=== PATIENT | female | born 1945 | race Caucasian/White ===

== ENCOUNTER 2017-12-13 10:25 | Inpatient (IN) | payer OTHER ==
[2017-12-13 10:40] VITALS: BMI 19.8
[2017-12-13] MEDS ORDERED: morphine CARPU-JECT 4 MG/1 ML DISP.SYRIN IVPUSH ONE (11:30)
[2017-12-13] MEDS ORDERED: morphine SULFATE 4 MG/ML VIAL ONE (11:49)
[2017-12-13 12:16] LABS: BASO % 0.2 % (0-2.0); EOS % 0.3 % (0-4.5); HEMATOCRIT 39.8 % (32.4-45.2); HEMOGLOBIN 13.1 GM/dL (10.7-15.3); MCH 31.6 pg (25.7-33.7); MEAN CELL VOLUME 95.9 fl (80-96); MEAN PLT VOLUME 7.9 fl (7.5-11.1); MONO % 4.2 % (3.8-10.2); NEUT % 84.3 % (42.8-82.8); PLATELET COUNT 290 K/MM3 (134-434); RBC 4.15 M/mm3 (3.60-5.2); RDW 12.9 % (11.6-15.6); WHITE BLOOD COUNT 15.3 K/mm3 (4.0-10.0)
[2017-12-13 12:28] LABS: INR 0.93 (0.83-1.09); PROTHROMBIN TIME (PATIENT) 10.5 SEC (9.7-13.0)
[2017-12-13 12:38] LABS: ALBUMIN 3.9 g/dl (3.4-5.0); ANION GAP 9 MMOL/L (8-16); BILIRUBIN,TOTAL 0.4 mg/dL (0.2-1.0); BLOOD UREA NITROGEN 16 mg/dL (7-18); CALCIUM 9.6 mg/dL (8.5-10.1); CHLORIDE 109 mmol/L (98-107); CO2 24 mmol/L (21-32); CREATININE 0.6 mg/dL (0.55-1.02); GLUCOSE,RANDOM 114 mg/dL (74-106); POTASSIUM 4.1 mmol/L (3.5-5.1); SGOT/AST 13 U/L (15-37); SGPT/ALT 22 U/L (12-78); SODIUM 142 mmol/L (136-145); TOT PROT 7.3 g/dl (6.4-8.2)
[2017-12-13 12:39] LABS: ALK PHOS 78 U/L (45-117)
--- NOTE | 2017-12-13 13:09 | PDOC ---
History of Present Illness <Dennis Naik - Last Filed: 12/13/17 15:08> - History of Present Illness Initial Comments: Patient is a 72 year old female with PMHx of Multiple Sclerosis (dx 38 years ago ), who was BIBA and presents to the ED s/p mechanical fall. Patient states that she was in her bathroom and was fanning the smoke detector since it went off when she fell backwards. She denies, hitting her head, neck or loss of consciousness. She is now complaining of her chronic right sided leg spasms that are circumferential. Her health care proxy states that her right leg has always been shorter and turned outwards for a while now. She states that she was on short course steroids in the past for her MS but stopped taking them 3 years ago. Denies h/o orthopedic surgery. Normally ambulates with a cane. Allergies: denies Social Hx: Smokes ppd since age 15 Neurologist: Dr. Cohn. <Narda Douglass - Last Filed: 12/13/17 15:31> - General Chief Complaint: Injury Stated Complaint: FALL Time Seen by Provider: 12/13/17 11:13 Past History - Past Medical History CVA: No COPD: No Other medical history: ms - Surgical History Abdominal Surgery: Yes ( A CHILD) - Suicide/Smoking/Psychosocial Hx Smoking History: Current every day smoker Have you smoked in the past 12 months: Yes Number of Cigarettes Smoked Daily: 10 Information on smoking cessation initiated: No Hx Alcohol Use: No Drug/Substance Use Hx: No <Dennis Naik - Last Filed: 12/13/17 15:08> <Narda Douglass - Last Filed: 12/13/17 15:31> - Past Medical History Allergies/Adverse Reactions: Allergies Allergy/AdvReac Type Severity Reaction Status Date / Time No Known Allergies Allergy Verified 12/13/17 10:33 Home Medications: Ambulatory Orders NK [No Known Home Medication] 12/13/17 Review of Systems - Review of Systems Comments:: CONSTITUTIONAL: No fever, no chills, no fatigue EYES: No visual changes ENT: No ear pain, no sore throat CARDIOVASCULAR: No chest pain, no palpitations RESPIRATORY: No cough, no SOB GI: No abdominal pain, no nausea, no vomiting, no constipation, no diarrhea GENITOURINARY: No dysuria, no frequency, no hematuria MUSKULOSKELETAL: + right legs spasms. +right thigh pain. No back pain, no joint pain. SKIN: No rash NEURO: No headache <EvonneNarda - Last Filed: 12/13/17 15:31> *Physical Exam - Vital Signs Last Vital Signs Temp Pulse Resp BP Pulse Ox 97.7 F 96 H 18 131/58 96 12/13/17 10:33 12/13/17 10:33 12/13/17 10:33 12/13/17 10:33 12/13/17 10:33 <Dennis Naik - Last Filed: 12/13/17 15:08> - Vital Signs Last Vital Signs Temp Pulse Resp BP Pulse Ox 97.7 F 96 H 18 131/58 96 12/13/17 10:33 12/13/17 10:33 12/13/17 10:33 12/13/17 10:33 12/13/17 10:33 - Physical Exam Comments: CONSTITUTIONAL: Well-appearing; well-nourished; in no apparent distress HEAD: Normocephalic; atraumatic EYES: PERRL; EOM intact ENMT: External appears normal; normal oropharynx NECK: Supple; nontender; no cervical lymphadenopathy CARD: Normal S1, S2; no murmurs, rubs, or gallops RESP: Normal chest excursion with respiration; breath sounds clear and equal bilaterally; no wheezes, rhonchi, or rales ABD: Soft, non-distended; non-tender; no palpable organomegaly, no palpable hernias EXT: RLE shortened and externally rotated. Tenderness to proximal femur with pain on log rule of extremity. Normal ROM in all four extremities; non-tender to palpation; distal pulses intact SKIN: Warm, dry, no rash NEURO: No focal neurological deficiencies. <EvonneNarda - Last Filed: 12/13/17 15:31> Heart Score/ECG Review - ECG Intrepretation Comment:: EKG interpretation (done on 13-Dec-2017 10:45:40 am) Abnormal EKG Vent. rate 86 bpm Normal sinus rhythm Inferior & Anterior infarct <Narda Douglass - Last Filed: 12/13/17 15:31> ED Treatment Course - LABORATORY CBC & Chemistry Diagram: 12/13/17 12:07 12/13/17 12:07 - ADDITIONAL ORDERS Additional order review: Laboratory Results 12/13/17 12/13/17 12:07 12:07 PT with INR 10.50 INR 0.93 Sodium 142 Potassium 4.1 Chloride 109 H Carbon Dioxide 24 Anion Gap 9 BUN 16 Creatinine 0.6 Creat Clearance w eGFR > 60 Random Glucose 114 H Calcium 9.6 Total Bilirubin 0.4 AST 13 L ALT 22 Alkaline Phosphatase 78 Total Protein 7.3 Albumin 3.9 12/13/17 12:07 RBC 4.15 MCV 95.9 MCHC 33.0 RDW 12.9 MPV 7.9 Neutrophils % 84.3 H Lymphocytes % 11.0 Monocytes % 4.2 Eosinophils % 0.3 Basophils % 0.2 - RADIOLOGY Radiology Studies Ordered: Category Date Time Status LOWER EXTREMITY CT W/O CONTR [CT] Stat CT Scan 12/13/17 13:05 Ordered CHEST - PA [RAD] Stat Radiology 12/13/17 11:29 Completed HIP & PELVIS-RIGHT [RAD] Stat Radiology 12/13/17 11:29 Completed - Medications Given in the ED: ED Medications Discontinued Medications Generic Name Dose Route Start Last Admin Trade Name Freq PRN Reason Stop Dose Admin Morphine Sulfate 4 mg 12/13/17 11:30 12/13/17 12:28 Morphine Injection - IVPUSH 12/13/17 11:31 4 mg ONCE ONE Administration <Dennis Naik - Last Filed: 12/13/17 15:08> - LABORATORY CBC & Chemistry Diagram: 12/13/17 12:07 12/13/17 12:07 - ADDITIONAL ORDERS Additional order review: Laboratory Results 12/13/17 12/13/17 12:07 12:07 PT with INR 10.50 INR 0.93 Sodium 142 Potassium 4.1 Chloride 109 H Carbon Dioxide 24 Anion Gap 9 BUN 16 Creatinine 0.6 Creat Clearance w eGFR > 60 Random Glucose 114 H Calcium 9.6 Total Bilirubin 0.4 AST 13 L ALT 22 Alkaline Phosphatase 78 Total Protein 7.3 Albumin 3.9 12/13/17 12:07 RBC 4.15 MCV 95.9 MCHC 33.0 RDW 12.9 MPV 7.9 Neutrophils % 84.3 H Lymphocytes % 11.0 Monocytes % 4.2 Eosinophils % 0.3 Basophils % 0.2 - Medications Given in the ED: ED Medications Discontinued Medications Generic Name Dose Route Start Last Admin Trade Name Freq PRN Reason Stop Dose Admin Morphine Sulfate 4 mg 12/13/17 11:30 12/13/17 12:28 Morphine Injection - IVPUSH 12/13/17 11:31 4 mg ONCE ONE Administration - Additional Consults Time Called: 15:30 (Repaged Lent/Rene - Ortho) <Narda Douglass - Last Filed: 12/13/17 15:31> Medical Decision Making - Medical Decision Making 12/13/17 15:08 Patient is 72-year-old female with history of MS, on no MS related medication of presents with signs and symptoms of right hip fracture. X-ray reveals nondisplaced O fracture of the right femur which was confirmed by CT. We'll place Mitchell catheter. We will administer pain meds. We'll consult or throat. Will admit. <Dennis Naik - Last Filed: 12/13/17 15:08> *DC/Admit/Observation/Transfer - Discharge Dispostion Decision to Admit order: Yes - Attestations Physician Attestion: 12/13/17 15:08 The documentation was prepared by the scribe under my direct supervision. I have reviewed the documentation which correctly represents the findings, medical decision-making and critical action taken by me. <Dennis Naik - Last Filed: 12/13/17 15:08> - Attestations Scribe Attestion: 12/13/17 13:38 Documentation prepared by Narda Douglass, acting as hospital medical assistant for Dennis Naik MD. <Narda Douglass - Last Filed: 12/13/17 15:31> Diagnosis at time of Disposition: Hip fracture, right Qualifiers: Encounter type: initial encounter Fracture type: closed Qualified Code(s): S72.001A - Fracture of unspecified part of neck of right femur, initial encounter for closed fracture - Discharge Dispostion Condition at time of disposition: Fair
[2017-12-13 13:34] LABS: URINE APPEARANCE CLEAR; URINE BILIRUBIN NEGATIVE (<2.0 mg/dL); URINE COLOR YELLOW; URINE GLUCOSE (UA) NEGATIVE (NEGATIVE); URINE KETONE NEGATIVE (NEGATIVE); URINE LEUK ESTERASE NEGATIVE (NEGATIVE); URINE NITRITE POSITIVE (NEGATIVE); URINE PROTEIN NEGATIVE (NEGATIVE); URINE UROBILINOGEN NEGATIVE mg/dL (0.2-1.0)
[2017-12-13 13:40] LABS: URINE BACTERIA RARE /hpf (NONE SEEN); URINE MUCUS RARE
--- NOTE | 2017-12-13 13:48 | EKG ---
Test Reason : Blood Pressure : / mmHG Vent. Rate : 086 BPM Atrial Rate : 086 BPM P-R Int : 168 ms QRS Dur : 102 ms QT Int : 384 ms P-R-T Axes : 044 -42 064 degrees QTc Int : 459 ms NORMAL SINUS RHYTHM LEFT AXIS DEVIATION INFERIOR INFARCT , AGE UNDETERMINED ANTERIOR INFARCT (CITED ON OR BEFORE 19-JUN-1998) ABNORMAL ECG WHEN COMPARED WITH ECG OF 19-JUN-1998 13:37, INFERIOR INFARCT IS NOW PRESENT QUESTIONABLE CHANGE IN INITIAL FORCES OF ANTERIOR LEADS Confirmed by JC BAIG, OLEGARIO ([id number]) on 12/13/2017 1:48:30 PM Referred By: Confirmed By:OLEGARIO GREENE MD
[2017-12-13] MEDS ORDERED: morphine CARPU-JECT 2 MG/1 ML DISP.SYRIN IVPUSH ONE (15:05)
[2017-12-13] MEDS ORDERED: MORPHINE SULFATE 2 MG/ML VIAL ONE (15:36)
--- NOTE | 2017-12-13 16:16 | PN ---
Progress Note (short form) - Note Progress Note: Pt seen and examined in ER. She is a 72 year old female pt s/p fall today. Has MS, untreated for the past 3 years. Not on steroids currently, or blood thinners. Usually can ambulate with a cane. Right side is affected by MS, poorer balance and strength. C/o pain in the right hip, thigh, anterior groin. PE RLE at her NV baseline. Intact sensation throughout Can flex and extend toes, knee, foot, ankle No obvious deformity Xrays Show a nondisplaced femoral neck fracture with a vertical component. Ct Scan Shows the same, confirms a mildly impacted right femoral neck fracture, vertical component hard to visualize. Imp 72 yo F with MS s/p fall today with a nondisplaced, mildly impacted right femoral neck fracture. Rec Surgery tomorrow, likely cannulated screws. Medical clearance NPO sfter midnight tonight
--- NOTE | 2017-12-13 19:19 | HP ---
Admitting History and Physical - Primary Care Physician PCP: Donna Wood - Admission History of Present Illness: 72 year old female with PMHx of Multiple Sclerosis (dx 38 years ago), who was BIBA and presents to the ED s/p mechanical fall. Patient states that she was in her bathroom and was fanning the smoke detector since it went off when she fell backwards. She denies, hitting her head, neck or loss of consciousness. She is now complaining of her chronic right sided leg spasms that are circumferential. Her health care proxy states that her right leg has always been shorter and turned outwards for a while now. She states that she was on short course steroids in the past for her MS but stopped taking them 3 years ago. - Smoking History Smoking history: Current every day smoker Have you smoked in the past 12 months: Yes Aproximately how many cigarettes per day: 10 - Alcohol/Substance Use Hx Alcohol Use: No Home Medications - Allergies Allergies/Adverse Reactions: Allergies Allergy/AdvReac Type Severity Reaction Status Date / Time No Known Allergies Allergy Verified 12/13/17 10:33 - Home Medications Home Medications: Ambulatory Orders Enoxaparin [Lovenox -] 40 mg SQ DAILY disp.syrin 12/15/17 Physical Examination Vital Signs: Vital Signs Temperature 98.3 F 12/13/17 15:10 Pulse Rate 114 H 12/13/17 17:10 Respiratory Rate 18 12/13/17 17:10 Blood Pressure 106/62 12/13/17 17:10 O2 Sat by Pulse Oximetry (%) 96 12/13/17 17:10 Constitutional: Yes: No Distress HENT: Yes: Atraumatic Neck: Yes: Supple Cardiovascular: Yes: Regular Rate and Rhythm Respiratory: Yes: CTA Bilaterally Edema: Yes Edema: RLE: Trace Neurological: Yes: Alert, Oriented Labs: CBC, BMP 12/13/17 12:07 12/13/17 12:07 Problem List - Problems (1) Hip fracture, right Code(s): S72.001A - FRACTURE OF UNSP PART OF NECK OF RIGHT FEMUR, INIT Qualifiers: Encounter type: initial encounter Fracture type: closed Qualified Code(s) : S72.001A - Fracture of unspecified part of neck of right femur, initial encounter for closed fracture Assessment/Plan Laboratory Tests 12/13/17 12/13/17 12/13/17 12:07 12:07 12:07 WBC 15.3 H RBC 4.15 Hgb 13.1 Hct 39.8 MCV 95.9 MCH 31.6 MCHC 33.0 RDW 12.9 Plt Count 290 MPV 7.9 Absolute Neuts (auto) 12.9 H Neutrophils % 84.3 H Lymphocytes % 11.0 Monocytes % 4.2 Eosinophils % 0.3 Basophils % 0.2 Nucleated RBC % 0 PT with INR 10.50 INR 0.93 Sodium 142 Potassium 4.1 Chloride 109 H Carbon Dioxide 24 Anion Gap 9 BUN 16 Creatinine 0.6 Creat Clearance w eGFR > 60 Random Glucose 114 H Calcium 9.6 Total Bilirubin 0.4 AST 13 L ALT 22 Alkaline Phosphatase 78 Total Protein 7.3 Albumin 3.9 Urine Color Urine Appearance Urine pH Ur Specific [place] Urine Protein Urine Glucose (UA) Urine Ketones Urine Blood Urine Nitrite Urine Bilirubin Urine Urobilinogen Ur Leukocyte Esterase Urine WBC (Auto) Urine RBC (Auto) Urine Bacteria Urine Mucus Blood Type Antibody Screen 12/13/17 12/13/17 12:07 13:30 WBC RBC Hgb Hct MCV MCH MCHC RDW Plt Count MPV Absolute Neuts (auto) Neutrophils % Lymphocytes % Monocytes % Eosinophils % Basophils % Nucleated RBC % PT with INR INR Sodium Potassium Chloride Carbon Dioxide Anion Gap BUN Creatinine Creat Clearance w eGFR Random Glucose Calcium Total Bilirubin AST ALT Alkaline Phosphatase Total Protein Albumin Urine Color Yellow Urine Appearance Clear Urine pH 5.0 Ur Specific [place] 1.021 Urine Protein Negative Urine Glucose (UA) Negative Urine Ketones Negative Urine Blood 2+ H Urine Nitrite Positive Urine Bilirubin Negative Urine Urobilinogen Negative Ur Leukocyte Esterase Negative Urine WBC (Auto) 1 Urine RBC (Auto) <1 Urine Bacteria Rare Urine Mucus Rare Blood Type O POSITIVE Antibody Screen Negative Active Medications Generic Name Dose Route Start Last Admin Trade Name Freq PRN Reason Stop Dose Admin Pneumococcal 13-Valent Conj Vacc 0.5 ml 12/13/17 20:00 Prevnar 13 Syringe - IM 12/13/17 20:01 .ONCE ONE Active Medications Generic Name Dose Route Start Last Admin Trade Name Freq PRN Reason Stop Dose Admin Acetaminophen 650 mg 12/15/17 13:07 12/15/17 18:50 Tylenol - PO 650 mg Q6H PRN Administration FEVER Cyclobenzaprine HCl 10 mg 12/15/17 13:07 12/15/17 14:06 Flexeril - PO 10 mg TID PRN Administration MUSCLE SPASMS Enoxaparin Sodium 40 mg 12/16/17 10:00 Lovenox - SQ DAILY [facility] Cefazolin Sodium 1 gm/ 50 mls @ 100 mls/hr 12/15/17 19:00 12/15/17 18:49 Dextrose IVPB 12/16/17 03:29 Not Given Q8H DESIRE Sodium Chloride 1,000 mls @ 75 mls/hr 12/15/17 13:07 12/15/17 14:05 Normal Saline - IV 75 mls/hr ASDIR DESIRE Administration Morphine Sulfate 4 mg 12/15/17 13:07 12/15/17 17:24 Morphine Sulfate IVPUSH 4 mg Q4H PRN Administration PAIN LEVEL 7 - 10 Ondansetron HCl 4 mg 12/15/17 12:49 Zofran Injection IVPUSH Q6H PRN NAUSEA AND/OR VOMITING Oxycodone HCl 5 mg 12/15/17 12:49 Roxicodone - PO 12/16/17 12:48 Q4H PRN PAIN LEVEL 1-5 Oxycodone HCl 10 mg 12/15/17 13:07 Roxicodone - PO Q6H PRN PAIN LEVEL 4 - 6 Promethazine HCl 12.5 mg 12/15/17 12:49 Phenergan Injection - IVPUSH Q6H PRN NAUSEA-FOR RESCUE AFTER 15 MIN
[2017-12-13] MEDS: oxyCODONE HCL 5 MG TABLET PO PRN (19:26)
[2017-12-13] MEDS ORDERED: PNEUMOC 13-VAL CONJ-DIP CRM/PF 0.5 ML DISP.SYRIN IM ONE (20:00)
[2017-12-13] MEDS: HEPARIN NA (PORCINE) 5,000 UNITS/ML 1ML VIAL SQ SCH (21:54)
[2017-12-14] MEDS: oxyCODONE HCL 5 MG TABLET PO PRN ×4 (01:14→20:04)
[2017-12-14] MEDS ORDERED: CYCLOBENZAPRINE HCL 10 MG TABLET (FP) PO ONE (02:00)
[2017-12-14 07:05] LABS: BASO % 0.6 % (0-2.0); EOS % 0.4 % (0-4.5); HEMOGLOBIN 13.2 GM/dL (10.7-15.3); LYMPH % 11.8 % (8-40); MCH 32.1 pg (25.7-33.7); MCHC 33.8 g/dl (32.0-36.0); MEAN CELL VOLUME 95.2 fl (80-96); MONO % 6.7 % (3.8-10.2); NEUT % 80.5 % (42.8-82.8); PLATELET COUNT 272 K/MM3 (134-434); RDW 12.8 % (11.6-15.6); WHITE BLOOD COUNT 13.7 K/mm3 (4.0-10.0)
[2017-12-14 07:38] LABS: CHLORIDE 112 mmol/L (98-107); POTASSIUM 3.8 mmol/L (3.5-5.1); SODIUM 143 mmol/L (136-145)
[2017-12-14 07:44] LABS: ALBUMIN 3.6 g/dl (3.4-5.0); ALK PHOS 77 U/L (45-117); ANION GAP 9 MMOL/L (8-16); BILIRUBIN,TOTAL 0.7 mg/dL (0.2-1.0); BLOOD UREA NITROGEN 15 mg/dL (7-18); CALCIUM 9.6 mg/dL (8.5-10.1); CO2 22 mmol/L (21-32); CREATININE 0.7 mg/dL (0.55-1.02); GLUCOSE,RANDOM 130 mg/dL (74-106); SGOT/AST 15 U/L (15-37); SGPT/ALT 18 U/L (13-61)
--- NOTE | 2017-12-14 09:53 | PN ---
Progress Note (short form) - Note Progress Note: Ortho Pt seen and examined s/p right femoral neck fx Selected Entries 12/13/17 12/14/17 21:00 06:00 Temperature 98.8 F Pulse Rate 120 H Respiratory 18 Rate Blood Pressure 124/63 + ttp, decr rom, nvi a/p OR tomorrow if cleared surgical clearance NPO after midnight d/w Dr. López
[2017-12-14] MEDS: HEPARIN NA (PORCINE) 5,000 UNITS/ML 1ML VIAL SQ SCH ×2 (09:56→21:44)
[2017-12-14] MEDS ORDERED: MORPHINE SULFATE 2 MG/ML VIAL IVPUSH PRN (10:48)
[2017-12-14] MEDS: ACETAMINOPHEN 325 MG TABLET (FP) PO PRN ×2 (13:45→21:45)
--- NOTE | 2017-12-14 18:37 | CON.CARD ---
Consult Consult Specialty:: Cardiology Referred by:: Dr. Leonard Reason for Consultation:: Preop for hip surgery - History of Present Illness Chief Complaint: S/p fall with hip fracture. History of Present Illness: 72 year old woman with a PMHx of multiple sclerosis presented to ED 12/13/2017 after a mechanical fall without LOC. She was found to have right femoral neck fracture. Seen by ortho. Surgery, likely cannulated screws planned. She has baseline ECG abnormalities with left axis deviation and Q waves in inferior and anterior leads from ECG on 12/13/2017. But the patient has no history of CAD, [place] or CHF. She denies chest pain, SOB, palpitation, syncope, edema, orthopnea or PND. Her exercise tolerance is greater than 4 METs, walk uphill 2 blocks without exertional chest pain. 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) Musculoskeletal: Yes: Other (Right hip fx) - Alcohol/Substance Use Hx Alcohol Use: No - Smoking History Smoking history: Current every day smoker Have you smoked in the past 12 months: Yes Aproximately how many cigarettes per day: 10 Home Medications - Allergies Allergies/Adverse Reactions: Allergies Allergy/AdvReac Type Severity Reaction Status Date / Time No Known Allergies Allergy Verified 12/13/17 10:33 - Home Medications Home Medications: Ambulatory Orders NK [No Known Home Medication] 12/13/17 Review of Systems - Review of Systems Constitutional: reports: No Symptoms Eyes: reports: No Symptoms HENT: reports: No Symptoms Neck: reports: No Symptoms Cardiovascular: reports: No Symptoms Respiratory: reports: No Symptoms Gastrointestinal: reports: No Symptoms Genitourinary: reports: No Symptoms Breasts: reports: No Symptoms Reported Musculoskeletal: reports: Extremity Pain, Joint Pain, Other Integumentary: reports: No Symptoms Neurological: reports: Unsteady Gait, Weakness Endocrine: reports: No Symptoms Hematology/Lymphatic: reports: No Symptoms Psychiatric: reports: No Symptoms Vital Signs: Vital Signs Temperature 98.4 F 12/14/17 14:23 Pulse Rate 70 12/14/17 14:23 Respiratory Rate 20 12/14/17 08:00 Blood Pressure 121/70 12/14/17 14:32 O2 Sat by Pulse Oximetry (%) 96 12/14/17 08:00 General: Well developed. Well nourished. No acute distress. Head: Normocephalic. Atraumatic, Eyes: PERRLA, EOMI. Sclerae anicteric. Conjunctivae clear. Neck: Supple. No JVD. No bruits. Heart: Normal S1, S2: Regularly regular rhythm and rate. I-II/ NEHA at RUB without radiation. A2 is normal. No gallop or rub. Lungs: Symmetrical air entry. Clear to auscultation. No crackle. No wheezing or rhonchi. Abdomen: Soft. Bowel sound positive. Non tender. No masses. Extremities: No edema. No clubbing or cyanosis. PD 2+, equal bilaterally. Neuro: Intact, no focal findings. AAO X3. - Other Data Labs, Other Data: CBC, BMP 12/14/17 06:30 12/14/17 06:30 INR, PTT INR 0.93 (0.83-1.09) 12/13/17 12:07 Imaging - Results EKG: Image Reviewed (ECG 12/13/2017: Sinus rhythm, LAD, Q wave in inferior and anterior leads. Normal ST and T.) Assessment/Plan 72 year old woman with a PMHx of multiple sclerosis presented to ED 12/13/2017 after a mechanical fall without LOC. She was found to have right femoral neck fracture. Seen by ortho. Surgery, likely cannulated screws planned. Baseline ECG abnormalities with left axis deviation and Q waves in inferior and anterior leads from ECG on 12/13/2017. But the patient has no history of CAD, [place] or CHF. No symptoms of angina or CHF. Her exercise tolerance is greater than 4 METs. 1) Preoperative cardiac risk assessment: The patient has no history of CAD, [place] or CHF. No symptoms of angina or CHF. Her exercise tolerance is greater than 4 METs. No ECG evidence of ischemia. Therefore, she is at low risk of cardiac complication for the planned intermediate risk hip operation. There is no direct cardiac contraindication to the operation. She is medically optimized. No further cardiac test recommended before the operation. 2) Baseline ECG abnormalities, likely chronic. But no ischemic changes. Out-pt cardiac follow up. We will see the patient post op as needed. Please call us for reconsult as needed.
[2017-12-14] MEDS: CYCLOBENZAPRINE HCL 10 MG TABLET (FP) PO PRN ×2 (18:46→21:47)
--- NOTE | 2017-12-14 18:58 | PN ---
Progress Note, Physician - Current Medication List Current Medications: Active Medications Acetaminophen (Tylenol -) 650 mg PO Q6H PRN PRN Reason: FEVER Last Admin: 12/14/17 13:45 Dose: 650 mg Cyclobenzaprine HCl (Flexeril -) 10 mg PO TID PRN PRN Reason: MUSCLE SPASMS Last Admin: 12/14/17 18:46 Dose: 10 mg Heparin Sodium (Porcine) (Heparin -) 5,000 unit SQ BID DESIRE Last Admin: 12/14/17 09:56 Dose: 5,000 unit Morphine Sulfate (Morphine Sulfate) 4 mg IVPUSH Q4H PRN PRN Reason: PAIN LEVEL 7 - 10 Oxycodone HCl (Roxicodone -) 10 mg PO Q6H PRN PRN Reason: PAIN LEVEL 4 - 6 Last Admin: 12/14/17 13:44 Dose: 10 mg - Objective Vital Signs: Vital Signs Temperature 98.4 F 12/14/17 14:23 Pulse Rate 70 12/14/17 14:23 Respiratory Rate 20 12/14/17 08:00 Blood Pressure 121/70 12/14/17 14:32 O2 Sat by Pulse Oximetry (%) 96 12/14/17 08:00 Constitutional: Yes: No Distress HENT: Yes: Atraumatic Neck: Yes: Supple Cardiovascular: Yes: Regular Rate and Rhythm Respiratory: Yes: CTA Bilaterally Gastrointestinal: Yes: Normal Bowel Sounds Extremities: Yes: External Rotation Edema: RLE: 1+ Neurological: Yes: Alert, Oriented Labs: CBC, BMP 12/14/17 06:30 12/14/17 06:30 INR, PTT INR 0.93 (0.83-1.09) 12/13/17 12:07 Problem List - Problems (1) Hip fracture, right Assessment/Plan: for surgery tomorrow cleared by cardiology prn pain meds dvt ppx Code(s): S72.001A - FRACTURE OF UNSP PART OF NECK OF RIGHT FEMUR, INIT Qualifiers: Encounter type: initial encounter Fracture type: closed Qualified Code(s) : S72.001A - Fracture of unspecified part of neck of right femur, initial encounter for closed fracture
[2017-12-14] MEDS ORDERED: CEFTRIAXONE 1 GM in DEXTROSE 5%-WATER - 50 ML IVPB SCH (19:15)
[2017-12-14] MEDS ORDERED: cefTRIAXone SODIUM 1 GM VIAL ONE (19:52)
[2017-12-14] MEDS ORDERED: DEXTROSE 5%-WATER - 50 ML IVPB ONE (19:52)
[2017-12-14] MEDS: morphine SULFATE 4 MG/ML VIAL IVPUSH PRN (21:43)
[2017-12-15] MEDS ORDERED: SODIUM CHLORIDE 1,000 ML IV SCH (00:45)
[2017-12-15] MEDS: oxyCODONE HCL 5 MG TABLET PO PRN (04:33)
[2017-12-15 07:20] LABS: BASO % 0.8 % (0-2.0); EOS % 2.2 % (0-4.5); HEMOGLOBIN 12.2 GM/dL (10.7-15.3); LYMPH % 26.9 % (8-40); MCH 32.5 pg (25.7-33.7); MCHC 33.8 g/dl (32.0-36.0); MEAN CELL VOLUME 96.2 fl (80-96); MEAN PLT VOLUME 8.3 fl (7.5-11.1); MONO % 9.4 % (3.8-10.2); NEUT % 60.7 % (42.8-82.8); PLATELET COUNT 248 K/MM3 (134-434); RBC 3.74 M/mm3 (3.60-5.2); RDW 12.7 % (11.6-15.6); WHITE BLOOD COUNT 8.6 K/mm3 (4.0-10.0)
[2017-12-15 07:54] LABS: CHLORIDE 106 mmol/L (98-107); POTASSIUM 3.9 mmol/L (3.5-5.1); SODIUM 139 mmol/L (136-145)
[2017-12-15 08:01] LABS: ALK PHOS 68 U/L (45-117); ANION GAP 9 MMOL/L (8-16); BILIRUBIN,TOTAL 0.4 mg/dL (0.2-1.0); BLOOD UREA NITROGEN 21 mg/dL (7-18); CO2 24 mmol/L (21-32); GLUCOSE,RANDOM 108 mg/dL (74-106); SGOT/AST 21 U/L (15-37); SGPT/ALT 15 U/L (13-61); TOT PROT 6.3 g/dl (6.4-8.2)
[2017-12-15] MEDS: morphine SULFATE 4 MG/ML VIAL IVPUSH PRN ×3 (09:49→22:41)
[2017-12-15] MEDS: HEPARIN NA (PORCINE) 5,000 UNITS/ML 1ML VIAL SQ SCH (10:14)
[2017-12-15] MEDS ORDERED: PROPOFOL 20 ML ONE (11:54)
[2017-12-15] MEDS ORDERED: ceFAZolin SODIUM 1 GM VIAL ONE ×2 (11:54→17:18)
[2017-12-15] MEDS ORDERED: LIDOCAINE HCL/PF 2% SDV 5ML VIAL ONE (11:54)
--- NOTE | 2017-12-15 12:38 | OP ---
Operative Note - Note: Operative Date: 12/15/17 ([facility]) Pre-Operative Diagnosis: right femoral neck fx Operation: right hip cannulated screws Post-Operative Diagnosis: Same as Pre-op Surgeon: Martín Erazo Anesthesiologist/FIELD REP: Jaylan Viera Anesthesia: General Estimated Blood Loss (mls): 10 Operative Report Dictated: Yes
[2017-12-15] MEDS ORDERED: oxyCODONE HCL 5 MG TABLET PO PRN (12:49)
[2017-12-15] MEDS ORDERED: ONDANSETRON 4 MG/2 ML VIAL IVPUSH PRN (12:49)
[2017-12-15] MEDS ORDERED: PROMETHAZINE HCL 25 MG/1 ML VIAL IVPUSH PRN (12:49)
[2017-12-15] MEDS ORDERED: LACTATED RINGERS SOLUTION 1,000 ML IV SCH (13:00)
[2017-12-15] MEDS ORDERED: CYCLOBENZAPRINE HCL 10 MG TABLET (FP) PO PRN (13:07)
[2017-12-15] MEDS: SODIUM CHLORIDE 1,000 ML IV SCH (14:05)
[2017-12-15] MEDS ORDERED: DEXTROSE 5%-WATER - 50 ML IVPB ONE (17:19)
--- NOTE | 2017-12-15 17:44 | PN ---
Progress Note, Physician History of Present Illness: S/P SURGERY - Current Medication List Current Medications: Active Medications Acetaminophen (Tylenol -) 650 mg PO Q6H PRN PRN Reason: FEVER Cyclobenzaprine HCl (Flexeril -) 10 mg PO TID PRN PRN Reason: MUSCLE SPASMS Last Admin: 12/15/17 14:06 Dose: 10 mg Enoxaparin Sodium (Lovenox -) 40 mg SQ DAILY [facility]IRE Cefazolin Sodium 1 gm/ (Dextrose) 50 mls @ 100 mls/hr IVPB Q8H DESIRE Stop: 12/16/17 03:29 Sodium Chloride (Normal Saline -) 1,000 mls @ 75 mls/hr IV ASDIR DESIRE Last Admin: 12/15/17 14:05 Dose: 75 mls/hr Morphine Sulfate (Morphine Sulfate) 4 mg IVPUSH Q4H PRN PRN Reason: PAIN LEVEL 7 - 10 Last Admin: 12/15/17 17:24 Dose: 4 mg Ondansetron HCl (Zofran Injection) 4 mg IVPUSH Q6H PRN PRN Reason: NAUSEA AND/OR VOMITING Oxycodone HCl (Roxicodone -) 5 mg PO Q4H PRN PRN Reason: PAIN LEVEL 1-5 Stop: 12/16/17 12:48 Oxycodone HCl (Roxicodone -) 10 mg PO Q6H PRN PRN Reason: PAIN LEVEL 4 - 6 Promethazine HCl (Phenergan Injection -) 12.5 mg IVPUSH Q6H PRN PRN Reason: NAUSEA-FOR RESCUE AFTER 15 MIN - Objective Vital Signs: Vital Signs Temperature 98.2 F 12/15/17 15:30 Pulse Rate 83 12/15/17 15:30 Respiratory Rate 20 12/15/17 15:30 Blood Pressure 157/80 12/15/17 15:30 O2 Sat by Pulse Oximetry (%) 97 12/15/17 15:30 Constitutional: Yes: No Distress HENT: Yes: Atraumatic Neck: Yes: Supple Cardiovascular: Yes: Regular Rate and Rhythm Respiratory: Yes: CTA Bilaterally Gastrointestinal: Yes: Normal Bowel Sounds Extremities: Yes: WNL Wound/Incision: Yes: Clean/Dry Neurological: Yes: Alert, Oriented Labs: CBC, BMP 12/15/17 06:30 12/15/17 06:30 INR, PTT INR 0.93 (0.83-1.09) 12/13/17 12:07 Problem List - Problems (1) Hip fracture, right Assessment/Plan: s/p surgery prn pain meds dvt ppx Code(s): S72.001A - FRACTURE OF UNSP PART OF NECK OF RIGHT FEMUR, INIT Qualifiers: Encounter type: initial encounter Fracture type: closed Qualified Code(s) : S72.001A - Fracture of unspecified part of neck of right femur, initial encounter for closed fracture
[2017-12-15] MEDS: CEFAZOLIN 1 GM in DEXTROSE 5%-WATER - 50 ML IVPB SCH ×2 (17:58→18:49)
[2017-12-15] MEDS: ACETAMINOPHEN 325 MG TABLET (FP) PO PRN (18:50)
[2017-12-15] MEDS ORDERED: CEFAZOLIN 1 GM/D5W 50 ML IVPB SCH (19:00)
[2017-12-16] MEDS ORDERED: ceFAZolin SODIUM 1 GM VIAL ONE (01:50)
[2017-12-16] MEDS ORDERED: DEXTROSE 5%-WATER - 50 ML IVPB ONE (01:50)
[2017-12-16] MEDS: SODIUM CHLORIDE 1,000 ML IV SCH ×2 (02:04→16:02)
[2017-12-16] MEDS: oxyCODONE HCL 5 MG TABLET PO PRN ×2 (02:05→15:21)
[2017-12-16] MEDS: CEFAZOLIN 1 GM in DEXTROSE 5%-WATER - 50 ML IVPB SCH (02:05)
--- NOTE | 2017-12-16 07:30 | OP ---
DATE OF OPERATION: 12/15/2017 PREOPERATIVE DIAGNOSIS: Impacted right femoral neck fracture. POSTOPERATIVE DIAGNOSIS: Impacted right femoral neck fracture. PROCEDURE: Right hip cannulated screws. SURGICAL ATTENDING: Martín Erazo MD BREAD PAN GREASER: INDERJIT Johnston ANESTHESIA: LMA. CLOSURE: Three Thierry 6.5 cannulated screws, 2-0 Vicryl for fascia subcutaneous and Steri-Strips for skin. ESTIMATED BLOOD LOSS: Negligible. COMPLICATIONS: None. CONDITION: To recovery room in stable condition. DESCRIPTION OF PROCEDURE: Patient was taken to the operating room on December 15, 2017. General anesthesia with LMA was administered by the anesthesiologist. IV Kefzol was administered prophylactically prior to the case. Patient was fastened to the fracture table with all prominences well padded. Excellent position of the fracture was confirmed in the AP and lateral planes by using the image intensifier. The right hip area was prepped and draped in the usual sterile fashion. A 1-inch longitudinal incision over the lateral aspect of the thigh was incised and hemostasis was achieved with Bovie cautery. Sharp dissection was carried through the fascia. Periosteal elevator was used to clear the periosteum off the lateral aspect of the femur. Three guidewires from the 6.5 Thierry Cannulated Screw System were drilled in from the lateral aspect of the femur, through the femoral neck, into the femoral head in a triangular formation and parallel orientation, 2 were posterior, 1 was more anterior. Proper placement was confirmed in the AP and lateral planes. These wires were measured for length and screwed with the appropriate length 6.5 screws achieved excellent bite in the femoral head. The traction was reduced, and screws were tightened further to compress the fracture. Guidewires were removed. X-rays in the AP and lateral planes revealed excellent position of the screws with anatomic reduction of the fracture. The wound was irrigated. The fascia and subcutaneous were closed with 2-0 Vicryl, Steri-Strips were used for skin, and an Aquacel dressing was applied. Patient was awakened from anesthesia and transferred to the recovery room in stable condition. No complications. Estimated blood loss negligible. Eamon [id number]
--- NOTE | 2017-12-16 08:35 | PN ---
Progress Note (short form) - Note Progress Note: Anesthesia Post op Pt seen and examined S:Alert and awake comfortable O: Vital Signs Temperature 98.1 F 12/16/17 07:29 Pulse Rate 91 H 12/16/17 07:29 Respiratory Rate 19 12/15/17 21:00 Blood Pressure 120/63 12/16/17 07:29 O2 Sat by Pulse Oximetry (%) 96 12/15/17 21:00 A/P Current Active Problems Hip fracture, right (Acute) s/p canulated screws r hip Doing well post op Continue current care Jaylan Viera MD
[2017-12-16 08:38] LABS: HEMATOCRIT 34.1 % (32.4-45.2); HEMOGLOBIN 11.6 GM/dL (10.7-15.3); MCH 32.9 pg (25.7-33.7); MCHC 34.1 g/dl (32.0-36.0); MEAN CELL VOLUME 96.7 fl (80-96); MEAN PLT VOLUME 8.5 fl (7.5-11.1); PLATELET COUNT 252 K/MM3 (134-434); RBC 3.52 M/mm3 (3.60-5.2); RDW 12.7 % (11.6-15.6); WHITE BLOOD COUNT 9.8 K/mm3 (4.0-10.0)
[2017-12-16 08:57] LABS: ANION GAP 12 MMOL/L (8-16); BLOOD UREA NITROGEN 16 mg/dL (7-18); CALCIUM 8.7 mg/dL (8.5-10.1); CHLORIDE 113 mmol/L (98-107); CO2 21 mmol/L (21-32); CREATININE 0.8 mg/dL (0.55-1.3); GLUCOSE,RANDOM 91 mg/dL (74-106); SODIUM 146 mmol/L (136-145)
[2017-12-16] MEDS: ENOXAPARIN NA (PORCINE) 40 MG/0.4 ML DISP.SYRIN SQ SCH (09:15)
[2017-12-16] MEDS ORDERED: ENOXAPARIN NA (PORCINE) 40 MG/0.4 ML DISP.SYRIN SQ SCH (10:00)
[2017-12-16] MEDS: ACETAMINOPHEN 325 MG TABLET (FP) PO PRN (13:25)
--- NOTE | 2017-12-16 18:29 | PN ---
Progress Note, Physician - Current Medication List Current Medications: Active Medications Acetaminophen (Tylenol -) 650 mg PO Q6H PRN PRN Reason: FEVER Last Admin: 12/16/17 13:25 Dose: 650 mg Cyclobenzaprine HCl (Flexeril -) 10 mg PO TID PRN PRN Reason: MUSCLE SPASMS Last Admin: 12/15/17 14:06 Dose: 10 mg Enoxaparin Sodium (Lovenox -) 40 mg SQ DAILY [facility] Last Admin: 12/16/17 09:15 Dose: 40 mg Sodium Chloride (Normal Saline -) 1,000 mls @ 75 mls/hr IV ASDIR [facility] Last Admin: 12/16/17 16:02 Dose: 75 mls/hr Morphine Sulfate (Morphine Sulfate) 4 mg IVPUSH Q4H PRN PRN Reason: PAIN LEVEL 7 - 10 Last Admin: 12/15/17 22:41 Dose: 4 mg Ondansetron HCl (Zofran Injection) 4 mg IVPUSH Q6H PRN PRN Reason: NAUSEA AND/OR VOMITING Oxycodone HCl (Roxicodone -) 10 mg PO Q6H PRN PRN Reason: PAIN LEVEL 4 - 6 Last Admin: 12/16/17 15:21 Dose: 10 mg Promethazine HCl (Phenergan Injection -) 12.5 mg IVPUSH Q6H PRN PRN Reason: NAUSEA-FOR RESCUE AFTER 15 MIN - Objective Vital Signs: Vital Signs Temperature 97.9 F 12/16/17 09:00 Pulse Rate 99 H 12/16/17 09:00 Respiratory Rate 20 12/16/17 09:00 Blood Pressure 138/63 12/16/17 09:00 O2 Sat by Pulse Oximetry (%) 96 12/15/17 21:00 Constitutional: Yes: No Distress HENT: Yes: Atraumatic Neck: Yes: Supple Cardiovascular: Yes: Regular Rate and Rhythm Respiratory: Yes: CTA Bilaterally Gastrointestinal: Yes: Normal Bowel Sounds Extremities: Yes: WNL Edema: No Wound/Incision: Yes: Clean/Dry Neurological: Yes: Alert, Oriented Labs: CBC, BMP 12/16/17 07:59 12/16/17 07:59 INR, PTT INR 0.93 (0.83-1.09) 12/13/17 12:07 Problem List - Problems (1) Hip fracture, right Assessment/Plan: s/p surgery prn pain meds dvt ppx for snf Code(s): S72.001A - FRACTURE OF UNSP PART OF NECK OF RIGHT FEMUR, INIT Qualifiers: Encounter type: initial encounter Fracture type: closed Qualified Code(s) : S72.001A - Fracture of unspecified part of neck of right femur, initial encounter for closed fracture
[2017-12-16] MEDS: morphine SULFATE 4 MG/ML VIAL IVPUSH PRN (22:01)
[2017-12-17] MEDS: oxyCODONE HCL 5 MG TABLET PO PRN ×3 (00:15→11:56)
[2017-12-17] MEDS: morphine SULFATE 4 MG/ML VIAL IVPUSH PRN ×3 (03:33→20:08)
[2017-12-17] MEDS: SODIUM CHLORIDE 1,000 ML IV SCH (05:49)
[2017-12-17 07:44] LABS: HEMATOCRIT 31.8 % (32.4-45.2); HEMOGLOBIN 10.8 GM/dL (10.7-15.3); MCH 32.8 pg (25.7-33.7); MCHC 34.1 g/dl (32.0-36.0); MEAN CELL VOLUME 96.1 fl (80-96); MEAN PLT VOLUME 8.1 fl (7.5-11.1); PLATELET COUNT 220 K/MM3 (134-434); RBC 3.31 M/mm3 (3.60-5.2); RDW 12.8 % (11.6-15.6); WHITE BLOOD COUNT 8.5 K/mm3 (4.0-10.0)
--- NOTE | 2017-12-17 09:09 | PN ---
Progress Note (short form) - Note Progress Note: AVSS COMFORTABLE BANDAGES DRY AND INTACT CALF SOFT AND NT NVI IMP: DOING WELL PLANz: OOB, PT,DC PLANNING
[2017-12-17] MEDS: ENOXAPARIN NA (PORCINE) 40 MG/0.4 ML DISP.SYRIN SQ SCH (09:11)
--- NOTE | 2017-12-17 12:49 | PN ---
Progress Note, Physician History of Present Illness: doing well - Current Medication List Current Medications: Active Medications Acetaminophen (Tylenol -) 650 mg PO Q6H PRN PRN Reason: FEVER Last Admin: 12/16/17 13:25 Dose: 650 mg Cyclobenzaprine HCl (Flexeril -) 10 mg PO TID PRN PRN Reason: MUSCLE SPASMS Last Admin: 12/15/17 14:06 Dose: 10 mg Enoxaparin Sodium (Lovenox -) 40 mg SQ DAILY [facility] Last Admin: 12/17/17 09:11 Dose: 40 mg Morphine Sulfate (Morphine Sulfate) 4 mg IVPUSH Q4H PRN PRN Reason: PAIN LEVEL 7 - 10 Last Admin: 12/17/17 03:33 Dose: 4 mg Ondansetron HCl (Zofran Injection) 4 mg IVPUSH Q6H PRN PRN Reason: NAUSEA AND/OR VOMITING Oxycodone HCl (Roxicodone -) 10 mg PO Q6H PRN PRN Reason: PAIN LEVEL 4 - 6 Last Admin: 12/17/17 11:56 Dose: 10 mg Promethazine HCl (Phenergan Injection -) 12.5 mg IVPUSH Q6H PRN PRN Reason: NAUSEA-FOR RESCUE AFTER 15 MIN - Objective Vital Signs: Vital Signs Temperature 98.2 F 12/17/17 08:00 Pulse Rate 86 12/17/17 08:00 Respiratory Rate 16 12/17/17 08:00 Blood Pressure 113/53 12/17/17 08:00 O2 Sat by Pulse Oximetry (%) 95 12/17/17 09:00 Constitutional: Yes: No Distress HENT: Yes: Atraumatic Neck: Yes: Supple Cardiovascular: Yes: Regular Rate and Rhythm Respiratory: Yes: CTA Bilaterally Gastrointestinal: Yes: Normal Bowel Sounds Extremities: Yes: WNL Edema: No Peripheral Pulses WNL: Yes Wound/Incision: Yes: Clean/Dry Neurological: Yes: Alert, Oriented Labs: CBC, BMP 12/17/17 07:13 12/16/17 07:59 INR, PTT INR 0.93 (0.83-1.09) 12/13/17 12:07 Problem List - Problems (1) Hip fracture, right Assessment/Plan: s/p surgery prn pain meds dvt ppx for snf Code(s): S72.001A - FRACTURE OF UNSP PART OF NECK OF RIGHT FEMUR, INIT Qualifiers: Encounter type: initial encounter Fracture type: closed Qualified Code(s) : S72.001A - Fracture of unspecified part of neck of right femur, initial encounter for closed fracture
[2017-12-17] MEDS ORDERED: PNEUMOC 13-VAL CONJ-DIP CRM/PF 0.5 ML DISP.SYRIN IM ONE (19:30)
--- NOTE | 2017-12-17 20:09 | DS ---
Physical Examination Vital Signs: Vital Signs Temperature 98.7 F 12/17/17 13:37 Pulse Rate 90 12/17/17 13:37 Respiratory Rate 20 12/17/17 13:37 Blood Pressure 126/78 12/17/17 13:37 O2 Sat by Pulse Oximetry (%) 95 12/17/17 09:00 Labs: CBC, BMP 12/17/17 07:13 12/16/17 07:59 Discharge Summary Reason For Visit: FRACTURE OF RIGHT HIP Current Active Problems Hip fracture, right (Acute) Condition: Fair - Instructions - Home Medications Comprehensive Discharge Medication List: Ambulatory Orders Enoxaparin [Lovenox -] 40 mg SQ DAILY disp.syrin 12/15/17
[2017-12-18] MEDS: oxyCODONE HCL 5 MG TABLET PO PRN ×4 (01:20→22:02)
[2017-12-18] MEDS: morphine SULFATE 4 MG/ML VIAL IVPUSH PRN (05:41)
--- NOTE | 2017-12-18 08:49 | PN ---
Progress Note (short form) - Note Progress Note: Ortho Pt seen and examined s/p right hip cannulated screws pod #3 Selected Entries 12/18/17 08:41 Temperature 97.9 F Pulse Rate 92 H Respiratory 20 Rate Blood Pressure 152/72 Laboratory Tests 12/17/17 07:13 WBC 8.5 Hgb 10.8 Hct 31.8 L Plt Count 220 dressing c/d/i, calf soft, nt, nvi a/p PT PWB pain control dvt ppx d/c planning
[2017-12-18] MEDS: ENOXAPARIN NA (PORCINE) 40 MG/0.4 ML DISP.SYRIN SQ SCH (09:21)
--- NOTE | 2017-12-18 17:00 | PN ---
Progress Note, Physician - Current Medication List Current Medications: Active Medications Acetaminophen (Tylenol -) 650 mg PO Q6H PRN PRN Reason: FEVER Last Admin: 12/16/17 13:25 Dose: 650 mg Cyclobenzaprine HCl (Flexeril -) 10 mg PO TID PRN PRN Reason: MUSCLE SPASMS Last Admin: 12/15/17 14:06 Dose: 10 mg Enoxaparin Sodium (Lovenox -) 40 mg SQ DAILY [facility] Last Admin: 12/18/17 09:21 Dose: 40 mg Ondansetron HCl (Zofran Injection) 4 mg IVPUSH Q6H PRN PRN Reason: NAUSEA AND/OR VOMITING Oxycodone HCl (Roxicodone -) 10 mg PO Q4H PRN PRN Reason: PAIN LEVEL 7 - 10 Last Admin: 12/18/17 16:06 Dose: 10 mg Promethazine HCl (Phenergan Injection -) 12.5 mg IVPUSH Q6H PRN PRN Reason: NAUSEA-FOR RESCUE AFTER 15 MIN - Objective Vital Signs: Vital Signs Temperature 98.4 F 12/18/17 14:00 Pulse Rate 108 H 12/18/17 14:00 Respiratory Rate 20 12/18/17 14:00 Blood Pressure 125/77 12/18/17 14:00 O2 Sat by Pulse Oximetry (%) 97 12/18/17 09:00 Constitutional: Yes: No Distress HENT: Yes: Atraumatic Neck: Yes: Supple Cardiovascular: Yes: Regular Rate and Rhythm Respiratory: Yes: CTA Bilaterally Gastrointestinal: Yes: Normal Bowel Sounds Extremities: Yes: WNL Neurological: Yes: Alert, Oriented Labs: CBC, BMP 12/17/17 07:13 12/16/17 07:59 INR, PTT INR 0.93 (0.83-1.09) 12/13/17 12:07 Problem List - Problems (1) Hip fracture, right Assessment/Plan: s/p surgery prn pain meds dvt ppx for snf Code(s): S72.001A - FRACTURE OF UNSP PART OF NECK OF RIGHT FEMUR, INIT Qualifiers: Encounter type: initial encounter Fracture type: closed Qualified Code(s) : S72.001A - Fracture of unspecified part of neck of right femur, initial encounter for closed fracture
[2017-12-19] MEDS: oxyCODONE HCL 5 MG TABLET PO PRN ×5 (02:18→20:10)
[2017-12-19] MEDS: ENOXAPARIN NA (PORCINE) 40 MG/0.4 ML DISP.SYRIN SQ SCH (09:26)
[2017-12-19] MEDS ORDERED: BISACODYL 10 MG SUPP.RECT RC ONE (12:15)
[2017-12-19] MEDS: DOCUSATE SODIUM 100 MG CAPSULE (FP) PO SCH ×2 (12:30→21:10)
[2017-12-19] MEDS: POLYETHYLENE GLYCOL 3350 119 GM BTL PO SCH ×2 (12:31→21:10)
--- NOTE | 2017-12-19 17:56 | PN ---
Progress Note, Physician - Current Medication List Current Medications: Active Medications Acetaminophen (Tylenol -) 650 mg PO Q6H PRN PRN Reason: FEVER Last Admin: 12/16/17 13:25 Dose: 650 mg Cyclobenzaprine HCl (Flexeril -) 10 mg PO TID PRN PRN Reason: MUSCLE SPASMS Last Admin: 12/15/17 14:06 Dose: 10 mg Docusate Sodium (Colace -) 100 mg PO BID [facility] Last Admin: 12/19/17 12:30 Dose: 100 mg Enoxaparin Sodium (Lovenox -) 40 mg SQ DAILY [facility] Last Admin: 12/19/17 09:26 Dose: 40 mg Ondansetron HCl (Zofran Injection) 4 mg IVPUSH Q6H PRN PRN Reason: NAUSEA AND/OR VOMITING Oxycodone HCl (Roxicodone -) 10 mg PO Q4H PRN PRN Reason: PAIN LEVEL 7 - 10 Last Admin: 12/19/17 13:36 Dose: 10 mg Polyethylene Glycol (Miralax (For Daily Use) -) 17 gm PO BID [facility] Last Admin: 12/19/17 12:31 Dose: 17 gm Promethazine HCl (Phenergan Injection -) 12.5 mg IVPUSH Q6H PRN PRN Reason: NAUSEA-FOR RESCUE AFTER 15 MIN - Objective Vital Signs: Vital Signs Temperature 98.8 F 12/19/17 14:34 Pulse Rate 95 H 12/19/17 14:34 Respiratory Rate 20 12/19/17 14:34 Blood Pressure 127/72 12/19/17 14:34 O2 Sat by Pulse Oximetry (%) 98 12/18/17 21:00 Constitutional: Yes: No Distress HENT: Yes: Atraumatic Neck: Yes: Supple Cardiovascular: Yes: Regular Rate and Rhythm Respiratory: Yes: CTA Bilaterally Gastrointestinal: Yes: Normal Bowel Sounds Extremities: Yes: WNL Edema: No Peripheral Pulses WNL: Yes Neurological: Yes: Alert, Oriented Labs: CBC, BMP 12/17/17 07:13 12/16/17 07:59 INR, PTT INR 0.93 (0.83-1.09) 12/13/17 12:07 Problem List - Problems (1) Hip fracture, right Assessment/Plan: s/p surgery prn pain meds dvt ppx for snf Code(s): S72.001A - FRACTURE OF UNSP PART OF NECK OF RIGHT FEMUR, INIT Qualifiers: Encounter type: initial encounter Fracture type: closed Qualified Code(s) : S72.001A - Fracture of unspecified part of neck of right femur, initial encounter for closed fracture
[2017-12-20] MEDS: oxyCODONE HCL 5 MG TABLET PO PRN ×2 (00:41→06:42)
[2017-12-20] MEDS: ENOXAPARIN NA (PORCINE) 40 MG/0.4 ML DISP.SYRIN SQ SCH (10:20)
[2017-12-20] MEDS: DOCUSATE SODIUM 100 MG CAPSULE (FP) PO SCH (10:20)
[2017-12-20] MEDS: POLYETHYLENE GLYCOL 3350 119 GM BTL PO SCH (10:20)
[2017-12-20 10:43] VITALS: BP 143/68; PULSE 81; TEMP 99.1
--- NOTE | 2017-12-20 11:16 | PN ---
Progress Note (short form) - Note Progress Note: Ortho Pt seen and examined s/p right hip cannulated screws Selected Entries 12/20/17 09:00 Temperature 99.1 F Pulse Rate 81 Respiratory 20 Rate Blood Pressure 143/68 Laboratory Tests 12/17/17 07:13 WBC 8.5 Hgb 10.8 Hct 31.8 L Plt Count 220 dressing c/d/i, calf soft, nt, nvi a/p PT PWB pain control dvt ppx d/c planning
--- NOTE | 2017-12-20 15:39 | DS ---
Physical Examination Vital Signs: Vital Signs Temperature 99.1 F 12/20/17 09:00 Pulse Rate 81 12/20/17 09:00 Respiratory Rate 20 12/20/17 09:00 Blood Pressure 143/68 12/20/17 09:00 O2 Sat by Pulse Oximetry (%) 98 12/20/17 09:00 Constitutional: Yes: No Distress HENT: Yes: Atraumatic Neck: Yes: Supple Cardiovascular: Yes: Regular Rate and Rhythm Respiratory: Yes: CTA Bilaterally Gastrointestinal: Yes: Normal Bowel Sounds Extremities: Yes: WNL Neurological: Yes: Alert, Oriented Labs: CBC, BMP 12/17/17 07:13 12/16/17 07:59 Discharge Summary Reason For Visit: FRACTURE OF RIGHT HIP Condition: Fair - Instructions Referrals: Martín Erazo MD [Staff Physician] - [facility]position[facility] - Home Medications Comprehensive Discharge Medication List: Ambulatory Orders Enoxaparin [Lovenox -] 40 mg SQ DAILY disp.miguelin 12/15/17 de snf
== END 2017-12-20 15:13 | DRG 308 ==
LOC: JER 10:25 → JERBED 15:10 → J6S 17:00
PROVIDERS: ADMIT Internal Medicine; ATTEND Internal Medicine
PROC: 0QH606Z Insertion of Intramedullary Internal Fixation Device into Right Upper Femur, Open Approach (ICD-10-PCS; principal; 2017-12-15 12:00)
DX: S72.001A Fracture of unspecified part of neck of right femur, initial encounter for closed fracture (principal); G35 Multiple sclerosis; R94.31 Abnormal electrocardiogram [ECG] [EKG]; F17.210 Nicotine dependence, cigarettes, uncomplicated; W19.XXXA Unspecified fall, initial encounter; Y93.89 Activity, other specified; Y92.091 Bathroom in other non-institutional residence as the place of occurrence of the external cause; Y99.8 Other external cause status
CPT/HCPCS: 36415; 71045-TC-FY; 73523-TC-FY; 73700-TC-RT; 76000-TC-FY; 80048; 80053; 81003; 81015; 85025; 85027; 85610; 86850; 86900; 86901; 87086; 87186; 90670; 93005; 93010; 94010; 94760; 97116-GP; 97162-GP; 99283-25; J1644; J7030

== ENCOUNTER 2018-02-12 12:52 | Emergency (ER) | payer OTHER ==
[2018-02-12 13:04] VITALS: BMI 21.2
--- NOTE | 2018-02-12 13:22 | PDOC ---
History of Present Illness - General Chief Complaint: Injury Stated Complaint: FALL Time Seen by Provider: 02/12/18 13:09 - History of Present Illness Initial Comments: 02/12/18 13:49 The patient is a 72 year old female with a history of a right hip fracture s/p pinning who presents for evaluation following a fall. The patient notes that she was sleeping this morning when she accidentally rolled and fell out of bed. The patient notes that she had a recent right hip fracture 2 months ago and has not been ambulatory since then. She notes pain to her right lower extremity and reports sustaining laceration to her right eyebrow and forehead. She denies LOC and otherwise denies fevers, chills, SOB, chest pain, nausea, vomiting, abdominal pain, numbness, tingling, weakness, or changes with urination or bowel movements. Past History - Past Medical History Allergies/Adverse Reactions: Allergies Allergy/AdvReac Type Severity Reaction Status Date / Time strawberry Allergy Verified 02/12/18 13:03 Home Medications: Ambulatory Orders Oxycodone HCl 10 mg PO Q6H 02/12/18 CVA: No COPD: No - Surgical History Abdominal Surgery: Yes ( A CHILD) - Suicide/Smoking/Psychosocial Hx Smoking History: Current every day smoker Have you smoked in the past 12 months: Yes Number of Cigarettes Smoked Daily: 10 Information on smoking cessation initiated: No Hx Alcohol Use: No Drug/Substance Use Hx: No Substance Use Type: None Hx Substance Use Treatment: No Review of Systems - Review of Systems Comments:: 02/12/18 13:52 Constitutional: No fevers, chills, fatigue, malaise HEENT: Laceration to eyebrow and forehead. No Rhinorrhea, nasal congestion, visual changes Cardiovascular: No chest pain, syncope, palpitations, lightheadedness Respiratory: No Cough, SOB, Hemoptysis, Gastrointestinal: No Abdominal pain, Nausea, Vomiting, Constipation, Diarrhea, Melena Genitourinary: No Dysuria, Frequency, Urgency, Hesitancy, Hematuria, Flank pain Musculoskeletal: Right lower extremity pain. No Myalgia, arthralgia Skin: No rashes, itching, bruising, pallor Neurologic: No Headache, Dizziness, Numbness, Weakness, or Tingling Psychiatric: No Hallucinations. No SI or HI *Physical Exam - Vital Signs Last Vital Signs Temp Pulse Resp BP Pulse Ox 98.3 F 104 H 20 144/91 100 02/12/18 13:03 02/12/18 13:03 02/12/18 13:03 02/12/18 13:03 02/12/18 13:03 - Physical Exam Comments: 02/12/18 13:53 General Appearance: Nourished. No Apparent Distress HEENT: EOMI, FELICIA. No Pharyngeal Erythema, Tonsillar Exudate, Tonsillar Erythema Neck: No Cervical Lymphadenopathy Respiratory/Chest: Lungs Clear, Normal Breath Sounds. No Crackles, Rales, Rhonchi, Wheezing Cardiovascular: Regular Rhythm, Regular Rate. No Murmur, Gallops, Rubs Gastrointestinal/Abdominal: Normal Bowel Sounds, Soft. No Guarding, Rebound, Tenderness Musculoskeletal: No CVA Tenderness Extremity: 2+ pitting edema to the lower extremities bilaterally. Limited ROM of the right lower extremity. Leg is externally rotated. 2+ DP pulses bilaterally. Sensation to light touch and temperature intact bilaterally. Normal Capillary Refill Integumentary: Normal Color, Dry, Warm Neurologic: intermediate frame tender II-XII NML intact, Fully Oriented, Alert, Normal Mood/Affect, Normal Response, Motor Strength 5/5. Procedures - Laceration/Wound Repair Right Upper Face Wound Length: to 2.5 cm Wound Explored: clean, no foreign body present Wound's Depth, Shape: superficial, linear Irrigated w/ Saline: Yes Anesthesia: 1% Lidocaine Amount of Anesthetic (ccs): 2 Wound Repaired With: Sutures Suture Size/Type: 5:0, proline Number of Sutures: 2 Layer Closure: Yes Sterile Dressing Applied: Yes Upper Face Wound Length: to 2.5 cm Wound Explored: clean, no foreign body present Wound's Depth, Shape: superficial, linear Irrigated w/ Saline: Yes Anesthesia: 1% Lidocaine Amount of Anesthetic (ccs): 3 Wound Repaired With: Sutures Suture Size/Type: 5:0, proline Number of Sutures: 3 Layer Closure: Yes Sterile Dressing Applied: Yes ED Treatment Course - LABORATORY CBC & Chemistry Diagram: 02/12/18 13:55 02/12/18 13:55 Medical Decision Making - Medical Decision Making 02/12/18 14:08 The patient is a 72 year old female with a history of a right hip fracture s/p pinning who presents for evaluation following a fall. Differential includes but is not limited: Fracture, Dislocation, Contusion, Infectious, Metabolic Derangement. Given the patient's history and physical exam, we will obtain a cbc, cmp, coags, ua, chest plain film, hip plain film, head CT to evaluate further. We will treat with morphine and continue to monitor and reassess while here in the ED. 02/12/18 17:34 CBC, cmp, coags, Ua are unremarkable. Chest plain film and hip plain film are unremarkable as read by our radiologist. Head CT is unremarkable as read by our radiologist. The patient's two lacerations were repaired with 5-0 proline and will need to be removed in 7-10 days. We are comfortable discharging the patient home with primary care provider follow up. We discussed the results, plan, and return precautions with the patient who voiced understanding and is agreeable with the plan. *DC/Admit/Observation/Transfer Diagnosis at time of Disposition: Laceration Fall Qualifiers: Encounter type: initial encounter Qualified Code(s): W19.XXXA - Unspecified fall, initial encounter - Discharge Dispostion Disposition: HOME Condition at time of disposition: Stable Decision to Admit order: No - Referrals - Patient Instructions Printed Discharge Instructions: DI for Laceration Repair, How to Prevent Falls Additional Instructions: Please return to the ER if you experience concerning or worsening symptoms including worsening difficulty breathing, weakness, or chest pain. Your lab results were normal here in the ER. Your X-rays and CT scans were normal. You had your lacerations repaired with sutures and they will need to be removed in 7 days. Please keep the wounds dry for 24 hours after which you may cleanse it lightly with soap and water. Please call to schedule a follow up appointment with your primary care provider within 2-3 days to discuss your ER visit and further management of your symptoms. - Post Discharge Activity
[2018-02-12] MEDS ORDERED: morphine CARPU-JECT 4 MG/1 ML DISP.SYRIN IVPUSH ONE (13:31)
[2018-02-12] MEDS ORDERED: DIPHTH,PERTUSS(ACELL),TET 0.5 ML DISP.SYRIN IM ONE (13:35)
[2018-02-12] MEDS ORDERED: morphine SULFATE 4 MG/ML VIAL ONE (13:46)
--- NOTE | 2018-02-12 13:57 | PDOC ---
Attending Attestation - Resident Resident Name: Marcus Willett - ED Attending Attestation I have performed the following: I have examined & evaluated the patient, The case was reviewed & discussed with the resident, I agree w/resident's findings & plan, Exceptions are as noted <Josh Canela - Last Filed: 02/12/18 13:57> - HPI HPI: 02/12/18 14:00 The patient is a 72 year old female, with a significant past medical history of right hip Fx 2 months ago s/p pinning, who presents to the emergency department after reportedly rolling and falling out of bed this morning with complaint of pain to right lower extremity and a cut to her right eyebrow. She denies being ambulatory since her last fracture 2 months ago. She denies LOC today. The patient denies chest pain, shortness of breath, headache and dizziness. The patient denies fever, chills, nausea, vomit, diarrhea and constipation. The patient denies dysuria, frequency, urgency and hematuria. Allergies: NKDA - Physicial Exam PE: 02/12/18 14:00 Vitals: Triage vital signs reviewed General Appearance: No acute distress, well nourished, well developed Head: Atraumatic Eyes: Pupils equal reactive round, extraocular movement intact Neck: Supple; No nuchal rigidity Chest Wall: Nontender Cardiac: Regular rate and rhythm, no murmurs, no rubs, no gallops Lungs: Clear to auscultation bilateral, good air movement bilaterally Abdomen: Soft, nondistended, normal bowel sounds, nontender to palpation Extremities: Full range of motion to all extremities, no cyanosis, clubbing, or edema Skin: (+) 1cm horizontal, linear laceration just above the nose. Abrasion to right eyebrow, superficial abrasion to Left hip. Warm and dry, no rashes or lesions, no rash, no petechiae Neuro: AOX3; Cranial Nerves 2-12 grossly intact, Strength intact to all extremities, Sensation intact to all extremities, Psych: Normal mood, normal affect - Medical Decision Making 02/12/18 14:00 Documentation prepared by Lizbeth Ceron, acting as medical staff manager for Josh Canela MD <Lizbeth Ceron - Last Filed: 02/12/18 15:47>
[2018-02-12 14:18] LABS: HEMATOCRIT 34.8 % (32.4-45.2); MCH 32.7 pg (25.7-33.7); MCHC 34.4 g/dl (32.0-36.0); MEAN CELL VOLUME 95.2 fl (80-96); MEAN PLT VOLUME 8.2 fl (7.5-11.1); PLATELET COUNT 379 K/MM3 (134-434); RBC 3.66 M/mm3 (3.60-5.2); WHITE BLOOD COUNT 7.6 K/mm3 (4.0-10.0)
[2018-02-12 14:26] LABS: INR 0.98 (0.83-1.09); PROTHROMBIN TIME (PATIENT) 11.6 SEC (9.7-13.0)
[2018-02-12 14:29] LABS: ACTIVATED PTT 34.1 SECONDS (25.2-36.5)
[2018-02-12 14:35] LABS: ALBUMIN 3.5 g/dl (3.4-5.0); ALK PHOS 93 U/L (45-117); ANION GAP 6 MMOL/L (8-16); BILIRUBIN,TOTAL 0.3 mg/dL (0.2-1); BLOOD UREA NITROGEN 13 mg/dL (7-18); CALCIUM 9.5 mg/dL (8.5-10.1); CHLORIDE 107 mmol/L (98-107); CO2 27 mmol/L (21-32); CREATININE 0.7 mg/dL (0.55-1.3); GLUCOSE,RANDOM 120 mg/dL (74-106); POTASSIUM 4.1 mmol/L (3.5-5.1); SGOT/AST 25 U/L (15-37); SGPT/ALT 31 U/L (13-61); SODIUM 140 mmol/L (136-145)
[2018-02-12 15:39] LABS: URINE APPEARANCE CLEAR; URINE BILIRUBIN NEGATIVE (<2.0 mg/dL); URINE COLOR YELLOW; URINE GLUCOSE (UA) NEGATIVE (NEGATIVE); URINE KETONE NEGATIVE (NEGATIVE); URINE LEUK ESTERASE NEGATIVE (NEGATIVE); URINE NITRITE NEGATIVE (NEGATIVE); URINE PROTEIN NEGATIVE (NEGATIVE); URINE UROBILINOGEN NEGATIVE mg/dL (0.2-1.0)
[2018-02-12] MEDS ORDERED: morphine CARPU-JECT 2 MG/1 ML DISP.SYRIN IVPUSH ONE (16:23)
[2018-02-12] MEDS ORDERED: MORPHINE SULFATE 2 MG/ML VIAL ONE (16:25)
[2018-02-12 16:55] LABS: EPI CELLS RARE /HPF (FEW); URINE MUCUS RARE
[2018-02-12 18:00] LABS: PLATELET ESTIMATE ADEQUATE
[2018-02-12 19:43] VITALS: BP 108/73; PULSE 79; TEMP 98.3
== END 2018-02-12 19:30 | disposition home or self-care (01) ==
LOC: JER 12:52
PROC: 0HQ1XZZ Repair Face Skin, External Approach (ICD-10-PCS; principal; 2018-02-12)
PROC: 3E0234Z Introduction of Serum, Toxoid and Vaccine into Muscle, Percutaneous Approach (ICD-10-PCS; 2018-02-12)
DX: S01.81XA Laceration without foreign body of other part of head, initial encounter (principal); W06.XXXA Fall from bed, initial encounter; Y93.89 Activity, other specified; Y92.032 Bedroom in apartment as the place of occurrence of the external cause; Z87.81 Personal history of (healed) traumatic fracture; F17.210 Nicotine dependence, cigarettes, uncomplicated
CPT/HCPCS: 12011; 36415; 70450-TC; 71045-TC-FY; 73523-TC-FY; 80053; 81003; 81015; 85025; 85610; 85730; 87086; 90471; 90715; 96374; 96376; 99282-25

== ENCOUNTER 2018-07-30 14:47 | Inpatient (IN) | payer OTHER ==
[2018-07-30 15:27] VITALS: BMI 26.6
[2018-07-30] MEDS ORDERED: MORPHINE SULFATE 2 MG/ML VIAL IVPUSH ONE ×2 (15:35→15:59)
[2018-07-30] MEDS ORDERED: ONDANSETRON 4 MG/2 ML VIAL IVPUSH ONE (15:48)
--- NOTE | 2018-07-30 15:48 | PDOC ---
History of Present Illness - General Chief Complaint: Pain Stated Complaint: ABD PAIN Time Seen by Provider: 07/30/18 15:01 History Source: Patient Exam Limitations: No Limitations - History of Present Illness Initial Comments: 07/30/18 15:40 73 yo female pmh of MS (38 year hx, follwed by Dr. Moore, wheelchair bound) lap abdominal surgery at 5 years old (no other intra-abdominal surgeries) and a 30 pack year hx of smoking presents to the ED with abdominal pain. Pt states she was woken up out of sleep this am with severe, right and left upper quadrant abdominal pain described as sharp and intermittent without radiation to her back. Pt also admits to 2 episodes of NB/NB vomiting. Denies recent travel, new foods, sick contacts, new back pain, last BM yesterday was regular ( no blood or pain with defecation) changes in bowel or bladder habits. Past History - Past Medical History Allergies/Adverse Reactions: Allergies Allergy/AdvReac Type Severity Reaction Status Date / Time strawberry Allergy Verified 07/30/18 15:27 Home Medications: Ambulatory Orders Oxycodone HCl 10 mg PO Q6H 02/12/18 CVA: No COPD: No Other medical history: Multiple Sclerosis - Surgical History Abdominal Surgery: Yes ( A CHILD) - Suicide/Smoking/Psychosocial Hx Smoking History: Former smoker Have you smoked in the past 12 months: No Number of Cigarettes Smoked Daily: 10 Information on smoking cessation initiated: No Hx Alcohol Use: No Drug/Substance Use Hx: No Substance Use Type: None Hx Substance Use Treatment: No *Physical Exam - Vital Signs Last Vital Signs Temp Pulse Resp BP Pulse Ox 97.5 F L 121 H 19 121/76 96 07/30/18 14:55 07/30/18 14:55 07/30/18 14:55 07/30/18 14:55 07/30/18 14:55 ED Treatment Course - LABORATORY CBC & Chemistry Diagram: 07/30/18 16:01 07/30/18 16:01 Medical Decision Making - Medical Decision Making 07/30/18 16:13 Dr. Garcia present, performed Focused abdominal US Reports seeing normal GB (no wall thickening, dee cholycystic fluid, stones) No hydro bilaterally Positive increased small bowel width greater than 5 cm. Will send for Ab/Pel CT with IV and oral contrast for r/o small bowel obs Case discussed with Surgeon Dr. Cat who states pt will be prepped for surgery and likely will begin between 8 30-9pm Last meal was yesterday Pt aware of plan and agrees total of 12 mg morphine given, pain controlled, 3L NS given. Pt resting comfortably at this time, NAD 07/30/18 19:32 Case discussed with hospitalist, would like pt admitted to Surgical Service and will follow pt while in the hospital Pt is admitted *DC/Admit/Observation/Transfer Diagnosis at time of Disposition: Bowel perforation - Discharge Dispostion Condition at time of disposition: Stable Decision to Admit order: Yes - Referrals Referrals: Mak Hui MD [Primary Care Provider] - - Patient Instructions - Post Discharge Activity
[2018-07-30] MEDS ORDERED: SODIUM CHLORIDE 1,000 ML IV STA ×3 (15:57→18:42)
[2018-07-30] MEDS ORDERED: morphine SULFATE 4 MG/ML VIAL ONE ×3 (16:01→18:55)
[2018-07-30 16:22] LABS: BASO % 0.3 % (0-2.0); EOS % 0.1 % (0-4.5); HEMATOCRIT 35.9 % (32.4-45.2); HEMOGLOBIN 12.2 GM/dL (10.7-15.3); LYMPH % 5.2 % (8-40); MCH 33.6 pg (25.7-33.7); MCHC 33.8 g/dl (32.0-36.0); MEAN CELL VOLUME 99.4 fl (80-96); MEAN PLT VOLUME 8.5 fl (7.5-11.1); MONO % 3.1 % (3.8-10.2); NEUT % 91.3 % (42.8-82.8); PLATELET COUNT 356 K/MM3 (134-434); RBC 3.61 M/mm3 (3.60-5.2); RDW 12.3 % (11.6-15.6); WHITE BLOOD COUNT 20.7 K/mm3 (4.0-10.0)
[2018-07-30] MEDS ORDERED: morphine SULFATE 4 MG/ML VIAL IVPUSH ONE ×2 (16:43→18:54)
[2018-07-30 16:48] LABS: PLATELET ESTIMATE ADEQUATE
[2018-07-30] MEDS ORDERED: PIPERACILLIN/TAZOB 3.375 GM 3.375 GM in DEXTROSE 5%-WATER - 50 ML IVPB ONE (16:54)
[2018-07-30 17:10] LABS: ALK PHOS 102 U/L (45-117); ANION GAP 8 MMOL/L (8-16); BILIRUBIN,TOTAL 0.3 mg/dL (0.2-1); BLOOD UREA NITROGEN 24 mg/dL (7-18); CALCIUM 10.7 mg/dL (8.5-10.1); CHLORIDE 105 mmol/L (98-107); CO2 28 mmol/L (21-32); CREATININE 0.7 mg/dL (0.55-1.3); GLUCOSE,RANDOM 151 mg/dL (74-106); LIPASE 115 U/L (73-393); POTASSIUM 4.1 mmol/L (3.5-5.1); SGOT/AST 10 U/L (15-37); SGPT/ALT 20 U/L (13-61); SODIUM 141 mmol/L (136-145); TOT PROT 7.8 g/dl (6.4-8.2)
--- NOTE | 2018-07-30 17:17 | PDOC ---
Documentation entered by Jeannie Hurley SCRIBE, acting as scribe for Josh Canela MD. Josh Canela MD: This documentation has been prepared by the Xavi hernandez Nirvannie, SCRIBE, under my direction and personally reviewed by me in its entirety. I confirm that the documentation accurately reflects all work, treatment, procedures, and medical decision making performed by me. Attending Attestation - Resident Resident Name: SilvinanarendraNate - ED Attending Attestation I have performed the following: I have examined & evaluated the patient, The case was reviewed & discussed with the resident, I agree w/resident's findings & plan - HPI HPI: 07/30/18 16:03 CC: Abdominal pain. HPI: The patient is a 73 year old female, with a significant past medical history of MS, who presents to the emergency department with, 1 day of intermittent, diffuse, sharp. upper quadrant abdominal pain with an associated 2 episodes of NBNB emesis. Pts last BM was yesterday and described as normal. She denies recent fevers, chills, headache or dizziness. She denies recent diarrhea or constipation. She denies recent dysuria, frequency, urgency or hematuria. She denies recent chest pain or shortness of breath. Allergies: Central Primary Care Physician: Dr. Hui - Physicial Exam PE: 07/30/18 17:03 Vitals: Triage vital signs reviewed General Appearance: No acute distress, well nourished, well developed Head: Atraumatic Neck: Supple; No nuchal rigidity Chest Wall: Nontender Cardiac: Regular rate and rhythm, no murmurs, no rubs, no gallops Lungs: Clear to auscultation bilateral, good air movement bilaterally Abdomen: +Tenderness to the diffuse abdomen. Soft, nondistended, normal bowel sounds Genitourinary: Exam deferred. Rectal: Exam deferred Skin: Warm and dry, no rashes or lesions, no rash, no petechiae Neuro: AOX3 Psych: Normal mood, normal affect - Medical Decision Making 07/30/18 16:06 73 year old female, with a significant past medical history of MS, who presents to the emergency department with, 1 day of intermittent, diffuse, sharp. upper quadrant abdominal pain with an associated 2 episodes of NBNB emesis. Plan is to: EKG CT A&P Labs Fluids Pain medication UA/UC 07/30/18 19:12 One-day history of abdominal discomfort diffusely tender on examination history of previous abdominal surgeries CAT scan ordered with oral and IV contrast WBC noted to be 20. Zosyn ordered. CAT scan official read concerning for perforation Findings discussed with surgery Plan is OR tonight will discuss with primary care provider.
[2018-07-30] MEDS ORDERED: PIPERACILLIN/TAZOB 3.375 GM 3.375 GM/50 ML BAG IVPB ONE (18:23)
[2018-07-30] MEDS ORDERED: FLUCONAZOLE 200 MG/NS 100 ML IVPB ONE (18:58)
[2018-07-30 19:17] LABS: INR 0.97 (0.83-1.09); PROTHROMBIN TIME (PATIENT) 11.5 SEC (9.7-13.0)
[2018-07-30 19:20] LABS: ACTIVATED PTT 29.1 SECONDS (25.2-36.5)
[2018-07-30 19:30] LABS: URINE APPEARANCE CLEAR; URINE BILIRUBIN NEGATIVE (NEGATIVE); URINE COLOR YELLOW; URINE GLUCOSE (UA) NEGATIVE (NEGATIVE); URINE KETONE NEGATIVE (NEGATIVE)
[2018-07-30 19:31] LABS: URINE LEUK ESTERASE NEGATIVE (NEGATIVE); URINE NITRITE NEGATIVE (NEGATIVE); URINE PROTEIN NEGATIVE (NEGATIVE); URINE UROBILINOGEN 0.2 mg/dL (0.2-1.0)
[2018-07-30 19:32] LABS: EPI CELLS 1.1 /HPF (0-5/HPF); URINE BACTERIA 712 /hpf (NEGATIVE); URINE RBC 0.8 /hpf (0-4); URINE WBC 0.3 /hpf (0-5)
[2018-07-30] MEDS ORDERED: ACETAMINOPHEN 1000 MG/100 ML VIAL (NON FORMULARY) IVPB PRN ×2 (19:40→20:44)
--- NOTE | 2018-07-30 19:48 | HP ---
Admitting History and Physical - Primary Care Physician PCP: Mak Hui - Admission Chief Complaint: abdominal pain History of Present Illness: 73 year old F with h/o MS brought in by EMS after experiencing worsening acute onset abdominal pain. She endorses severe "heartburn" the week prior to ED visit , which necessitated an abundance of TUMS. At 4AM on the morning of 07/30, Ms. Shelton reports sharp lower abdominal pain which woke her up from sleep. After several minutes, her pain subsided and she was able to lay awake in bed. At this point she had no other symptoms. At 11A she had her morning coffee which resulted in nausea, vomiting and headache. From this point onward, her pain became constant and radiated to her upper abdomen, lower back and was associated with esophageal "burning". She denies CP/ SOB/fever/chills/diarrhea/constipation/dizziness. At 2pm, she alerted her daughter to her dismal state, who upon seeing her mother activated EMS. Patient was transported to [facility] for evaluation. IN ED: Vitals were: HR 104bpm, T 98.3, BP 144/91, RR 20, O2 sat 100% LABS: WBC 20.7, Coags WNL, Lactate 2.5, BUN/Cr 24/0.7, Calcium 10.7. Pain managed with dilaudid and morphine. Pt hydrated with IV NS CT abd/pelvis: pneumoperitoneum consistent with perforation. Hyperdense perihepatic free fluid which may be blood or extravasated contrast. Surgery consulted emergently. Pt was dosed Diflucan and Zosyn and consented for open laparotomy. 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: Yes: Multiple Sclerosis Reproductive: Yes: Postmenopausal (menopause age 47) ...: 3 ...Para: 3 Musculoskeletal: Yes: Other (chronic neuropathic pain) - Past Surgical History Additional Past Surgical History: age 5: ex-lap 2/2 swallowing a pin Right hip ORIF 12/2017 - Smoking History Smoking history: Current every day smoker Have you smoked in the past 12 months: Yes Aproximately how many cigarettes per day: 10 (1/2PPD x 57yrs) - Alcohol/Substance Use Hx Alcohol Use: No History of Substance Use: reports: None - Social History Usual Living Arrangement: Yes: Alone (Senior housing) ADL: Family Assistance Occupation: , now History of Recent Travel: No Home Medications - Allergies Allergies/Adverse Reactions: Allergies Allergy/AdvReac Type Severity Reaction Status Date / Time strawberry Allergy Verified 07/30/18 15:27 - Home Medications Home Medications: Ambulatory Orders Cholecalciferol (Vitamin D3) [Vitamin D3] 1 cap PO WEEKLY 07/30/18 Cyclobenzaprine HCl [Flexeril 10 mg] 10 mg PO TID PRN 07/30/18 Furosemide [Lasix] 20 mg PO DAILY PRN 07/30/18 Gabapentin 100 mg PO TID PRN 07/30/18 Zolpidem Tartrate [Ambien] 10 mg PO HS 07/30/18 Family Disease History - Family Disease History Family Disease History: Other: Father ( (74) Lung cancer), Mother ( (82) DMII, ETOH dependence), Brother ( (61) Lung cancer), Sister ( (68) pancretic and liver disease) Review of Systems - Review of Systems Constitutional: reports: Malaise, Weakness Eyes: reports: No Symptoms HENT: reports: No Symptoms Neck: reports: No Symptoms Cardiovascular: reports: No Symptoms Respiratory: reports: No Symptoms Gastrointestinal: reports: Abdominal Pain, Indigestion, Nausea, Vomiting Genitourinary: reports: No Symptoms Breasts: reports: No Symptoms Reported Musculoskeletal: reports: Joint Pain, Muscle Cramps, Muscle Weakness Integumentary: reports: No Symptoms Neurological: reports: Unsteady Gait (2/2 right hip fracture) Endocrine: reports: No Symptoms Hematology/Lymphatic: reports: No Symptoms Psychiatric: reports: Altered Sleep Pattern Physical Examination Vital Signs: Vital Signs Temperature 98.5 F 07/30/18 19:09 Pulse Rate 88 07/30/18 19:09 Respiratory Rate 24 H 07/30/18 19:09 Blood Pressure 145/67 07/30/18 19:09 O2 Sat by Pulse Oximetry (%) 100 07/30/18 19:09 Constitutional: Yes: Anxious, Ashen Eyes: Yes: Conjunctiva Clear, PERRL HENT: Yes: Atraumatic, Normocephalic, Other (upper dentures, dry oral mucosa) Neck: Yes: Supple, Trachea Midline Cardiovascular: Yes: Tachycardia Respiratory: Yes: Regular, CTA Bilaterally Gastrointestinal: Yes: Soft, Hypoactive Bowel Sounds, Tenderness, Tenderness, Rebound (lower quadrants) ...Rectal Exam: Yes: Deferred Renal/: Yes: Mitchell Present (clear yellow urine) Musculoskeletal: Yes: Back Pain, Muscle Weakness (b/l LEs) Edema: No Peripheral Pulses WNL: Yes Peripheral Pulses: Left Radial: 2+, Right Radial: 2+, Left Doralis Pedis: 2+, Right Dorsalis Pedis: 2+ Integumentary: Yes: WNL Neurological: Yes: Alert, Oriented ...Motor Strength: WNL Psychiatric: Yes: Alert, Oriented Labs: CBC, BMP 07/30/18 16:01 07/30/18 16:01 Imaging - Results Cat Scan: Report Reviewed (CT abd and pelvis 07/30/2018 Impression: A pneumoperitoneum is identified consistent with evidence of perforation. A definite source of this finding is uncertain on the basis of this exam. Hyperdense perihepatic free fluid is noted which may be on the basis of blood and/or extravasated oral contrast. There is equivocal mild nonspecific soft tissue stranding interposed between the upper third of the ascending colon and the abdominal wall. The colon itself demonstrates no gross acute CT abnormality. The spleen is small in size which may be on the basis of atrophy versus hypoplasia. Small bilateral adrenal nodules are seen very likely representing adenomas on a statistical basis. Biochemical evaluation is suggested as well as 3 month follow-up noncontrast CT or MRI to document stability. Reported By: Praneeth Guo MD 07/30/18 3002) Problem List - Problems (1) Multiple sclerosis Assessment/Plan: currently stable Hold neurontin and flexeril in light of NPO status Code(s): G35 - MULTIPLE SCLEROSIS (2) Prophylactic measure Assessment/Plan: SCDs NPO for at least 5 days PPI daily Code(s): Z29.9 - ENCOUNTER FOR PROPHYLACTIC MEASURES, UNSPECIFIED (3) Bowel perforation Assessment/Plan: Patient taken to OR tonight Pain control with PRN IV dilaudid Pt being followed by Surgery: Dr. Cat Code(s): K63.1 - PERFORATION OF INTESTINE (NONTRAUMATIC) Assessment/Plan Code Status: Full Visit type - Emergency Visit Emergency Visit: Yes ED Registration Date: 07/30/18 Care time: The patient presented to the Emergency Department on the above date and was hospitalized for further evaluation of their emergent condition. - New Patient This patient is new to me today: Yes Date on this admission: 07/30/18 - Critical Care Critical Care patient: No
[2018-07-30] MEDS ORDERED: METOCLOPRAMIDE HCL INJECTION 10 MG/2 ML VIAL IVPUSH PRN (20:00)
[2018-07-30] MEDS ORDERED: PROPOFOL 20 ML ONE (20:36)
[2018-07-30] MEDS ORDERED: fentaNYL CITRATE 250 MCG/5 ML VIAL ONE (20:37)
[2018-07-30] MEDS ORDERED: MIDAZOLAM HCL 2 MG/2 ML SINGLE DOSE VIAL ONE (20:38)
--- NOTE | 2018-07-30 20:57 | CONSULT ---
Consult Consult Specialty:: General Surgery Referred by:: Erlinda Barahona Reason for Consultation:: perforated viscus - History of Present Illness Chief Complaint: abdominal pain, n/v History of Present Illness: 73yo F with MS, s/p laparotomy for swallowed neena pin when she was a toddler, s /p R hip screw for fracture 12/19, who has been mostly w/c bound since the fracture and rehab, but does walk some without assistive device when she needs to, presented to ER with lower abdominal pain that woke her from sleep around 4am. This was asssociated with a couple episodes of n/v, nbnb, no f/c, + back pain, some headache, and her last normal formed BM was yesterday. Had ziti and vegetables for dinner last night. Had a recent cough, but no cold, no f/c. She has intermittent heartburn for which she takes Tums, which was "terrible" this whole week. She does not take H2B or PPI for this, but they were planning to get some for her this week. In the ER, she has a wbc 20, is afebrile, has continued to have a lot of abdominal pain (indicates across the middle), and CT with IV/PO contrast showed foci of free air around the edge of the stomach, anterior to aorta, and some free fluid, hyperdense, at the left edge of liver - difficult to tell if oral contrast or blood. There was also possible mild soft tissue thickening between right colon and anterior abdominal wall, but no obstruction or appendicitis. She has had IVF and pain medication, as well as one dose Zosyn. Mitchell was placed with ~100-150ml yellow urine in bag. Surgery was asked to assess. She is seen and examined in ER holding, with daughter and sister present. She is in a lot of pain. She has not had food since last night, tried a few sips of coffee early this morning, but threw it back up. Gives the above history. 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: Yes: Multiple Sclerosis Gastrointestinal: Yes: GERD Reproductive: Yes: Postmenopausal Musculoskeletal: Yes: Osteoarthritis (s/p R hip fracture 12/19), Other (chronic neuropathic pain) - Past Surgical History Additional Surgical History: right hip ORIF/screw 12/19; laparotomy as toddler for swallowed FB - Alcohol/Substance Use Hx Alcohol Use: No History of Substance Use: reports: None - Smoking History Smoking history: Current every day smoker (about half pack/day or less for >50 yrs) Have you smoked in the past 12 months: Yes Aproximately how many cigarettes per day: 10 - Social History Usual Living Arrangement: With Child ADL: Family Assistance History of Recent Travel: No Home Medications - Allergies Allergies/Adverse Reactions: Allergies Allergy/AdvReac Type Severity Reaction Status Date / Time strawberry Allergy Verified 07/30/18 15:27 - Home Medications Home Medications: Ambulatory Orders Cholecalciferol (Vitamin D3) [Vitamin D3] 1 cap PO WEEKLY 07/30/18 Cyclobenzaprine HCl [Flexeril 10 mg] 10 mg PO TID PRN 07/30/18 Furosemide [Lasix] 20 mg PO DAILY PRN 07/30/18 Gabapentin 100 mg PO TID PRN 07/30/18 Zolpidem Tartrate [Ambien] 10 mg PO HS 07/30/18 Home Medications (free text): lots of Tums this last week. also lasix with K+ prn when ankles are swollen Family Disease History - Family Disease History Family History: Unremarkable (noncontributory) Review of Systems - Review of Systems Constitutional: denies: Chills, Fever Eyes: reports: Other (reading glasses, has cataracts). denies: Recent Change in Vision HENT: denies: Difficult Swallowing, Throat Pain Neck: denies: Swollen Glands, Tenderness Cardiovascular: denies: Chest Pain, Palpitations Respiratory: reports: Cough. denies: SOB Gastrointestinal: reports: Abdominal Pain, Nausea, Vomiting. denies: Constipation, Diarrhea Genitourinary: denies: Burning, Dysuria Musculoskeletal: reports: Back Pain. denies: Joint Pain, Muscle Pain Integumentary: denies: Change in Color, Rash Neurological: reports: Headache. denies: Dizziness Psychiatric: reports: Anxiety, Depression Physical Exam Vital Signs: Vital Signs Temperature 98.5 F 07/30/18 19:09 Pulse Rate 88 07/30/18 19:09 Respiratory Rate 24 H 07/30/18 19:09 Blood Pressure 145/67 07/30/18 19:09 O2 Sat by Pulse Oximetry (%) 100 07/30/18 19:09 Constitutional: Yes: Well Nourished, Calm, Moderate Distress (from pain) Eyes: Yes: Conjunctiva Clear, EOM Intact, Cataracts HENT: Yes: Atraumatic, Normocephalic Neck: Yes: Supple, Trachea Midline Cardiovascular: Yes: Tachycardia. No: Pulse Irregular Respiratory: Yes: Regular, CTA Bilaterally Gastrointestinal: Yes: Soft, Distention (mild), Hypoactive Bowel Sounds, Tenderness (diffuse, more on left than right), Tenderness, Rebound (firm/rigid abdomen, guarding diffusely) ...Rectal Exam: Yes: Deferred Renal/: Yes: Mitchell Present. No: Hematuria Musculoskeletal: No: Joint Stiffness, Joint Swelling Extremities: No: Cool, Cyanosis Edema: Yes Edema: LLE: Trace, RLE: Trace Peripheral Pulses WNL: Yes Integumentary: No: Jaundice, Rash Neurological: Yes: Alert, Oriented Psychiatric: Yes: Alert, Oriented Labs: CBC, BMP 07/30/18 16:01 07/30/18 16:01 CMP Sodium 141 mmol/L (136-145) 07/30/18 16:01 Potassium 4.1 mmol/L (3.5-5.1) 07/30/18 16:01 Chloride 105 mmol/L (98-107) 07/30/18 16:01 Carbon Dioxide 28 mmol/L (21-32) 07/30/18 16:01 Anion Gap 8 MMOL/L (8-16) 07/30/18 16:01 BUN 24 mg/dL (7-18) H 07/30/18 16:01 Creatinine 0.7 mg/dL (0.55-1.3) 07/30/18 16:01 Creat Clearance w eGFR 82.49 (>60) 07/30/18 16:01 Random Glucose 151 mg/dL (74-106) H 07/30/18 16:01 Lactic Acid 2.5 mmol/L (0.4-2.0) H* 07/30/18 17:03 Calcium 10.7 mg/dL (8.5-10.1) H 07/30/18 16:01 Total Bilirubin 0.3 mg/dL (0.2-1) 07/30/18 16:01 AST 10 U/L (15-37) L 07/30/18 16:01 ALT 20 U/L (13-61) 07/30/18 16:01 Alkaline Phosphatase 102 U/L (45-117) 07/30/18 16:01 Creatine Kinase 46 U/L (26-192) 07/30/18 16:01 Troponin I < 0.02 ng/ml (0.00-0.05) 07/30/18 16:01 Total Protein 7.8 g/dl (6.4-8.2) 07/30/18 16:01 Albumin 4.0 g/dl (3.4-5.0) 07/30/18 16:01 Lipase 115 U/L (73-393) 07/30/18 16:01 INR, PTT INR 0.97 (0.83-1.09) 07/30/18 18:22 Urine Test Results Urine Color Yellow 07/30/18 18:22 Urine Appearance Clear 07/30/18 18:22 Urine pH 5.0 (5.0-8.0) 07/30/18 18:22 Ur Specific [place] 1.055 (1.010-1.035) H 07/30/18 18:22 Urine Protein Negative (NEGATIVE) 07/30/18 18:22 Urine Glucose (UA) Negative (NEGATIVE) 07/30/18 18:22 Urine Ketones Negative (NEGATIVE) 07/30/18 18:22 Urine Blood Moderate (NEGATIVE) 07/30/18 18:22 Urine Nitrite Negative (NEGATIVE) 07/30/18 18:22 Urine Bilirubin Negative (NEGATIVE) 07/30/18 18:22 Ur Leukocyte Esterase Negative (NEGATIVE) 07/30/18 18:22 Imaging - Results Cat Scan: Report Reviewed, Image Reviewed (images reviewed - foci of free air around stomach and anterior to aorta; small free fluid, hyperdense around left edge of liver; difficult to tell source of perforation but might be perforated ulcer) Problem List - Problems (1) Acute peptic ulcer with perforation but without obstruction Assessment/Plan: admitted to medicine NPO/IVF suspect perforated peptic ulcer, or other perforated viscus start abx and antifungal GI/DVT prophylaxis - may need protonix drip postop if confirmed pain meds prn Discussed with patient risks, benefits and alternatives of exploratory laparotomy, possible bowel resection, possible ostomy, possible omental patch repair of perforated ulcer, including but not limited to bleeding, infection, injury to adjacent structures, intestinal or gastric leak or injury, intraabdominal abscess, incisional hernia, need for further procedures, ; alternatives include antibiotics with delayed or no surgery - risks of this include progression of peritonitis, sepsis, . Patient desires to proceed with operation - will take to OR emergently for above. Informed consent signed for same. further recommendations pending operative findings may need GI consult in am and ID to continue antibiotics anticipate likely NGT for 5 days postop with strict NPO status presuming perforated ulcer Code(s): K27.1 - ACUTE PEPTIC ULCER, SITE UNSPECIFIED, WITH PERFORATION (2) Generalized abdominal pain Code(s): R10.84 - GENERALIZED ABDOMINAL PAIN (3) Nausea and vomiting Code(s): R11.2 - NAUSEA WITH VOMITING, UNSPECIFIED Qualifiers: Vomiting type: unspecified Vomiting Intractability: non-intractable Qualified Code(s): R11.2 - Nausea with vomiting, unspecified (4) Multiple sclerosis Code(s): G35 - MULTIPLE SCLEROSIS
[2018-07-30] MEDS ORDERED: ROCURONIUM BROMIDE 50 MG/5 ML VIAL ONE (21:19)
[2018-07-30] MEDS ORDERED: CEFOXITIN SODIUM 1 GM IVPB ONE (21:21)
[2018-07-30] MEDS ORDERED: cefOXitin SODIUM 1 GM VIAL (RESTRICTED TO ID) IVPB ONE (21:25)
[2018-07-30] MEDS ORDERED: PHENYLEPHRINE HCL 10 MG/1 ML SINGLE DOSE VIAL ONE (21:28)
[2018-07-30] MEDS ORDERED: SENNOSIDES 8.8 MG/5 ML BULK BOTTLE PO SCH (22:00)
[2018-07-30] MEDS ORDERED: MUPIROCIN 2% TOPICAL OINTMENT FOR DECOLONIZATION NS SCH (22:00)
[2018-07-30] MEDS ORDERED: DOCUSATE NA 100 MG/10 ML UNIT-DOSE CUPS PO SCH (22:00)
[2018-07-30] MEDS ORDERED: CHLORHEXIDINE GLUCONATE 4% CLEANSER FOR DECOLONIZATION TP SCH (22:00)
[2018-07-30] MEDS ORDERED: NEOSTIGMINE METHYLSULFATE 0.5 MG/ML - 10 ML MDV ONE (22:23)
[2018-07-30] MEDS ORDERED: GLYCOPYRROLATE 0.2 MG/1 ML VIAL ONE (22:25)
[2018-07-30] MEDS ORDERED: ACETAMINOPHEN 1000 MG/100 ML VIAL (NON FORMULARY) IVPB ONE (23:10)
[2018-07-30] MEDS ORDERED: ACETAMINOPHEN INJECTION 100 ML IVPB ONE (23:13)
--- NOTE | 2018-07-30 23:13 | OP ---
Operative Note - Note: Operative Date: 07/30/18 Pre-Operative Diagnosis: perforated viscus Operation: omental (Mitchel) patch repair of perforated pyloric ulcer Findings: hole in distal stomach at/over pyloric area; succus and ascites in abdominal cavity, cultured and suctioned; omental tongue patch used to seal hole Post-Operative Diagnosis: Other (perforated pyloric ulcer) Surgeon: Peyman Cat Validation Software Facilitator: Rush Levine Anesthesiologist/SENIOR SYSTEMS SOFTWARE ENGINEER: Tres Gutierrez Anesthesia: General Specimens Removed: peritoneal fluid culture to micro Estimated Blood Loss (mls): 20 Drains & Tubes with Location: existing Mitchell left, single-lumen 16Fr NGT placed and left Drains, Volume Out (mls): 100 (UOP) Fluid Volume Replaced (mls): 2,300 (crystalloid) Operative Report Dictated: Yes
[2018-07-30] MEDS ORDERED: PANTOPRAZOLE SODIUM 80 MG in SODIUM CHLORIDE 100 ML IVPB SCH (23:15)
[2018-07-30] MEDS ORDERED: HYDROmorphone *PCA* 10MG/50ML DISP.SYRIN PCA ONE ×2 (23:30→23:48)
[2018-07-30] MEDS ORDERED: PANTOPRAZOLE SODIUM 40 MG/100 ML PRE-DOCKED IVPB ONE ×2 (23:30)
[2018-07-30] MEDS ORDERED: LACTATED RINGERS SOLUTION 1,000 ML/1,000 ML INFUS.BAG IV SCH (23:30)
[2018-07-30] MEDS ORDERED: ONDANSETRON 4 MG/2 ML VIAL IVPUSH PRN (23:31)
[2018-07-30] MEDS ORDERED: HYDROmorphone *PCA* 10MG/50ML DISP.SYRIN PCA SCH (23:45)
[2018-07-31] MEDS ORDERED: ACETAMINOPHEN 1000 MG/100 ML VIAL (NON FORMULARY) IVPB SCH
[2018-07-31] MEDS ORDERED: PIPERACILLIN/TAZOB 3.375 GM 3.375 GM in DEXTROSE 5%-WATER - 50 ML IVPB SCH ×3 (03:00)
[2018-07-31] MEDS ORDERED: PIPERACILLIN/TAZOBACTAM 3.375 GM VIAL IVPB ONE ×3 (03:20→21:18)
[2018-07-31] MEDS ORDERED: DEXTROSE 5%-WATER - 50 ML IVPB ONE ×3 (03:21→21:18)
[2018-07-31] MEDS: PIPERACILLIN/TAZOB 3.375 GM 3.375 GM in DEXTROSE 5%-WATER - 50 ML IVPB SCH ×4 (03:33→21:07)
[2018-07-31] MEDS: PANTOPRAZOLE SODIUM 80 MG in SODIUM CHLORIDE 100 ML IVPB SCH ×4 (03:50→21:06)
[2018-07-31] MEDS: ACETAMINOPHEN 1000 MG/100 ML VIAL (NON FORMULARY) IVPB SCH ×2 (06:04→12:32)
--- NOTE | 2018-07-31 08:03 | PN ---
Progress Note (short form) - Note Progress Note: POD1 s/p exlap repair of perforated gastric ulcer, on ARCHITECTURAL ENGINEER. Pain is well controlled on ARCHITECTURAL ENGINEER - will continue for now. No anesthetic issues/complications.
[2018-07-31 08:12] LABS: BASO % 0.2 % (0-2.0); HEMATOCRIT 28.8 % (32.4-45.2); HEMOGLOBIN 9.6 GM/dL (10.7-15.3); LYMPH % 8.4 % (8-40); MCHC 33.4 g/dl (32.0-36.0); MEAN CELL VOLUME 98.7 fl (80-96); MEAN PLT VOLUME 8.9 fl (7.5-11.1); MONO % 3.4 % (3.8-10.2); PLATELET COUNT 302 K/MM3 (134-434); RBC 2.91 M/mm3 (3.60-5.2); RDW 12.2 % (11.6-15.6); WHITE BLOOD COUNT 20.7 K/mm3 (4.0-10.0)
[2018-07-31 08:34] LABS: ALBUMIN 2.3 g/dl (3.4-5.0); ALK PHOS 61 U/L (45-117); ANION GAP 5 MMOL/L (8-16); BILIRUBIN,TOTAL 0.7 mg/dL (0.2-1); BLOOD UREA NITROGEN 23 mg/dL (7-18); CALCIUM 8.2 mg/dL (8.5-10.1); CHLORIDE 109 mmol/L (98-107); CO2 25 mmol/L (21-32); CREATININE 0.7 mg/dL (0.55-1.3); GLUCOSE,RANDOM 120 mg/dL (74-106); MAGNESIUM 1.9 mg/dL (1.8-2.4); PHOSPHOROUS 3.1 mg/dL (2.5-4.9); POTASSIUM 4.7 mmol/L (3.5-5.1); SGOT/AST 43 U/L (15-37); SGPT/ALT 44 U/L (13-61); SODIUM 140 mmol/L (136-145); TOT PROT 4.7 g/dl (6.4-8.2)
[2018-07-31] MEDS ORDERED: NICOTINE 7 MG/24 HOURS TOPICAL PATCH TD SCH (10:00)
[2018-07-31] MEDS ORDERED: PANTOPRAZOLE SODIUM 40 MG VIAL IVPB SCH (10:00)
[2018-07-31] MEDS ORDERED: FLUCONAZOLE 200 MG/D5W 100 ML IVPB SCH (10:00)
[2018-07-31 10:19] LABS: ANISOCYTOSIS 0; MACROCYTOSIS 0; PLATELET ESTIMATE NORMAL
[2018-07-31] MEDS: LACTATED RINGERS SOLUTION 1,000 ML/1,000 ML INFUS.BAG IV SCH (10:38)
--- NOTE | 2018-07-31 10:38 | PN ---
Progress Note, Physician - Current Medication List Current Medications: Active Medications Acetaminophen (Ofirmev Injection -) 1,000 mg IVPB Q6H DESIRE Last Admin: 07/31/18 06:04 Dose: 1,000 mg Hydromorphone HCl (Dilaudid Customer Solutions Representative -) 10 mg ROOFING SUPERINTENDENT ROOFING SUPERINTENDENT DESIRE; Protocol Stop: 08/06/18 23:32 Fluconazole (Diflucan 200 Mg/D5w Premixed Ivpb -) 100 mls @ 100 mls/hr IVPB DAILY DESIRE Lactated Ringer's (Lactated Ringers Solution) 1,000 ml in 1,000 mls @ 100 mls/ hr IV ASDIR DESIRE Pantoprazole Sodium 80 mg/ (Sodium Chloride) 100 mls @ 10 mls/hr IVPB Q10H DESIRE Last Admin: 07/31/18 03:50 Dose: 10 mls/hr Piperacillin Sod/Tazobactam (Sod 3.375 gm/ Dextrose) 50 mls @ 100 mls/hr IVPB Q8H-IV DESIRE; Protocol Nicotine (Nicoderm Patch -) 7 mg TD DAILY DESIRE - Objective Vital Signs: Vital Signs Temperature 98.1 F 07/31/18 06:32 Pulse Rate 119 H 07/31/18 06:32 Respiratory Rate 20 07/31/18 06:32 Blood Pressure 108/62 07/31/18 06:32 O2 Sat by Pulse Oximetry (%) 96 07/31/18 01:15 Labs: CBC, BMP 07/31/18 06:30 07/31/18 06:30 INR, PTT INR 0.97 (0.83-1.09) 07/30/18 18:22 Assessment/Plan Assisted Dr. Cat last night in the operative procedure, described by Dr. Cat. diagnosis: Perforated duodenal ulcer with peritonitis.
[2018-07-31] MEDS ORDERED: PT OWN MED DRAWER 7, Y5N ONE (10:47)
[2018-07-31] MEDS: NICOTINE 7 MG/24 HOURS TOPICAL PATCH TD SCH (10:50)
[2018-07-31] MEDS: FLUCONAZOLE 200 MG/D5W 100 ML IVPB SCH (10:51)
[2018-07-31] MEDS: HYDROmorphone *PCA* 10MG/50ML DISP.SYRIN PCA SCH (12:08)
--- NOTE | 2018-07-31 12:31 | PN ---
Progress Note (short form) - Note Progress Note: Events noted Pt admitted for perforated duodenal ulcer POD #1 omental (Mitchel) patch repair of perforated pyloric ulcer drowsy no pain NPO Vital Signs - 24 hr 07/30/18 07/30/18 07/30/18 14:55 19:09 23:02 Temperature 97.5 F L 98.5 F 98.0 F Pulse Rate 121 H 108 H Pulse Rate [ 88 Right] Respiratory 19 24 H 16 Rate Blood Pressure 121/76 126/62 Blood Pressure 145/67 [Right Arm] O2 Sat by Pulse 96 100 96 Oximetry (%) 07/30/18 07/30/18 07/30/18 23:15 23:30 23:45 Temperature Pulse Rate 106 H 106 H 110 H Pulse Rate [ Right] Respiratory 16 16 16 Rate Blood Pressure 137/67 140/62 133/66 Blood Pressure [Right Arm] O2 Sat by Pulse 100 98 98 Oximetry (%) 07/31/18 07/31/18 07/31/18 00:00 00:15 00:30 Temperature 98 F Pulse Rate 104 H 108 H 106 H Pulse Rate [ Right] Respiratory 16 16 16 Rate Blood Pressure 136/62 127/64 130/60 Blood Pressure [Right Arm] O2 Sat by Pulse 98 98 Oximetry (%) 07/31/18 07/31/18 07/31/18 01:15 06:32 07:30 Temperature 98.4 F 98.1 F Pulse Rate 100 H 119 H 122 H Pulse Rate [ Right] Respiratory 20 20 18 Rate Blood Pressure 115/56 L 108/62 116/62 Blood Pressure [Right Arm] O2 Sat by Pulse 96 Oximetry (%) 07/31/18 07/31/18 07/31/18 08:00 08:30 09:00 Temperature Pulse Rate 115 H 115 H 112 H Pulse Rate [ Right] Respiratory 18 18 18 Rate Blood Pressure 117/56 L 117/56 L 115/58 L Blood Pressure [Right Arm] O2 Sat by Pulse 95 Oximetry (%) 07/31/18 07/31/18 09:30 10:00 Temperature 98.4 F Pulse Rate 112 H 115 H Pulse Rate [ Right] Respiratory 18 18 Rate Blood Pressure 115/58 L 117/56 L Blood Pressure [Right Arm] O2 Sat by Pulse Oximetry (%) Current Medications Generic Name Dose Route Start Last Admin Trade Name Freq PRN Reason Stop Dose Admin Acetaminophen 1,000 mg 07/31/18 06:00 07/31/18 06:04 Ofirmev Injection - IVPB 1,000 mg Q6H DESIRE Administration Hydromorphone HCl 10 mg 07/31/18 01:00 07/31/18 12:08 Dilaudid Broiler Chef Or Cook - TAX SERVICES INTERN 08/06/18 23:32 Not Given TAX SERVICES INTERN DESIRE Protocol Fluconazole 100 mls @ 100 mls/hr 07/31/18 10:00 07/31/18 10:51 Diflucan 200 Mg/D5w Premixed Ivpb - IVPB 100 mls/hr DAILY DESIRE Administration Lactated Ringer's 1,000 ml in 1,000 mls @ 100 mls/hr 07/31/18 01:00 07/31/18 10:38 Lactated Ringers Solution IV 100 mls/hr ASDIR DESIRE Administration Pantoprazole Sodium 80 mg/ 100 mls @ 10 mls/hr 07/31/18 09:15 07/31/18 10:39 Sodium Chloride IVPB 10 mls/hr Q10H DESIRE Administration 8 MG/HR Piperacillin Sod/Tazobactam 50 mls @ 100 mls/hr 07/31/18 10:00 07/31/18 10:50 Sod 3.375 gm/ Dextrose IVPB 100 mls/hr Q8H-IV DESIRE Administration Protocol Nicotine 7 mg 07/31/18 10:00 07/31/18 10:50 Nicoderm Patch - TD 7 mg DAILY DESIRE Administration Laboratory Results - last 24 hr 07/30/18 07/30/18 07/30/18 16:01 16:01 17:03 WBC 20.7 H RBC 3.61 Hgb 12.2 Hct 35.9 MCV 99.4 H MCH 33.6 MCHC 33.8 RDW 12.3 Plt Count 356 MPV 8.5 Absolute Neuts (auto) 18.9 H Total Counted 100 Neutrophils % 91.3 H D Neutrophils % (Manual) 90.0 H Band Neutrophils % 1.0 Lymphocytes % 5.2 L D Lymphocytes % (Manual) 6.0 L D Monocytes % 3.1 L Monocytes % (Manual) 3 L Eosinophils % 0.1 D Eosinophils % (Manual) Basophils % 0.3 Basophils % (Manual) Myelocytes % (Man) Promyelocytes % (Man) Blast Cells % (Manual) Nucleated RBC % 0 Metamyelocytes Hypochromia Platelet Estimate Adequate Platelet Comment No clumping noted Polychromasia Poikilocytosis Anisocytosis Microcytosis Macrocytosis PT with INR INR PTT (Actin FS) Sodium 141 Potassium 4.1 Chloride 105 Carbon Dioxide 28 Anion Gap 8 BUN 24 H Creatinine 0.7 Creat Clearance w eGFR 82.49 Random Glucose 151 H Lactic Acid 2.5 H* Calcium 10.7 H Phosphorus Magnesium Total Bilirubin 0.3 AST 10 L ALT 20 Alkaline Phosphatase 102 Creatine Kinase 46 Troponin I < 0.02 Total Protein 7.8 Albumin 4.0 Lipase 115 Urine Color Urine Appearance Urine pH Ur Specific Cameron Urine Protein Urine Glucose (UA) Urine Ketones Urine Blood Urine Nitrite Urine Bilirubin Urine Urobilinogen Ur Leukocyte Esterase Urine WBC (Auto) Urine RBC (Auto) U Epithel Cells (Auto) Urine Bacteria (Auto) Blood Type Antibody Screen 07/30/18 07/30/18 07/30/18 18:22 18:22 18:22 WBC RBC Hgb Hct MCV MCH MCHC RDW Plt Count MPV Absolute Neuts (auto) Total Counted Neutrophils % Neutrophils % (Manual) Band Neutrophils % Lymphocytes % Lymphocytes % (Manual) Monocytes % Monocytes % (Manual) Eosinophils % Eosinophils % (Manual) Basophils % Basophils % (Manual) Myelocytes % (Man) Promyelocytes % (Man) Blast Cells % (Manual) Nucleated RBC % Metamyelocytes Hypochromia Platelet Estimate Platelet Comment Polychromasia Poikilocytosis Anisocytosis Microcytosis Macrocytosis PT with INR 11.50 INR 0.97 PTT (Actin FS) 29.1 Sodium Potassium Chloride Carbon Dioxide Anion Gap BUN Creatinine Creat Clearance w eGFR Random Glucose Lactic Acid Calcium Phosphorus Magnesium Total Bilirubin AST ALT Alkaline Phosphatase Creatine Kinase Troponin I Total Protein Albumin Lipase Urine Color Yellow Urine Appearance Clear Urine pH 5.0 Ur Specific Cameron 1.055 H Urine Protein Negative Urine Glucose (UA) Negative Urine Ketones Negative Urine Blood Moderate Urine Nitrite Negative Urine Bilirubin Negative Urine Urobilinogen 0.2 Ur Leukocyte Esterase Negative Urine WBC (Auto) 0.3 Urine RBC (Auto) 0.8 U Epithel Cells (Auto) 1.1 Urine Bacteria (Auto) 712 Blood Type O POSITIVE Antibody Screen Negative 07/31/18 07/31/18 07/31/18 06:30 06:30 06:30 WBC 20.7 H RBC 2.91 L Hgb 9.6 L Hct 28.8 L D MCV 98.7 H MCH 33.0 MCHC 33.4 RDW 12.2 Plt Count 302 MPV 8.9 Absolute Neuts (auto) 18.2 H Total Counted Neutrophils % 88.0 H Neutrophils % (Manual) 76.0 Band Neutrophils % 12.0 Lymphocytes % 8.4 D Lymphocytes % (Manual) 8.0 D Monocytes % 3.4 L Monocytes % (Manual) 4 Eosinophils % 0.0 D Eosinophils % (Manual) 0.0 Basophils % 0.2 Basophils % (Manual) 0.0 Myelocytes % (Man) 0 Promyelocytes % (Man) 0 Blast Cells % (Manual) 0 Nucleated RBC % 0 Metamyelocytes 0 Hypochromia 0 Platelet Estimate Normal Platelet Comment Polychromasia 0 Poikilocytosis 0 Anisocytosis 0 Microcytosis 0 Macrocytosis 0 PT with INR INR PTT (Actin FS) Sodium 140 Potassium 4.7 Chloride 109 H Carbon Dioxide 25 Anion Gap 5 L BUN 23 H Creatinine 0.7 Creat Clearance w eGFR 82.49 Random Glucose 120 H Lactic Acid 1.8 Calcium 8.2 L Phosphorus 3.1 Magnesium 1.9 Total Bilirubin 0.7 AST 43 H ALT 44 Alkaline Phosphatase 61 Creatine Kinase Troponin I Total Protein 4.7 L Albumin 2.3 L Lipase Urine Color Urine Appearance Urine pH Ur Specific Cameron Urine Protein Urine Glucose (UA) Urine Ketones Urine Blood Urine Nitrite Urine Bilirubin Urine Urobilinogen Ur Leukocyte Esterase Urine WBC (Auto) Urine RBC (Auto) U Epithel Cells (Auto) Urine Bacteria (Auto) Blood Type Antibody Screen NG+- no suction s1 s2 RRR Lungs clear Abd- soft, dressing in place, BS not heard not distended no edema PLAN NPO IV fluids IV antibiotics per ID cultures pending pain control-- TAX SERVICES INTERN pump check xray abd for placement of NG Problem List - Problems (1) HTN (hypertension) Code(s): I10 - ESSENTIAL (PRIMARY) HYPERTENSION (2) Acute peptic ulcer with perforation but without obstruction Code(s): K27.1 - ACUTE PEPTIC ULCER, SITE UNSPECIFIED, WITH PERFORATION (3) Multiple sclerosis Code(s): G35 - MULTIPLE SCLEROSIS
--- NOTE | 2018-07-31 13:21 | CON.ID ---
Consult Consult Specialty:: infectious diseases Referred by:: Reason for Consultation:: perforation of deuodenum - History of Present Illness Chief Complaint: abd pain History of Present Illness: 73yo F with MS, s/p laparotomy for swallowed neena pin when she was a toddler, s /p R hip screw for fracture 12/19, who has been mostly w/c bound since the fracture admitted with lower abdominal pain that woke her from sleep around 4am. This was asssociated with a couple episodes of n/v, nbnb, no f/c, + back pain, . In the ER, she has a wbc 20, is afebrile, has continued to have a lot of abdominal pain and CT with IV/PO contrast showed foci of free air around the edge of the stomach, anterior to aorta, and some free fluid, hyperdense, at the left edge of liver - . There was also possible mild soft tissue thickening between right colon and anterior abdominal wall, but no obstruction or appendicitis. 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 Gastrointestinal: Yes: GERD ...: No Musculoskeletal: Yes: Osteoarthritis (s/p R hip fracture 12/19), Other (chronic neuropathic pain) - Past Surgical History Additional Surgical History: right hip ORIF/screw 12/19; laparotomy as toddler for swallowed FB - Alcohol/Substance Use Hx Alcohol Use: No History of Substance Use: reports: None - Smoking History Smoking history: Current every day smoker Have you smoked in the past 12 months: Yes Aproximately how many cigarettes per day: 10 - Social History Usual Living Arrangement: With Child ADL: Family Assistance Occupation: , now History of Recent Travel: No Home Medications - Allergies Allergies/Adverse Reactions: Allergies Allergy/AdvReac Type Severity Reaction Status Date / Time strawberry Allergy Verified 07/30/18 15:27 - Home Medications Home Medications: Ambulatory Orders Cholecalciferol (Vitamin D3) [Vitamin D3] 1 cap PO WEEKLY 07/30/18 Cyclobenzaprine HCl [Flexeril 10 mg] 10 mg PO TID PRN 07/30/18 Furosemide [Lasix] 20 mg PO DAILY PRN 07/30/18 RX: Gabapentin 100 mg PO TID PRN 07/30/18 Zolpidem Tartrate [Ambien] 10 mg PO HS 07/30/18 Family Disease History - Family Disease History Family Disease History: Other: Father ( (74) Lung cancer), Mother ( (82) DMII, ETOH dependence), Brother ( (61) Lung cancer), Sister ( (68) pancretic and liver disease) Review of Systems - Review of Systems Constitutional: reports: No Symptoms Eyes: reports: No Symptoms HENT: reports: No Symptoms Neck: reports: No Symptoms Cardiovascular: reports: No Symptoms Respiratory: reports: No Symptoms Gastrointestinal: reports: Abdominal Pain Musculoskeletal: reports: No Symptoms Integumentary: reports: No Symptoms Neurological: reports: No Symptoms Endocrine: reports: No Symptoms Hematology/Lymphatic: reports: No Symptoms Psychiatric: reports: No Symptoms Physical Exam Vital Signs: Vital Signs Temperature 98.4 F 07/31/18 10:00 Pulse Rate 115 H 07/31/18 10:00 Respiratory Rate 18 07/31/18 10:00 Blood Pressure 117/56 L 07/31/18 10:00 O2 Sat by Pulse Oximetry (%) 95 07/31/18 09:00 Constitutional: Yes: Well Nourished, Calm, Mild Distress Cardiovascular: Yes: Regular Rate and Rhythm Respiratory: Yes: Regular, CTA Bilaterally Gastrointestinal: Yes: Soft, Other (absent bowel sounds,ng tube in place) Musculoskeletal: Yes: WNL Extremities: Yes: WNL Wound/Incision: Yes: Dressing Dry and Intact Neurological: Yes: Alert, Oriented Psychiatric: Yes: Alert, Oriented Labs: CBC, BMP 07/31/18 06:30 07/31/18 06:30 Imaging - Results Chest X-ray: Report Reviewed, Image Reviewed Cat Scan: Report Reviewed, Image Reviewed Assessment/Plan Problem List - Problems (1) Gastric ulcer, acute with perforation Code(s): K25.1 - ACUTE GASTRIC ULCER WITH PERFORATION (2) Generalized abdominal pain Code(s): R10.84 - GENERALIZED ABDOMINAL PAIN (3) Nausea and vomiting Code(s): R11.2 - NAUSEA WITH VOMITING, UNSPECIFIED Qualifiers: Vomiting type: unspecified Vomiting Intractability: non-intractable Qualified Code(s): R11.2 - Nausea with vomiting, unspecified (4) Multiple sclerosis Code(s): G35 - MULTIPLE SCLEROSIS plan continue abx await for gi function to return hydration rest as per surgery
--- NOTE | 2018-07-31 14:29 | EKG ---
Test Reason : Blood Pressure : / mmHG Vent. Rate : 122 BPM Atrial Rate : 122 BPM P-R Int : 152 ms QRS Dur : 102 ms QT Int : 300 ms P-R-T Axes : 054 -68 084 degrees QTc Int : 427 ms SINUS TACHYCARDIA LEFT AXIS DEVIATION SEPTAL INFARCT (CITED ON OR BEFORE 19-JUN-1998) POSSIBLE LATERAL INFARCT (CITED ON OR BEFORE 19-JUN-1998) ABNORMAL ECG Confirmed by MD SONIDO, FÉLIX ([id number]) on 07/31/2018 2:29:33 PM Referred By: Confirmed By:FÉLIX HEAD MD
--- NOTE | 2018-07-31 16:02 | PN ---
Progress Note, Physician History of Present Illness: Pt with perforated pyloric ulcer, s/p emergent omental patch repair last night. She is NPO with NGT, scant output as yet, and IV fluids. Lactate normalized this morning. Mitchell with yellow urine in it. 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 She is seen and examined in bed, sitting at first, then lying down, with daughter and sister present. She states she feels better than yesterday, not nearly as much pain in her belly. - Current Medication List Current Medications: Active Medications Acetaminophen (Ofirmev Injection -) 1,000 mg IVPB Q6H DESIRE Last Admin: 07/31/18 12:32 Dose: 1,000 mg Hydromorphone HCl (Dilaudid Planned Giving Officer -) 10 mg ELECTRIC BRAIN WAVE EQUIPMENT MECHANIC ELECTRIC BRAIN WAVE EQUIPMENT MECHANIC DESIRE; Protocol Stop: 08/06/18 23:32 Last Admin: 07/31/18 12:08 Dose: Not Given Fluconazole (Diflucan 200 Mg/D5w Premixed Ivpb -) 100 mls @ 100 mls/hr IVPB DAILY DESIRE Last Admin: 07/31/18 10:51 Dose: 100 mls/hr Lactated Ringer's (Lactated Ringers Solution) 1,000 ml in 1,000 mls @ 100 mls/ hr IV ASDIR DESIRE Last Admin: 07/31/18 10:38 Dose: 100 mls/hr Pantoprazole Sodium 80 mg/ (Sodium Chloride) 100 mls @ 10 mls/hr IVPB Q10H DESIRE Last Admin: 07/31/18 15:05 Dose: 10 mls/hr Piperacillin Sod/Tazobactam (Sod 3.375 gm/ Dextrose) 50 mls @ 100 mls/hr IVPB Q8H-IV DESIRE; Protocol Last Admin: 07/31/18 10:50 Dose: 100 mls/hr Nicotine (Nicoderm Patch -) 7 mg TD DAILY DESIRE Last Admin: 07/31/18 10:50 Dose: 7 mg - Objective Vital Signs: Vital Signs Temperature 98.0 F 07/31/18 14:48 Pulse Rate 105 H 07/31/18 14:48 Respiratory Rate 16 07/31/18 14:48 Blood Pressure 122/64 07/31/18 14:48 O2 Sat by Pulse Oximetry (%) 95 07/31/18 09:00 Constitutional: Yes: Well Nourished, No Distress, Calm Eyes: Yes: Conjunctiva Clear, EOM Intact HENT: Yes: Atraumatic, Normocephalic, Other (NGT in place, out a little from OR placement, but in stomach by AXR, on LIWS) Gastrointestinal: Yes: Soft, Tenderness (mild RLQ, minimal elsewhere including incisional, no R/G). No: Distention Genitourinary: Yes: Mitchell Present (with yellow urine). No: Hematuria Extremities: No: Cool, Cyanosis Integumentary: Yes: Incision (midline dressed). No: Jaundice, Rash Wound/Incision: Yes: Dressing Dry and Intact (midline). No: Dressing Removed Neurological: Yes: Alert, Oriented Labs: CBC, BMP 07/31/18 06:30 07/31/18 06:30 CMP Sodium 140 mmol/L (136-145) 07/31/18 06:30 Potassium 4.7 mmol/L (3.5-5.1) 07/31/18 06:30 Chloride 109 mmol/L (98-107) H 07/31/18 06:30 Carbon Dioxide 25 mmol/L (21-32) 07/31/18 06:30 Anion Gap 5 MMOL/L (8-16) L 07/31/18 06:30 BUN 23 mg/dL (7-18) H 07/31/18 06:30 Creatinine 0.7 mg/dL (0.55-1.3) 07/31/18 06:30 Creat Clearance w eGFR 82.49 (>60) 07/31/18 06:30 Random Glucose 120 mg/dL (74-106) H 07/31/18 06:30 Lactic Acid 1.8 mmol/L (0.4-2.0) 07/31/18 06:30 Calcium 8.2 mg/dL (8.5-10.1) L 07/31/18 06:30 Phosphorus 3.1 mg/dL (2.5-4.9) 07/31/18 06:30 Magnesium 1.9 mg/dL (1.8-2.4) 07/31/18 06:30 Total Bilirubin 0.7 mg/dL (0.2-1) 07/31/18 06:30 AST 43 U/L (15-37) H 07/31/18 06:30 ALT 44 U/L (13-61) 07/31/18 06:30 Alkaline Phosphatase 61 U/L (45-117) 07/31/18 06:30 Creatine Kinase 46 U/L (26-192) 07/30/18 16:01 Troponin I < 0.02 ng/ml (0.00-0.05) 07/30/18 16:01 Total Protein 4.7 g/dl (6.4-8.2) L 07/31/18 06:30 Albumin 2.3 g/dl (3.4-5.0) L 07/31/18 06:30 Lipase 115 U/L (73-393) 07/30/18 16:01 lactate normalized - ....Imaging X-ray: Report Reviewed, Image Reviewed (AXR with NG coiled with some excess in stomach) Problem List - Problems (1) Gastric ulcer, acute with perforation Assessment/Plan: POD1 s/p omental (Mitchel) patch repair of perforated pyloric (prepyloric?) ulcer NPO with NGT/IVF for 5 days continue zosyn and diflucan for peritonitis f/u peritoneal culture ID consulted GI/DVT prophylaxis, on protonix drip GI consulted pain meds include IV tylenol standing and ELECTRIC BRAIN WAVE EQUIPMENT MECHANIC continue Mitchell today - may need more IV fluids OOB to chair as able, IS may benefit from PT discussed with Dr. Colbert and Dr. Magaña Code(s): K25.1 - ACUTE GASTRIC ULCER WITH PERFORATION (2) Generalized abdominal pain Assessment/Plan: much improved Code(s): R10.84 - GENERALIZED ABDOMINAL PAIN (3) Nausea and vomiting Assessment/Plan: resolved Code(s): R11.2 - NAUSEA WITH VOMITING, UNSPECIFIED Qualifiers: Vomiting type: unspecified Vomiting Intractability: non-intractable Qualified Code(s): R11.2 - Nausea with vomiting, unspecified (4) Multiple sclerosis Assessment/Plan: not on meds at home with h/o R hip fx and ORIF last December benefit from PT Code(s): G35 - MULTIPLE SCLEROSIS
--- NOTE | 2018-07-31 17:12 | CON.GI ---
Consult Consult Specialty:: GI Referred by:: Dr. Shonna Kent Reason for Consultation:: Perforated gastric ulcer - History of Present Illness Chief Complaint: Abdominal pain History of Present Illness: 73F s/p Mitchel patch repair of perforatd ? pyloric / duodenal bulb ulcer 07/30. No prior history of PUD. No frequent NSAID use. + smoker. Had colonoscopy [address] Boucher. Her daughter states Dr. Boucher described the colon as very tortuous. Has never had EGD. No family history of colorectal cancer or other GI malignancy. 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 Gastrointestinal: Yes: GERD ...: No Musculoskeletal: Yes: Osteoarthritis (s/p R hip fracture 12/19), Other (chronic neuropathic pain) - Past Surgical History Additional Surgical History: right hip ORIF/screw 12/19; laparotomy as toddler for swallowed FB - Alcohol/Substance Use Hx Alcohol Use: No History of Substance Use: reports: None - Smoking History Smoking history: Current every day smoker Have you smoked in the past 12 months: Yes Aproximately how many cigarettes per day: 10 - Social History Usual Living Arrangement: Assisted Living ADL: Family Assistance Occupation: , now Place of : [facility] History of Recent Travel: No Home Medications - Allergies Allergies/Adverse Reactions: Allergies Allergy/AdvReac Type Severity Reaction Status Date / Time strawberry Allergy Verified 07/30/18 15:27 - Home Medications Home Medications: Ambulatory Orders Cholecalciferol (Vitamin D3) [Vitamin D3] 1 cap PO WEEKLY 07/30/18 Cyclobenzaprine HCl [Flexeril 10 mg] 10 mg PO TID PRN 07/30/18 Furosemide [Lasix] 20 mg PO DAILY PRN 07/30/18 Gabapentin 100 mg PO TID PRN 07/30/18 Zolpidem Tartrate [Ambien] 10 mg PO HS 07/30/18 Family Disease History - Family Disease History Family Disease History: Other: Father ( (74) Lung cancer), Mother ( (82) DMII, ETOH dependence), Brother ( (61) Lung cancer), Sister ( (68) pancretic and liver disease), Son (1, healthy), Daughter ( 2, healthy) Other Family History: No family history of colorectal cancer or other GI malignancy Review of Systems - Review of Systems Constitutional: denies: Chills Cardiovascular: denies: Chest Pain Respiratory: denies: SOB Gastrointestinal: reports: Abdominal Pain. denies: Melena, Rectal Bleeding Physical Exam-GI Vital Signs: Vital Signs Temperature 98.0 F 07/31/18 14:48 Pulse Rate 105 H 07/31/18 14:48 Respiratory Rate 16 07/31/18 14:48 Blood Pressure 122/64 07/31/18 14:48 O2 Sat by Pulse Oximetry (%) 95 07/31/18 09:00 Constitutional: Yes: Calm Eyes: No: Sclera Icterus Cardiovascular: Yes: Tachycardia Respiratory: Yes: CTA Bilaterally Gastrointestinal Inspection: Yes: Other (vertical surgical dressing in place in the mide abdomen) ...Auscultate: Yes: Normoactive Bowel Sounds ...Palpate: Yes: Tenderness (at the surgical dressing site) ...Percussion: No: Tympanitic Edema: No (No LE edema) Neurological: Yes: Alert Labs: CBC, BMP 07/31/18 06:30 07/31/18 06:30 INR, PTT INR 0.97 (0.83-1.09) 07/30/18 18:22 Hepatic Panel Total Bilirubin 0.7 mg/dL (0.2-1) 07/31/18 06:30 AST 43 U/L (15-37) H 07/31/18 06:30 ALT 44 U/L (13-61) 07/31/18 06:30 Alkaline Phosphatase 61 U/L (45-117) 07/31/18 06:30 Albumin 2.3 g/dl (3.4-5.0) L 07/31/18 06:30 Problem List - Problems (1) Gastric ulcer, acute with perforation Assessment/Plan: Post Op day 1 Care per surgery Ordered Stool h. pylori antigen. If H. Pylori + would initiate treatment No data on PPI drip and treatment of perforated ulcer Can change to 40mg IVPB BID tomorrow. Monitor magnesium levels whil on PPI Advised outpatient follow-up to discuss EGD Code(s): K25.1 - ACUTE GASTRIC ULCER WITH PERFORATION
[2018-07-31] MEDS ORDERED: HEPARIN NA (PORCINE) 5,000 UNITS/ML 1ML VIAL SQ SCH (22:00)
[2018-07-31] MEDS ORDERED: PANTOPRAZOLE SODIUM 40 MG VIAL IVPB ONE ×2 (23:14)
[2018-08-01] MEDS: ACETAMINOPHEN 1000 MG/100 ML VIAL (NON FORMULARY) IVPB SCH ×5 (01:08→18:12)
[2018-08-01] MEDS: LACTATED RINGERS SOLUTION 1,000 ML/1,000 ML INFUS.BAG IV SCH ×2 (01:38→10:04)
[2018-08-01] MEDS: HYDROmorphone *PCA* 10MG/50ML DISP.SYRIN PCA SCH (02:38)
[2018-08-01] MEDS ORDERED: PIPERACILLIN/TAZOBACTAM 3.375 GM VIAL IVPB ONE ×4 (03:12→20:49)
[2018-08-01] MEDS ORDERED: DEXTROSE 5%-WATER - 50 ML IVPB ONE ×4 (03:12→20:50)
[2018-08-01] MEDS: PIPERACILLIN/TAZOB 3.375 GM 3.375 GM in DEXTROSE 5%-WATER - 50 ML IVPB SCH ×3 (03:55→17:34)
[2018-08-01] MEDS: PANTOPRAZOLE SODIUM 80 MG in SODIUM CHLORIDE 100 ML IVPB SCH (05:41)
[2018-08-01 08:11] LABS: BASO % 0.1 % (0-2.0); EOS % 0.1 % (0-4.5); HEMATOCRIT 23.9 % (32.4-45.2); LYMPH % 8.4 % (8-40); MCHC 33.5 g/dl (32.0-36.0); MEAN CELL VOLUME 98.6 fl (80-96); MEAN PLT VOLUME 8.8 fl (7.5-11.1); MONO % 6.3 % (3.8-10.2); NEUT % 85.1 % (42.8-82.8); PLATELET COUNT 271 K/MM3 (134-434); RBC 2.42 M/mm3 (3.60-5.2); RDW 12.2 % (11.6-15.6)
[2018-08-01 08:16] LABS: ALK PHOS 73 U/L (45-117); ANION GAP 6 MMOL/L (8-16); BILIRUBIN,TOTAL 0.4 mg/dL (0.2-1); BLOOD UREA NITROGEN 19 mg/dL (7-18); CALCIUM 8.2 mg/dL (8.5-10.1); CHLORIDE 108 mmol/L (98-107); CO2 25 mmol/L (21-32); CREATININE 0.7 mg/dL (0.55-1.3); GLUCOSE,RANDOM 80 mg/dL (74-106); POTASSIUM 4.2 mmol/L (3.5-5.1); SGOT/AST 43 U/L (15-37); SGPT/ALT 28 U/L (13-61); SODIUM 140 mmol/L (136-145); TOT PROT 4.6 g/dl (6.4-8.2)
[2018-08-01 10:00] LABS: ANISOCYTOSIS 0; MACROCYTOSIS 0; PLATELET ESTIMATE NORMAL
[2018-08-01] MEDS ORDERED: PT OWN MED DRAWER 7, Y5N ONE (10:02)
[2018-08-01] MEDS: NICOTINE 7 MG/24 HOURS TOPICAL PATCH TD SCH (10:04)
--- NOTE | 2018-08-01 10:53 | PN ---
Progress Note (short form) - Note Progress Note: Events noted Pt admitted for perforated duodenal ulcer POD #2 omental (Mitchel) patch repair of perforated pyloric ulcer awake no pain NPO Vital Signs - 24 hr 07/31/18 07/31/18 07/31/18 11:30 14:48 18:00 Temperature 98.0 F 98.6 F Pulse Rate 122 H 105 H 106 H Respiratory 18 16 18 Rate Blood Pressure 117/64 122/64 118/62 O2 Sat by Pulse Oximetry (%) 07/31/18 07/31/18 07/31/18 19:59 21:00 23:00 Temperature 98.4 F 98.6 F Pulse Rate 100 H 107 H Respiratory 20 20 20 Rate Blood Pressure 120/68 116/64 O2 Sat by Pulse 98 Oximetry (%) 08/01/18 08/01/18 08/01/18 03:08 03:38 04:08 Temperature Pulse Rate 105 H 116 H 108 H Respiratory 20 20 18 Rate Blood Pressure 120/62 114/64 110/60 O2 Sat by Pulse Oximetry (%) 08/01/18 08/01/18 08/01/18 04:38 05:08 06:15 Temperature 98 F Pulse Rate 112 H 115 H 110 H Respiratory 20 20 20 Rate Blood Pressure 120/62 124/64 120/76 O2 Sat by Pulse Oximetry (%) Current Medications Generic Name Dose Route Start Last Admin Trade Name Freq PRN Reason Stop Dose Admin Acetaminophen 1,000 mg 07/31/18 06:00 08/01/18 07:29 Ofirmev Injection - IVPB Not Given Q6H DESIRE Hydromorphone HCl 10 mg 07/31/18 01:00 08/01/18 02:38 Dilaudid Data Center Project Manager - DINING ROOM ATTENDANT CAFETERIA 08/06/18 23:32 10 mg DINING ROOM ATTENDANT CAFETERIA DESIRE Administration Protocol Fluconazole 100 mls @ 100 mls/hr 07/31/18 10:00 07/31/18 10:51 Diflucan 200 Mg/D5w Premixed Ivpb - IVPB 100 mls/hr DAILY DESIRE Administration Lactated Ringer's 1,000 ml in 1,000 mls @ 100 mls/hr 07/31/18 01:00 08/01/18 10:04 Lactated Ringers Solution IV 100 mls/hr ASDIR DESIRE Administration Pantoprazole Sodium 80 mg/ 100 mls @ 10 mls/hr 07/31/18 09:15 08/01/18 05:41 Sodium Chloride IVPB 10 mls/hr Q10H DESIRE Administration 8 MG/HR Piperacillin Sod/Tazobactam 50 mls @ 100 mls/hr 07/31/18 10:00 08/01/18 10:04 Sod 3.375 gm/ Dextrose IVPB 100 mls/hr Q8H-IV DESIRE Administration Protocol Nicotine 7 mg 07/31/18 10:00 08/01/18 10:04 Nicoderm Patch - TD 7 mg DAILY DESIRE Administration Laboratory Results - last 24 hr 08/01/18 08/01/18 06:30 06:30 WBC 20.0 H RBC 2.42 L Hgb 8.0 L Hct 23.9 L D MCV 98.6 H MCH 33.0 MCHC 33.5 RDW 12.2 Plt Count 271 MPV 8.8 Absolute Neuts (auto) 17.1 H Neutrophils % 85.1 H Neutrophils % (Manual) 90.9 H Band Neutrophils % 0.0 Lymphocytes % 8.4 Lymphocytes % (Manual) 5.1 L D Monocytes % 6.3 D Monocytes % (Manual) 4 Eosinophils % 0.1 D Eosinophils % (Manual) 0.0 Basophils % 0.1 Basophils % (Manual) 0.0 Myelocytes % (Man) 0 Promyelocytes % (Man) 0 Blast Cells % (Manual) 0 Nucleated RBC % 0 Metamyelocytes 0 Hypochromia 0 Platelet Estimate Normal Polychromasia 0 Poikilocytosis 0 Anisocytosis 0 Microcytosis 0 Macrocytosis 0 Sodium 140 Potassium 4.2 Chloride 108 H Carbon Dioxide 25 Anion Gap 6 L BUN 19 H Creatinine 0.7 Creat Clearance w eGFR 82.49 Random Glucose 80 Calcium 8.2 L Total Bilirubin 0.4 AST 43 H ALT 28 Alkaline Phosphatase 73 Total Protein 4.6 L Albumin 2.0 L NG+- no suction s1 s2 RRR Lungs clear Abd- soft, dressing in place, BS not heard not distended no edema PLAN NPO IV fluids WBC elevated IV antibiotics per ID cultures pending pain control-- DINING ROOM ATTENDANT CAFETERIA pump Problem List - Problems (1) HTN (hypertension) Code(s): I10 - ESSENTIAL (PRIMARY) HYPERTENSION (2) Acute peptic ulcer with perforation but without obstruction Code(s): K27.1 - ACUTE PEPTIC ULCER, SITE UNSPECIFIED, WITH PERFORATION (3) Multiple sclerosis Code(s): G35 - MULTIPLE SCLEROSIS
[2018-08-01] MEDS: FLUCONAZOLE 200 MG/D5W 100 ML IVPB SCH (10:55)
--- NOTE | 2018-08-01 12:57 | PN ---
Progress Note, Physician History of Present Illness: patient stable feels much better no complaints - Current Medication List Current Medications: Active Medications Acetaminophen (Ofirmev Injection -) 1,000 mg IVPB Q6H DESIRE Last Admin: 08/01/18 12:05 Dose: 1,000 mg Hydromorphone HCl (Dilaudid Flexographic Press Plate Setter -) 10 mg BENCH BORING MACHINE OPERATOR BENCH BORING MACHINE OPERATOR DESIRE; Protocol Stop: 08/06/18 23:32 Last Admin: 08/01/18 02:38 Dose: 10 mg Fluconazole (Diflucan 200 Mg/D5w Premixed Ivpb -) 100 mls @ 100 mls/hr IVPB DAILY DESIRE Last Admin: 08/01/18 10:55 Dose: 100 mls/hr Lactated Ringer's (Lactated Ringers Solution) 1,000 ml in 1,000 mls @ 100 mls/ hr IV ASDIR DESIRE Last Admin: 08/01/18 10:04 Dose: 100 mls/hr Piperacillin Sod/Tazobactam (Sod 3.375 gm/ Dextrose) 50 mls @ 100 mls/hr IVPB Q8H-IV DESIRE; Protocol Last Admin: 08/01/18 10:04 Dose: 100 mls/hr Nicotine (Nicoderm Patch -) 7 mg TD DAILY DESIRE Last Admin: 08/01/18 10:04 Dose: 7 mg Pantoprazole Sodium (Protonix Iv) 40 mg IVPUSH BID DESIRE - Objective Vital Signs: Vital Signs Temperature 98.2 F 08/01/18 10:00 Pulse Rate 95 H 08/01/18 10:00 Respiratory Rate 18 08/01/18 10:00 Blood Pressure 118/57 L 08/01/18 10:00 O2 Sat by Pulse Oximetry (%) 98 07/31/18 21:00 Constitutional: Yes: No Distress, Calm Cardiovascular: Yes: Regular Rate and Rhythm Respiratory: Yes: Regular, CTA Bilaterally Gastrointestinal: Yes: Other (absent bowel sounds,ng in place) Musculoskeletal: Yes: WNL Extremities: Yes: WNL Neurological: Yes: Alert, Oriented Psychiatric: Yes: Alert, Oriented Labs: CBC, BMP 08/01/18 06:30 08/01/18 06:30 INR, PTT INR 0.97 (0.83-1.09) 07/30/18 18:22 Assessment/Plan Problem List - Problems (1) Gastric ulcer, acute with perforation Code(s): K25.1 - ACUTE GASTRIC ULCER WITH PERFORATION (2) Generalized abdominal pain Code(s): R10.84 - GENERALIZED ABDOMINAL PAIN (3) Nausea and vomiting Code(s): R11.2 - NAUSEA WITH VOMITING, UNSPECIFIED Qualifiers: Vomiting type: unspecified Vomiting Intractability: non-intractable Qualified Code(s): R11.2 - Nausea with vomiting, unspecified (4) Multiple sclerosis Code(s): G35 - MULTIPLE SCLEROSIS plan stable improving continue current mgmt rest as per the team
--- NOTE | 2018-08-01 17:03 | PN.GI ---
GI Progress Note Subjective: Pt seen/examined at bedside, POD #2 emergent omental patch repair, feels better , slight discomfort at surgical sites, NG in place with minimal output. Passed small amount of flatus, no bms yet. Remains on PPI drip. - Objective Vital Signs: Vital Signs Temperature 97.3 F L 08/01/18 16:50 Pulse Rate 92 H 08/01/18 16:50 Respiratory Rate 20 08/01/18 16:50 Blood Pressure 114/54 L 08/01/18 16:50 O2 Sat by Pulse Oximetry (%) 98 08/01/18 09:00 Constitutional: Well Nourished, No Distress, Calm Cardiovascular: Yes: WNL, Regular Rate and Rhythm Respiratory: Yes: WNL, Regular, CTA Bilaterally ...Palpate: Yes: Other (Abd soft, midline incision with dressing, mildly tender on palpation, non distended, no rebound, guarding or rigidity) Labs: CBC, BMP 08/01/18 06:30 08/01/18 06:30 INR, PTT INR 0.97 (0.83-1.09) 07/30/18 18:22 Problem List - Problems (1) Gastric ulcer, acute with perforation Assessment/Plan: 73yo female with perforated pyloric ulcer s/p emergent alexander patch repair, POD #2. Feels better, NG in place with minimal output. No bms yet. No overt bleeding. -Change to IV PPI bid -Follow up stool HP antigen when able to obtain sample -Pt will require outpt GI follow up pending dispo -Further management per surgery Code(s): K25.1 - ACUTE GASTRIC ULCER WITH PERFORATION
--- NOTE | 2018-08-01 20:02 | PN ---
Progress Note, Physician History of Present Illness: Pt with perforated pyloric ulcer, s/p emergent omental patch repair. She is NPO with NGT, little green/bilious output, and IV fluids. Mitchell with very light/ clear yellow urine, 1350ml out (24hrs till 6am today). Pain controlled with standing IV tylenol and TWISTING FRAME FIXER. She is seen and examined in bed. She is feeling well, using IS with fair effort, only <=500ml most times. Not really OOB yet, though she would like to do so. On abx/antifungal. Protonix switched to bid today from drip. Seen by GI and ID. - Current Medication List Current Medications: Active Medications Acetaminophen (Ofirmev Injection -) 1,000 mg IVPB Q6H [facility] Last Admin: 08/01/18 18:12 Dose: 1,000 mg Hydromorphone HCl (Dilaudid Business Development Executive -) 10 mg TWISTING FRAME FIXER TWISTING FRAME FIXER DESIRE; Protocol Stop: 08/06/18 23:32 Last Admin: 08/01/18 02:38 Dose: 10 mg Fluconazole (Diflucan 200 Mg/D5w Premixed Ivpb -) 100 mls @ 100 mls/hr IVPB DAILY DESIRE Last Admin: 08/01/18 10:55 Dose: 100 mls/hr Lactated Ringer's (Lactated Ringers Solution) 1,000 ml in 1,000 mls @ 100 mls/ hr IV ASDIR DESIRE Last Admin: 08/01/18 10:04 Dose: 100 mls/hr Piperacillin Sod/Tazobactam (Sod 3.375 gm/ Dextrose) 50 mls @ 100 mls/hr IVPB Q8H-IV DESIRE; Protocol Last Admin: 08/01/18 17:34 Dose: 100 mls/hr Nicotine (Nicoderm Patch -) 7 mg TD DAILY DESIRE Last Admin: 08/01/18 10:04 Dose: 7 mg Pantoprazole Sodium (Protonix Iv) 40 mg IVPUSH BID [facility] - Objective Vital Signs: Vital Signs Temperature 97.3 F L 08/01/18 16:50 Pulse Rate 92 H 08/01/18 16:50 Respiratory Rate 20 08/01/18 16:50 Blood Pressure 114/54 L 08/01/18 16:50 O2 Sat by Pulse Oximetry (%) 98 08/01/18 09:00 Constitutional: Yes: Well Nourished, No Distress, Calm Eyes: Yes: Conjunctiva Clear, EOM Intact HENT: Yes: Atraumatic, Normocephalic, Other (NG in place with green fluid in tubing, on intermittent suction, functioning) Respiratory: Yes: On Nasal O2 (nurse to check without). No: SOB Gastrointestinal: Yes: Soft. No: Distention, Tenderness Genitourinary: Yes: Mitchell Present. No: Hematuria Extremities: No: Cool, Cyanosis Integumentary: Yes: Incision (midline dressed). No: Jaundice, Rash Wound/Incision: Yes: Clean/Dry, Well Approximated, [place] Intact, Open to air ( left BENCH MOLDER), Dressing Dry and Intact (midline), Dressing Removed. No: Reddened Neurological: Yes: Alert, Oriented Labs: CBC, BMP 08/01/18 06:30 08/01/18 06:30 wbc sideways BUN still decreasing Problem List - Problems (1) Gastric ulcer, acute with perforation Assessment/Plan: POD2 s/p omental (Mitchel) patch repair of perforated pyloric (prepyloric?) ulcer NPO with NGT/IVF for 5 days continue zosyn and diflucan for peritonitis, ID following f/u peritoneal culture dressing removed - incision c/d/i with audra GI/DVT prophylaxis, on protonix bid GI following pain meds include IV tylenol standing and TWISTING FRAME FIXER may be able to change to IV prn pain meds from TWISTING FRAME FIXER tomorrow? will d/c Mitchell in am - pt needs bedside commode continue monitoring I/O's OOB to chair as able, IS nurse to check without O2 - should not need regularly will order PT to see tomorrow, at least to help with mobilization Code(s): K25.1 - ACUTE GASTRIC ULCER WITH PERFORATION (2) Generalized abdominal pain Assessment/Plan: resolved, postop appropriate Code(s): R10.84 - GENERALIZED ABDOMINAL PAIN (3) Multiple sclerosis Assessment/Plan: not on meds at home with h/o R hip fx and ORIF last December PT to see pt uses W/C at home - would like to be able to use one here or have family bring hers Code(s): G35 - MULTIPLE SCLEROSIS
[2018-08-01] MEDS: PANTOPRAZOLE SODIUM 40 MG VIAL IVPUSH SCH (21:20)
[2018-08-01] MEDS: D5-1/2NS+20 MEQ KCL - 20 MEQ/1,000 ML INFUS.BAG IV SCH (21:24)
[2018-08-02] MEDS: PIPERACILLIN/TAZOB 3.375 GM 3.375 GM in DEXTROSE 5%-WATER - 50 ML IVPB SCH ×3 (01:53→17:19)
[2018-08-02] MEDS: ACETAMINOPHEN 1000 MG/100 ML VIAL (NON FORMULARY) IVPB SCH ×4 (06:40→17:19)
[2018-08-02 06:41] LABS: BASO % 0.1 % (0-2.0); EOS % 0.6 % (0-4.5); HEMATOCRIT 24.5 % (32.4-45.2); HEMOGLOBIN 8.2 GM/dL (10.7-15.3); LYMPH % 8.5 % (8-40); MCH 32.7 pg (25.7-33.7); MCHC 33.6 g/dl (32.0-36.0); MEAN CELL VOLUME 97.2 fl (80-96); MEAN PLT VOLUME 8.3 fl (7.5-11.1); MONO % 4.5 % (3.8-10.2); NEUT % 86.3 % (42.8-82.8); PLATELET COUNT 275 K/MM3 (134-434); RBC 2.52 M/mm3 (3.60-5.2); RDW 12.2 % (11.6-15.6); WHITE BLOOD COUNT 16.3 K/mm3 (4.0-10.0)
[2018-08-02 07:05] LABS: ALBUMIN 1.9 g/dl (3.4-5.0); ALK PHOS 82 U/L (45-117); ANION GAP 5 MMOL/L (8-16); BILIRUBIN,TOTAL 0.3 mg/dL (0.2-1); BLOOD UREA NITROGEN 11 mg/dL (7-18); CALCIUM 8.2 mg/dL (8.5-10.1); CHLORIDE 107 mmol/L (98-107); CO2 25 mmol/L (21-32); CREATININE 0.5 mg/dL (0.55-1.3); GLUCOSE,RANDOM 93 mg/dL (74-106); MAGNESIUM 2.1 mg/dL (1.8-2.4); POTASSIUM 3.8 mmol/L (3.5-5.1); SGOT/AST 32 U/L (15-37); SGPT/ALT 26 U/L (13-61); SODIUM 137 mmol/L (136-145); TOT PROT 4.9 g/dl (6.4-8.2)
[2018-08-02] MEDS: HYDROmorphone *PCA* 10MG/50ML DISP.SYRIN PCA SCH (07:46)
[2018-08-02] MEDS ORDERED: PIPERACILLIN/TAZOBACTAM 3.375 GM VIAL IVPB ONE ×3 (09:45→20:58)
[2018-08-02] MEDS ORDERED: DEXTROSE 5%-WATER - 50 ML IVPB ONE ×3 (09:45→20:58)
[2018-08-02] MEDS ORDERED: PT OWN MED DRAWER 7, Y5N ONE (09:45)
[2018-08-02] MEDS: D5-1/2NS+20 MEQ KCL - 20 MEQ/1,000 ML INFUS.BAG IV SCH (09:49)
[2018-08-02] MEDS: PANTOPRAZOLE SODIUM 40 MG VIAL IVPUSH SCH ×2 (09:49→22:00)
[2018-08-02] MEDS: NICOTINE 7 MG/24 HOURS TOPICAL PATCH TD SCH (09:49)
--- NOTE | 2018-08-02 10:49 | PN ---
Progress Note (short form) - Note Progress Note: Events noted Pt admitted for perforated duodenal ulcer POD #3 omental (Mitchel) patch repair of perforated pyloric ulcer awake no pain NPO Vital Signs - 24 hr 08/01/18 08/01/18 08/01/18 15:15 16:50 20:00 Temperature 98.0 F 97.3 F L 97.9 F Pulse Rate 86 92 H 88 Respiratory 18 20 20 Rate Blood Pressure 116/55 L 114/54 L 130/69 O2 Sat by Pulse Oximetry (%) 08/01/18 08/02/18 08/02/18 21:00 02:34 07:01 Temperature 98.2 F 98.1 F Pulse Rate 101 H 96 H Respiratory 20 20 20 Rate Blood Pressure 147/68 137/62 O2 Sat by Pulse 98 Oximetry (%) 08/02/18 08/02/18 08:16 10:31 Temperature 97.9 F Pulse Rate 100 H 100 H Respiratory 16 18 Rate Blood Pressure 120/64 114/69 O2 Sat by Pulse Oximetry (%) Current Medications Generic Name Dose Route Start Last Admin Trade Name Freq PRN Reason Stop Dose Admin Acetaminophen 1,000 mg 07/31/18 06:00 08/02/18 06:40 Ofirmev Injection - IVPB 1,000 mg Q6H DESIRE Administration Hydromorphone HCl 10 mg 07/31/18 01:00 08/02/18 07:46 Dilaudid Kraft Mill Operator - LEADERSHIP PROGRAM ASSOCIATE 08/06/18 23:32 10 mg LEADERSHIP PROGRAM ASSOCIATE DESIRE Administration Protocol Fluconazole 100 mls @ 100 mls/hr 07/31/18 10:00 08/01/18 10:55 Diflucan 200 Mg/D5w Premixed Ivpb - IVPB 100 mls/hr DAILY DESIRE Administration Piperacillin Sod/Tazobactam 50 mls @ 100 mls/hr 07/31/18 10:00 08/02/18 09:49 Sod 3.375 gm/ Dextrose IVPB 100 mls/hr Q8H-IV DESIRE Administration Protocol Potassium Chloride/Dextrose/Sod Cl 20 meq in 1,000 mls @ 83 mls/hr 08/01/18 20 :15 08/02/18 09:49 D5-1/2ns+20 Meq Kcl - IV 83 mls/hr ASDIR DESIRE Administration Nicotine 7 mg 07/31/18 10:00 08/02/18 09:49 Nicoderm Patch - TD 7 mg DAILY DESIRE Administration Pantoprazole Sodium 40 mg 08/01/18 22:00 08/02/18 09:49 Protonix Iv IVPUSH 40 mg BID DESIRE Administration Laboratory Results - last 24 hr 08/01/18 08/02/18 08/02/18 06:30 06:00 06:00 WBC 16.3 H RBC 2.52 L Hgb 8.2 L Hct 24.5 L MCV 97.2 H MCH 32.7 MCHC 33.6 RDW 12.2 Plt Count 275 MPV 8.3 Absolute Neuts (auto) 14.0 H Neutrophils % 86.3 H Lymphocytes % 8.5 Monocytes % 4.5 Eosinophils % 0.6 D Basophils % 0.1 Nucleated RBC % 0 Sodium 140 137 Potassium 4.2 3.8 Chloride 108 H 107 Carbon Dioxide 25 25 Anion Gap 6 L 5 L BUN 19 H 11 Creatinine 0.7 0.5 L Creat Clearance w eGFR 82.49 121.63 Random Glucose 80 93 Calcium 8.2 L 8.2 L Magnesium 2.0 2.1 Total Bilirubin 0.4 0.3 AST 43 H 32 ALT 28 26 Alkaline Phosphatase 73 82 Total Protein 4.6 L 4.9 L Albumin 2.0 L 1.9 L NG+- no suction s1 s2 RRR Lungs clear Abd- soft, dressing in place, BS not heard not distended no edema PLAN thompson removed this AM -- not voided yet NPO-- strict IV fluids WBC decreasing IV antibiotics per ID cultures urine- klebsiella pain control-- LEADERSHIP PROGRAM ASSOCIATE pump GI eval noted On IV Protonix BID Neurology eval -- for MS- pt is wheelchair bound Problem List - Problems (1) HTN (hypertension) Code(s): I10 - ESSENTIAL (PRIMARY) HYPERTENSION (2) Acute peptic ulcer with perforation but without obstruction Code(s): K27.1 - ACUTE PEPTIC ULCER, SITE UNSPECIFIED, WITH PERFORATION (3) Multiple sclerosis Code(s): G35 - MULTIPLE SCLEROSIS
--- NOTE | 2018-08-02 11:06 | PN ---
Progress Note (short form) - Note Progress Note: 08/01/18 Anesthesia postop note Patient still npo with ngt, will continue corn chip maker.
[2018-08-02] MEDS: FLUCONAZOLE 200 MG/D5W 100 ML IVPB SCH (11:21)
--- NOTE | 2018-08-02 12:11 | PN ---
Progress Note, Physician History of Present Illness: pain present still wiht medical collections representative ng tube in place feeling better - Current Medication List Current Medications: Active Medications Acetaminophen (Ofirmev Injection -) 1,000 mg IVPB Q6H [facility] Last Admin: 08/02/18 06:40 Dose: 1,000 mg Hydromorphone HCl (Dilaudid Consultant Technology -) 10 mg SUPPLEMENTAL NURSE SUPPLEMENTAL NURSE DESIRE; Protocol Stop: 08/06/18 23:32 Last Admin: 08/02/18 07:46 Dose: 10 mg Fluconazole (Diflucan 200 Mg/D5w Premixed Ivpb -) 100 mls @ 100 mls/hr IVPB DAILY DESIRE Last Admin: 08/02/18 11:21 Dose: 100 mls/hr Piperacillin Sod/Tazobactam (Sod 3.375 gm/ Dextrose) 50 mls @ 100 mls/hr IVPB Q8H-IV DESIRE; Protocol Last Admin: 08/02/18 09:49 Dose: 100 mls/hr Potassium Chloride/Dextrose/Sod Cl (D5-1/2ns+20 Meq Kcl -) 20 meq in 1,000 mls @ 83 mls/hr IV ASDIR [facility] Last Admin: 08/02/18 09:49 Dose: 83 mls/hr Nicotine (Nicoderm Patch -) 7 mg TD DAILY [facility] Last Admin: 08/02/18 09:49 Dose: 7 mg Pantoprazole Sodium (Protonix Iv) 40 mg IVPUSH BID [facility] Last Admin: 08/02/18 09:49 Dose: 40 mg - Objective Vital Signs: Vital Signs Temperature 97.9 F 08/02/18 10:31 Pulse Rate 100 H 08/02/18 10:31 Respiratory Rate 18 08/02/18 10:31 Blood Pressure 114/69 08/02/18 10:31 O2 Sat by Pulse Oximetry (%) 98 08/01/18 21:00 Constitutional: Yes: No Distress, Calm Cardiovascular: Yes: Regular Rate and Rhythm Respiratory: Yes: Regular, CTA Bilaterally Gastrointestinal: Yes: Soft, Other (absent bowel sounds,ng tube in place) Musculoskeletal: Yes: WNL Extremities: Yes: WNL Neurological: Yes: Alert, Oriented Psychiatric: Yes: Alert, Oriented Labs: CBC, BMP 08/02/18 06:00 08/02/18 06:00 INR, PTT INR 0.97 (0.83-1.09) 07/30/18 18:22 Assessment/Plan Problem List - Problems (1) Gastric ulcer, acute with perforation Code(s): K25.1 - ACUTE GASTRIC ULCER WITH PERFORATION (2) Generalized abdominal pain Code(s): R10.84 - GENERALIZED ABDOMINAL PAIN (3) Nausea and vomiting Code(s): R11.2 - NAUSEA WITH VOMITING, UNSPECIFIED Qualifiers: Vomiting type: unspecified Vomiting Intractability: non-intractable Qualified Code(s): R11.2 - Nausea with vomiting, unspecified (4) Multiple sclerosis Code(s): G35 - MULTIPLE SCLEROSIS plan continue abx await for gi function to return hydration rest as per surgery
--- NOTE | 2018-08-02 16:51 | PN ---
Progress Note (short form) - Note Progress Note: Anesthesia WATCH ASSEMBLY INSTRUCTOR note POD#3, S/P omentum patch for perforated ulcer. Pat seen and examined. VSS. Reports pain 6-10/10. NPO. Will continue WATCH ASSEMBLY INSTRUCTOR due to NPO status.
--- NOTE | 2018-08-02 17:26 | CON.NEURO ---
Consult Consult Specialty:: Jordy Referred by:: PCP - History of Present Illness History of Present Illness: 73-year-old right-handed female patient with history of multiple sclerosis my patient from the office currently on no immunomodulating treatment. Patient presented to the hospital with acute abdominal pain with perforated duodenal ulcer - Past Medical History OFFICE INSPECTOR: Yes: Multiple Sclerosis Gastrointestinal: Yes: GERD ...: No Musculoskeletal: Yes: Osteoarthritis (s/p R hip fracture 12/19), Other (chronic neuropathic pain) - Past Surgical History Additional Surgical History: right hip ORIF/screw 12/19; laparotomy as toddler for swallowed FB - Alcohol/Substance Use Hx Alcohol Use: No History of Substance Use: reports: None - Smoking History Smoking history: Current every day smoker Have you smoked in the past 12 months: Yes Aproximately how many cigarettes per day: 10 - Social History Usual Living Arrangement: With Child ADL: Family Assistance Occupation: , now History of Recent Travel: No Home Medications - Allergies Allergies/Adverse Reactions: Allergies Allergy/AdvReac Type Severity Reaction Status Date / Time strawberry Allergy Verified 07/30/18 15:27 - Home Medications Home Medications: Ambulatory Orders Cholecalciferol (Vitamin D3) [Vitamin D3] 1 cap PO WEEKLY 07/30/18 Cyclobenzaprine HCl [Flexeril 10 mg] 10 mg PO TID PRN 07/30/18 Furosemide [Lasix] 20 mg PO DAILY PRN 07/30/18 Gabapentin 100 mg PO TID PRN 07/30/18 Zolpidem Tartrate [Ambien] 10 mg PO HS 07/30/18 Family Disease History - Family Disease History Family Disease History: Other: Father ( (74) Lung cancer), Mother ( (82) DMII, ETOH dependence), Brother ( (61) Lung cancer), Sister ( (68) pancretic and liver disease), Son (1, healthy), Daughter ( 2, healthy) Other Family History: No family history of colorectal cancer or other GI malignancy Review of Systems - Review of Systems Constitutional: reports: No Symptoms Eyes: reports: No Symptoms Neurological: reports: Headache, Incoordination, Numbness, Parasthesia, Unsteady Gait Physical Exam-Neuro Vital Signs: Vital Signs Temperature 97.9 F 08/02/18 16:58 Pulse Rate 92 H 08/02/18 16:58 Respiratory Rate 20 08/02/18 16:58 Blood Pressure 133/67 08/02/18 16:58 O2 Sat by Pulse Oximetry (%) 98 08/02/18 09:00 Constitutional: Yes: Well Nourished Neck: Yes: WNL Labs: CBC, BMP 08/02/18 06:00 08/02/18 06:00 INR, PTT INR 0.97 (0.83-1.09) 07/30/18 18:22 - Neuro Exam Level Of Consciousness: Yes: Oriented to Person, Oriented to Place, Oriented to Time Eyes: Yes: PERRLA Speech: WNL Dominant Hand: Right Cranial Nerves II-XII Intact: Yes Gag: Present DTR's: 1+ Left Bicep, 1+ Right Bicep, 1+ Left Brachioradialis, 1+ Right Brachioradialis Response to light touch: Normal Response to pain prick: Normal Response to temperature: Normal Motor Strength: 3/5: Left Arm, Right Arm, Left Leg, Right Leg Gait: Deferred Problem List - Problems (1) Multiple sclerosis Assessment/Plan: MRI brain with and without Under sedation fall precautions DVT prophylaxis Code(s): G35 - MULTIPLE SCLEROSIS
--- NOTE | 2018-08-02 18:14 | PN ---
Progress Note, Physician History of Present Illness: Pt with perforated pyloric ulcer, s/p emergent omental patch repair. She is NPO with NGT, green/bilious output, and IV fluids. Mitchell out this morning, pt has voided since but could not stand up/get out of bed with PT, so is in diaper. Pain controlled with standing IV tylenol and low FURNITURE MOVER use. She is seen and examined in bed. She is feeling well, using IS. On abx/antifungal. - Current Medication List Current Medications: Active Medications Acetaminophen (Ofirmev Injection -) 1,000 mg IVPB Q6H [facility] Last Admin: 08/02/18 17:19 Dose: 1,000 mg Hydromorphone HCl (Dilaudid Annealer Helper -) 10 mg FURNITURE MOVER FURNITURE MOVER DESIRE; Protocol Stop: 08/06/18 23:32 Last Admin: 08/02/18 07:46 Dose: 10 mg Fluconazole (Diflucan 200 Mg/D5w Premixed Ivpb -) 100 mls @ 100 mls/hr IVPB DAILY [facility] Last Admin: 08/02/18 11:21 Dose: 100 mls/hr Piperacillin Sod/Tazobactam (Sod 3.375 gm/ Dextrose) 50 mls @ 100 mls/hr IVPB Q8H-IV [facility]IRE; Protocol Last Admin: 08/02/18 17:19 Dose: 100 mls/hr Potassium Chloride/Dextrose/Sod Cl (D5-1/2ns+20 Meq Kcl -) 20 meq in 1,000 mls @ 83 mls/hr IV ASDIR [facility] Last Admin: 08/02/18 09:49 Dose: 83 mls/hr Nicotine (Nicoderm Patch -) 7 mg TD DAILY [facility] Last Admin: 08/02/18 09:49 Dose: 7 mg Pantoprazole Sodium (Protonix Iv) 40 mg IVPUSH BID [facility] Last Admin: 08/02/18 09:49 Dose: 40 mg - Objective Vital Signs: Vital Signs Temperature 97.9 F 08/02/18 16:58 Pulse Rate 92 H 08/02/18 16:58 Respiratory Rate 20 08/02/18 16:58 Blood Pressure 133/67 08/02/18 16:58 O2 Sat by Pulse Oximetry (%) 98 08/02/18 09:00 Constitutional: Yes: Well Nourished, No Distress, Calm Eyes: Yes: Conjunctiva Clear, EOM Intact HENT: Yes: Atraumatic, Normocephalic, Other (NG in place, few hundred ml of green drainage in canister) Respiratory: Yes: On Nasal O2. No: SOB Gastrointestinal: Yes: Soft. No: Distention, Tenderness Genitourinary: No: Mitchell Present Extremities: No: Cool, Cyanosis Integumentary: Yes: Incision (midline w/audra). No: Jaundice, Rash Wound/Incision: Yes: Clean/Dry, Well Approximated, Audra Intact, Open to air Neurological: Yes: Alert, Oriented Labs: CBC, BMP 08/02/18 06:00 08/02/18 06:00 wbc coming down Problem List - Problems (1) Gastric ulcer, acute with perforation Assessment/Plan: POD3 s/p omental (Mitchel) patch repair of perforated pyloric (prepyloric?) ulcer NPO with NGT/IVF for 5 days - may try to get leak study with radiology tomorrow vs waiting till Monday continue zosyn and diflucan for peritonitis, ID following wbc coming down f/u peritoneal culture urine culture grew Klebsiella from admission GI/DVT prophylaxis, on protonix bid GI following pain meds include IV tylenol standing and FURNITURE MOVER may be able to change to IV prn pain meds from FURNITURE MOVER tomorrow? continue monitoring I/O's as able nurse to check without O2 - should not need regularly PT saw pt, unable to get OOB fully - continue Code(s): K25.1 - ACUTE GASTRIC ULCER WITH PERFORATION (2) Generalized abdominal pain Assessment/Plan: resolved, postop appropriate Code(s): R10.84 - GENERALIZED ABDOMINAL PAIN (3) Multiple sclerosis Assessment/Plan: not on meds at home with h/o R hip fx and ORIF last December PT to see pt uses W/C at home - would like to be able to use one here or have family bring hers neurology saw today Code(s): G35 - MULTIPLE SCLEROSIS
[2018-08-03] MEDS: D5-1/2NS+20 MEQ KCL - 20 MEQ/1,000 ML INFUS.BAG IV SCH ×2 (01:00→14:36)
[2018-08-03] MEDS: PIPERACILLIN/TAZOB 3.375 GM 3.375 GM in DEXTROSE 5%-WATER - 50 ML IVPB SCH ×3 (02:00→17:49)
[2018-08-03] MEDS: ACETAMINOPHEN 1000 MG/100 ML VIAL (NON FORMULARY) IVPB SCH ×4 (05:44→17:35)
[2018-08-03 07:46] LABS: BASO % 0.5 % (0-2.0); EOS % 1.6 % (0-4.5); HEMATOCRIT 25.2 % (32.4-45.2); HEMOGLOBIN 8.6 GM/dL (10.7-15.3); MCH 33.2 pg (25.7-33.7); MCHC 34.2 g/dl (32.0-36.0); MEAN CELL VOLUME 97.1 fl (80-96); MEAN PLT VOLUME 8.2 fl (7.5-11.1); MONO % 5.8 % (3.8-10.2); NEUT % 80.1 % (42.8-82.8); PLATELET COUNT 326 K/MM3 (134-434); RBC 2.59 M/mm3 (3.60-5.2); RDW 12.1 % (11.6-15.6); WHITE BLOOD COUNT 11.8 K/mm3 (4.0-10.0)
[2018-08-03 08:20] LABS: ALK PHOS 178 U/L (45-117); ANION GAP 7 MMOL/L (8-16); BILIRUBIN,TOTAL 0.6 mg/dL (0.2-1); BLOOD UREA NITROGEN 8 mg/dL (7-18); CALCIUM 8.3 mg/dL (8.5-10.1); CHLORIDE 108 mmol/L (98-107); CO2 25 mmol/L (21-32); CREATININE 0.6 mg/dL (0.55-1.3); GLUCOSE,RANDOM 109 mg/dL (74-106); POTASSIUM 3.7 mmol/L (3.5-5.1); SGOT/AST 29 U/L (15-37); SGPT/ALT 26 U/L (13-61); SODIUM 140 mmol/L (136-145); TOT PROT 5.1 g/dl (6.4-8.2)
[2018-08-03] MEDS ORDERED: PIPERACILLIN/TAZOBACTAM 3.375 GM VIAL IVPB ONE ×2 (09:36→17:21)
[2018-08-03] MEDS ORDERED: DEXTROSE 5%-WATER - 50 ML IVPB ONE ×2 (09:36→17:22)
--- NOTE | 2018-08-03 09:36 | PN ---
Progress Note, Physician History of Present Illness: patient stable no new issues gi function still not present - Current Medication List Current Medications: Active Medications Acetaminophen (Ofirmev Injection -) 1,000 mg IVPB Q6H [facility] Last Admin: 08/03/18 05:44 Dose: 1,000 mg Fluconazole (Diflucan 200 Mg/D5w Premixed Ivpb -) 100 mls @ 100 mls/hr IVPB DAILY [facility] Last Admin: 08/02/18 11:21 Dose: 100 mls/hr Piperacillin Sod/Tazobactam (Sod 3.375 gm/ Dextrose) 50 mls @ 100 mls/hr IVPB Q8H-[facility]; Protocol Last Admin: 08/03/18 02:00 Dose: 100 mls/hr Potassium Chloride/Dextrose/Sod Cl (D5-1/2ns+20 Meq Kcl -) 20 meq in 1,000 mls @ 83 mls/hr IV ASDIR [facility] Last Admin: 08/03/18 01:00 Dose: 83 mls/hr Lorazepam (Ativan Injection -) 2 mg IVPUSH ONCE ONE Stop: 08/02/18 19:29 Nicotine (Nicoderm Patch -) 7 mg TD DAILY [facility] Last Admin: 08/02/18 09:49 Dose: 7 mg Pantoprazole Sodium (Protonix Iv) 40 mg IVPUSH BID [facility] Last Admin: 08/02/18 22:00 Dose: 40 mg - Objective Vital Signs: Vital Signs Temperature 98.1 F 08/03/18 05:00 Pulse Rate 96 H 08/03/18 05:00 Respiratory Rate 20 08/03/18 05:00 Blood Pressure 145/79 08/03/18 05:00 O2 Sat by Pulse Oximetry (%) 98 08/02/18 21:00 Constitutional: Yes: No Distress, Calm Cardiovascular: Yes: Regular Rate and Rhythm Respiratory: Yes: Regular, CTA Bilaterally Gastrointestinal: Yes: Soft, Other (absent bowel sounds,ng in place) Musculoskeletal: Yes: WNL Extremities: Yes: WNL Neurological: Yes: Alert, Oriented Psychiatric: Yes: Alert, Oriented Labs: CBC, BMP 08/03/18 06:25 08/03/18 06:25 INR, PTT INR 0.97 (0.83-1.09) 07/30/18 18:22 Assessment/Plan Problem List - Problems (1) Gastric ulcer, acute with perforation Code(s): K25.1 - ACUTE GASTRIC ULCER WITH PERFORATION (2) Generalized abdominal pain Code(s): R10.84 - GENERALIZED ABDOMINAL PAIN (3) Nausea and vomiting Code(s): R11.2 - NAUSEA WITH VOMITING, UNSPECIFIED Qualifiers: Vomiting type: unspecified Vomiting Intractability: non-intractable Qualified Code(s): R11.2 - Nausea with vomiting, unspecified (4) Multiple sclerosis Code(s): G35 - MULTIPLE SCLEROSIS plan continue abx await for gi function to return hydration rest as per surgery will deescalate antifungal by tomorrow
[2018-08-03] MEDS: NICOTINE 7 MG/24 HOURS TOPICAL PATCH TD SCH (09:42)
[2018-08-03] MEDS: PANTOPRAZOLE SODIUM 40 MG VIAL IVPUSH SCH ×2 (09:42→22:02)
--- NOTE | 2018-08-03 10:01 | PN ---
Progress Note (short form) - Note Progress Note: pt seen/ examined chart reviewed comfortable pod #4 Vital Signs Temp 98.1 F 08/03/18 05:00 Pulse 96 H 08/03/18 05:00 Resp 20 08/03/18 05:00 BP 145/79 08/03/18 05:00 Pulse Ox 98 08/02/18 21:00 Intake & Output 08/02/18 08/02/18 08/03/18 11:59 23:59 11:59 Intake Total 1130 Output Total 700 100 Balance 430 -100 Intake: IV 830 D5-1/2NS+20 MEQ KCL - 20 830 meq In 1,000 ml @ 83 mls/ hr IV ASDIR [facility] Rx#: [id number] IVPB 300 Output: Gastric Drainage 100 100 Urine 600 Mitchell 600 Other: Voiding Method Diaper Incontinent # Unmeasured Voids Mitchell 1 3 Void 3 Bowel Movement No Active Medications Acetaminophen (Ofirmev Injection -) 1,000 mg IVPB Q6H [facility] Last Admin: 08/03/18 05:44 Dose: 1,000 mg Fluconazole (Diflucan 200 Mg/D5w Premixed Ivpb -) 100 mls @ 100 mls/hr IVPB DAILY [facility] Last Admin: 08/02/18 11:21 Dose: 100 mls/hr Piperacillin Sod/Tazobactam (Sod 3.375 gm/ Dextrose) 50 mls @ 100 mls/hr IVPB Q8H-[facility]; Protocol Last Admin: 08/03/18 09:42 Dose: 100 mls/hr Potassium Chloride/Dextrose/Sod Cl (D5-1/2ns+20 Meq Kcl -) 20 meq in 1,000 mls @ 83 mls/hr IV ASDIR [facility] Last Admin: 08/03/18 01:00 Dose: 83 mls/hr Lorazepam (Ativan Injection -) 2 mg IVPUSH ONCE ONE Stop: 08/02/18 19:29 Nicotine (Nicoderm Patch -) 7 mg TD DAILY [facility] Last Admin: 08/03/18 09:42 Dose: 7 mg Pantoprazole Sodium (Protonix Iv) 40 mg IVPUSH BID [facility] Last Admin: 08/03/18 09:42 Dose: 40 mg CBC, BMP 08/03/18 06:25 08/03/18 06:25 Microbiology 07/30/18 17:03 Blood Culture - Preliminary Blood - Peripheral Venous NO GROWTH OBTAINED AFTER 72 HOURS, INCUBATION TO CONTINUE FOR 2 DAYS. 07/30/18 17:03 Blood Culture - Preliminary Blood - Peripheral Venous NO GROWTH OBTAINED AFTER 72 HOURS, INCUBATION TO CONTINUE FOR 2 DAYS. 07/30/18 21:40 Gram Stain - Final Peritoneal Cavity Swab Wound Culture - Final NO AEROBIC OR ANAEROBIC GROWTH OBTAINED. 07/30/18 18:22 Urine Culture - Final Urine - Urine Clean Catch Klebsiella Pneumoniae Physical Exam NG+- s1 s2 RRR Lungs clear Abd- soft, dressing in place, quiet not distended no edema PLAN NPO-- IV fluids WBC decreasing IV antibiotics per ID cultures urine- klebsiella pain control-- On IV Protonix BID Neurology eval noted discussed with I/D will follow monitor labs Discussed with nursing staff also Problem List - Problems (1) HTN (hypertension) Code(s): I10 - ESSENTIAL (PRIMARY) HYPERTENSION (2) Acute peptic ulcer with perforation but without obstruction Code(s): K27.1 - ACUTE PEPTIC ULCER, SITE UNSPECIFIED, WITH PERFORATION (3) Multiple sclerosis Code(s): G35 - MULTIPLE SCLEROSIS
--- NOTE | 2018-08-03 10:34 | PN ---
Progress Note (short form) - Note Progress Note: Anesthesiology Pain Service POD#3 s/p emergent ex-lap with Gram patch repair of perforated ulcer, post-op CHOIR DIRECTOR. Pt is awake and alert in NAD. Still NPO, NGT draining bilious contents. Not currently using CHOIR DIRECTOR and states that she hasn't needed it too much; pain is at a reasonable level. VSS. No complaints. 73 y.o. woman with stable post-op course and minimal narcotic requirements. Will not renew CHOIR DIRECTOR but rather order IV PRN narcotics until diet is able to be advanced. D/W RN and pt.
[2018-08-03] MEDS: FLUCONAZOLE 200 MG/D5W 100 ML IVPB SCH (11:02)
[2018-08-03] MEDS: morphine SULFATE 4 MG/ML VIAL IVPUSH PRN ×3 (12:03→22:33)
--- NOTE | 2018-08-03 19:17 | PN ---
Progress Note, Physician History of Present Illness: Pt with perforated pyloric ulcer, s/p emergent omental patch repair. She is NPO with NGT, little green/bilious output, and IV fluids. Pain controlled with standing IV tylenol, CONTAINER FILLER stopped this morning and changed to prn morphine. She is seen and examined in bed. On abx/antifungal. She was uncomfortable this morning, mostly in her back, but was able to go down for UGI/leak test via NGT. This was done with gastrograffin and shows no leak or gastric outlet obstruction. She currently notes a little abdominal pain, mostly incisional, but is otherwise ok. - Current Medication List Current Medications: Active Medications Acetaminophen (Ofirmev Injection -) 1,000 mg IVPB Q6H [facility] Last Admin: 08/03/18 17:35 Dose: 1,000 mg Fluconazole (Diflucan 200 Mg/D5w Premixed Ivpb -) 100 mls @ 100 mls/hr IVPB DAILY [facility] Last Admin: 08/03/18 11:02 Dose: 100 mls/hr Piperacillin Sod/Tazobactam (Sod 3.375 gm/ Dextrose) 50 mls @ 100 mls/hr IVPB Q8H-[facility]; Protocol Last Admin: 08/03/18 17:49 Dose: 100 mls/hr Potassium Chloride/Dextrose/Sod Cl (D5-1/2ns+20 Meq Kcl -) 20 meq in 1,000 mls @ 83 mls/hr IV ASDIR [facility] Last Admin: 08/03/18 14:36 Dose: 83 mls/hr Lorazepam (Ativan Injection -) 2 mg IVPUSH ONCE ONE Stop: 08/02/18 19:29 Morphine Sulfate (Morphine Sulfate) 2 mg IVPUSH Q4H PRN PRN Reason: PAIN LEVEL 4 - 6 Last Admin: 08/03/18 16:12 Dose: 2 mg Nicotine (Nicoderm Patch -) 7 mg TD DAILY [facility] Last Admin: 08/03/18 09:42 Dose: 7 mg Pantoprazole Sodium (Protonix Iv) 40 mg IVPUSH BID [facility] Last Admin: 08/03/18 09:42 Dose: 40 mg - Objective Vital Signs: Vital Signs Temperature 98.3 F 08/03/18 16:55 Pulse Rate 101 H 08/03/18 16:55 Respiratory Rate 20 08/03/18 16:55 Blood Pressure 138/77 08/03/18 16:55 O2 Sat by Pulse Oximetry (%) 98 08/03/18 09:00 Constitutional: Yes: Well Nourished, No Distress, Calm Eyes: Yes: Conjunctiva Clear, EOM Intact HENT: Yes: Atraumatic, Normocephalic, Other (NG in place - removed at bedside without difficulty) Respiratory: Yes: On Nasal O2 (removed for nurse to check sats without). No: SOB Gastrointestinal: Yes: Soft, Tenderness (incisional/midline, mild). No: Distention, Tenderness, Rebound Musculoskeletal: Yes: Back Pain (subjective). No: Joint Swelling Extremities: No: Cool, Cyanosis Integumentary: Yes: Incision (upper midline w/[place]). No: Jaundice, Rash Wound/Incision: Yes: Clean/Dry, Well Approximated, [place] Intact, Open to air. No: Reddened Neurological: Yes: Alert, Oriented Labs: CBC, BMP 08/03/18 06:25 08/03/18 06:25 wbc coming down - ....Imaging Other: Image Reviewed (images noted and discussed with Dr. Gilliam - contrast in stomach and duodenum, no evidence of extravasation, no delay in passage) Problem List - Problems (1) Gastric ulcer, acute with perforation Assessment/Plan: POD4 s/p omental (Mitchel) patch repair of perforated pyloric (prepyloric?) ulcer contrast study via NGT negative for leak NGT removed at bedside will start clears in am zosyn and diflucan, ID following - duration per them, may be able to d/c when wbc normalizes and pt tolerating po wbc coming down peritoneal culture with no initial growth at 48 hrs, broth subcultured urine culture grew Klebsiella from admission GI/DVT prophylaxis, on protonix bid GI following pain meds include IV tylenol standing and prn morphine will change to po tomorrow continue monitoring I/O's as able nurse to check without O2 - should not need regularly OOB to chair/PT for ambulation Code(s): K25.1 - ACUTE GASTRIC ULCER WITH PERFORATION (2) Generalized abdominal pain Assessment/Plan: resolved, postop appropriate Code(s): R10.84 - GENERALIZED ABDOMINAL PAIN (3) Multiple sclerosis Assessment/Plan: not on meds at home with h/o R hip fx and ORIF last December physical therapy pt uses [facility] at home - would like to be able to use one here or have family bring hers neurology following pt refused brain MRI today Code(s): G35 - MULTIPLE SCLEROSIS
[2018-08-04] MEDS: ACETAMINOPHEN 1000 MG/100 ML VIAL (NON FORMULARY) IVPB SCH ×5 (00:03→17:00)
[2018-08-04] MEDS ORDERED: DEXTROSE 5%-WATER - 50 ML IVPB ONE ×4 (02:16→23:23)
[2018-08-04] MEDS ORDERED: PIPERACILLIN/TAZOBACTAM 3.375 GM VIAL IVPB ONE ×4 (02:16→23:23)
[2018-08-04] MEDS: PIPERACILLIN/TAZOB 3.375 GM 3.375 GM in DEXTROSE 5%-WATER - 50 ML IVPB SCH ×3 (02:43→17:17)
[2018-08-04] MEDS: D5-1/2NS+20 MEQ KCL - 20 MEQ/1,000 ML INFUS.BAG IV SCH ×3 (02:46→23:28)
[2018-08-04] MEDS: morphine SULFATE 4 MG/ML VIAL IVPUSH PRN ×5 (05:00→23:30)
--- NOTE | 2018-08-04 08:30 | PN ---
Progress Note (short form) - Note Progress Note: pt seen/ examined feels better afebrile no distress pain under control Vital Signs Temp 98.7 F 08/04/18 04:00 Pulse 101 H 08/04/18 04:00 Resp 20 08/04/18 04:00 BP 147/71 08/04/18 04:00 Pulse Ox 96 08/03/18 21:00 Intake & Output 08/03/18 08/03/18 08/04/18 11:59 23:59 11:59 Intake Total 1312 Output Total 200 Balance 1112 Intake: IV 1162 D5-1/2NS+20 MEQ KCL - 20 1162 meq In 1,000 ml @ 83 mls/ hr IV ASDIR [facility] Rx#: [id number] IVPB 150 Output: Gastric Drainage 200 Other: Voiding Method Incontinent Incontinent # Unmeasured Voids Mitchell 3 1 4 Bowel Movement No No Active Medications Acetaminophen (Ofirmev Injection -) 1,000 mg IVPB Q6H [facility] Last Admin: 08/04/18 05:42 Dose: 1,000 mg Fluconazole (Diflucan 200 Mg/D5w Premixed Ivpb -) 100 mls @ 100 mls/hr IVPB DAILY [facility] Last Admin: 08/03/18 11:02 Dose: 100 mls/hr Piperacillin Sod/Tazobactam (Sod 3.375 gm/ Dextrose) 50 mls @ 100 mls/hr IVPB Q8H-[facility]; Protocol Last Admin: 08/04/18 02:43 Dose: 100 mls/hr Potassium Chloride/Dextrose/Sod Cl (D5-1/2ns+20 Meq Kcl -) 20 meq in 1,000 mls @ 83 mls/hr IV ASDIR [facility] Last Admin: 08/04/18 02:46 Dose: 83 mls/hr Lorazepam (Ativan Injection -) 2 mg IVPUSH ONCE ONE Stop: 08/02/18 19:29 Morphine Sulfate (Morphine Sulfate) 2 mg IVPUSH Q4H PRN PRN Reason: PAIN LEVEL 4 - 6 Last Admin: 08/04/18 05:00 Dose: 2 mg Nicotine (Nicoderm Patch -) 7 mg TD DAILY [facility] Last Admin: 08/03/18 09:42 Dose: 7 mg Pantoprazole Sodium (Protonix Iv) 40 mg IVPUSH BID [facility] Last Admin: 08/03/18 22:02 Dose: 40 mg CBC, BMP 08/03/18 06:25 08/03/18 06:25 Microbiology 07/30/18 17:03 Blood Culture - Preliminary Blood - Peripheral Venous NO GROWTH OBTAINED AFTER 96 HOURS, INCUBATION TO CONTINUE FOR 1 DAYS. 07/30/18 17:03 Blood Culture - Preliminary Blood - Peripheral Venous NO GROWTH OBTAINED AFTER 96 HOURS, INCUBATION TO CONTINUE FOR 1 DAYS. 07/30/18 21:40 Gram Stain - Final Peritoneal Cavity Swab Wound Culture - Preliminary Physical Exam s1 s2 RRR Lungs clear Abd- soft, dressing in place, quiet. not distended no edema PLAN NPO-- clear liquids today IV fluids WBC decreasing IV antibiotics per ID cultures urine- klebsiella pain control-- On IV Protonix BID-- change to po when tolerating diet Pt refuses mri brain will follow monitor labs Discussed with nursing staff also Problem List - Problems (1) HTN (hypertension) Code(s): I10 - ESSENTIAL (PRIMARY) HYPERTENSION (2) Acute peptic ulcer with perforation but without obstruction Code(s): K27.1 - ACUTE PEPTIC ULCER, SITE UNSPECIFIED, WITH PERFORATION (3) Multiple sclerosis Code(s): G35 - MULTIPLE SCLEROSIS
[2018-08-04] MEDS: FLUCONAZOLE 200 MG/D5W 100 ML IVPB SCH (09:10)
[2018-08-04] MEDS: NICOTINE 7 MG/24 HOURS TOPICAL PATCH TD SCH (09:12)
[2018-08-04] MEDS: PANTOPRAZOLE SODIUM 40 MG VIAL IVPUSH SCH ×2 (09:13→21:19)
--- NOTE | 2018-08-04 10:52 | PN ---
Progress Note, Physician History of Present Illness: patient stable no new issues - Current Medication List Current Medications: Active Medications Acetaminophen (Ofirmev Injection -) 1,000 mg IVPB Q6H [facility] Last Admin: 08/04/18 05:42 Dose: 1,000 mg Fluconazole (Diflucan 200 Mg/D5w Premixed Ivpb -) 100 mls @ 100 mls/hr IVPB DAILY [facility] Last Admin: 08/04/18 09:10 Dose: 100 mls/hr Piperacillin Sod/Tazobactam (Sod 3.375 gm/ Dextrose) 50 mls @ 100 mls/hr IVPB Q8H-[facility]; Protocol Last Admin: 08/04/18 09:14 Dose: 100 mls/hr Potassium Chloride/Dextrose/Sod Cl (D5-1/2ns+20 Meq Kcl -) 20 meq in 1,000 mls @ 83 mls/hr IV ASDIR [facility] Last Admin: 08/04/18 02:46 Dose: 83 mls/hr Lorazepam (Ativan Injection -) 2 mg IVPUSH ONCE ONE Stop: 08/02/18 19:29 Morphine Sulfate (Morphine Sulfate) 2 mg IVPUSH Q4H PRN PRN Reason: PAIN LEVEL 4 - 6 Last Admin: 08/04/18 09:06 Dose: 2 mg Nicotine (Nicoderm Patch -) 7 mg TD DAILY [facility] Last Admin: 08/04/18 09:12 Dose: 7 mg Pantoprazole Sodium (Protonix Iv) 40 mg IVPUSH BID [facility] Last Admin: 08/04/18 09:13 Dose: 40 mg - Objective Vital Signs: Vital Signs Temperature 98.7 F 08/04/18 04:00 Pulse Rate 101 H 08/04/18 04:00 Respiratory Rate 20 08/04/18 04:00 Blood Pressure 147/71 08/04/18 04:00 O2 Sat by Pulse Oximetry (%) 96 08/03/18 21:00 Constitutional: Yes: No Distress, Calm Cardiovascular: Yes: Regular Rate and Rhythm Respiratory: Yes: Regular, CTA Bilaterally Gastrointestinal: Yes: Soft, Other (absent bowel sounds) Musculoskeletal: Yes: WNL Extremities: Yes: WNL Neurological: Yes: Alert, Oriented Psychiatric: Yes: Alert, Oriented Labs: CBC, BMP 08/03/18 06:25 08/03/18 06:25 INR, PTT INR 0.97 (0.83-1.09) 07/30/18 18:22 Assessment/Plan Problem List - Problems (1) Gastric ulcer, acute with perforation Code(s): K25.1 - ACUTE GASTRIC ULCER WITH PERFORATION (2) Generalized abdominal pain Code(s): R10.84 - GENERALIZED ABDOMINAL PAIN (3) Nausea and vomiting Code(s): R11.2 - NAUSEA WITH VOMITING, UNSPECIFIED Qualifiers: Vomiting type: unspecified Vomiting Intractability: non-intractable Qualified Code(s): R11.2 - Nausea with vomiting, unspecified (4) Multiple sclerosis Code(s): G35 - MULTIPLE SCLEROSIS plan will stop antifungal continue abx for now rest as per the team stable
--- NOTE | 2018-08-04 11:09 | PN ---
Progress Note, Physician History of Present Illness: Pt with perforated pyloric ulcer, s/p emergent omental patch repair. Pain controlled with standing IV tylenol and prn morphine. She is seen and examined in bed. On abx/antifungal. Peritoneal subculture of broth showing yeast-like organism. UGI/leak test via NGT yesterday showed no leak or gastric outlet obstruction, and NGT was removed last night. She currently notes a little abdominal pain, mostly incisional, but is otherwise ok. No nausea, tolerated clears for breakfast this morning. - Current Medication List Current Medications: Active Medications Acetaminophen (Ofirmev Injection -) 1,000 mg IVPB Q6H [facility] Last Admin: 08/04/18 05:42 Dose: 1,000 mg Piperacillin Sod/Tazobactam (Sod 3.375 gm/ Dextrose) 50 mls @ 100 mls/hr IVPB Q8H-[facility]; Protocol Last Admin: 08/04/18 09:14 Dose: 100 mls/hr Fluconazole (Diflucan 200 Mg/D5w Premixed Ivpb -) 100 mls @ 100 mls/hr IVPB DAILY [facility] Potassium Chloride/Dextrose/Sod Cl (D5-1/2ns+20 Meq Kcl -) 20 meq in 1,000 mls @ 42 mls/hr IV ASDIR [facility] Lorazepam (Ativan Injection -) 2 mg IVPUSH ONCE ONE Stop: 08/02/18 19:29 Morphine Sulfate (Morphine Sulfate) 2 mg IVPUSH Q4H PRN PRN Reason: PAIN LEVEL 4 - 6 Last Admin: 08/04/18 09:06 Dose: 2 mg Nicotine (Nicoderm Patch -) 7 mg TD DAILY [facility] Last Admin: 08/04/18 09:12 Dose: 7 mg Pantoprazole Sodium (Protonix Iv) 40 mg IVPUSH BID [facility] Last Admin: 08/04/18 09:13 Dose: 40 mg - Objective Vital Signs: Vital Signs Temperature 98.7 F 08/04/18 04:00 Pulse Rate 101 H 08/04/18 04:00 Respiratory Rate 20 08/04/18 04:00 Blood Pressure 147/71 08/04/18 04:00 O2 Sat by Pulse Oximetry (%) 96 08/03/18 21:00 Constitutional: Yes: Well Nourished, No Distress, Calm Eyes: Yes: Conjunctiva Clear, EOM Intact HENT: Yes: Atraumatic, Normocephalic Gastrointestinal: Yes: Soft, Tenderness (mild upper both sides and incisional). No: Distention, Tenderness, Rebound Extremities: No: Cool, Cyanosis Integumentary: Yes: Incision (midline w/audra). No: Jaundice, Rash Wound/Incision: Yes: Clean/Dry, Well Approximated, [place] Intact, Open to air. No: Reddened Neurological: Yes: Alert, Oriented Labs: CBC pending - ....Imaging Other: Report Reviewed, Image Reviewed (UGI/leak test noted as in hpi, images reviewed) Problem List - Problems (1) Gastric ulcer, acute with perforation Assessment/Plan: POD5 s/p omental (Mitchel) patch repair of perforated pyloric (prepyloric?) ulcer contrast study via NGT negative for leak NGT out, tolerating clears will advance slowly zosyn and diflucan, ID following - duration per them, may be able to d/c when wbc normalizes and pt tolerating po - discussed with Dr. Frances cbc pending peritoneal culture with no initial growth at 48 hrs, broth subcultured and growing yeast-like organism GI/DVT prophylaxis, on protonix bid GI following pain meds include IV tylenol standing and prn morphine will change to po once tolerating at least full liquids OOB to chair/PT for ambulation discussed with Dr. Olea Code(s): K25.1 - ACUTE GASTRIC ULCER WITH PERFORATION (2) Generalized abdominal pain Assessment/Plan: resolved, postop appropriate Code(s): R10.84 - GENERALIZED ABDOMINAL PAIN (3) Multiple sclerosis Assessment/Plan: not on meds at home with h/o R hip fx and ORIF last December physical therapy pt uses W/C at home - would like to be able to use one here or have family bring hers neurology following pt refused brain MRI today Code(s): G35 - MULTIPLE SCLEROSIS
[2018-08-04 11:26] LABS: BASO % 0.4 % (0-2.0); EOS % 2.8 % (0-4.5); HEMATOCRIT 25.1 % (32.4-45.2); HEMOGLOBIN 8.4 GM/dL (10.7-15.3); LYMPH % 19.6 % (8-40); MCH 32.9 pg (25.7-33.7); MCHC 33.6 g/dl (32.0-36.0); MEAN CELL VOLUME 97.7 fl (80-96); MEAN PLT VOLUME 7.7 fl (7.5-11.1); MONO % 11.3 % (3.8-10.2); NEUT % 65.9 % (42.8-82.8); PLATELET COUNT 377 K/MM3 (134-434); RBC 2.57 M/mm3 (3.60-5.2); RDW 12.5 % (11.6-15.6); WHITE BLOOD COUNT 7.7 K/mm3 (4.0-10.0)
[2018-08-05] MEDS: PIPERACILLIN/TAZOB 3.375 GM 3.375 GM in DEXTROSE 5%-WATER - 50 ML IVPB SCH ×3 (01:29→17:55)
[2018-08-05] MEDS: morphine SULFATE 4 MG/ML VIAL IVPUSH PRN ×2 (04:08→10:18)
[2018-08-05] MEDS: ACETAMINOPHEN 1000 MG/100 ML VIAL (NON FORMULARY) IVPB SCH (06:10)
[2018-08-05 08:17] LABS: BASO % 0.5 % (0-2.0); EOS % 3.3 % (0-4.5); HEMATOCRIT 27.3 % (32.4-45.2); HEMOGLOBIN 9.2 GM/dL (10.7-15.3); LYMPH % 25.4 % (8-40); MCH 33.4 pg (25.7-33.7); MCHC 33.7 g/dl (32.0-36.0); MEAN CELL VOLUME 98.9 fl (80-96); MONO % 11.8 % (3.8-10.2); PLATELET COUNT 420 K/MM3 (134-434); RBC 2.76 M/mm3 (3.60-5.2); RDW 12.8 % (11.6-15.6); WHITE BLOOD COUNT 8.3 K/mm3 (4.0-10.0)
[2018-08-05 08:52] LABS: ALBUMIN 2.2 g/dl (3.4-5.0); ALK PHOS 545 U/L (45-117); ANION GAP 11 MMOL/L (8-16); BILIRUBIN,TOTAL 0.4 mg/dL (0.2-1); BLOOD UREA NITROGEN 6 mg/dL (7-18); CALCIUM 8.4 mg/dL (8.5-10.1); CHLORIDE 110 mmol/L (98-107); CO2 22 mmol/L (21-32); CREATININE 0.6 mg/dL (0.55-1.3); GLUCOSE,RANDOM 101 mg/dL (74-106); POTASSIUM 3.7 mmol/L (3.5-5.1); SGOT/AST 17 U/L (15-37); SGPT/ALT 37 U/L (13-61); SODIUM 142 mmol/L (136-145); TOT PROT 5.5 g/dl (6.4-8.2)
[2018-08-05] MEDS ORDERED: FLUCONAZOLE 200 MG/D5W 100 ML IVPB SCH (10:00)
[2018-08-05] MEDS ORDERED: DEXTROSE 5%-WATER - 50 ML IVPB ONE ×2 (10:13→17:51)
[2018-08-05] MEDS ORDERED: PIPERACILLIN/TAZOBACTAM 3.375 GM VIAL IVPB ONE ×2 (10:13→17:51)
[2018-08-05] MEDS: NICOTINE 7 MG/24 HOURS TOPICAL PATCH TD SCH (10:19)
[2018-08-05] MEDS: PANTOPRAZOLE SODIUM 40 MG VIAL IVPUSH SCH ×2 (10:19→21:30)
--- NOTE | 2018-08-05 10:32 | PN ---
Progress Note, Physician History of Present Illness: c/o of abd pain today patient does not feel too well still no gi function - Current Medication List Current Medications: Active Medications Acetaminophen (Ofirmev Injection -) 1,000 mg IVPB Q6H [facility] Last Admin: 08/05/18 06:10 Dose: 1,000 mg Piperacillin Sod/Tazobactam (Sod 3.375 gm/ Dextrose) 50 mls @ 100 mls/hr IVPB Q8H-[facility]; Protocol Last Admin: 08/05/18 10:19 Dose: 100 mls/hr Fluconazole (Diflucan 200 Mg/D5w Premixed Ivpb -) 100 mls @ 100 mls/hr IVPB DAILY [facility] Last Admin: 08/05/18 10:22 Dose: 100 mls/hr Potassium Chloride/Dextrose/Sod Cl (D5-1/2ns+20 Meq Kcl -) 20 meq in 1,000 mls @ 42 mls/hr IV ASDIR [facility] Last Admin: 08/04/18 23:28 Dose: 42 mls/hr Lorazepam (Ativan Injection -) 2 mg IVPUSH ONCE ONE Stop: 08/02/18 19:29 Morphine Sulfate (Morphine Sulfate) 2 mg IVPUSH Q4H PRN PRN Reason: PAIN LEVEL 4 - 6 Last Admin: 08/05/18 10:18 Dose: 2 mg Nicotine (Nicoderm Patch -) 7 mg TD DAILY [facility] Last Admin: 08/05/18 10:19 Dose: 7 mg Pantoprazole Sodium (Protonix Iv) 40 mg IVPUSH BID [facility] Last Admin: 08/05/18 10:19 Dose: 40 mg - Objective Vital Signs: Vital Signs Temperature 99.2 F 08/05/18 05:42 Pulse Rate 100 H 08/05/18 05:42 Respiratory Rate 20 08/05/18 05:42 Blood Pressure 154/61 08/05/18 05:42 O2 Sat by Pulse Oximetry (%) 96 08/04/18 21:00 Constitutional: Yes: Calm, Mild Distress HENT: Yes: Atraumatic, Normocephalic Cardiovascular: Yes: Regular Rate and Rhythm Respiratory: Yes: Regular, CTA Bilaterally Gastrointestinal: Yes: Soft, Tenderness, Other (absent gi function) Musculoskeletal: Yes: WNL Extremities: Yes: WNL Neurological: Yes: Alert, Oriented Psychiatric: Yes: Alert, Oriented Labs: CBC, BMP 08/05/18 07:20 08/05/18 07:20 INR, PTT INR 0.97 (0.83-1.09) 07/30/18 18:22 Assessment/Plan Problem List - Problems (1) Gastric ulcer, acute with perforation Code(s): K25.1 - ACUTE GASTRIC ULCER WITH PERFORATION (2) Generalized abdominal pain Code(s): R10.84 - GENERALIZED ABDOMINAL PAIN (3) Nausea and vomiting Code(s): R11.2 - NAUSEA WITH VOMITING, UNSPECIFIED Qualifiers: Vomiting type: unspecified Vomiting Intractability: non-intractable Qualified Code(s): R11.2 - Nausea with vomiting, unspecified (4) Multiple sclerosis Code(s): G35 - MULTIPLE SCLEROSIS plan continue current mgmt monitor pain await for gi function close watch rest as per the team
[2018-08-05] MEDS ORDERED: BISACODYL 10 MG SUPP.RECT RC ONE (11:35)
[2018-08-05] MEDS ORDERED: morphine SULFATE 4 MG/ML VIAL IVPUSH PRN (11:36)
--- NOTE | 2018-08-05 11:39 | PN ---
Progress Note, Physician History of Present Illness: Pt with perforated pyloric ulcer, s/p emergent omental patch repair. Pain control with standing IV tylenol and prn morphine - she has more abdominal soreness today, took morphine about half hour ago. She is seen and examined in bed. On abx/antifungal. Peritoneal subculture of broth grew yeast-like organism. WBC normal as of yesterday. UGI/leak test showed no leak or gastric outlet obstruction, and NGT was removed. No nausea, tolerating full liquids, requests no orange juice/high acid foods. Doesn't think she is passing gas, feels like she could have a BM but has not wanted to push. - Current Medication List Current Medications: Active Medications Acetaminophen (Ofirmev Injection -) 1,000 mg IVPB Q6H [facility] Last Admin: 08/05/18 06:10 Dose: 1,000 mg Piperacillin Sod/Tazobactam (Sod 3.375 gm/ Dextrose) 50 mls @ 100 mls/hr IVPB Q8H-[facility]; Protocol Last Admin: 08/05/18 10:19 Dose: 100 mls/hr Fluconazole (Diflucan 200 Mg/D5w Premixed Ivpb -) 100 mls @ 100 mls/hr IVPB DAILY [facility] Last Admin: 08/05/18 10:22 Dose: 100 mls/hr Potassium Chloride/Dextrose/Sod Cl (D5-1/2ns+20 Meq Kcl -) 20 meq in 1,000 mls @ 42 mls/hr IV ASDIR [facility] Last Admin: 08/04/18 23:28 Dose: 42 mls/hr Lorazepam (Ativan Injection -) 2 mg IVPUSH ONCE ONE Stop: 08/02/18 19:29 Morphine Sulfate (Morphine Sulfate) 2 mg IVPUSH Q4H PRN PRN Reason: PAIN LEVEL 4 - 6 Last Admin: 08/05/18 10:18 Dose: 2 mg Nicotine (Nicoderm Patch -) 7 mg TD DAILY [facility] Last Admin: 08/05/18 10:19 Dose: 7 mg Pantoprazole Sodium (Protonix Iv) 40 mg IVPUSH BID [facility] Last Admin: 08/05/18 10:19 Dose: 40 mg - Objective Vital Signs: Vital Signs Temperature 99.2 F 08/05/18 05:42 Pulse Rate 100 H 08/05/18 05:42 Respiratory Rate 20 08/05/18 05:42 Blood Pressure 154/61 08/05/18 05:42 O2 Sat by Pulse Oximetry (%) 96 08/04/18 21:00 Constitutional: Yes: Well Nourished, No Distress, Calm Eyes: Yes: Conjunctiva Clear, EOM Intact HENT: Yes: Atraumatic, Normocephalic Respiratory: No: On Nasal O2, SOB Gastrointestinal: Yes: Normal Bowel Sounds (low to normal), Soft, Tenderness ( incisional and mild RUQ, LLQ). No: Distention, Tenderness, Rebound Extremities: No: Cool, Cyanosis Integumentary: Yes: Incision (upper midline w/audra). No: Jaundice, Rash Wound/Incision: Yes: Clean/Dry, Well Approximated, Audra Intact, Open to air Neurological: Yes: Alert, Oriented Labs: CBC, BMP 08/05/18 07:20 08/05/18 07:20 wbc normal (was 7.7 yest) Problem List - Problems (1) Gastric ulcer, acute with perforation Assessment/Plan: POD6 s/p omental (Mitchel) patch repair of perforated pyloric (prepyloric?) ulcer contrast study via NGT negative for leak NGT out, tolerating full liquids change meds to po, stop IVF abx per ID - will stop diflucan first GI/DVT prophylaxis, on protonix bid GI following will give suppository to stimulate bowel function oral contrast should facilitate emptying once BMs start PT to see again - retry getting OOB to chair/commode discussed with Dr. Olea Code(s): K25.1 - ACUTE GASTRIC ULCER WITH PERFORATION (2) Generalized abdominal pain Assessment/Plan: resolved, postop appropriate Code(s): R10.84 - GENERALIZED ABDOMINAL PAIN (3) Multiple sclerosis Assessment/Plan: not on meds at home neurology following pt refused brain MRI with h/o R hip fx and ORIF last December physical therapy pt uses [facility] at home - would like to be able to use one here or have family bring hers will likely need to go to rehab on discharge Code(s): G35 - MULTIPLE SCLEROSIS
--- NOTE | 2018-08-05 12:16 | PN ---
Progress Note (short form) - Note Progress Note: pt seen/ examined comfrtable all f/u noted afebrile Vital Signs Temp 99.2 F 08/05/18 05:42 Pulse 100 H 08/05/18 05:42 Resp 20 08/05/18 05:42 BP 154/61 08/05/18 05:42 Pulse Ox 96 08/04/18 21:00 Intake & Output 08/04/18 08/05/18 08/05/18 23:59 11:59 23:59 Intake Total 1500 700 Balance 1500 700 Intake: IV 200 450 D5-1/2NS+20 MEQ KCL - 20 200 450 meq In 1,000 ml @ 42 mls/ hr IV ASDIR [facility] Rx#: [id number] IVPB 400 250 Oral 900 Other: Voiding Method Incontinent # Unmeasured Voids Mitchell 2 Void 1 1 Active Medications Acetaminophen (Ofirmev Injection -) 1,000 mg IVPB Q6H [facility] Last Admin: 08/04/18 05:42 Dose: 1,000 mg Fluconazole (Diflucan 200 Mg/D5w Premixed Ivpb -) 100 mls @ 100 mls/hr IVPB DAILY [facility] Last Admin: 08/03/18 11:02 Dose: 100 mls/hr Piperacillin Sod/Tazobactam (Sod 3.375 gm/ Dextrose) 50 mls @ 100 mls/hr IVPB Q8H-[facility]; Protocol Last Admin: 08/04/18 02:43 Dose: 100 mls/hr Potassium Chloride/Dextrose/Sod Cl (D5-1/2ns+20 Meq Kcl -) 20 meq in 1,000 mls @ 83 mls/hr IV [facility] Last Admin: 08/04/18 02:46 Dose: 83 mls/hr Lorazepam (Ativan Injection -) 2 mg IVPUSH ONCE ONE Stop: 08/02/18 19:29 Morphine Sulfate (Morphine Sulfate) 2 mg IVPUSH Q4H PRN PRN Reason: PAIN LEVEL 4 - 6 Last Admin: 08/04/18 05:00 Dose: 2 mg Nicotine (Nicoderm Patch -) 7 mg TD DAILY [facility] Last Admin: 08/03/18 09:42 Dose: 7 mg Pantoprazole Sodium (Protonix Iv) 40 mg IVPUSH BID [facility] Last Admin: 08/03/18 22:02 Dose: 40 mg CBC, BMP 08/05/18 07:20 08/05/18 07:20 Microbiology 07/30/18 17:03 Blood Culture - Final Blood - Peripheral Venous NO GROWTH AFTER 5 DAYS INCUBATION 07/30/18 17:03 Blood Culture - Final Blood - Peripheral Venous NO GROWTH AFTER 5 DAYS INCUBATION 07/30/18 21:40 Gram Stain - Final Peritoneal Cavity Swab Wound Culture - Final Yeast Like Organism Physical Exam s1 s2 RRR Lungs clear Abd- soft, dressing in place, quiet. not distended no edema PLAN pod # 5 - clear liquids IV fluids WBC normalized IV antibiotics per ID pain control-- will follow monitoring labs-- Discussed with Dr. Steward Yesterday and today also Problem List - Problems (1) HTN (hypertension) Code(s): I10 - ESSENTIAL (PRIMARY) HYPERTENSION (2) Acute peptic ulcer with perforation but without obstruction Code(s): K27.1 - ACUTE PEPTIC ULCER, SITE UNSPECIFIED, WITH PERFORATION (3) Multiple sclerosis Code(s): G35 - MULTIPLE SCLEROSIS
[2018-08-05] MEDS: ACETAMINOPHEN 325 MG TABLET (FP) PO SCH ×3 (12:26→23:48)
[2018-08-05 12:35] LABS: ANISOCYTOSIS 0; MACROCYTOSIS 1+; PLATELET ESTIMATE NORMAL
[2018-08-05] MEDS: oxyCODONE HCL 5 MG TABLET PO PRN (15:11)
[2018-08-05] MEDS ORDERED: ZOLPIDEM TARTRATE 5 MG TABLET PO ONE (17:22)
[2018-08-06] MEDS ORDERED: PIPERACILLIN/TAZOBACTAM 3.375 GM VIAL IVPB ONE ×3 (01:28→17:15)
[2018-08-06] MEDS ORDERED: DEXTROSE 5%-WATER - 50 ML IVPB ONE ×3 (01:28→17:15)
[2018-08-06] MEDS: PIPERACILLIN/TAZOB 3.375 GM 3.375 GM in DEXTROSE 5%-WATER - 50 ML IVPB SCH ×3 (01:33→17:30)
[2018-08-06] MEDS: ACETAMINOPHEN 325 MG TABLET (FP) PO SCH ×4 (05:52→18:44)
[2018-08-06] MEDS: oxyCODONE HCL 5 MG TABLET PO PRN ×2 (06:55→18:44)
[2018-08-06 07:54] LABS: BASO % 0.7 % (0-2.0); EOS % 1.4 % (0-4.5); HEMATOCRIT 28.2 % (32.4-45.2); HEMOGLOBIN 9.4 GM/dL (10.7-15.3); LYMPH % 20.1 % (8-40); MCH 32.6 pg (25.7-33.7); MCHC 33.5 g/dl (32.0-36.0); MEAN CELL VOLUME 97.1 fl (80-96); NEUT % 69.8 % (42.8-82.8); PLATELET COUNT 500 K/MM3 (134-434); RDW 13.2 % (11.6-15.6); WHITE BLOOD COUNT 11.3 K/mm3 (4.0-10.0)
[2018-08-06 08:34] LABS: ALBUMIN 2.4 g/dl (3.4-5.0); ALK PHOS 1108 U/L (45-117); ANION GAP 12 MMOL/L (8-16); BILIRUBIN,TOTAL 0.5 mg/dL (0.2-1); BLOOD UREA NITROGEN 8 mg/dL (7-18); CALCIUM 8.8 mg/dL (8.5-10.1); CHLORIDE 107 mmol/L (98-107); CO2 23 mmol/L (21-32); CREATININE 0.6 mg/dL (0.55-1.3); GLUCOSE,RANDOM 87 mg/dL (74-106); POTASSIUM 4.3 mmol/L (3.5-5.1); SGOT/AST 31 U/L (15-37); SGPT/ALT 49 U/L (13-61); SODIUM 142 mmol/L (136-145); TOT PROT 6.1 g/dl (6.4-8.2)
[2018-08-06] MEDS: PANTOPRAZOLE SODIUM 40 MG VIAL IVPUSH SCH ×2 (09:30→22:00)
[2018-08-06] MEDS: NICOTINE 7 MG/24 HOURS TOPICAL PATCH TD SCH (09:31)
--- NOTE | 2018-08-06 09:31 | PN ---
Progress Note (short form) - Note Progress Note: pt seen/ examined feels better slept better denies pain no bm but passing gas afebrile Vital Signs Temp 98.4 F 08/06/18 06:00 Pulse 94 H 08/06/18 06:00 Resp 18 08/06/18 06:00 BP 145/71 08/06/18 06:00 Pulse Ox 97 08/05/18 21:00 Intake & Output 08/05/18 08/05/18 08/06/18 11:59 23:59 11:59 Intake Total 700 450 170 Balance 700 450 170 Intake: IV 450 210 D5-1/2NS+20 MEQ KCL - 20 450 210 meq In 1,000 ml @ 42 mls/ hr IV [facility] Rx#: [id number] IVPB 250 50 Oral 240 120 Other: Voiding Method Diaper Diaper # Unmeasured Voids Void 1 Bowel Movement No No Active Medications Acetaminophen (Tylenol -) 650 mg PO Q6H [facility] Last Admin: 08/06/18 05:52 Dose: 650 mg Piperacillin Sod/Tazobactam (Sod 3.375 gm/ Dextrose) 50 mls @ 100 mls/hr IVPB Q8H-[facility]; Protocol Last Admin: 08/06/18 01:33 Dose: 100 mls/hr Lorazepam (Ativan Injection -) 2 mg IVPUSH ONCE ONE Stop: 08/02/18 19:29 Morphine Sulfate (Morphine Sulfate) 2 mg IVPUSH Q4H PRN PRN Reason: Pain Level 7 - 10 BREAKTHROUGH Nicotine (Nicoderm Patch -) 7 mg TD DAILY [facility] Last Admin: 08/05/18 10:19 Dose: 7 mg Oxycodone HCl (Roxicodone -) 5 mg PO Q4H PRN PRN Reason: PAIN LEVEL 6-10 Last Admin: 08/06/18 06:55 Dose: 5 mg Pantoprazole Sodium (Protonix Iv) 40 mg IVPUSH BID [facility] Last Admin: 08/05/18 21:30 Dose: 40 mg Abnormal Lab Results 08/06/18 08/06/18 06:30 06:30 WBC 11.3 H RBC 2.90 L Hgb 9.4 L Hct 28.2 L MCV 97.1 H Plt Count 500 H Alkaline Phosphatase 1108 H Total Protein 6.1 L Albumin 2.4 L Microbiology 07/30/18 17:03 Blood Culture - Final Blood - Peripheral Venous NO GROWTH AFTER 5 DAYS INCUBATION 07/30/18 17:03 Blood Culture - Final Blood - Peripheral Venous NO GROWTH AFTER 5 DAYS INCUBATION 07/30/18 21:40 Gram Stain - Final Peritoneal Cavity Swab Wound Culture - Final Yeast Like Organism CBC, BMP 08/06/18 06:30 08/06/18 06:30 Physical Exam s1 s2 RRR Lungs clear Abd- soft, dressing in place, quiet. . surgical site clean not distended. no edema PLAN pod # 6 - clear liquids IV fluids IV antibiotics per ID Alk Po4 -- Keep rising . Monitor pain control-- will follow overall looks better
[2018-08-06] MEDS ORDERED: oxyCODONE HCL 5 MG TABLET PO ONE (10:15)
--- NOTE | 2018-08-06 10:15 | PN ---
Progress Note, Physician History of Present Illness: Pt with perforated pyloric ulcer, s/p emergent omental patch repair. UGI/leak test showed no leak or gastric outlet obstruction, and NGT was removed. No nausea, tolerating full liquids. Pain control with standing tylenol and prn oxycodone. She is seen and examined in bed. Got sleep last night with Ambien, feeling better this am. Sore, but no sig pain, managed well with po meds. Passing gas, but no BM yet. Has not been able to try getting up out of bed onto commode to try. About to go for brain MRI - anxious but willing to try with ativan. - Current Medication List Current Medications: Active Medications Acetaminophen (Tylenol -) 650 mg PO Q6H [facility] Last Admin: 08/06/18 05:52 Dose: 650 mg Piperacillin Sod/Tazobactam (Sod 3.375 gm/ Dextrose) 50 mls @ 100 mls/hr IVPB Q8H-[facility]; Protocol Last Admin: 08/06/18 09:30 Dose: 100 mls/hr Lorazepam (Ativan Injection -) 2 mg IVPUSH ONCE ONE Stop: 08/02/18 19:29 Morphine Sulfate (Morphine Sulfate) 2 mg IVPUSH Q4H PRN PRN Reason: Pain Level 7 - 10 BREAKTHROUGH Nicotine (Nicoderm Patch -) 7 mg TD DAILY [facility] Last Admin: 08/06/18 09:31 Dose: 7 mg Oxycodone HCl (Roxicodone -) 5 mg PO Q4H PRN PRN Reason: PAIN LEVEL 6-10 Last Admin: 08/06/18 06:55 Dose: 5 mg Pantoprazole Sodium (Protonix Iv) 40 mg IVPUSH BID [facility] Last Admin: 08/06/18 09:30 Dose: 40 mg - Objective Vital Signs: Vital Signs Temperature 98.4 F 08/06/18 06:00 Pulse Rate 94 H 08/06/18 06:00 Respiratory Rate 18 08/06/18 06:00 Blood Pressure 145/71 08/06/18 06:00 O2 Sat by Pulse Oximetry (%) 97 08/05/18 21:00 Constitutional: Yes: Well Nourished, No Distress, Calm Eyes: Yes: Conjunctiva Clear, EOM Intact HENT: Yes: Atraumatic, Normocephalic Gastrointestinal: Yes: Soft, Tenderness (mild incisional and LLQ). No: Distention Extremities: No: Cool, Cyanosis Integumentary: Yes: Incision (upper midline w/audra). No: Jaundice, Rash Wound/Incision: Yes: Clean/Dry, Well Approximated, [place] Intact, Open to air. No: Reddened Neurological: Yes: Alert, Oriented Labs: CBC, BMP 08/06/18 06:30 08/06/18 06:30 CMP Sodium 142 mmol/L (136-145) 08/06/18 06:30 Potassium 4.3 mmol/L (3.5-5.1) 08/06/18 06:30 Chloride 107 mmol/L (98-107) 08/06/18 06:30 Carbon Dioxide 23 mmol/L (21-32) 08/06/18 06:30 Anion Gap 12 MMOL/L (8-16) 08/06/18 06:30 BUN 8 mg/dL (7-18) 08/06/18 06:30 Creatinine 0.6 mg/dL (0.55-1.3) 08/06/18 06:30 Creat Clearance w eGFR 98.55 (>60) 08/06/18 06:30 Random Glucose 87 mg/dL (74-106) 08/06/18 06:30 Lactic Acid 1.8 mmol/L (0.4-2.0) 07/31/18 06:30 Calcium 8.8 mg/dL (8.5-10.1) 08/06/18 06:30 Phosphorus 3.1 mg/dL (2.5-4.9) 07/31/18 06:30 Magnesium 2.1 mg/dL (1.8-2.4) 08/02/18 06:00 Total Bilirubin 0.5 mg/dL (0.2-1) 08/06/18 06:30 AST 31 U/L (15-37) 08/06/18 06:30 ALT 49 U/L (13-61) 08/06/18 06:30 Alkaline Phosphatase 1108 U/L (45-117) H 08/06/18 06:30 Creatine Kinase 46 U/L (26-192) 07/30/18 16:01 Troponin I < 0.02 ng/ml (0.00-0.05) 07/30/18 16:01 Total Protein 6.1 g/dl (6.4-8.2) L 08/06/18 06:30 Albumin 2.4 g/dl (3.4-5.0) L 08/06/18 06:30 Lipase 115 U/L (73-393) 07/30/18 16:01 wbc up a bit alk phos elevated Problem List - Problems (1) Gastric ulcer, acute with perforation Assessment/Plan: POD7 s/p omental (Mitchel) patch repair of perforated pyloric (prepyloric?) ulcer contrast study via NGT negative for leak tolerating full liquids pain control with po meds wbc up a little - continue zosyn, had last dose of diflucan yesterday no bowel function yet, just flatus will try dulcolax GI/DVT prophylaxis, on protonix bid PT to see again - retry getting OOB to chair/commode Code(s): K25.1 - ACUTE GASTRIC ULCER WITH PERFORATION (2) Multiple sclerosis Assessment/Plan: neurology following pt going for brain MRI now with h/o R hip fx and ORIF last December physical therapy pt uses [facility] at home - would like to be able to use one here or have family bring hers will likely need to go to rehab on discharge Code(s): G35 - MULTIPLE SCLEROSIS
--- NOTE | 2018-08-06 11:15 | PN ---
Progress Note, Physician History of Present Illness: patient shaun says she feels better today for imaging studies still gi function awaited says had some flatus today - Current Medication List Current Medications: Active Medications Acetaminophen (Tylenol -) 650 mg PO Q6H [facility] Last Admin: 08/06/18 05:52 Dose: 650 mg Piperacillin Sod/Tazobactam (Sod 3.375 gm/ Dextrose) 50 mls @ 100 mls/hr IVPB Q8H[facility]; Protocol Last Admin: 08/06/18 09:30 Dose: 100 mls/hr Lorazepam (Ativan Injection -) 2 mg IVPUSH ONCE ONE Stop: 08/06/18 11:21 Morphine Sulfate (Morphine Sulfate) 2 mg IVPUSH Q4H PRN PRN Reason: Pain Level 7 - 10 BREAKTHROUGH Nicotine (Nicoderm Patch -) 7 mg TD DAILY [facility] Last Admin: 08/06/18 09:31 Dose: 7 mg Oxycodone HCl (Roxicodone -) 5 mg PO Q4H PRN PRN Reason: PAIN LEVEL 6-10 Last Admin: 08/06/18 06:55 Dose: 5 mg Pantoprazole Sodium (Protonix Iv) 40 mg IVPUSH BID [facility] Last Admin: 08/06/18 09:30 Dose: 40 mg - Objective Vital Signs: Vital Signs Temperature 98.4 F 08/06/18 06:00 Pulse Rate 94 H 08/06/18 06:00 Respiratory Rate 18 08/06/18 06:00 Blood Pressure 145/71 08/06/18 06:00 O2 Sat by Pulse Oximetry (%) 97 08/05/18 21:00 Constitutional: Yes: Calm, Mild Distress Cardiovascular: Yes: Regular Rate and Rhythm Respiratory: Yes: Regular, CTA Bilaterally Gastrointestinal: Yes: Soft, Tenderness, Other (absent bowel sounds) Musculoskeletal: Yes: WNL Extremities: Yes: WNL Neurological: Yes: Alert, Oriented Psychiatric: Yes: Alert, Oriented Labs: CBC, BMP 08/06/18 06:30 08/06/18 06:30 INR, PTT INR 0.97 (0.83-1.09) 07/30/18 18:22 Assessment/Plan Problem List - Problems (1) Gastric ulcer, acute with perforation Code(s): K25.1 - ACUTE GASTRIC ULCER WITH PERFORATION (2) Generalized abdominal pain Code(s): R10.84 - GENERALIZED ABDOMINAL PAIN (3) Nausea and vomiting Code(s): R11.2 - NAUSEA WITH VOMITING, UNSPECIFIED Qualifiers: Vomiting type: unspecified Vomiting Intractability: non-intractable Qualified Code(s): R11.2 - Nausea with vomiting, unspecified (4) Multiple sclerosis Code(s): G35 - MULTIPLE SCLEROSIS plan continue current mgmt monitor pain await for gi function close watch rest as per the team await for imaging studies
[2018-08-06] MEDS ORDERED: LORazepam 2 MG/ML SDV VIAL IVPUSH ONE ×2 (11:20→15:00)
[2018-08-06] MEDS ORDERED: LORazepam 2 MG/ML SDV VIAL IVPUSH SCH (13:30)
[2018-08-07] MEDS: ACETAMINOPHEN 325 MG TABLET (FP) PO SCH ×4 (00:20→18:24)
[2018-08-07] MEDS ORDERED: DEXTROSE 5%-WATER - 50 ML IVPB ONE ×3 (01:12→18:21)
[2018-08-07] MEDS ORDERED: PIPERACILLIN/TAZOBACTAM 3.375 GM VIAL IVPB ONE ×3 (01:12→18:21)
[2018-08-07] MEDS: PIPERACILLIN/TAZOB 3.375 GM 3.375 GM in DEXTROSE 5%-WATER - 50 ML IVPB SCH ×3 (01:18→18:25)
[2018-08-07] MEDS: oxyCODONE HCL 5 MG TABLET PO PRN ×3 (01:18→16:39)
[2018-08-07 07:52] LABS: BASO % 0.7 % (0-2.0); EOS % 1.5 % (0-4.5); HEMATOCRIT 27.7 % (32.4-45.2); HEMOGLOBIN 9.5 GM/dL (10.7-15.3); LYMPH % 22.1 % (8-40); MCH 33.1 pg (25.7-33.7); MCHC 34.4 g/dl (32.0-36.0); MEAN CELL VOLUME 96.3 fl (80-96); MEAN PLT VOLUME 7.6 fl (7.5-11.1); MONO % 7.6 % (3.8-10.2); NEUT % 68.1 % (42.8-82.8); PLATELET COUNT 582 K/MM3 (134-434); RBC 2.88 M/mm3 (3.60-5.2); RDW 12.9 % (11.6-15.6); WHITE BLOOD COUNT 10.5 K/mm3 (4.0-10.0)
[2018-08-07 09:03] LABS: ALBUMIN 2.4 g/dl (3.4-5.0); ALK PHOS 894 U/L (45-117); ANION GAP 11 MMOL/L (8-16); BILIRUBIN,TOTAL 0.5 mg/dL (0.2-1); BLOOD UREA NITROGEN 10 mg/dL (7-18); CALCIUM 8.6 mg/dL (8.5-10.1); CHLORIDE 107 mmol/L (98-107); CO2 22 mmol/L (21-32); CREATININE 0.6 mg/dL (0.55-1.3); GLUCOSE,RANDOM 88 mg/dL (74-106); POTASSIUM 3.9 mmol/L (3.5-5.1); SGOT/AST 13 U/L (15-37); SGPT/ALT 32 U/L (13-61); SODIUM 140 mmol/L (136-145)
[2018-08-07] MEDS: NICOTINE 7 MG/24 HOURS TOPICAL PATCH TD SCH (09:07)
[2018-08-07] MEDS: PANTOPRAZOLE SODIUM 40 MG VIAL IVPUSH SCH (10:49)
--- NOTE | 2018-08-07 11:15 | PN ---
Progress Note, Physician History of Present Illness: patient stable says feels better today wbc trending down still awaiting gi function properly - Current Medication List Current Medications: Active Medications Acetaminophen (Tylenol -) 650 mg PO Q6H [facility] Last Admin: 08/07/18 05:25 Dose: 650 mg Piperacillin Sod/Tazobactam (Sod 3.375 gm/ Dextrose) 50 mls @ 100 mls/hr IVPB Q8H-[facility]; Protocol Last Admin: 08/07/18 09:07 Dose: 100 mls/hr Morphine Sulfate (Morphine Sulfate) 2 mg IVPUSH Q4H PRN PRN Reason: Pain Level 7 - 10 BREAKTHROUGH Nicotine (Nicoderm Patch -) 7 mg TD DAILY [facility] Last Admin: 08/07/18 09:07 Dose: 7 mg Oxycodone HCl (Roxicodone -) 5 mg PO Q4H PRN PRN Reason: PAIN LEVEL 6-10 Last Admin: 08/07/18 09:07 Dose: 5 mg Pantoprazole Sodium (Protonix Iv) 40 mg IVPUSH BID [facility] Last Admin: 08/07/18 10:49 Dose: 40 mg - Objective Vital Signs: Vital Signs Temperature 98.4 F 08/07/18 06:24 Pulse Rate 99 H 08/07/18 06:24 Respiratory Rate 20 08/07/18 06:24 Blood Pressure 113/58 L 08/07/18 06:24 O2 Sat by Pulse Oximetry (%) 98 08/06/18 21:00 Constitutional: Yes: No Distress, Calm Cardiovascular: Yes: Regular Rate and Rhythm Respiratory: Yes: Regular, CTA Bilaterally Gastrointestinal: Yes: Soft Musculoskeletal: Yes: WNL Extremities: Yes: WNL Neurological: Yes: Alert, Oriented Psychiatric: Yes: Alert, Oriented Labs: CBC, BMP 08/07/18 06:00 08/07/18 06:30 INR, PTT INR 0.97 (0.83-1.09) 07/30/18 18:22 Assessment/Plan Problem List - Problems (1) Gastric ulcer, acute with perforation Code(s): K25.1 - ACUTE GASTRIC ULCER WITH PERFORATION (2) Generalized abdominal pain Code(s): R10.84 - GENERALIZED ABDOMINAL PAIN (3) Nausea and vomiting Code(s): R11.2 - NAUSEA WITH VOMITING, UNSPECIFIED Qualifiers: Vomiting type: unspecified Vomiting Intractability: non-intractable Qualified Code(s): R11.2 - Nausea with vomiting, unspecified (4) Multiple sclerosis Code(s): G35 - MULTIPLE SCLEROSIS plan continue current mgmt monitor pain await for gi function close watch rest as per the team
[2018-08-07 11:21] LABS: ANISOCYTOSIS 1+; MACROCYTOSIS 1+; PLATELET ESTIMATE INCREASED
--- NOTE | 2018-08-07 13:05 | PN ---
Progress Note (short form) - Note Progress Note: Events noted Pt admitted for perforated duodenal ulcer POD #7 omental (Mitchel) patch repair of perforated pyloric ulcer awake NG off on liquid diet has occasional abd spasms no BM yet passing flatus Vital Signs - 24 hr 08/06/18 08/06/18 08/06/18 16:20 20:41 21:00 Temperature 97.8 F 98.1 F Pulse Rate 93 H 94 H Respiratory 18 20 Rate Blood Pressure 125/59 L 120/51 L O2 Sat by Pulse 98 Oximetry (%) 08/07/18 06:24 Temperature 98.4 F Pulse Rate 99 H Respiratory 20 Rate Blood Pressure 113/58 L O2 Sat by Pulse Oximetry (%) Current Medications Generic Name Dose Route Start Last Admin Trade Name Freq PRN Reason Stop Dose Admin Acetaminophen 650 mg 08/05/18 12:00 08/07/18 12:39 Tylenol - PO 650 mg Q6H [facility] Administration Piperacillin Sod/Tazobactam 50 mls @ 100 mls/hr 07/31/18 10:00 08/07/18 09:07 Sod 3.375 gm/ Dextrose IVPB 100 mls/hr Q8H-IV [facility] Administration Protocol Morphine Sulfate 2 mg 08/05/18 11:36 Morphine Sulfate IVPUSH Q4H PRN Pain Level 7 - 10 BREAKTHROUGH Nicotine 7 mg 07/31/18 10:00 08/07/18 09:07 Nicoderm Patch - TD 7 mg DAILY [facility] Administration Oxycodone HCl 5 mg 08/05/18 11:34 08/07/18 09:07 Roxicodone - PO 5 mg Q4H PRN Administration PAIN LEVEL 6-10 Pantoprazole Sodium 40 mg 08/01/18 22:00 08/07/18 10:49 Protonix Iv IVPUSH 40 mg BID [facility] Administration Laboratory Results - last 24 hr 08/07/18 08/07/18 06:00 06:30 WBC 10.5 H RBC 2.88 L Hgb 9.5 L Hct 27.7 L MCV 96.3 H MCH 33.1 MCHC 34.4 RDW 12.9 Plt Count 582 H MPV 7.6 Absolute Neuts (auto) 7.2 Neutrophils % 68.1 Neutrophils % (Manual) 77.2 Band Neutrophils % 0.0 Lymphocytes % 22.1 Lymphocytes % (Manual) 14.8 D Monocytes % 7.6 Monocytes % (Manual) 3 L Eosinophils % 1.5 Eosinophils % (Manual) 2.0 D Basophils % 0.7 Basophils % (Manual) 0.0 Myelocytes % (Man) 2 D Promyelocytes % (Man) 0 Blast Cells % (Manual) 0 Nucleated RBC % 0 Metamyelocytes 1 D Hypochromia 0 Platelet Estimate Increased Polychromasia 1+ Poikilocytosis 0 Anisocytosis 1+ Microcytosis 0 Macrocytosis 1+ Sodium 140 Potassium 3.9 Chloride 107 Carbon Dioxide 22 Anion Gap 11 BUN 10 Creatinine 0.6 Creat Clearance w eGFR 98.55 Random Glucose 88 Calcium 8.6 Total Bilirubin 0.5 AST 13 L ALT 32 Alkaline Phosphatase 894 H Total Protein 6.0 L Albumin 2.4 L s1 s2 RRR Lungs clear Abd- soft, NT, BS heard not distended no edema PLAN on liquid diet change oxycodone to Q6H IV antibiotics per ID cultures urine- klebsiella DVT prophylaxis-- start Lovenox sc GI eval follow up for elevated alk phos On IV Protonix BID Neurology eval noted for MS Problem List - Problems (1) HTN (hypertension) Code(s): I10 - ESSENTIAL (PRIMARY) HYPERTENSION (2) Acute peptic ulcer with perforation but without obstruction Code(s): K27.1 - ACUTE PEPTIC ULCER, SITE UNSPECIFIED, WITH PERFORATION (3) Multiple sclerosis Code(s): G35 - MULTIPLE SCLEROSIS
--- NOTE | 2018-08-07 13:46 | PN ---
Progress Note, Physician History of Present Illness: Pt with perforated pyloric ulcer, s/p emergent omental patch repair. UGI/leak test showed no leak or gastric outlet obstruction, and NGT was removed. No nausea, tolerating full liquids. Pain control with standing tylenol and prn oxycodone. She is seen and examined in bed. Sore, but no sig pain, managed well with po meds. Passing gas, but no BM yet. She states the commode was too low for her to sit on, and she cannot make the walk to the bathroom, even with PT. - Current Medication List Current Medications: Active Medications Acetaminophen (Tylenol -) 650 mg PO Q6H [facility] Last Admin: 08/07/18 12:39 Dose: 650 mg Enoxaparin Sodium (Lovenox -) 40 mg SQ DAILY [facility] Piperacillin Sod/Tazobactam (Sod 3.375 gm/ Dextrose) 50 mls @ 100 mls/hr IVPB Q8H-IV [facility]; Protocol Last Admin: 08/07/18 09:07 Dose: 100 mls/hr Morphine Sulfate (Morphine Sulfate) 2 mg IVPUSH Q4H PRN PRN Reason: Pain Level 7 - 10 BREAKTHROUGH Nicotine (Nicoderm Patch -) 7 mg TD DAILY [facility] Last Admin: 08/07/18 09:07 Dose: 7 mg Oxycodone HCl (Roxicodone -) 5 mg PO Q6H PRN PRN Reason: PAIN LEVEL 6-10 Pantoprazole Sodium (Protonix Iv) 40 mg IVPUSH BID [facility] Last Admin: 08/07/18 10:49 Dose: 40 mg - Objective Vital Signs: Vital Signs Temperature 98.4 F 08/07/18 06:24 Pulse Rate 99 H 08/07/18 06:24 Respiratory Rate 20 08/07/18 06:24 Blood Pressure 113/58 L 08/07/18 06:24 O2 Sat by Pulse Oximetry (%) 98 08/06/18 21:00 Constitutional: Yes: Well Nourished, No Distress, Calm Eyes: Yes: Conjunctiva Clear, EOM Intact HENT: Yes: Atraumatic, Normocephalic Gastrointestinal: Yes: Soft, Tenderness (minimal incisional). No: Distention ...Rectal Exam: Yes: Sphincter Tone Normal, Other (vault empty, small smear of brown stool on glove tip). No: Hemorrhoids/External Extremities: No: Cool, Cyanosis Integumentary: Yes: Incision (upper midline w/audra). No: Jaundice, Rash Wound/Incision: Yes: Clean/Dry, Well Approximated, [place] Intact, Open to air Neurological: Yes: Alert, Oriented Labs: CBC, BMP 08/07/18 06:00 08/07/18 06:30 CMP Sodium 140 mmol/L (136-145) 08/07/18 06:30 Potassium 3.9 mmol/L (3.5-5.1) 08/07/18 06:30 Chloride 107 mmol/L (98-107) 08/07/18 06:30 Carbon Dioxide 22 mmol/L (21-32) 08/07/18 06:30 Anion Gap 11 MMOL/L (8-16) 08/07/18 06:30 BUN 10 mg/dL (7-18) 08/07/18 06:30 Creatinine 0.6 mg/dL (0.55-1.3) 08/07/18 06:30 Creat Clearance w eGFR 98.55 (>60) 08/07/18 06:30 Random Glucose 88 mg/dL (74-106) 08/07/18 06:30 Lactic Acid 1.8 mmol/L (0.4-2.0) 07/31/18 06:30 Calcium 8.6 mg/dL (8.5-10.1) 08/07/18 06:30 Phosphorus 3.1 mg/dL (2.5-4.9) 07/31/18 06:30 Magnesium 2.1 mg/dL (1.8-2.4) 08/02/18 06:00 Total Bilirubin 0.5 mg/dL (0.2-1) 08/07/18 06:30 AST 13 U/L (15-37) L 08/07/18 06:30 ALT 32 U/L (13-61) 08/07/18 06:30 Alkaline Phosphatase 894 U/L (45-117) H 08/07/18 06:30 Creatine Kinase 46 U/L (26-192) 07/30/18 16:01 Troponin I < 0.02 ng/ml (0.00-0.05) 07/30/18 16:01 Total Protein 6.0 g/dl (6.4-8.2) L 08/07/18 06:30 Albumin 2.4 g/dl (3.4-5.0) L 08/07/18 06:30 Lipase 115 U/L (73-393) 07/30/18 16:01 wbc down alk phos coming down Problem List - Problems (1) Gastric ulcer, acute with perforation Assessment/Plan: POD8 s/p omental (Mitchel) patch repair of perforated pyloric (prepyloric?) ulcer contrast study via NGT negative for leak tolerating full liquids advance to regular diet pain control with po meds wbc coming down - continue zosyn per ID no bowel function yet, just flatus FELIPE with empty vault consider AXR if no BM tomorrow after starting food will add colace as she is using oxycodone prn GI/DVT prophylaxis, on protonix bid - change to po PT following discussed with Dr. Magaña Code(s): K25.1 - ACUTE GASTRIC ULCER WITH PERFORATION (2) Multiple sclerosis Assessment/Plan: neurology following had brain MRI with h/o R hip fx and ORIF last December physical therapy plan currently for Adira on discharge Code(s): G35 - MULTIPLE SCLEROSIS
[2018-08-07] MEDS: ENOXAPARIN NA (PORCINE) 40 MG/0.4 ML DISP.SYRIN SQ SCH (15:15)
--- NOTE | 2018-08-07 17:16 | PN.GI ---
GI Progress Note Subjective: Recalled to evaluate elevated ALP. Isolated ALP elevation has occurred during hospitalization. No RUQ pain. + pain at incision site. No h. pylori stool antigen collected as of yet. No BM as of yet. No bowel regimen aside from colace. - Objective Vital Signs: Vital Signs Temperature 98 F 08/07/18 16:20 Pulse Rate 104 H 08/07/18 16:20 Respiratory Rate 18 08/07/18 16:20 Blood Pressure 129/70 08/07/18 16:20 O2 Sat by Pulse Oximetry (%) 98 08/06/18 21:00 Constitutional: Calm Eyes: No: Sclera Icterus Cardiovascular: Yes: Regular Rate and Rhythm. No: Murmur Respiratory: Yes: CTA Bilaterally Gastrointestinal Inspection: Yes: Scars (+ midline surgical scar with audra in placed) ...Palpate: Yes: Soft, Tenderness (upon palpation of surgical scar) ...Percussion: No: Tympanitic Edema: No (No LE edema) Neurological: Yes: Alert Labs: CBC, BMP 08/07/18 06:00 08/07/18 06:30 INR, PTT INR 0.97 (0.83-1.09) 07/30/18 18:22 Problem List - Problems (1) Gastric ulcer, acute with perforation Assessment/Plan: Await stool h. pylor antigen Code(s): K25.1 - ACUTE GASTRIC ULCER WITH PERFORATION (2) Elevated alkaline phosphatase level Assessment/Plan: Isolated with normal transaminases and bilirubin. ? medication effect (started on diflucan during admission) Ordered GGT Ordered Hepatobiliary US. Code(s): R74.8 - ABNORMAL LEVELS OF OTHER SERUM ENZYMES (3) Constipation Assessment/Plan: Rectal exam performed by Dr. Cat. No fecal impaction described. Possible FUA for tomorrow escalate laxative therapy following FUA Code(s): K59.00 - CONSTIPATION, UNSPECIFIED
[2018-08-07] MEDS: DOCUSATE SODIUM 100 MG CAPSULE (FP) PO SCH (21:16)
[2018-08-07] MEDS: PANTOPRAZOLE 40 MG TABLET (FP) PO SCH (21:16)
[2018-08-08] MEDS: ACETAMINOPHEN 325 MG TABLET (FP) PO SCH ×4 (00:13→17:00)
[2018-08-08] MEDS ORDERED: PIPERACILLIN/TAZOBACTAM 3.375 GM VIAL IVPB ONE ×4 (01:02→21:19)
[2018-08-08] MEDS: PIPERACILLIN/TAZOB 3.375 GM 3.375 GM in DEXTROSE 5%-WATER - 50 ML IVPB SCH ×3 (01:41→16:58)
[2018-08-08] MEDS: oxyCODONE HCL 5 MG TABLET PO PRN ×3 (01:47→16:44)
[2018-08-08 08:29] LABS: BASO % 0.7 % (0-2.0); EOS % 1.9 % (0-4.5); HEMATOCRIT 24.9 % (32.4-45.2); HEMOGLOBIN 8.5 GM/dL (10.7-15.3); LYMPH % 29.1 % (8-40); MCH 32.8 pg (25.7-33.7); MCHC 34.1 g/dl (32.0-36.0); MEAN CELL VOLUME 96.2 fl (80-96); MEAN PLT VOLUME 7.8 fl (7.5-11.1); MONO % 8.6 % (3.8-10.2); NEUT % 59.7 % (42.8-82.8); PLATELET COUNT 603 K/MM3 (134-434); RBC 2.59 M/mm3 (3.60-5.2); RDW 12.8 % (11.6-15.6); WHITE BLOOD COUNT 8.2 K/mm3 (4.0-10.0)
[2018-08-08 09:21] LABS: ALBUMIN 2.2 g/dl (3.4-5.0); ALK PHOS 1603 U/L (45-117); ANION GAP 9 MMOL/L (8-16); BILIRUBIN,TOTAL 0.4 mg/dL (0.2-1); BLOOD UREA NITROGEN 11 mg/dL (7-18); CALCIUM 8.5 mg/dL (8.5-10.1); CHLORIDE 107 mmol/L (98-107); CO2 23 mmol/L (21-32); CREATININE 0.6 mg/dL (0.55-1.3); GLUCOSE,RANDOM 90 mg/dL (74-106); POTASSIUM 3.9 mmol/L (3.5-5.1); SGOT/AST 59 U/L (15-37); SGPT/ALT 59 U/L (13-61); SODIUM 139 mmol/L (136-145); TOT PROT 5.8 g/dl (6.4-8.2)
--- NOTE | 2018-08-08 09:46 | PN ---
Progress Note, Physician History of Present Illness: Pt with perforated pyloric ulcer, s/p emergent omental patch repair. UGI/leak test showed no leak or gastric outlet obstruction, and NGT was removed. No nausea, tolerated reg diet last night. Pain control with standing tylenol and prn oxycodone. She is seen and examined in bed. Abdomen/incision sore, but no sig pain, managed well with po meds. Passing gas, but no BM yet. She states the commode was too low for her to sit on, and she cannot make the walk to the bathroom, even with PT. GI followup noted, pending US this am. Alk phos and GGT both elevated. WBC normal today. - Current Medication List Current Medications: Active Medications Acetaminophen (Tylenol -) 650 mg PO Q6H [facility] Last Admin: 08/08/18 05:42 Dose: 650 mg Docusate Sodium (Colace -) 100 mg PO BID [facility] Last Admin: 08/07/18 21:16 Dose: 100 mg Enoxaparin Sodium (Lovenox -) 40 mg SQ DAILY [facility] Last Admin: 08/07/18 15:15 Dose: 40 mg Piperacillin Sod/Tazobactam (Sod 3.375 gm/ Dextrose) 50 mls @ 100 mls/hr IVPB Q8H-IV [facility]; Protocol Last Admin: 08/08/18 01:41 Dose: 100 mls/hr Nicotine (Nicoderm Patch -) 7 mg TD DAILY [facility] Last Admin: 08/07/18 09:07 Dose: 7 mg Oxycodone HCl (Roxicodone -) 5 mg PO Q6H PRN PRN Reason: PAIN LEVEL 6-10 Last Admin: 08/08/18 01:47 Dose: 5 mg Pantoprazole Sodium (Protonix -) 40 mg PO BID [facility] Last Admin: 08/07/18 21:16 Dose: 40 mg - Objective Vital Signs: Vital Signs Temperature 98.5 F 08/08/18 06:00 Pulse Rate 94 H 08/08/18 06:00 Respiratory Rate 20 08/08/18 06:00 Blood Pressure 132/67 08/08/18 06:00 O2 Sat by Pulse Oximetry (%) 97 08/07/18 21:00 Constitutional: Yes: Well Nourished, No Distress, Calm Eyes: Yes: Conjunctiva Clear, EOM Intact. No: Sclera Icterus HENT: Yes: Atraumatic, Normocephalic Gastrointestinal: Yes: Soft, Tenderness (minimal incisional, no RUQ tend). No: Distention Extremities: No: Cool, Cyanosis Integumentary: Yes: Incision (upper midline w/audra). No: Jaundice, Rash Wound/Incision: Yes: Clean/Dry, Well Approximated, [place] Intact, Open to air. No: Reddened Neurological: Yes: Alert, Oriented Labs: CBC, BMP 08/08/18 06:00 08/08/18 06:00 CMP Sodium 139 mmol/L (136-145) 08/08/18 06:00 Potassium 3.9 mmol/L (3.5-5.1) 08/08/18 06:00 Chloride 107 mmol/L (98-107) 08/08/18 06:00 Carbon Dioxide 23 mmol/L (21-32) 08/08/18 06:00 Anion Gap 9 MMOL/L (8-16) 08/08/18 06:00 BUN 11 mg/dL (7-18) 08/08/18 06:00 Creatinine 0.6 mg/dL (0.55-1.3) 08/08/18 06:00 Creat Clearance w eGFR 98.55 (>60) 08/08/18 06:00 Random Glucose 90 mg/dL (74-106) 08/08/18 06:00 Calcium 8.5 mg/dL (8.5-10.1) 08/08/18 06:00 Total Bilirubin 0.4 mg/dL (0.2-1) 08/08/18 06:00 GGT 2108 U/L (5-85) H 08/08/18 06:00 AST 59 U/L (15-37) H 08/08/18 06:00 ALT 59 U/L (13-61) 08/08/18 06:00 Alkaline Phosphatase 1603 U/L (45-117) H 08/08/18 06:00 Total Protein 5.8 g/dl (6.4-8.2) L 08/08/18 06:00 Albumin 2.2 g/dl (3.4-5.0) L 08/08/18 06:00 - ....Imaging X-ray: Pending Ultrasound: Pending Problem List - Problems (1) Gastric ulcer, acute with perforation Assessment/Plan: POD9 s/p omental (Mitchel) patch repair of perforated pyloric (prepyloric?) ulcer contrast study via NGT negative for leak tolerating reg diet pain control with po meds wbc normal - ID may d/c abx no bowel function yet, just flatus FELIPE with empty vault yesterday will get AXR today HPB US pending per GI add laxative after studies, possible enema constipation may be related to opioid use - might consider relistor if no effect from these GI/DVT prophylaxis, on protonix bid PT following will discuss with Dr. Olea Code(s): K25.1 - ACUTE GASTRIC ULCER WITH PERFORATION (2) Multiple sclerosis Assessment/Plan: neurology following had brain MRI with h/o R hip fx and ORIF last December physical therapy plan currently for Akshat Vallecillo on discharge Code(s): G35 - MULTIPLE SCLEROSIS
[2018-08-08] MEDS ORDERED: DEXTROSE 5%-WATER - 50 ML IVPB ONE ×3 (09:53→21:19)
[2018-08-08] MEDS: ENOXAPARIN NA (PORCINE) 40 MG/0.4 ML DISP.SYRIN SQ SCH (09:58)
[2018-08-08] MEDS: DOCUSATE SODIUM 100 MG CAPSULE (FP) PO SCH ×2 (09:58→22:23)
[2018-08-08] MEDS: PANTOPRAZOLE 40 MG TABLET (FP) PO SCH ×2 (09:59→22:25)
[2018-08-08] MEDS: NICOTINE 7 MG/24 HOURS TOPICAL PATCH TD SCH (09:59)
[2018-08-08 10:17] LABS: ANISOCYTOSIS 1+; MACROCYTOSIS 1+; PLATELET ESTIMATE INCREASED
--- NOTE | 2018-08-08 11:05 | PN ---
Progress Note, Physician History of Present Illness: clinically stable still no gi function - Current Medication List Current Medications: Active Medications Acetaminophen (Tylenol -) 650 mg PO Q6H [facility] Last Admin: 08/08/18 05:42 Dose: 650 mg Docusate Sodium (Colace -) 100 mg PO BID [facility] Last Admin: 08/08/18 09:58 Dose: 100 mg Enoxaparin Sodium (Lovenox -) 40 mg SQ DAILY [facility] Last Admin: 08/08/18 09:58 Dose: 40 mg Piperacillin Sod/Tazobactam (Sod 3.375 gm/ Dextrose) 50 mls @ 100 mls/hr IVPB Q8H-IV [facility]; Protocol Last Admin: 08/08/18 10:00 Dose: 100 mls/hr Nicotine (Nicoderm Patch -) 7 mg TD DAILY [facility] Last Admin: 08/08/18 09:59 Dose: 7 mg Oxycodone HCl (Roxicodone -) 5 mg PO Q6H PRN PRN Reason: PAIN LEVEL 6-10 Last Admin: 08/08/18 09:59 Dose: 5 mg Pantoprazole Sodium (Protonix -) 40 mg PO BID [facility] Last Admin: 08/08/18 09:59 Dose: 40 mg - Objective Vital Signs: Vital Signs Temperature 98.5 F 08/08/18 06:00 Pulse Rate 94 H 08/08/18 06:00 Respiratory Rate 20 08/08/18 06:00 Blood Pressure 132/67 08/08/18 06:00 O2 Sat by Pulse Oximetry (%) 97 08/07/18 21:00 Constitutional: Yes: No Distress, Calm Cardiovascular: Yes: Regular Rate and Rhythm Respiratory: Yes: Regular, CTA Bilaterally Gastrointestinal: Yes: Soft, Other Musculoskeletal: Yes: WNL Extremities: Yes: WNL Wound/Incision: Yes: Clean/Dry Neurological: Yes: Alert, Oriented Psychiatric: Yes: Alert, Oriented Labs: CBC, BMP 08/08/18 06:00 08/08/18 06:00 INR, PTT INR 0.97 (0.83-1.09) 07/30/18 18:22 Assessment/Plan Problem List - Problems (1) Gastric ulcer, acute with perforation Code(s): K25.1 - ACUTE GASTRIC ULCER WITH PERFORATION (2) Generalized abdominal pain Code(s): R10.84 - GENERALIZED ABDOMINAL PAIN (3) Nausea and vomiting Code(s): R11.2 - NAUSEA WITH VOMITING, UNSPECIFIED Qualifiers: Vomiting type: unspecified Vomiting Intractability: non-intractable Qualified Code(s): R11.2 - Nausea with vomiting, unspecified (4) Multiple sclerosis Code(s): G35 - MULTIPLE SCLEROSIS plan continue current mgmt monitor pain await for gi function close watch rest as per the team await for repeat imaging studies once we have the studies then will deescalte abx
--- NOTE | 2018-08-08 11:53 | PN.GI ---
GI Progress Note Subjective: Pt seen/examined at bedside, feeling better, reports mild tenderness at incision sites, denies n/v. Passing flatus, no bm yet. Pending US. - Objective Vital Signs: Vital Signs Temperature 98.5 F 08/08/18 06:00 Pulse Rate 94 H 08/08/18 06:00 Respiratory Rate 20 08/08/18 06:00 Blood Pressure 132/67 08/08/18 06:00 O2 Sat by Pulse Oximetry (%) 97 08/07/18 21:00 Constitutional: Well Nourished, Calm Cardiovascular: Yes: WNL, Regular Rate and Rhythm Respiratory: Yes: WNL, Regular, CTA Bilaterally ...Palpate: Yes: Other (Abd soft, mildly tender at incision/staple line, non distended, no rebound, guarding or rigidity) Labs: CBC, BMP 08/08/18 06:00 08/08/18 06:00 INR, PTT INR 0.97 (0.83-1.09) 07/30/18 18:22 Problem List - Problems (1) Gastric ulcer, acute with perforation Assessment/Plan: s/p emergent alexander patch repair for perforated pyloric ulcer. Clinically improving. Passing flatus, no bm yet. -Follow up H pylori stool Ag when able to obtain stool sample -Continue PPI bid -Check Abd xray -Further recommendations per surgery Code(s): K25.1 - ACUTE GASTRIC ULCER WITH PERFORATION (2) Elevated alkaline phosphatase level Assessment/Plan: Alk phos and GGT elevated, unclear exact etiology, was normal on admission ? medication induced (?zosyn). T bili normal. -Continue to closely monitor LFT trend -Await Abd US r/o biliary obstructive process -Avoid non-essential hepatotoxic medications Code(s): R74.8 - ABNORMAL LEVELS OF OTHER SERUM ENZYMES
--- NOTE | 2018-08-08 12:02 | PN ---
Progress Note, Physician History of Present Illness: maddy noted Chart review the Alert awake oriented MRI of the brain with no significant change - Current Medication List Current Medications: Active Medications Acetaminophen (Tylenol -) 650 mg PO Q6H [facility] Last Admin: 08/08/18 05:42 Dose: 650 mg Docusate Sodium (Colace -) 100 mg PO BID [facility] Last Admin: 08/08/18 09:58 Dose: 100 mg Enoxaparin Sodium (Lovenox -) 40 mg SQ DAILY [facility] Last Admin: 08/08/18 09:58 Dose: 40 mg Piperacillin Sod/Tazobactam (Sod 3.375 gm/ Dextrose) 50 mls @ 100 mls/hr IVPB Q8H-IV [facility]; Protocol Last Admin: 08/08/18 10:00 Dose: 100 mls/hr Nicotine (Nicoderm Patch -) 7 mg TD DAILY [facility] Last Admin: 08/08/18 09:59 Dose: 7 mg Oxycodone HCl (Roxicodone -) 5 mg PO Q6H PRN PRN Reason: PAIN LEVEL 6-10 Last Admin: 08/08/18 09:59 Dose: 5 mg Pantoprazole Sodium (Protonix -) 40 mg PO BID [facility] Last Admin: 08/08/18 09:59 Dose: 40 mg - Objective Vital Signs: Vital Signs Temperature 98.5 F 08/08/18 06:00 Pulse Rate 94 H 08/08/18 06:00 Respiratory Rate 20 08/08/18 06:00 Blood Pressure 132/67 08/08/18 06:00 O2 Sat by Pulse Oximetry (%) 97 08/07/18 21:00 Constitutional: Yes: Well Nourished Eyes: Yes: WNL Neurological: Yes: Alert, Babinski positive ...Motor Strength: WNL Labs: CBC, BMP 08/08/18 06:00 08/08/18 06:00 INR, PTT INR 0.97 (0.83-1.09) 07/30/18 18:22 Problem List - Problems (1) Multiple sclerosis Assessment/Plan: upon discharge we will start the patient on immune modulation I will start the patient on Rebif Fall precautions Physical therapy Code(s): G35 - MULTIPLE SCLEROSIS
--- NOTE | 2018-08-08 14:41 | PN ---
Progress Note (short form) - Note Progress Note: Events noted Pt admitted for perforated duodenal ulcer POD #8 omental (Mitchel) patch repair of perforated pyloric ulcer awake NG off regular diet-- tolerating diet has occasional abd spasms no BM yet Vital Signs - 24 hr 08/07/18 08/07/18 08/07/18 14:58 16:20 21:00 Temperature 98.6 F 98 F Pulse Rate 95 H 104 H Respiratory 18 18 Rate Blood Pressure 100/49 L 129/70 O2 Sat by Pulse 97 Oximetry (%) 08/07/18 08/08/18 22:00 06:00 Temperature 98.6 F 98.5 F Pulse Rate 97 H 94 H Respiratory 18 20 Rate Blood Pressure 124/60 132/67 O2 Sat by Pulse Oximetry (%) Current Medications Generic Name Dose Route Start Last Admin Trade Name Freq PRN Reason Stop Dose Admin Acetaminophen 650 mg 08/05/18 12:00 08/08/18 12:23 Tylenol - PO 650 mg Q6H [facility] Administration Docusate Sodium 100 mg 08/07/18 22:00 08/08/18 09:58 Colace - PO 100 mg BID [facility] Administration Enoxaparin Sodium 40 mg 08/07/18 13:15 08/08/18 09:58 Lovenox - SQ 40 mg DAILY [facility] Administration Piperacillin Sod/Tazobactam 50 mls @ 100 mls/hr 07/31/18 10:00 08/08/18 10:00 Sod 3.375 gm/ Dextrose IVPB 100 mls/hr Q8H-IV [facility] Administration Protocol Nicotine 7 mg 07/31/18 10:00 08/08/18 09:59 Nicoderm Patch - TD 7 mg DAILY [facility] Administration Oxycodone HCl 5 mg 08/07/18 13:29 08/08/18 09:59 Roxicodone - PO 5 mg Q6H PRN Administration PAIN LEVEL 6-10 Pantoprazole Sodium 40 mg 08/07/18 22:00 08/08/18 09:59 Protonix - PO 40 mg BID [facility] Administration Laboratory Results - last 24 hr 08/08/18 08/08/18 08/08/18 06:00 06:00 06:00 WBC 8.2 RBC 2.59 L Hgb 8.5 L Hct 24.9 L MCV 96.2 H MCH 32.8 MCHC 34.1 RDW 12.8 Plt Count 603 H MPV 7.8 Absolute Neuts (auto) 4.9 Neutrophils % 59.7 Neutrophils % (Manual) 62.0 Band Neutrophils % 0.0 Lymphocytes % 29.1 D Lymphocytes % (Manual) 22.0 D Monocytes % 8.6 Monocytes % (Manual) 10 D Eosinophils % 1.9 Eosinophils % (Manual) 2.0 Basophils % 0.7 Basophils % (Manual) 1.0 D Myelocytes % (Man) 3 H D Promyelocytes % (Man) 0 Blast Cells % (Manual) 0 Nucleated RBC % 0 Metamyelocytes 0 D Hypochromia 0 Platelet Estimate Increased Polychromasia 1+ Poikilocytosis 0 Anisocytosis 1+ Microcytosis 0 Macrocytosis 1+ Schistocytes 0 Sodium 139 Potassium 3.9 Chloride 107 Carbon Dioxide 23 Anion Gap 9 BUN 11 Creatinine 0.6 Creat Clearance w eGFR 98.55 Random Glucose 90 Calcium 8.5 Total Bilirubin 0.4 GGT 2108 H AST 59 H ALT 59 Alkaline Phosphatase 1603 H Total Protein 5.8 L Albumin 2.2 L s1 s2 RRR Lungs clear Abd- soft, NT, BS heard not distended no edema PLAN regular diet change oxycodone to Q6H sono abd -- dilated CBD-- GI follow up-- elevated ALk PO4 and GGT IV antibiotics per ID cultures urine- klebsiella DVT prophylaxis-- started Lovenox sc On po Protonix BID Neurology eval noted for MS Problem List - Problems (1) HTN (hypertension) Code(s): I10 - ESSENTIAL (PRIMARY) HYPERTENSION (2) Acute peptic ulcer with perforation but without obstruction Code(s): K27.1 - ACUTE PEPTIC ULCER, SITE UNSPECIFIED, WITH PERFORATION (3) Multiple sclerosis Code(s): G35 - MULTIPLE SCLEROSIS
[2018-08-08] MEDS ORDERED: SENNOSIDES 8.6MG TABLET (FP) PO ONE (22:00)
[2018-08-09] MEDS: ACETAMINOPHEN 325 MG TABLET (FP) PO SCH ×4 (00:04→17:51)
[2018-08-09] MEDS: PIPERACILLIN/TAZOB 3.375 GM 3.375 GM in DEXTROSE 5%-WATER - 50 ML IVPB SCH ×3 (02:04→17:50)
[2018-08-09 07:40] LABS: BASO % 0.6 % (0-2.0); EOS % 1.4 % (0-4.5); HEMATOCRIT 26.3 % (32.4-45.2); LYMPH % 26.9 % (8-40); MCHC 34.1 g/dl (32.0-36.0); MEAN CELL VOLUME 96.8 fl (80-96); MEAN PLT VOLUME 7.8 fl (7.5-11.1); MONO % 8.4 % (3.8-10.2); NEUT % 62.7 % (42.8-82.8); PLATELET COUNT 667 K/MM3 (134-434); RBC 2.71 M/mm3 (3.60-5.2); RDW 13.1 % (11.6-15.6); WHITE BLOOD COUNT 9.6 K/mm3 (4.0-10.0)
[2018-08-09 08:19] LABS: ALBUMIN 2.4 g/dl (3.4-5.0); BILIRUBIN,TOTAL 0.5 mg/dL (0.2-1); CALCIUM 8.7 mg/dL (8.5-10.1); CREATININE 0.6 mg/dL (0.55-1.3); POTASSIUM 4.2 mmol/L (3.5-5.1); TOT PROT 6.3 g/dl (6.4-8.2)
--- NOTE | 2018-08-09 08:47 | PN ---
Progress Note, Physician History of Present Illness: patients imaging studies showing dilated cbd plan for mrcp patient tolerating diet tolerating diet - Current Medication List Current Medications: Active Medications Acetaminophen (Tylenol -) 650 mg PO Q6H [facility] Last Admin: 08/09/18 06:03 Dose: 650 mg Docusate Sodium (Colace -) 100 mg PO BID [facility] Last Admin: 08/08/18 22:23 Dose: 100 mg Enoxaparin Sodium (Lovenox -) 40 mg SQ DAILY [facility] Last Admin: 08/08/18 09:58 Dose: 40 mg Piperacillin Sod/Tazobactam (Sod 3.375 gm/ Dextrose) 50 mls @ 100 mls/hr IVPB Q8H-IV [facility]; Protocol Last Admin: 08/09/18 02:04 Dose: 100 mls/hr Nicotine (Nicoderm Patch -) 7 mg TD DAILY [facility] Last Admin: 08/08/18 09:59 Dose: 7 mg Oxycodone HCl (Roxicodone -) 5 mg PO Q6H PRN PRN Reason: PAIN LEVEL 6-10 Last Admin: 08/08/18 16:44 Dose: 5 mg Pantoprazole Sodium (Protonix -) 40 mg PO BID [facility] Last Admin: 08/08/18 22:25 Dose: 40 mg - Objective Vital Signs: Vital Signs Temperature 98.2 F 08/09/18 06:00 Pulse Rate 105 H 08/09/18 06:00 Respiratory Rate 18 08/09/18 06:00 Blood Pressure 134/65 08/09/18 06:00 O2 Sat by Pulse Oximetry (%) 97 08/08/18 18:41 Constitutional: Yes: No Distress, Calm Cardiovascular: Yes: Regular Rate and Rhythm Respiratory: Yes: Regular, CTA Bilaterally Gastrointestinal: Yes: Soft, Hypoactive Bowel Sounds Musculoskeletal: Yes: WNL Extremities: Yes: WNL Neurological: Yes: Alert, Oriented Psychiatric: Yes: Alert, Oriented Labs: CBC, BMP 08/09/18 06:40 08/09/18 06:40 INR, PTT INR 0.97 (0.83-1.09) 07/30/18 18:22 Assessment/Plan Problem List - Problems (1) Gastric ulcer, acute with perforation Code(s): K25.1 - ACUTE GASTRIC ULCER WITH PERFORATION (2) Generalized abdominal pain Code(s): R10.84 - GENERALIZED ABDOMINAL PAIN (3) Nausea and vomiting Code(s): R11.2 - NAUSEA WITH VOMITING, UNSPECIFIED Qualifiers: Vomiting type: unspecified Vomiting Intractability: non-intractable Qualified Code(s): R11.2 - Nausea with vomiting, unspecified (4) Multiple sclerosis Code(s): G35 - MULTIPLE SCLEROSIS 5 dilated cbd plan will consider stopping the abx will d/w the team imaging study will see what is the cbd pathology
[2018-08-09] MEDS ORDERED: PIPERACILLIN/TAZOBACTAM 3.375 GM VIAL IVPB ONE ×3 (08:56→20:19)
[2018-08-09] MEDS ORDERED: DEXTROSE 5%-WATER - 50 ML IVPB ONE ×3 (08:56→20:19)
[2018-08-09] MEDS: PANTOPRAZOLE 40 MG TABLET (FP) PO SCH ×2 (09:26→22:00)
[2018-08-09] MEDS: ENOXAPARIN NA (PORCINE) 40 MG/0.4 ML DISP.SYRIN SQ SCH (09:26)
[2018-08-09] MEDS: DOCUSATE SODIUM 100 MG CAPSULE (FP) PO SCH ×2 (09:26→22:05)
[2018-08-09] MEDS: NICOTINE 7 MG/24 HOURS TOPICAL PATCH TD SCH (09:26)
[2018-08-09] MEDS: oxyCODONE HCL 5 MG TABLET PO PRN ×2 (11:42→23:21)
[2018-08-09] MEDS ORDERED: PT OWN MED DRAWER 7, Y5N ONE (11:53)
--- NOTE | 2018-08-09 12:38 | PN.GI ---
GI Progress Note Subjective: Patient unable to cooperate for MRI despite anxiolytic CT scan with contrast ordered however patient given breakfast and lunch today Small BM reported by nurse. H. pylori stool antigen not collected as of yet - Objective Vital Signs: Vital Signs Temperature 98.2 F 08/09/18 09:00 Pulse Rate 105 H 08/09/18 09:00 Respiratory Rate 18 08/09/18 09:00 Blood Pressure 143/94 08/09/18 09:00 O2 Sat by Pulse Oximetry (%) 97 08/08/18 18:41 Constitutional: Calm Eyes: No: Sclera Icterus Cardiovascular: Yes: Regular Rate and Rhythm Respiratory: Yes: CTA Bilaterally Gastrointestinal Inspection: Yes: Scars (Midline abdominal scar with audra). No: Distention ...Auscultate: Yes: Normoactive Bowel Sounds ...Palpate: Yes: Tenderness (Mild TTP cephalad border of surgical scar) ...Percussion: No: Tympanitic Edema: No (No LE edema) Neurological: Yes: Alert Labs: CBC, BMP 08/09/18 06:40 08/09/18 06:40 INR, PTT INR 0.97 (0.83-1.09) 07/30/18 18:22 Hepatic Panel Total Bilirubin 0.5 mg/dL (0.2-1) 08/09/18 06:40 AST 31 U/L (15-37) 08/09/18 06:40 ALT 43 U/L (13-61) 08/09/18 06:40 Alkaline Phosphatase 1518 U/L (45-117) H 08/09/18 06:40 Albumin 2.4 g/dl (3.4-5.0) L 08/09/18 06:40 Problem List - Problems (1) Gastric ulcer, acute with perforation Assessment/Plan: S/P Mitchel patch repair Awaiting stool h. pylori Ag. Discussed with nurse Code(s): K25.1 - ACUTE GASTRIC ULCER WITH PERFORATION (2) Elevated alkaline phosphatase level Assessment/Plan: Minimal if any RUQ TTP. No leukocytosis that would be suggestive of complication of upper GI perforation such as hepatic abscess. US did not reveal intrahepatic fluid collections. CBD noted to be mildly dilated. Tolerating PO. Unable to have MRCP performed. Awaiting CT scan of abdomen with contrast however patient given breakfast and lunch. Discussed with nurse. Hopefully CT scan this evening. Code(s): R74.8 - ABNORMAL LEVELS OF OTHER SERUM ENZYMES (3) Constipation Assessment/Plan: added MiraLAX 17g PO BID Code(s): K59.00 - CONSTIPATION, UNSPECIFIED
--- NOTE | 2018-08-09 16:54 | PN ---
Progress Note (short form) - Note Progress Note: Events noted Pt admitted for perforated duodenal ulcer POD #8 omental (Mitchel) patch repair of perforated pyloric ulcer awake NG off regular diet-- tolerating diet has occasional abd spasms small BM Vital Signs - 24 hr 08/08/18 08/08/18 08/09/18 18:41 22:00 06:00 Temperature 98.3 F 98.2 F Pulse Rate 108 H 105 H Respiratory 20 18 Rate Blood Pressure 144/56 L 134/65 O2 Sat by Pulse 97 Oximetry (%) 08/09/18 08/09/18 09:00 14:43 Temperature 98.2 F 98.2 F Pulse Rate 105 H 99 H Respiratory 18 18 Rate Blood Pressure 143/94 133/68 O2 Sat by Pulse Oximetry (%) Current Medications Generic Name Dose Route Start Last Admin Trade Name Freq PRN Reason Stop Dose Admin Acetaminophen 650 mg 08/05/18 12:00 08/09/18 11:43 Tylenol - PO 650 mg Q6H [facility] Administration Docusate Sodium 100 mg 08/07/18 22:00 08/09/18 09:26 Colace - PO 100 mg BID [facility] Administration Enoxaparin Sodium 40 mg 08/07/18 13:15 08/09/18 09:26 Lovenox - SQ 40 mg DAILY [facility] Administration Piperacillin Sod/Tazobactam 50 mls @ 100 mls/hr 07/31/18 10:00 08/09/18 09:26 Sod 3.375 gm/ Dextrose IVPB 100 mls/hr Q8H-IV [facility] Administration Protocol Nicotine 7 mg 07/31/18 10:00 08/09/18 09:26 Nicoderm Patch - TD 7 mg DAILY [facility] Administration Oxycodone HCl 5 mg 08/07/18 13:29 08/09/18 11:42 Roxicodone - PO 5 mg Q6H PRN Administration PAIN LEVEL 6-10 Pantoprazole Sodium 40 mg 08/07/18 22:00 08/09/18 09:26 Protonix - PO 40 mg BID [facility] Administration Polyethylene Glycol 17 gm 08/09/18 22:00 Miralax (For Daily Use) - PO BID [facility] Laboratory Results - last 24 hr 08/09/18 08/09/18 06:40 06:40 WBC 9.6 RBC 2.71 L Hgb 9.0 L Hct 26.3 L MCV 96.8 H MCH 33.0 MCHC 34.1 RDW 13.1 Plt Count 667 H MPV 7.8 Absolute Neuts (auto) 6.0 Neutrophils % 62.7 Lymphocytes % 26.9 Monocytes % 8.4 Eosinophils % 1.4 Basophils % 0.6 Nucleated RBC % 0 Sodium 141 Potassium 4.2 Chloride 110 H Carbon Dioxide 24 Anion Gap 8 BUN 15 Creatinine 0.6 Est GFR (CKD-EPI)AfAm 106.28 Est GFR (CKD-EPI)NonAf 91.70 Random Glucose 98 Calcium 8.7 Total Bilirubin 0.5 AST 31 ALT 43 Alkaline Phosphatase 1518 H Total Protein 6.3 L Albumin 2.4 L s1 s2 RRR Lungs clear Abd- soft, NT, BS heard not distended no edema PLAN regular diet--tolerating change oxycodone to Q6H sono abd -- dilated CBD-- GI follow up-- elevated ALk PO4 and GGT --> unable to get MRCP as the patient is extremely claustrophobic, she had difficulty even getting MRI brain, CT abdomen with IV contrast ordered and is pending IV antibiotics per ID cultures urine- klebsiella DVT prophylaxis-- started Lovenox sc On po Protonix BID Problem List - Problems (1) HTN (hypertension) Code(s): I10 - ESSENTIAL (PRIMARY) HYPERTENSION (2) Acute peptic ulcer with perforation but without obstruction Code(s): K27.1 - ACUTE PEPTIC ULCER, SITE UNSPECIFIED, WITH PERFORATION (3) Multiple sclerosis Code(s): G35 - MULTIPLE SCLEROSIS
--- NOTE | 2018-08-09 18:53 | PN ---
Progress Note, Physician History of Present Illness: Pt with perforated pyloric ulcer, s/p emergent omental patch repair. UGI/leak test showed no leak or gastric outlet obstruction, and NGT was removed. No nausea, tolerating reg diet. Pain control with standing tylenol and prn oxycodone. She is seen and examined in bed. Abdomen/incision sore, but no sig pain, managed well with po meds. Passing gas, finally had 2 small BMs earlier this morning. GI followup noted, was getting abd CT earlier today when I first stopped by. - Current Medication List Current Medications: Active Medications Acetaminophen (Tylenol -) 650 mg PO Q6H [facility] Last Admin: 08/09/18 17:51 Dose: Not Given Docusate Sodium (Colace -) 100 mg PO BID [facility] Last Admin: 08/09/18 09:26 Dose: 100 mg Enoxaparin Sodium (Lovenox -) 40 mg SQ DAILY [facility] Last Admin: 08/09/18 09:26 Dose: 40 mg Piperacillin Sod/Tazobactam (Sod 3.375 gm/ Dextrose) 50 mls @ 100 mls/hr IVPB Q8H-IV [facility]; Protocol Last Admin: 08/09/18 17:50 Dose: 100 mls/hr Nicotine (Nicoderm Patch -) 7 mg TD DAILY [facility] Last Admin: 08/09/18 09:26 Dose: 7 mg Oxycodone HCl (Roxicodone -) 5 mg PO Q6H PRN PRN Reason: PAIN LEVEL 6-10 Last Admin: 08/09/18 11:42 Dose: 5 mg Pantoprazole Sodium (Protonix -) 40 mg PO BID [facility] Last Admin: 08/09/18 09:26 Dose: 40 mg Polyethylene Glycol (Miralax (For Daily Use) -) 17 gm PO BID [facility] - Objective Vital Signs: Vital Signs Temperature 98 F 08/09/18 18:29 Pulse Rate 94 H 08/09/18 18:29 Respiratory Rate 20 08/09/18 18:29 Blood Pressure 134/72 08/09/18 18:29 O2 Sat by Pulse Oximetry (%) 97 08/08/18 18:41 Constitutional: Yes: Well Nourished, No Distress, Calm Eyes: Yes: Conjunctiva Clear, EOM Intact HENT: Yes: Atraumatic, Normocephalic Gastrointestinal: Yes: Soft, Tenderness (minimal incisional). No: Distention Extremities: No: Cool, Cyanosis Integumentary: Yes: Incision (upper midline w/audra). No: Jaundice, Rash Wound/Incision: Yes: Clean/Dry, Well Approximated, [place] Intact, Open to air Neurological: Yes: Alert, Oriented Labs: CBC, BMP 08/09/18 06:40 08/09/18 06:40 CMP Sodium 141 mmol/L (136-145) 08/09/18 06:40 Potassium 4.2 mmol/L (3.5-5.1) 08/09/18 06:40 Chloride 110 mmol/L (98-107) H 08/09/18 06:40 Carbon Dioxide 24 mmol/L (21-32) 08/09/18 06:40 Anion Gap 8 MMOL/L (8-16) 08/09/18 06:40 BUN 15 mg/dL (7-18) 08/09/18 06:40 Creatinine 0.6 mg/dL (0.55-1.3) 08/09/18 06:40 Creat Clearance w eGFR 98.55 (>60) 08/08/18 06:00 Est GFR (CKD-EPI)AfAm 106.28 08/09/18 06:40 Est GFR (CKD-EPI)NonAf 91.70 08/09/18 06:40 Random Glucose 98 mg/dL (74-106) 08/09/18 06:40 Lactic Acid 1.8 mmol/L (0.4-2.0) 07/31/18 06:30 Calcium 8.7 mg/dL (8.5-10.1) 08/09/18 06:40 Phosphorus 3.1 mg/dL (2.5-4.9) 07/31/18 06:30 Magnesium 2.1 mg/dL (1.8-2.4) 08/02/18 06:00 Total Bilirubin 0.5 mg/dL (0.2-1) 08/09/18 06:40 GGT 2108 U/L (5-85) H 08/08/18 06:00 AST 31 U/L (15-37) 08/09/18 06:40 ALT 43 U/L (13-61) 08/09/18 06:40 Alkaline Phosphatase 1518 U/L (45-117) H 08/09/18 06:40 Creatine Kinase 46 U/L (26-192) 07/30/18 16:01 Troponin I < 0.02 ng/ml (0.00-0.05) 07/30/18 16:01 Total Protein 6.3 g/dl (6.4-8.2) L 08/09/18 06:40 Albumin 2.4 g/dl (3.4-5.0) L 08/09/18 06:40 Lipase 115 U/L (73-393) 07/30/18 16:01 Problem List - Problems (1) Gastric ulcer, acute with perforation Assessment/Plan: POD10 s/p omental (Mitchel) patch repair of perforated pyloric (prepyloric?) ulcer contrast study via NGT negative for leak tolerating reg diet pain control with po meds wbc normal, off abx AXR yesterday with contrast and stool throughout colon had + BMs today, small had liver US w/mildly dilated bile duct had abd CT today, report pending no RUQ symptoms GI/DVT prophylaxis, on protonix bid PT following will need to return to my clinic for staple removal next Monday from facility from surgical standpoint, ok for d/c to rehab instructions in d/c plan Code(s): K25.1 - ACUTE GASTRIC ULCER WITH PERFORATION (2) Multiple sclerosis Assessment/Plan: neurology following had brain MRI with h/o R hip fx and ORIF last December physical therapy plan currently for Akshat Vallecillo on discharge Code(s): G35 - MULTIPLE SCLEROSIS
[2018-08-09] MEDS: POLYETHYLENE GLYCOL 3350 119 GM BTL PO SCH (23:21)
[2018-08-10] MEDS: PIPERACILLIN/TAZOB 3.375 GM 3.375 GM in DEXTROSE 5%-WATER - 50 ML IVPB SCH ×2 (01:17→09:31)
[2018-08-10] MEDS: oxyCODONE HCL 5 MG TABLET PO PRN ×2 (06:12→14:29)
[2018-08-10] MEDS: ACETAMINOPHEN 325 MG TABLET (FP) PO SCH ×3 (06:12→11:49)
[2018-08-10 07:40] LABS: ALBUMIN 2.4 g/dl (3.4-5.0); BILIRUBIN,TOTAL 0.2 mg/dL (0.2-1); CALCIUM 8.5 mg/dL (8.5-10.1); CREATININE 0.6 mg/dL (0.55-1.3); POTASSIUM 4.2 mmol/L (3.5-5.1)
[2018-08-10] MEDS ORDERED: DEXTROSE 5%-WATER - 50 ML IVPB ONE (09:26)
[2018-08-10] MEDS ORDERED: PIPERACILLIN/TAZOBACTAM 3.375 GM VIAL IVPB ONE (09:26)
[2018-08-10] MEDS: ENOXAPARIN NA (PORCINE) 40 MG/0.4 ML DISP.SYRIN SQ SCH (09:29)
[2018-08-10] MEDS: POLYETHYLENE GLYCOL 3350 119 GM BTL PO SCH (09:29)
[2018-08-10] MEDS: DOCUSATE SODIUM 100 MG CAPSULE (FP) PO SCH (09:29)
[2018-08-10] MEDS: PANTOPRAZOLE 40 MG TABLET (FP) PO SCH (09:30)
[2018-08-10] MEDS: NICOTINE 7 MG/24 HOURS TOPICAL PATCH TD SCH (09:30)
--- NOTE | 2018-08-10 10:40 | PN ---
Progress Note (short form) - Note Progress Note: Vital Signs Temp 98.3 F 08/10/18 06:00 Pulse 95 H 08/10/18 06:00 Resp 20 08/10/18 06:00 BP 129/68 08/10/18 06:00 Pulse Ox 97 08/09/18 20:25 Intake & Output 08/09/18 08/09/18 08/10/18 11:59 23:59 11:59 Intake Total 810 Output Total 200 Balance 610 Intake: IVPB 50 Oral 760 Output: Gastric Drainage 200 Other: Voiding Method Diaper # Unmeasured Voids Void 1 Bowel Movement Yes Yes # Bowel Movements 2 1 Active Medications Acetaminophen (Tylenol -) 650 mg PO Q6H [facility] Last Admin: 08/10/18 06:12 Dose: 650 mg Docusate Sodium (Colace -) 100 mg PO BID [facility] Last Admin: 08/10/18 09:29 Dose: Not Given Enoxaparin Sodium (Lovenox -) 40 mg SQ DAILY [facility] Last Admin: 08/10/18 09:29 Dose: 40 mg Piperacillin Sod/Tazobactam (Sod 3.375 gm/ Dextrose) 50 mls @ 100 mls/hr IVPB Q8H-[facility]; Protocol Last Admin: 08/10/18 09:31 Dose: 100 mls/hr Nicotine (Nicoderm Patch -) 7 mg TD DAILY [facility] Last Admin: 08/10/18 09:30 Dose: 7 mg Oxycodone HCl (Roxicodone -) 5 mg PO Q6H PRN PRN Reason: PAIN LEVEL 6-10 Last Admin: 08/10/18 06:12 Dose: 5 mg Pantoprazole Sodium (Protonix -) 40 mg PO BID [facility] Last Admin: 08/10/18 09:30 Dose: 40 mg Polyethylene Glycol (Miralax (For Daily Use) -) 17 gm PO BID [facility] Last Admin: 08/10/18 09:29 Dose: Not Given CBC, BMP 08/09/18 06:40 08/10/18 05:30
--- NOTE | 2018-08-10 10:50 | DS ---
Physical Examination Vital Signs: Vital Signs Temperature 98.3 F 08/10/18 06:00 Pulse Rate 95 H 08/10/18 06:00 Respiratory Rate 20 08/10/18 06:00 Blood Pressure 129/68 08/10/18 06:00 O2 Sat by Pulse Oximetry (%) 97 08/09/18 20:25 Findings/Remarks: pt seen/ examined feels well all f/u noted having bm denies pain-- under control afebrile Constitutional: Yes: No Distress, Calm Eyes: Yes: Conjunctiva Clear Neck: Yes: Supple Cardiovascular: Yes: Regular Rate and Rhythm Respiratory: Yes: CTA Bilaterally Gastrointestinal: Yes: Soft Edema: No Wound/Incision: Yes: Clean/Dry Neurological: Yes: Alert Psychiatric: Yes: Alert Labs: CBC, BMP 08/09/18 06:40 08/10/18 05:30 Discharge Summary Reason For Visit: PERFORATION OF INTESTINE Current Active Problems Acute peptic ulcer with perforation but without obstruction (Acute) Bowel perforation (Acute) Constipation (Acute) Elevated alkaline phosphatase level (Acute) Gastric ulcer, acute with perforation (Acute) Generalized abdominal pain (Acute) HTN (hypertension) (Acute) Multiple sclerosis (Acute) Nausea and vomiting (Acute) Prophylactic measure (Acute) Hospital Course: Pt with perforated pyloric ulcer, s/p emergent omental patch repair. UGI/leak test showed no leak or gastric outlet obstruction doing well stable for d/c to longterm f/u with surgery / gi as advised unable to do mrcp overall stable meds reconciled discussed with nursing staff also Condition: Stable - Instructions Diet, Activity, Other Instructions: Postoperative instructions: You had an omental (Mitchel) patch repair of a perforated peptic (pyloric) ulcer on 07/30/[address] Peyman Cat of [facility]. Activity: Resume your usual activities gradually, but no heavy exertion or lifting more than 10-15 pounds for 4-6 weeks. You may shower, just pat the incision areas dry. No bath or swimming until skin incisions have healed. Serafin were removed; sticky tapes will fall off on their own. Eat lightly at first, but advance to your usual diet as tolerated. Pain: For pain, you may use Tylenol (acetaminophen) 1-2 pills every 4-6 hours as needed. If you are prescribed a Tylenol/narcotic combination for severe pain , use it instead of plain Tylenol as needed and switch back when your pain starts decreasing. Do not take more than 4000 mg of acetaminophen in a day. Take medications as prescribed or indicated on the labeling. Follow-up: Call Dr. Cat's office at [phone] to make your postop appointment (Monday in about 3 weeks). Clinic is held in the [facility] on the first floor of [facility]. Your rehab facility should make your followup appointment for you and bring you to see Dr. Cat if you are still at [facility]. Call the office if you have: * increasing pain not responsive to pain medication * fever of 101F or higher * vomiting * unusual or increasing bleeding or drainage from wounds * increasing redness or swelling at wound site Also, see your primary medical doctor within 1-2 weeks. You will also need to follow up with GI in about a month to schedule followup endoscopy. Referrals: Peyman Cat MD [Staff Physician] - 08/29/18 (clinic is held in [facility], [facility], [facility]; MUST CALL for APPT in about 3 weeks) Disposition: [facility] - Home Medications Comprehensive Discharge Medication List: Ambulatory Orders Cholecalciferol (Vitamin D3) [Vitamin D3] 1 cap PO WEEKLY 07/30/18 Cyclobenzaprine HCl [Flexeril 10 mg] 10 mg PO TID PRN 07/30/18 Furosemide [Lasix] 20 mg PO DAILY PRN 07/30/18 Gabapentin 100 mg PO TID PRN 07/30/18 Zolpidem Tartrate [Ambien] 10 mg PO HS 07/30/18 Acetaminophen [Tylenol .Regular Strength -] 650 mg PO Q6H tablet 08/10/18 Docusate Sodium [Colace -] 100 mg PO BID capsule 08/10/18 Enoxaparin [Lovenox -] 40 mg SQ DAILY disp.syrin 08/10/18 Nicotine Patch [Nicoderm Patch -] 7 mg TD DAILY patch 08/10/18 Pantoprazole Sodium [Protonix -] 40 mg PO BID tablet.ec 08/10/18 Polyethylene Glycol 3350 [Miralax 119 gm Btl -] 17 gm PO BID bottle 08/10/18 oxyCODONE HCL [Roxicodone -] 5 mg PO Q6H PRN #30 tablet MDD 4 08/10/18
--- NOTE | 2018-08-10 12:00 | PN.GI ---
GI Progress Note Subjective: No acute events Patient states feeling well, tolerating PO ALP improved somewhat Mildly dilated central bile ducts and 9mm CBD noted on CT scan. No obvious filling defect appreciated - Objective Vital Signs: Vital Signs Temperature 98.3 F 08/10/18 06:00 Pulse Rate 95 H 08/10/18 06:00 Respiratory Rate 20 08/10/18 06:00 Blood Pressure 129/68 08/10/18 06:00 O2 Sat by Pulse Oximetry (%) 97 08/10/18 09:00 Constitutional: Calm Eyes: No: Sclera Icterus Cardiovascular: Yes: Regular Rate and Rhythm Respiratory: Yes: CTA Bilaterally ...Auscultate: Yes: Normoactive Bowel Sounds ...Palpate: Yes: Tenderness (At cephalad border of surgical scar) ...Percussion: No: Tympanitic Edema: No (No LE edema) Neurological: Yes: Alert Labs: CBC, BMP 08/09/18 06:40 08/10/18 05:30 INR, PTT INR 0.97 (0.83-1.09) 07/30/18 18:22 Problem List - Problems (1) Gastric ulcer, acute with perforation Assessment/Plan: Post op care per surgery Code(s): K25.1 - ACUTE GASTRIC ULCER WITH PERFORATION (2) Elevated alkaline phosphatase level Assessment/Plan: Transaminases and bilirubin remain stable. ? if elevated ALP medication induced or with mild biliary tract dilatation reflective of post operative edema within the area of the perforated ulcer repair. No sign of biliary tract obstruction at this time and would avoid invasive procedures at this time such as ERCP given potential risk of perforation involved in the setting of recent ulcer surgery Advise: Continued monitoring of Liver chhemistries. If obstruction pattern develops, signs concerning for biliary infection, IR evaluation for PTC should be considered for temporizing drainage of the biliary tract. If as outpatient LFTs remain elevated, EGD/EUS for both follow up of gastric ulcer and further evaluation of biliary tract could be considered as Mr. Shelton was not able to have MRCP performed. Code(s): R74.8 - ABNORMAL LEVELS OF OTHER SERUM ENZYMES
--- NOTE | 2018-08-10 12:03 | PN ---
Progress Note, Physician History of Present Illness: stable had a bm dilated cbd noted - Current Medication List Current Medications: Active Medications Acetaminophen (Tylenol -) 650 mg PO Q6H [facility] Last Admin: 08/10/18 11:49 Dose: 650 mg Docusate Sodium (Colace -) 100 mg PO BID [facility] Last Admin: 08/10/18 09:29 Dose: Not Given Enoxaparin Sodium (Lovenox -) 40 mg SQ DAILY [facility] Last Admin: 08/10/18 09:29 Dose: 40 mg Nicotine (Nicoderm Patch -) 7 mg TD DAILY [facility] Last Admin: 08/10/18 09:30 Dose: 7 mg Oxycodone HCl (Roxicodone -) 5 mg PO Q6H PRN PRN Reason: PAIN LEVEL 6-10 Last Admin: 08/10/18 06:12 Dose: 5 mg Pantoprazole Sodium (Protonix -) 40 mg PO BID [facility] Last Admin: 08/10/18 09:30 Dose: 40 mg Polyethylene Glycol (Miralax (For Daily Use) -) 17 gm PO BID [facility] Last Admin: 08/10/18 09:29 Dose: Not Given - Objective Vital Signs: Vital Signs Temperature 98.3 F 08/10/18 06:00 Pulse Rate 95 H 08/10/18 06:00 Respiratory Rate 20 08/10/18 06:00 Blood Pressure 129/68 08/10/18 06:00 O2 Sat by Pulse Oximetry (%) 97 08/10/18 09:00 Constitutional: Yes: No Distress, Calm Cardiovascular: Yes: Regular Rate and Rhythm Respiratory: Yes: Regular, CTA Bilaterally Gastrointestinal: Yes: Normal Bowel Sounds, Soft Musculoskeletal: Yes: WNL Extremities: Yes: WNL Neurological: Yes: Alert, Oriented Labs: CBC, BMP 08/09/18 06:40 08/10/18 05:30 INR, PTT INR 0.97 (0.83-1.09) 07/30/18 18:22 Assessment/Plan Problem List - Problems (1) Gastric ulcer, acute with perforation Code(s): K25.1 - ACUTE GASTRIC ULCER WITH PERFORATION (2) Generalized abdominal pain Code(s): R10.84 - GENERALIZED ABDOMINAL PAIN (3) Nausea and vomiting Code(s): R11.2 - NAUSEA WITH VOMITING, UNSPECIFIED Qualifiers: Vomiting type: unspecified Vomiting Intractability: non-intractable Qualified Code(s): R11.2 - Nausea with vomiting, unspecified (4) Multiple sclerosis Code(s): G35 - MULTIPLE SCLEROSIS 5 dilated cbd plan will stop abx no filling defect noted in cbd monitor off of abx rest as per the team
--- NOTE | 2018-08-10 13:00 | PN ---
Progress Note, Physician History of Present Illness: Pt with perforated pyloric ulcer, s/p emergent omental patch repair. UGI/leak test showed no leak or gastric outlet obstruction, and NGT was removed. No nausea, tolerating reg diet. Pain control with standing tylenol and prn oxycodone. She is seen and examined in bed. Abdomen/incision sore, but no sig pain, managed well with po meds. Had multiple BMs yesterday. Plan is for transfer to rehab today. - Current Medication List Current Medications: Active Medications Acetaminophen (Tylenol -) 650 mg PO Q6H [facility] Last Admin: 08/10/18 11:49 Dose: 650 mg Docusate Sodium (Colace -) 100 mg PO BID [facility] Last Admin: 08/10/18 09:29 Dose: Not Given Enoxaparin Sodium (Lovenox -) 40 mg SQ DAILY [facility] Last Admin: 08/10/18 09:29 Dose: 40 mg Nicotine (Nicoderm Patch -) 7 mg TD DAILY [facility] Last Admin: 08/10/18 09:30 Dose: 7 mg Oxycodone HCl (Roxicodone -) 5 mg PO Q6H PRN PRN Reason: PAIN LEVEL 6-10 Last Admin: 08/10/18 06:12 Dose: 5 mg Pantoprazole Sodium (Protonix -) 40 mg PO BID [facility] Last Admin: 08/10/18 09:30 Dose: 40 mg Polyethylene Glycol (Miralax (For Daily Use) -) 17 gm PO BID [facility] Last Admin: 08/10/18 09:29 Dose: Not Given - Objective Vital Signs: Vital Signs Temperature 98.3 F 08/10/18 06:00 Pulse Rate 95 H 08/10/18 06:00 Respiratory Rate 20 08/10/18 06:00 Blood Pressure 129/68 08/10/18 06:00 O2 Sat by Pulse Oximetry (%) 97 08/10/18 09:00 Constitutional: Yes: Well Nourished, No Distress, Calm Eyes: Yes: Conjunctiva Clear, EOM Intact HENT: Yes: Atraumatic, Normocephalic Gastrointestinal: Yes: Soft. No: Distention, Tenderness Extremities: No: Cool, Cyanosis Integumentary: Yes: Incision (upper midline w/audra). No: Jaundice, Rash Wound/Incision: Yes: Clean/Dry, Well Approximated, Audra Intact, Steri Strips (placed), Open to air, Audra Removed. No: Reddened Neurological: Yes: Alert, Oriented Labs: BMP 08/10/18 05:30 alk phos 1045, decreasing - ....Imaging Cat Scan: Report Reviewed, Image Reviewed Problem List - Problems (1) Gastric ulcer, acute with perforation Assessment/Plan: POD11 s/p omental (Mitchel) patch repair of perforated pyloric (prepyloric?) ulcer contrast study via NGT negative for leak tolerating reg diet pain control with po meds wbc normal, off abx had multiple BMs yesterday incision healing well - audra removed, steristrips placed had liver US w/mildly dilated bile duct had abd CT today with mildly dilated cbd and mildly dilated intrahepatic ducts no RUQ symptoms GI/DVT prophylaxis, on protonix bid PT following from surgical standpoint, ok for d/c to rehab she should follow up in surgical clinic in 3 weeks - [facility] to call for appt if she is still there Code(s): K25.1 - ACUTE GASTRIC ULCER WITH PERFORATION (2) Multiple sclerosis Assessment/Plan: neurology following had brain MRI with h/o R hip fx and ORIF last December physical therapy plan transfer to [facility] today Code(s): G35 - MULTIPLE SCLEROSIS
[2018-08-10 15:04] VITALS: BP 139/73; PULSE 90; TEMP 97.1
--- NOTE | 2018-08-14 09:31 | OP ---
DATE OF OPERATION: 07/30/2018 PREOPERATIVE DIAGNOSIS: Perforated viscus. POSTOPERATIVE DIAGNOSIS: Perforated pyloric ulcer. PROCEDURE PERFORMED: Omental (Mitchel) patch repair of perforated pyloric ulcer. SURGEON: Peyman Cat MD POSTAL SUPPORT EMPLOYEE: Ama Levine MD ANESTHESIA: General endotracheal. ESTIMATED BLOOD LOSS: 20 mL. FLUIDS: Crystalloid, 2300 mL. URINE OUTPUT: 100 mL. SPECIMEN: Peritoneal fluid culture to Microbiology. DRAINS: Preexisting Mitchell was left in place. Single-lumen 16-Danish Nava nasogastric tube was placed and left. FINDINGS: An almost 1-cm hole in the distal stomach at or just over the pyloric area was noted. There was succus and ascites in the abdominal cavity, which was cultured and suctioned. A tongue of omentum was used to patch the hole. DISPOSITION: Stable and extubated to PACU. INDICATIONS FOR PROCEDURE: The patient is a 73-year-old female with multiple sclerosis, with a history of laparotomy as a toddler for a swallowed foreign body, who has been primarily wheelchair-bound since right hip fracture last December, who presented to the emergency room with lower abdominal pain that woke her from sleep around 4 a.m., associated with some nausea and vomiting, as well as back pain and a headache. She also admitted to intermittent heartburn, which was "terrible" the whole past week, for which she did not normally take medications other than occasional TUMS. In the emergency room, she had a white count of 20,000, was afebrile with significant abdominal pain and tenderness, and a CT showed foci of free air around the edge of the stomach, anterior to the aorta, and some free fluid which was hyperdense at the left edge of the liver, which was difficult to tell if it was oral contrast or blood. She was given IV fluids and pain medication, as well as a dose of Zosyn. Mitchell was placed, and when I saw her, her abdominal exam was significant for diffuse guarding and rigidity indicating peritonitis. Risks, benefits, and alternatives of exploratory laparotomy, possible bowel resection, possible ostomy, and possible omental patch repair of perforated ulcer were discussed with the patient including, but not limited to, bleeding, infection, injury to adjacent structures, intestinal or gastric leak or injury, intraabdominal abscess, incisional hernia , need for further procedures, and , alternatives inclusive of antibiotics with delayed or no surgery, and risks of progression of peritonitis, sepsis, and were also discussed. The patient was agreeable to proceed with the operation emergently and signed informed consent for the same. She is now brought to the OR for this procedure. In addition, a dose of Diflucan in addition to the Zosyn was given prior to surgery. OPERATIVE TECHNIQUE: The patient was brought to the operating room and laid supine on the operating table. Sequential compression devices were applied to bilateral lower extremities, and after induction and intubation by Anesthesia, as the Mitchell catheter was already placed, her abdomen was prepped and draped in sterile fashion. An upper midline incision was made with a scalpel and carried into subcutaneous tissues with electrocautery, until the abdominal wall fascia was identified across the entire length of the incision. This was then incised with electrocautery until the preperitoneal fat was exposed over much of the incision. The peritoneum was grasped with the tips of 2 clamps and entered with Metzenbaum scissors. A fingertip was then inserted into the peritoneal cavity to protect the underlying bowel, and the incision was opened over the rest of its length from top to bottom. There was mostly clear fluid present in the abdominal cavity, which was suctioned, and it became somewhat cloudy as we neared the area of presumed perforation. This was cultured on a swab to be sent to Microbiology. The small bowel was partly eviscerated and the stomach identified. As we looked toward the distal aspect of the stomach, it was apparent that there was an almost 1-cm hole in the distal stomach overlying the region of the pylorus, and this appeared to be the site of the perforation. The succus was suctioned from the abdominal cavity, and the small bowel was run from the ligament of Treitz to the terminal ileum to ensure that there were no other abnormalities noted, which there were not. The transverse colon was also inspected and palpated. There was no other apparent site of perforation. The liver and gallbladder also appeared normal. So, attention was turned to ensuring that there would be a tongue of omentum free enough to be able to put over the hole. A series of 3-0 silk sutures were laid in from one side of the hole in the stomach wall to the other side leaving room underneath them to draw a tongue of omentum under the center of the sutures, in order to patch the open defect. When it came to drawing the tongue of omentum through the sutures with the Brenda clamp, we had difficulty with keeping it in place in order to tie the sutures down, thus the omentum was actually placed over the base of the sutures, and then, the sutures tied over the top of the omentum to hold it in place. An additional 3-0 silk stitch was then placed in similar fashion from just to one side of the omental tongue over to the other side to secure it, as well. One of the initial stitches was actually removed as it did not hold the tongue in place. So, in the end, a total of 3 good stitches were used to hold the omentum in place. During this time, Anesthesia had passed a 16-Danish single-lumen Nvaa nasogastric tube, and the tip was palpated in the stomach and noted to be in acceptable position. This was secured and left in place at the end of the procedure. There was no further leakage of stomach contents at the end of the procedure, and the patch appeared to be secure. A little bit more irrigation and suction of the upper abdomen was undertaken, after which some of the omentum was drawn down over the bowels, and the fascia closed with two No. 1 looped PDS sutures in running fashion, starting at the top and the bottom and meeting in the middle. The wound was irrigated with saline solution, and skin was closed with audra. A dressing of gauze and tape was placed over the incision. Counts were correct at the end of the procedure. The patient was then awakened and extubated by Anesthesia, moved back to a stretcher, and taken to the recovery room in stable condition having tolerated the procedure well. Dr. Levine was an essential assistant infant toddler teacher throughout the procedure, from assisting with entry into the abdominal cavity, identification of the perforation, assisting with placement of the omental patch, and closure of the fascia and skin. Eamon Finch/[id number] MTDD
== END 2018-08-10 17:43 | DRG 222 ==
LOC: JER 14:47 → JERBED 19:28 → J8W 07-31 00:54
PROVIDERS: ADMIT Internal Medicine; ATTEND Internal Medicine
PROC: 0W9G0ZX Drainage of Peritoneal Cavity, Open Approach, Diagnostic (ICD-10-PCS; 2018-07-30)
PROC: 0DQ70ZZ Repair Stomach, Pylorus, Open Approach (ICD-10-PCS; 2018-07-30)
PROC: 0DU907Z Supplement Duodenum with Autologous Tissue Substitute, Open Approach (ICD-10-PCS; principal; 2018-07-30 20:43)
DX: K25.1 Acute gastric ulcer with perforation (principal); K26.5 Chronic or unspecified duodenal ulcer with perforation; G35 Multiple sclerosis; M79.2 Neuralgia and neuritis, unspecified; K21.9 Gastro-esophageal reflux disease without esophagitis; R10.84 Generalized abdominal pain; K26.9 Duodenal ulcer, unspecified as acute or chronic, without hemorrhage or perforation; R11.2 Nausea with vomiting, unspecified; R18.8 Other ascites; G62.9 Polyneuropathy, unspecified; G89.29 Other chronic pain; K59.00 Constipation, unspecified; B96.1 Klebsiella pneumoniae [K. pneumoniae] as the cause of diseases classified elsewhere; K82.8 Other specified diseases of gallbladder; R74.8 Abnormal levels of other serum enzymes; Z87.891 Personal history of nicotine dependence; Z78.0 Asymptomatic menopausal state; Z99.3 Dependence on wheelchair
CPT/HCPCS: 36415; 70551-TC; 74018-TC-FY; 74160-TC; 74177-TC; 74247-TC-FY; 76705-TC; 80053; 81003; 82550; 82977; 83605; 83690; 83735; 84100; 84484; 85025; 85610; 85730; 86850; 86900; 86901; 87040; 87070; 87077; 87086; 87186; 87205; 87338; 93005; 93010; 94010; 94760; 97116-GP; 97161-GP; 99284-25; J0131; J7030; Q9967

== ENCOUNTER 2018-10-04 04:51 | Emergency (ER) | payer OTHER ==
[2018-10-04 05:14] VITALS: BMI 21.3
[2018-10-04] MEDS ORDERED: LIDOCAINE 5% TOPICAL PATCH TP ONE (05:30)
[2018-10-04] MEDS ORDERED: ACETAMINOPHEN 1000 MG/100 ML VIAL (NON FORMULARY) IVPB ONE (05:30)
--- NOTE | 2018-10-04 05:31 | PDOC ---
History of Present Illness - General Chief Complaint: Injury Stated Complaint: FALL - History of Present Illness Initial Comments: The pt is a 73F w/ a history of MS, s/p R hip ORIF 12/2017 who fell out of bed this morning in her sleep. She reports right knee pain and swelling. 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 She denies hitting her head or LOC, denies recent illness, fevers/chills, dysuria, cough, diarrhea, vomiting, hematuria, or blood in her stool. Reports baseline parasthesia in BLE from mid nguyen distally Pt reports taking Ambien at 0000 and Oxy 5 at 0445 today Allergies: Strawberries SH: smokes 7 cigarettes daily, denies EtOH and illicit drug use 10/04/18 05:30 Past History - Past Medical History Allergies/Adverse Reactions: Allergies Allergy/AdvReac Type Severity Reaction Status Date / Time strawberry Allergy Verified 10/04/18 05:14 Home Medications: Ambulatory Orders Cholecalciferol (Vitamin D3) [Vitamin D3] 1 cap PO WEEKLY 07/30/18 Cyclobenzaprine HCl [Flexeril 10 mg] 10 mg PO TID PRN 07/30/18 Furosemide [Lasix] 20 mg PO DAILY PRN 07/30/18 Gabapentin 100 mg PO TID PRN 07/30/18 Zolpidem Tartrate [Ambien] 10 mg PO HS 07/30/18 Acetaminophen [Tylenol .Regular Strength -] 650 mg PO Q6H tablet 08/10/18 Docusate Sodium [Colace -] 100 mg PO BID capsule 08/10/18 Pantoprazole Sodium [Protonix -] 40 mg PO BID tablet.ec 08/10/18 oxyCODONE HCL [Roxicodone -] 5 mg PO Q6H PRN #30 tablet MDD 4 08/10/18 CVA: No COPD: No GI Disorders: Yes (PERFORATED ULCER) Other medical history: MS - Surgical History Abdominal Surgery: Yes ( A CHILD) GI Surgery: Yes (PERFORATED ULCER REPAIR) Orthopedic Surgery: (right hip fx, s/p ORIF 12/19) - Immunization History Immunization Up to Date: Yes - Suicide/Smoking/Psychosocial Hx Smoking History: Current every day smoker Have you smoked in the past 12 months: No Number of Cigarettes Smoked Daily: 7 Information on smoking cessation initiated: No 'Breaking Loose' booklet given: 07/31/18 Hx Alcohol Use: No Drug/Substance Use Hx: No Substance Use Type: None Hx Substance Use Treatment: No Review of Systems - Review of Systems Able to Perform ROS?: Yes Comments:: GENERAL/CONSTITUTIONAL: No fever or chills HEAD, EYES, EARS, NOSE AND THROAT: No change in vision. No ear pain or discharge. No sore throat CARDIOVASCULAR: No chest pain or shortness of breath RESPIRATORY: Denies cough, hemoptysis GASTROINTESTINAL: No nausea, vomiting, diarrhea or constipation GENITOURINARY: No dysuria, frequency, or change in urination SKIN: No rash NEUROLOGIC: +MS; baseline BLE paresthesias ENDOCRINE: No increased thirst. No abnormal weight change HEMATOLOGIC/LYMPHATIC: No anemia, easy bleeding, or history of blood clots ALLERGIC/IMMUNOLOGIC: No hives or skin allergy 10/04/18 05:41 Is the patient limited Slovenian proficient: No *Physical Exam - Vital Signs Last Vital Signs Temp Pulse Resp BP Pulse Ox 97.6 F 110 H 17 93/77 96 10/04/18 05:07 10/04/18 05:07 10/04/18 05:07 10/04/18 05:07 10/04/18 05:07 - Physical Exam Comments: GENERAL: Awake, alert, and oriented to person/place/time, in no acute distress HEAD: No signs of trauma, normocephalic, atraumatic EYES: PERRLA, EOMI, sclera anicteric, conjunctiva clear ENT: Hearing grossly normal, nares patent, oropharynx clear without exudates. Moist mucosa LUNGS: No distress, speaks in full sentences, clear to auscultation bilaterally HEART: Regular rate and rhythm, normal S1 and S2, no murmurs appreciated, peripheral pulses normal and equal bilaterally ABDOMEN: Soft, nontender, normoactive bowel sounds. No guarding, no rebound NEUROLOGICAL: Cranial nerves II through XII grossly intact. Normal speech SKIN: Warm, Dry BUE: Inspection: No erythema or ecchymosis. No tenderness, no obvious abnormalities, no open wounds. Compartments soft and compressible, no pain to passive stretch Sensation: sensation present to light touch throughout Motor: 5/5 Wrist flex/ext; 5/5 Elbow flex/ext; 5/5 Shoulder ABd,Flex Vascular: 2+ radial pulse palpated RLE: Inspection: R medial knee TTP. RLE swelling from distal 1/3 anterior thigh to proximal 1/3 medial lower leg. No ecchymosis or hematoma. ROM limited 2/2 pain. ROM of distal ankle and digits intact Sensation: Decreased sensation to light touch circumferentially from proximal 1/ 3 lower leg distally Motor: 5/5 EHL, 5/5 FHL, 5/5 TA, 5/5GS, 3/5 Quad 2/2 pain, 3/5 Ham 2/2 pain Vascular: 2+ DP/PT, all toes BCR <2 sec LLE: Inspection: No erythema or ecchymosis. No tenderness, no obvious abnormalities, no open wounds. Compartments soft and compressible, no pain to passive stretch Sensation: Decreased sensation to light touch circumferentially from proximal 1/ 3 lower leg distally Motor: 5/5 EHL, 5/5 FHL, 5/5 TA, 5/5GS, 5/5 Quad, 5/5 Ham Vascular: 2+ DP/PT 10/04/18 05:35 ED Treatment Course - RADIOLOGY Radiology Studies Ordered: Category Date Time Status CERVICAL SPINE CT W/O CONTR [CT] Stat CT Scan 10/04/18 05:[address] WITHOUT CONTRAST [CT] Stat CT Scan 10/04/18 05:28 Ordered FEMUR-RIGHT [RAD] Stat Radiology 10/04/18 05:29 Ordered LEG TIB/FIB-RIGHT [RAD] Stat Radiology 10/04/18 05:29 Ordered Medical Decision Making - Medical Decision Making The pt is a 73F w/ a history of MS, s/p R hip ORIF 12/2017 who presents for evaluation s/p fall out of bed this AM and reports right knee pain and swelling Pt s/p home Ambien at 0000 and 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 Griffith 10/04/18 07:50 *DC/Admit/Observation/Transfer Diagnosis at time of Disposition: Right leg pain Fall Qualifiers: Encounter type: initial encounter Qualified Code(s): W19.XXXA - Unspecified fall, initial encounter - Referrals Referrals: Mak Hui MD [Primary Care Provider] - - Patient Instructions - Post Discharge Activity
--- NOTE | 2018-10-04 05:52 | PDOC ---
Attending Attestation - Resident Resident Name: LisaliuRoshniCarlton - ED Attending Attestation I have performed the following: I have examined & evaluated the patient, The case was reviewed & discussed with the resident, I agree w/resident's findings & plan - HPI HPI: 10/04/18 05:46 Patient is status post fall with pain to the right leg - Physicial Exam PE: 10/04/18 05:49 agree with resident exam - Medical Decision Making 10/04/18 05:49 73-year-old female status post mechanical fall with right lower extremity pain Plan for CT scan of the head and cervical spine secondary to patient's age X-rays of the pelvis femur knee and tib-fib Orthoclone consult as needed
[2018-10-04] MEDS ORDERED: morphine CARPU-JECT 2 MG/1 ML DISP.SYRIN IVPUSH ONE (06:05)
[2018-10-04] MEDS ORDERED: CYCLOBENZAPRINE HCL 10 MG TABLET (FP) PO ONE (06:05)
[2018-10-04] MEDS ORDERED: GABAPENTIN 100 MG CAPSULE (FP) PO ONE (06:05)
[2018-10-04] MEDS ORDERED: CYCLOBENZAPRINE HCL 10 MG TABLET (FP) ONE (06:13)
[2018-10-04] MEDS ORDERED: MORPHINE SULFATE 2 MG/ML VIAL ONE (06:14)
[2018-10-04] MEDS ORDERED: LIDOCAINE 5% TOPICAL PATCH ONE (06:14)
[2018-10-04] MEDS ORDERED: ACETAMINOPHEN INJECTION 100 ML IVPB ONE (06:14)
[2018-10-04] MEDS ORDERED: GABAPENTIN 100 MG CAPSULE (FP) ONE (06:14)
--- NOTE | 2018-10-04 07:01 | PDOC ---
*Physical Exam - Vital Signs Last Vital Signs Temp Pulse Resp BP Pulse Ox 97.6 F 110 H 17 93/77 96 10/04/18 05:07 10/04/18 05:07 10/04/18 05:07 10/04/18 05:07 10/04/18 05:07 - Physical Exam Comments: 10/04/18 07:44 RLE: +1 swelling from proximal 1/3 to distal 1/3, no erythema or skin breakage, tender to palpation around knee, reduced touch sensation below proximal 1/3 of RLE, ROM limited d/t pain, +2 distal pulses LLE: no erythema or skin breakage, 5/5 motor strength, tender to palpation around knee, reduced touch sensation below proximal 1/3 of RLE, 5/5 motor strength, full ROM, +2 distal pulses General Appearance: Yes: Nourished, Mild Distress HEENT: positive: FELICIA, Normal Voice. negative: Nasal Congestion, Lesions Respiratory/Chest: positive: Lungs Clear, Normal Breath Sounds. negative: Respiratory Distress Cardiovascular: positive: Regular Rhythm, Regular Rate, S1, S2. negative: Edema , Murmur Musculoskeletal: positive: Other (RLE: +2 swelling from proximal 1/3 to distal 1 /3, no erythema, tender to palpation around knee, reduced touch sensation below proximal 1/3 of RLE, ROM limited d/t pain, +2 distal pulses) Extremity: positive: Calf Tenderness Neurologic: positive: Fully Oriented, Alert, Responsive. negative: Facial Droop ED Treatment Course - Medications Given in the ED: ED Medications Discontinued Medications Generic Name Dose Route Start Last Admin Trade Name Peter PRN Reason Stop Dose Admin Acetaminophen 1,000 mg 10/04/18 05:30 10/04/18 06:25 Ofirmev Injection - IVPB 10/04/18 05:31 1,000 mg ONCE ONE Administration Cyclobenzaprine HCl 10 mg 10/04/18 06:05 10/04/18 06:25 Flexeril - PO 10/04/18 06:06 10 mg ONCE ONE Administration Gabapentin 100 mg 10/04/18 06:05 10/04/18 06:25 Neurontin - PO 10/04/18 06:06 100 mg ONCE ONE Administration Morphine Sulfate 2 mg 10/04/18 06:05 10/04/18 06:25 Morphine Injection - IVPUSH 10/04/18 06:06 2 mg ONCE ONE Administration Medical Decision Making - Critical Care Time Total Critical Care Time (minutes): 30 Critical Care Statement: The care of this patient involved high complexity decision making to prevent further life threatening deterioration of the patient 's condition and/or to evaluate & treat vital organ system(s) failure or risk of failure. - Medical Decision Making 10/04/18 07:00 Received signout from [facility]ton David CT head, C-spine negative for bleed XR R hip, femur, knee, tib/fib negative Still complaining of 10/10 pain after pain meds given. Given another 4mg morphine which brought down pain Diann Shelton is a 73yF with PMHx of MS, R hip ORIF 12/2018 who presented with R knee pain and swelling after falling out of bed this AM. R knee pain likely contusion after XR R hip, femur, knee, tib/fib negative for fracture. CT head and c-spine cleared *DC/Admit/Observation/Transfer Diagnosis at time of Disposition: Right leg pain, Contusion of right knee, initial encounter Fall Qualifiers: Encounter type: initial encounter Qualified Code(s): W19.XXXA - Unspecified fall, initial encounter - Discharge Dispostion Disposition: HOME Condition at time of disposition: Stable Decision to Admit order: No - Referrals Referrals: Mak Hui MD [Primary Care Provider] - - Patient Instructions Printed Discharge Instructions: Contusion Additional Instructions: You were seen in the ED for evaluation of our right leg after a fall. Your x- ray did not show a fracture. Your head CT did not show any bleeding. Please rest, ice, compress, and elevate your leg to speed recovery. You can also take tylenol, ibuprofen or aspirin for the pain. See your primary care doctor to follow up on your visit. Come back to the hospital if you have worsening pain, vomiting, problems with urinating or bowel changes. - Post Discharge Activity
[2018-10-04] MEDS ORDERED: morphine CARPU-JECT 4 MG/1 ML DISP.SYRIN IVPUSH ONE (08:18)
[2018-10-04] MEDS ORDERED: morphine SULFATE 4 MG/ML VIAL ONE (08:38)
[2018-10-04 13:44] VITALS: BP 117/53; PULSE 107; TEMP 98.6
[2018-10-04] MEDS ORDERED: ACETAMINOPHEN 325 MG TABLET (FP) PO ONE (14:40)
[2018-10-04] MEDS ORDERED: ACETAMINOPHEN 325 MG TABLET (FP) ONE (15:09)
[2018-10-04] MEDS ORDERED: LIDOCAINE PATCH REMOVAL MC SCH (22:00)
== END 2018-10-04 16:01 | disposition home or self-care (01) ==
LOC: JER 04:51
PROC: 3E033NZ Introduction of Analgesics, Hypnotics, Sedatives into Peripheral Vein, Percutaneous Approach (ICD-10-PCS; principal; 2018-10-04)
PROC: 3E033GC Introduction of Other Therapeutic Substance into Peripheral Vein, Percutaneous Approach (ICD-10-PCS; 2018-10-04)
DX: M79.604 Pain in right leg (principal); W06.XXXA Fall from bed, initial encounter; Y93.89 Activity, other specified; Y92.89 Other specified places as the place of occurrence of the external cause; G35 Multiple sclerosis
CPT/HCPCS: 70450-TC; 72125-TC; 73523-TC-FY; 73552-TC-RT-FY; 73562-TC-RT-FY; 73590-TC-RT-FY; 99282-25; J0131

== ENCOUNTER 2018-10-05 21:54 | Inpatient (IN) | payer OTHER ==
--- NOTE | 2018-10-05 22:22 | PDOC ---
History of Present Illness - General Chief Complaint: Pain, Acute Stated Complaint: RT KNEE PAIN SECONDARY TO FALL ON 10/04/2018 - History of Present Illness Initial Comments: The pt is a 73F w/ a history of MS, s/p R hip ORIF 12/2017 who reports falling yesterday morning. She was evaluated, had no findings on plain films of acute fracutres but reports worsening pain and spasms despite Flexeril/Gabapentin use. The pain is constant with intermittent spasm flairs, non-radiating, 10/10, exacerbated by movement and touch. Initially she reported rolling out of bed. Today she states she stood, felt her knees weak/dizzy and fell to her right side but denies hitting her head or LOC. Denies recent illness, fevers/chills, dysuria, cough, diarrhea, vomiting, hematuria, or blood in her stool. Reports baseline parasthesia in BLE from mid-ng[place] distally Denies new fall/trauma Allergies: Strawberries SH: smokes 7 cigarettes daily, denies EtOH and illicit drug use 10/05/18 22:52 Past History - Past Medical History Allergies/Adverse Reactions: Allergies Allergy/AdvReac Type Severity Reaction Status Date / Time strawberry Allergy Verified 10/05/18 22:06 Home Medications: Ambulatory Orders Cholecalciferol (Vitamin D3) [Vitamin D3] 1 cap PO WEEKLY 07/30/18 Cyclobenzaprine HCl [Flexeril 10 mg] 10 mg PO TID PRN 07/30/18 Furosemide [Lasix] 20 mg PO DAILY PRN 07/30/18 Gabapentin 100 mg PO TID PRN 07/30/18 Zolpidem Tartrate [Ambien] 10 mg PO HS 07/30/18 Acetaminophen [Tylenol .Regular Strength -] 650 mg PO Q6H tablet 08/10/18 Docusate Sodium [Colace -] 100 mg PO BID capsule 08/10/18 Pantoprazole Sodium [Protonix -] 40 mg PO BID tablet.ec 08/10/18 oxyCODONE HCL [Roxicodone -] 5 mg PO Q6H PRN #30 tablet MDD 4 08/10/18 CVA: No COPD: No GI Disorders: Yes (PERFORATED ULCER) - Surgical History Abdominal Surgery: Yes ( A CHILD s/p swallowing object.) GI Surgery: Yes (PERFORATED ULCER REPAIR) Orthopedic Surgery: (right hip fx, s/p ORIF 12/19) - Immunization History Immunization Up to Date: Yes - Suicide/Smoking/Psychosocial Hx Smoking History: Current every day smoker Have you smoked in the past 12 months: No Number of Cigarettes Smoked Daily: 20 Information on smoking cessation initiated: No 'Breaking Loose' booklet given: 07/31/18 Hx Alcohol Use: No Drug/Substance Use Hx: No Substance Use Type: None Hx Substance Use Treatment: No Review of Systems - Review of Systems Able to Perform ROS?: Yes Comments:: GENERAL/CONSTITUTIONAL: No fever or chills. No weakness HEAD, EYES, EARS, NOSE AND THROAT: No change in vision. No ear pain or discharge. No sore throat CARDIOVASCULAR: No chest pain or shortness of breath RESPIRATORY: Denies cough, hemoptysis GASTROINTESTINAL: No nausea, vomiting, diarrhea or constipation GENITOURINARY: No dysuria, frequency, or change in urination MUSCULOSKELETAL: +Muscle spam SKIN: No rash NEUROLOGIC: No headache, vertigo, loss of consciousness, or change in strength/ sensation ENDOCRINE: No increased thirst. No abnormal weight change HEMATOLOGIC/LYMPHATIC: No anemia, easy bleeding, or history of blood clots ALLERGIC/IMMUNOLOGIC: No hives or skin allergy 10/05/18 22:21 Is the patient limited Beninese proficient: No *Physical Exam - Vital Signs Last Vital Signs Temp Pulse Resp BP Pulse Ox 98.4 F 120 H 16 119/57 L 100 10/05/18 21:59 10/05/18 21:59 10/05/18 21:59 10/05/18 21:59 10/05/18 21:59 - Physical Exam Comments: GENERAL: Awake, alert, and oriented to person/place/time, in mild distress HEAD: No signs of trauma, normocephalic, atraumatic EYES: PERRLA, EOMI, sclera anicteric, conjunctiva clear ENT: Hearing grossly normal, nares patent, oropharynx clear without exudates. Moist mucosa LUNGS: No distress, speaks in full sentences, clear to auscultation bilaterally HEART: Tachycardic rate and regular rhythm, normal S1 and S2, no murmurs appreciated, peripheral pulses normal and equal bilaterally ABDOMEN: Soft, nontender, normoactive bowel sounds. No guarding, no rebound NEUROLOGICAL: Cranial nerves II through XII grossly intact. Normal speech SKIN: Warm, Dry BUE: Inspection: No erythema or ecchymosis. No tenderness, no obvious abnormalities, no open wounds. Compartments soft and compressible, no pain to passive stretch Sensation: sensation present to light touch throughout Motor: 5/5 Wrist flex/ext; 5/5 Elbow flex/ext; 5/5 Shoulder ABd,Flex Vascular: 2+ radial pulse palpated RLE: Inspection: R knee TTP. RLE swelling from distal 1/3 anterior thigh to proximal 1/3 medial lower leg. No ecchymosis or hematoma. ROM limited 2/2 pain. ROM of distal ankle and digits intact. Compartments soft and compressible Sensation: Decreased sensation to light touch circumferentially from proximal 1/ 3 lower leg distally (reported baseline) Motor: 5/5 EHL, 5/5 FHL, 5/5 TA, 5/5GS, 3/5 Quad 2/2 pain, 3/5 Ham 2/2 pain Vascular: 2+ DP LLE: Inspection: No erythema or ecchymosis. No tenderness, no obvious abnormalities, no open wounds. Compartments soft and compressible, no pain to passive stretch Sensation: Decreased sensation to light touch circumferentially from proximal 1/ 3 lower leg distally Motor: 5/5 EHL, 5/5 FHL, 5/5 TA, 5/5GS Vascular: 2+ DP 10/05/18 22:21 ED Treatment Course - LABORATORY CBC & Chemistry Diagram: 10/06/18 00:25 10/06/18 00:25 Medical Decision Making - Medical Decision Making The pt is a 73F w/ a history of MS, s/p R hip ORIF 12/2017 who presents for evaluation s/p fall out of bed this AM and reports right knee pain and swelling CT R hip and knee for evaluation of occult fracture Valium for spasm Labs sent ECG w/ sinus tachy; HR 119; left axis deviation; QTc 461; no evidence of acute ischemia Morphine, Gabapentin, Flexeril IVF Mild leukocytosis w/o fever Tachy possibly 2/2 pain/anxiety, receiving IVF No anemia Trop I neg No KEYLA LFTs unremarkable Pt lives at home alone and usually gets around using a wheelchair; Pt is less able to perform her ADLs at this time and will likely require assistance/ placement Pt reports pain improved but not resolved s/p meds CT limited w/o complete view of knee; however no acute fx of hip visualized; s/ p pinning of prior R femoral neck fx; 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
[2018-10-05] MEDS ORDERED: diazePAM 5 MG TABLET PO ONE (22:50)
[2018-10-05] MEDS ORDERED: diazePAM 5 MG TABLET ONE (23:05)
[2018-10-06 00:31] LABS: BASO % 0.4 % (0-2.0); EOS % 0.3 % (0-4.5); HEMOGLOBIN 11.9 GM/dL (10.7-15.3); LYMPH % 26.9 % (8-40); MCH 30.8 pg (25.7-33.7); MCHC 33.1 g/dl (32.0-36.0); MEAN CELL VOLUME 93.2 fl (80-96); MEAN PLT VOLUME 8.4 fl (7.5-11.1); MONO % 10.4 % (3.8-10.2); PLATELET COUNT 309 K/MM3 (134-434); RBC 3.86 M/mm3 (3.60-5.2); WHITE BLOOD COUNT 14.1 K/mm3 (4.0-10.0)
[2018-10-06] MEDS ORDERED: SODIUM CHLORIDE 0.9% 500 ML INFUS.BAG IV ONE (00:34)
[2018-10-06] MEDS ORDERED: morphine CARPU-JECT 4 MG/1 ML DISP.SYRIN IVPUSH ONE (00:35)
[2018-10-06] MEDS ORDERED: morphine SULFATE 4 MG/ML VIAL ONE ×2 (00:50→15:52)
[2018-10-06 01:02] LABS: ALBUMIN 3.6 g/dl (3.4-5.0); ALK PHOS 94 U/L (45-117); ANION GAP 9 MMOL/L (8-16); BILIRUBIN,TOTAL 0.8 mg/dL (0.2-1); BLOOD UREA NITROGEN 30.3 mg/dL (7-18); CALCIUM 9.7 mg/dL (8.5-10.1); CHLORIDE 103 mmol/L (98-107); CO2 28 mmol/L (21-32); CREATININE 1.1 mg/dL (0.55-1.3); GLUCOSE,RANDOM 117 mg/dL (74-106); POTASSIUM 3.8 mmol/L (3.5-5.1); SGOT/AST 5 U/L (15-37); SGPT/ALT 15 U/L (13-61); SODIUM 140 mmol/L (136-145); TOT PROT 7.6 g/dl (6.4-8.2)
--- NOTE | 2018-10-06 01:45 | PDOC ---
Documentation entered by Rose Wright SCRIBE, acting as scribe for Abhishek Blandon MD. Abhishek Blandon MD: This documentation has been prepared by the Adriana hernandez Adrianna, SCRIBE, under my direction and personally reviewed by me in its entirety. I confirm that the documentation accurately reflects all work, treatment, procedures, and medical decision making performed by me. Attending Attestation - Resident Resident Name: JoannCarlton - ED Attending Attestation I have performed the following: I have examined & evaluated the patient, The case was reviewed & discussed with the resident, I agree w/resident's findings & plan, Exceptions are as noted - HPI HPI: The patient is a 73 year old female, with a significant PMH of MS, perforated ulcer, and right R ORIF, who presents to the ED for evaluation of right knee pain and swelling for two days. Patient was seen in the ED yesterday for the same complaint secondary to a fall out of bed. Pt now reporting that she actually fell after she stood from bed and her legs gave out. She landed onto her R knee mainly. Denies LOC or head strike. X-Rays of the RLE were negative for fracture. She returns to the ED as the pain has not subsided since her discharge. She describes the pain as constant, 10/10 in nature, and exacerbated with movement or palpation. Denies numbness or tingling of the RLE. Otherwise, denies headache, neck pain, back pain, cp, sob, abd pain, LE edema Allergies: Strawberries Surgical History: Abdominal surgery, perforated ulcer repair, right hip ORIF Social History: Daily smoker (7 cigarettes per day). Denies EtOH or illicit drug use. PCP: Dr. Hui - Physicial Exam PE: GENERAL: Awake, alert, and fully oriented, in no acute distress. Pleasant. HEAD: No signs of trauma EYES: PERRLA, EOMI, sclera anicteric, conjunctiva clear ENT: Auricles normal inspection, hearing grossly normal, nares patent, oropharynx clear without exudates. Moist mucosa NECK: Normal ROM, supple, no lymphadenopathy, JVD, or masses LUNGS: Breath sounds equal, clear to auscultation bilaterally. No wheezes, and no crackles HEART: Regular rate and rhythm, normal S1 and S2, no murmurs, rubs or gallops ABDOMEN: Soft, nontender, normoactive bowel sounds. No guarding, no rebound. No masses EXTREMITIES: R knee with edema anteriorly, +ecchymosis to posterior knee. Able to range knee passively but with significant pain. RLE entirely WWP. Distally palpable DP and TP pulses. Normal strength dorsiflexion and plantar flexion. Normal sensation distally. Compartments soft. BACK: No midline spinal tenderness in cervical/thoracic/lumbar region NEUROLOGICAL: Normal speech, cranial nerves intact. SKIN: Bruising as noted above - Medical Decision Making 10/06/18 01:43 73yo F presents to the ED with persistent R knee pain since fall yesterday after "legs gave out" Difficulty ranging knee. Pt typically wheelchair bound thus difficult to assess weight bearing ability Will obtain CT knee and R hip looking for occult fracture. Plain films yesterday neg Pt is tachycardic on arrival to 120s, likely 2/2 pain. She has no CP or SOB to suggest PE Pt given valium, morphine, fluids, will reassess HR CT pending Anticipate admission as pt lives alone, is no longer able to take care of herself 2/2 knee pain
[2018-10-06] MEDS ORDERED: CYCLOBENZAPRINE HCL 10 MG TABLET (FP) PO ONE (03:30)
[2018-10-06] MEDS ORDERED: GABAPENTIN 100 MG CAPSULE (FP) PO ONE (03:30)
[2018-10-06] MEDS ORDERED: CYCLOBENZAPRINE HCL 10 MG TABLET (FP) ONE (03:33)
[2018-10-06] MEDS ORDERED: GABAPENTIN 100 MG CAPSULE (FP) ONE (03:33)
--- NOTE | 2018-10-06 06:49 | HP ---
CHIEF COMPLAINT: The patient is a 73 year old female who presented to the ER with complaints of pain in the right knee following a fall yesterday morning. PCP: HISTORY OF PRESENT ILLNESS: The patent is a 73 year old female who presented to the ER with complaints of pain in the right knee following a fall morning. She presented to the hospital, where she underwent an Xray knee and pelvis, as well as a CT head. There were no fractures in the Xrays, and no intracranial hemorrhages in the CT head. The pain is constant and non-radiating, exacerbated by movement. Yesterday, she fell down as she was getting out of bed to her right side, but denies hitting her head or any loss of consciousness. F w/ a history of MS, s/p R hip ORIF 12/2017 ER course was notable for: (1)N/S (2)Acetaminophen (3)XRay PAST MEDICAL HISTORY: PAST SURGICAL HISTORY: GI Ulcer repair Right hip ORIF (12/19) Family History: Allergies strawberry Allergy (Verified 10/05/18 22:06) HOME MEDICATIONS: Home Medications Medication Instructions Recorded Cholecalciferol (Vitamin D3) 1 cap PO WEEKLY 07/30/18 [Vitamin D3] Cyclobenzaprine HCl [Flexeril 10 10 mg PO TID PRN 07/30/18 mg] Furosemide [Lasix] 20 mg PO DAILY PRN 07/30/18 Gabapentin 100 mg PO TID PRN 07/30/18 Zolpidem Tartrate [Ambien] 10 mg PO HS 07/30/18 Acetaminophen [Tylenol .Regular 650 mg PO Q6H tablet 08/10/18 Strength -] Docusate Sodium [Colace -] 100 mg PO BID capsule 08/10/18 Pantoprazole Sodium [Protonix -] 40 mg PO BID tablet.ec 08/10/18 oxyCODONE HCL [Roxicodone -] 5 mg PO Q6H PRN #30 tablet MDD 4 08/10/18 REVIEW OF SYSTEMS MUSCULOSKELETAL: Present: joint swelling, Absent: arthralgia, back pain, neck pain SKIN: Absent: rash, itching, pallor HEMATOLOGIC/IMMUNOLOGIC: Absent: easy bleeding, easy bruising, lymphadenopathy, frequent infections PSYCHIATRIC: Absent: anxiety, depression, suicidal or homicidal ideation, hallucinations. PHYSICAL EXAMINATION Vital Signs - 24 hr 10/05/18 10/06/1810/06/19 21:59 02:27 05:08 Temperature 98.4 F 98.5 F 98.8 F Pulse Rate 120 H Pulse Rate [ 120 H 110 H Left Radial] Respiratory 16 22 H Rate Blood Pressure 119/57 L Blood Pressure 115/53 L 101/89 [Left Arm] O2 Sat by Pulse 100 97 98 Oximetry (%) GENERAL: Patient was not cooperative and kept falling asleep during history taking and examintion (history taken at 4:30AM). ABDOMEN: Soft, nontender, not distended, normoactive bowel sounds, no guarding, no rebound, no masses. No hepatomegaly or splenomegaly. MUSCULOSKELETAL: Swelling on medial aspect of Rt knee, bruising also noted. SKIN: Warm, dry, normal turgor, no rashes or lesions noted, normal capillary refill. Laboratory Results - last 24 hr 10/06/18 10/06/18 00:25 00:25 WBC 14.1 H RBC 3.86 Hgb 11.9 Hct 36.0 D MCV 93.2 MCH 30.8 MCHC 33.1 RDW 13.0 Plt Count 309 D MPV 8.4 Absolute Neuts (auto) 8.8 H Neutrophils % 62.0 Lymphocytes % 26.9 Monocytes % 10.4 H Eosinophils % 0.3 Basophils % 0.4 Nucleated RBC % 0 Sodium 140 Potassium 3.8 Chloride 103 Carbon Dioxide 28 Anion Gap 9 BUN 30.3 H Creatinine 1.1 Est GFR (CKD-EPI)AfAm 58.50 Est GFR (CKD-EPI)NonAf 50.47 Random Glucose 117 H Calcium 9.7 Total Bilirubin 0.8 AST 5 L ALT 15 Alkaline Phosphatase 94 Troponin I < 0.02 Total Protein 7.6 Albumin 3.6 ASSESSMENT/PLAN: #Fall -Xray -No fractures -Fall precautions -PT to assess gait #FEN: -IV Fluids -Morphine injection Visit type - Emergency Visit Emergency Visit: Yes ED Registration Date: 10/06/18 Care time: The patient presented to the Emergency Department on the above date and was hospitalized for further evaluation of their emergent condition. - New Patient This patient is new to me today: Yes Date on this admission: 10/06/18 - Critical Care Critical Care patient: No
[2018-10-06] MEDS ORDERED: FUROSEMIDE 20 MG TABLET (FP) PO PRN (07:27)
[2018-10-06] MEDS ORDERED: GABAPENTIN 100 MG CAPSULE (FP) PO PRN (07:27)
[2018-10-06] MEDS ORDERED: CHOLECALCIFEROL PO SCH (07:30)
[2018-10-06 07:31] VITALS: BMI 19.4
[2018-10-06 08:47] LABS: BASO % 0.4 % (0-2.0); EOS % 0.7 % (0-4.5); HEMATOCRIT 30.4 % (32.4-45.2); HEMOGLOBIN 10.3 GM/dL (10.7-15.3); LYMPH % 20.5 % (8-40); MCH 31.5 pg (25.7-33.7); MEAN CELL VOLUME 92.6 fl (80-96); MEAN PLT VOLUME 8.5 fl (7.5-11.1); MONO % 12.6 % (3.8-10.2); NEUT % 65.8 % (42.8-82.8); RBC 3.28 M/mm3 (3.60-5.2); RDW 12.8 % (11.6-15.6); WHITE BLOOD COUNT 10.6 K/mm3 (4.0-10.0)
--- NOTE | 2018-10-06 08:50 | PN ---
Teaching Attending Note Name of Resident: Joaquin Nolasco ATTENDING PHYSICIAN STATEMENT I saw and evaluated the patient. I reviewed the resident's note and discussed the case with the resident. I agree with the resident's findings and plan as documented. SUBJECTIVE: 73 year old female, with a significant PMH of MS, perforated ulcer, and right R ORIF, who present for evaluation of right knee pain and swelling for two days. Evaluated once already, neg xray. OBJECTIVE: Last Vital Signs Temp Pulse Resp BP Pulse Ox 98.8 F 112 H 20 102/48 L 96 10/06/18 06:00 10/06/18 06:00 10/06/18 06:00 10/06/18 06:00 10/06/18 06:00 heent - at general- drowsy right knee -swollen Abnormal Lab Results 10/06/18 10/06/18 00:25 00:25 WBC 14.1 H Absolute Neuts (auto) 8.8 H Monocytes % 10.4 H BUN 30.3 H Random Glucose 117 H AST 5 L ASSESSMENT AND PLAN: #right knee swelling -f/u ct of knee to r/o fracture -lower ext duplex to r/o dvt dvt ppx
[2018-10-06 09:01] LABS: PLATELET COUNT 267 K/MM3 (134-434)
[2018-10-06] MEDS: ACETAMINOPHEN 325 MG TABLET (FP) PO SCH ×3 (09:13→20:30)
[2018-10-06] MEDS: DOCUSATE SODIUM 100 MG CAPSULE (FP) PO SCH ×2 (09:13→22:02)
[2018-10-06] MEDS: PANTOPRAZOLE 40 MG TABLET (FP) PO SCH ×2 (09:13→22:02)
[2018-10-06] MEDS: SODIUM CHLORIDE 1,000 ML IV SCH ×2 (09:18→23:22)
[2018-10-06 09:31] LABS: ALBUMIN 2.9 g/dl (3.4-5.0); BILIRUBIN,TOTAL 0.6 mg/dL (0.2-1); BLOOD UREA NITROGEN 23.3 mg/dL (7-18); CALCIUM 8.5 mg/dL (8.5-10.1); CREATININE 0.7 mg/dL (0.55-1.3); MAGNESIUM 2.3 mg/dL (1.8-2.4); PHOSPHOROUS 3.3 mg/dL (2.5-4.9); POTASSIUM 3.7 mmol/L (3.5-5.1); TOT PROT 6.2 g/dl (6.4-8.2)
--- NOTE | 2018-10-06 11:26 | PN ---
Progress Note (short form) - Note Progress Note: events noted, pt has pain in left knee , keeps it contracted 10/06/18 09:25 Temperature 99.8 F H Pulse Rate 102 H Respiratory 20 Rate Blood Pressure 106/43 L Laboratory Tests 10/06/18 10/06/18 08:35 08:35 WBC 10.6 H RBC 3.28 L Hgb 10.3 L Hct 30.4 L D MCV 92.6 MCHC 34.0 RDW 12.8 Plt Count 267 Sodium 141 Potassium 3.7 BUN 23.3 H Creatinine 0.7 Est GFR (CKD-EPI)AfAm 101.03 Random Glucose 120 H Calcium 8.5 Phosphorus 3.3 Magnesium 2.3 Total Bilirubin 0.6 AST 6 L Alkaline Phosphatase 78 Total Protein 6.2 L Albumin 2.9 L S1 S2 RRR Lungs clear Abd- soft, NT edema left knee, tender and warm PLAN CT results pending Pain control-- add Morphine prn Ortho eval DVT prophylaxis IV fluids Problem List - Problems (1) Fall Code(s): W19.XXXA - UNSPECIFIED FALL, INITIAL ENCOUNTER Qualifiers: Encounter type: subsequent encounter Qualified Code(s): W19.XXXD - Unspecified fall, subsequent encounter (2) Knee pain Code(s): M25.569 - PAIN IN UNSPECIFIED KNEE Qualifiers: Chronicity: acute Laterality: right Qualified Code(s): M25.561 - Pain in right knee (3) Tachycardia Code(s): R00.0 - TACHYCARDIA, UNSPECIFIED (4) HTN (hypertension) Code(s): I10 - ESSENTIAL (PRIMARY) HYPERTENSION (5) Multiple sclerosis Code(s): G35 - MULTIPLE SCLEROSIS
[2018-10-06] MEDS: GABAPENTIN 100 MG CAPSULE (FP) PO SCH ×2 (13:42→22:02)
[2018-10-06] MEDS: ACETAMINOPHEN 1000 MG/100 ML VIAL (NON FORMULARY) IVPB PRN (14:53)
--- NOTE | 2018-10-06 15:42 | CONSULT ---
Consult - text type - Consultation Consultation Note: ORTHOPEDIC SURGERY CONSULTATION NOTE Department of Orthopedic Surgery HISTORY OF PRESENT ILLNESS Ms. Shelton is a 73 year old female, with a significant PMH of MS, perforated ulcer, and right R ORIF, who presents to the ED for evaluation of right knee pain and swelling for two days. Patient was seen in the ED yesterday for the same complaint secondary to a fall out of bed at her senior home. The orthopedic service was consulted for right knee swelling and pain. The injury occurred after she fell out of bed at her senior home. The patient notes pain and swelling and bruising of her right knee, and states she has had chronic spasms in her knees causing them to contract and flex over the past year. Denies any other injuries. Denies numbness, tingling or other constitutional complaints. Endorses tobacco use, denies drug use, alcohol abuse. The patient lives at a senior home, and states she does not ambulate (hasn't for the past several months) and that she uses a wheelchair to get around at the center. FAMILY HISTORY non-contributory REVIEW OF SYMPTOMS A twelve-point review of systems was performed and was negative except as noted in HPI. PHYSICAL EXAM Constitutional: Alert and oriented to person, place, and time. Appears well- developed and well-nourished. No acute distress, appropriate mood and affect. Right Upper Extremity: Skin warm, dry, and intact; no lesions, rashes or ulcers noted. Muscle mass equal and symmetric to contralateral side. No atrophy noted. No masses or effusions noted. No tenderness to palpation all joints; nontender throughout rest of extremity. Full passive and active ROM, free from pain. Joints stable with no pathologic laxity. M/R/U/MSK/AX motor intact; SILT distally; 2+ radial pulses; Cap refill brisk. Tone and reflexes normal. Left Upper Extremity: Skin warm, dry, and intact; no lesions, rashes or ulcers noted. Muscle mass equal and symmetric to contralateral side. No atrophy noted. No masses or effusions noted. No tenderness to palpation all joitns; nontender throughout rest of extremity. Full passive and active ROM, free from pain. Joints stable with no pathologic laxity. M/R/U/MSK/AX motor intact; SILT distally; 2+ radial pulses; Cap refill brisk. Tone and reflexes normal. Right Lower Extremity: Skin warm, dry, and intact; no lesions, rashes or ulcers noted. There is positive swelling of the knee with bruising noted. Muscle mass equal and symmetric to contralateral side. No atrophy noted. No masses or effusions noted. Tender to palpation at her right knee over the distal femur. Nontender throughout rest of extremity. No cords or calf tenderness. No significant calf/ankle edema. Full passive and active ROM of her ankle, free from pain. LROM of the knee secondary to pain and swelling. Joints stable with no pathologic laxity. EHL/TA/GS motor intact; SILT distally; 2+ DP pulses; Cap refill brisk. The patient has her knee contracted in flexion. Left Lower Extremity: Skin warm, dry, and intact; no lesions, rashes or ulcers noted. Muscle mass equal and symmetric to contralateral side. No atrophy noted. No masses or effusions noted. No tenderness to palpation all joints; nontender throughout rest of extremity. No cords or calf tenderness No significant calf/ankle edema. Full passive and active ROM of her hip and knee , free from pain. Joints stable with no pathologic laxity. EHL/TA/GS motor intact; SILT distally; 2+ DP pulses; Cap refill brisk. The patient has her knee contracted in flexion and is unable to extend her knee. Active Problems Problem Status Category Onset Fall Acute Medical Knee pain Acute Medical Tachycardia Acute Medical Past Medical History [employer] Multiple Sclerosis Gastrointestinal GERD Social History Smoking history Current every day smoker Aproximately how many 7 cigarettes per day Hx Alcohol Use No History of Substance Use None Usual Living Arrangement With Child ADL Family Assistance Occupation , now History of Recent Travel No Allergies Allergy/AdvReac Type Severity Reaction Status Date / Time strawberry Allergy Verified 10/05/18 22:06 Active Medications Generic Name Dose Route Start Last Admin Trade Name Freq PRN Reason Stop Dose Admin Acetaminophen 1,000 mg 10/06/18 05:26 10/06/18 14:53 Ofirmev Injection - IVPB 1,000 mg Q6H PRN Administration PAIN OR FEVER Acetaminophen 650 mg 10/06/18 07:30 10/06/18 13:42 Tylenol - PO 650 mg Q6H DESIRE Administration Docusate Sodium 100 mg 10/06/18 10:00 10/06/18 09:13 Colace - PO 100 mg BID DESIRE Administration Furosemide 20 mg 10/06/18 07:27 Lasix - PO DAILY PRN LE edema Gabapentin 100 mg 10/06/18 14:00 10/06/18 13:42 Neurontin - PO 100 mg TID DESIRE Administration Sodium Chloride 1,000 mls @ 83 mls/hr 10/06/18 05:30 10/06/18 09:18 Normal Saline - IV 83 mls/hr ASDIR [facility] Administration Pantoprazole Sodium 40 mg 10/06/18 10:00 10/06/18 09:13 Protonix - PO 40 mg BID DESIRE Administration Vital Signs (last) Temp Pulse Resp BP Pulse Ox 98.2 F 96 H 20 107/44 L 96 10/06/18 13:00 10/06/18 13:00 10/06/18 14:00 10/06/18 13:00 10/06/18 14:00 Intake and Output 10/04/18 10/05/18 10/06/18 23:59 23:59 23:59 Intake Total 883 Balance 883 Intake: IV 883 Normal Saline - 1,000 ml 883 @ 83 mls/hr IV ASDIR [facility] Rx#:[id number] Other: Voiding Method Incontinent # Unmeasured Voids Void 1 Bowel Movement No Weight 135 lb 128 lb Height 5 ft 6 in 5 ft 6 in 5 ft 8 in Body Mass Index (BMI) 21.7 19.4 Laboratory 10/06/18 08:35 10/06/18 08:35 IMAGING I personally reviewed all radiographs, CT, and other imaging. They demonstrate a right mildly displaced intra-articular distal femur fracture, and significant osteopenia. ASSESSMENT AND PLAN Ms. Shelton is a 73 year old female presenting status post fall out of bed with a mildly displaced right sided intra-articular distal femur fracture. We have reviewed the imaging and clinical findings in detail, as well as their potential implications. After appropriate informed discussion, the patient's right knee was placed in a well-padded bulky gonzalez knee immobilizer. Patient was instructed regarding: non weight bearing on fractured side x 6-8 weeks signs and symptoms of compartment syndrome and need to seek immediate care should new onset numbness, tingling, or significantly increasing pain occur. maintain strict elevation and ice to the knee (not directly over the skin) keeping the knee immobilizer clean and dry. avoiding NSAID medications. - no further orthopedic surgical intervention planned at this time. All questions were answered. Thank you for involving our team in the care of this patient.
[2018-10-06] MEDS ORDERED: ONDANSETRON 4 MG/2 ML VIAL ONE (15:53)
[2018-10-06] MEDS ORDERED: ONDANSETRON 4 MG/2 ML VIAL IVPUSH ONE (16:45)
[2018-10-06] MEDS ORDERED: morphine SULFATE 4 MG/ML VIAL IVPUSH ONE (16:45)
[2018-10-06] MEDS ORDERED: morphine SULFATE 4 MG/ML VIAL IVPUSH PRN (17:33)
[2018-10-06] MEDS ORDERED: ONDANSETRON 4 MG/2 ML VIAL IVPUSH PRN (17:34)
[2018-10-06] MEDS ORDERED: traMADol HCL 50 MG TABLET PO ONE (22:49)
[2018-10-07] MEDS: ACETAMINOPHEN 325 MG TABLET (FP) PO SCH ×4 (02:14→20:17)
[2018-10-07] MEDS: GABAPENTIN 100 MG CAPSULE (FP) PO SCH ×3 (06:13→21:35)
[2018-10-07] MEDS: SODIUM CHLORIDE 1,000 ML IV SCH (10:10)
[2018-10-07] MEDS: DOCUSATE SODIUM 100 MG CAPSULE (FP) PO SCH ×2 (10:11→21:35)
[2018-10-07] MEDS: PANTOPRAZOLE 40 MG TABLET (FP) PO SCH ×2 (10:11→21:36)
[2018-10-07] MEDS: NICOTINE 21 MG/24 HOURS TOPICAL PATCH TD SCH (10:11)
[2018-10-07] MEDS: morphine SULFATE 4 MG/ML VIAL IVPUSH PRN ×3 (10:56→21:32)
--- NOTE | 2018-10-07 11:17 | PN ---
Progress Note (short form) - Note Progress Note: pain better with Morphine Spoke with DR James yesterday On immobilizer non weight bearing Vital Signs - 24 hr 10/06/18 10/06/18 10/06/18 13:00 14:00 18:02 Temperature 98.2 F 97.8 F Pulse Rate 96 H 84 Respiratory 20 20 20 Rate Blood Pressure 107/44 L 114/51 L O2 Sat by Pulse 96 Oximetry (%) 10/06/18 10/07/18 10/07/18 22:00 02:00 05:43 Temperature 98.0 F 98.9 F 97.8 F Pulse Rate 87 83 81 Respiratory 20 20 20 Rate Blood Pressure 99/52 L 81/46 L 88/45 L O2 Sat by Pulse 95 95 Oximetry (%) 10/07/18 08:39 Temperature 98 F Pulse Rate 80 Respiratory 20 Rate Blood Pressure 92/58 L O2 Sat by Pulse Oximetry (%) Current Medications Generic Name Dose Route Start Last Admin Trade Name Freq PRN Reason Stop Dose Admin Acetaminophen 1,000 mg 10/06/18 05:26 10/06/18 14:53 Ofirmev Injection - IVPB 1,000 mg Q6H PRN Administration FEVER Acetaminophen 650 mg 10/06/18 07:30 10/07/18 08:46 Tylenol - PO 650 mg Q6H DESIRE Administration Docusate Sodium 100 mg 10/06/18 10:00 10/07/18 10:11 Colace - PO 100 mg BID DESIRE Administration Furosemide 20 mg 10/06/18 07:27 Lasix - PO DAILY PRN LE edema Gabapentin 100 mg 10/06/18 14:00 10/07/18 06:13 Neurontin - PO 100 mg TID DESIRE Administration Sodium Chloride 1,000 mls @ 83 mls/hr 10/06/18 05:30 10/07/18 10:10 Normal Saline - IV 83 mls/hr ASDIR DESIRE Administration Morphine Sulfate 4 mg 10/07/18 09:16 10/07/18 10:56 Morphine Sulfate IVPUSH 4 mg Q4H PRN Administration PAIN 4-6 Nicotine 21 mg 10/07/18 10:00 10/07/18 10:11 Nicoderm Patch - TD 21 mg DAILY DESIRE Administration Ondansetron HCl 4 mg 10/06/18 17:34 Zofran Injection IVPUSH Q6H PRN NAUSEA AND/OR VOMITING Oxycodone HCl 5 mg 10/07/18 09:15 Roxicodone - PO Q6H PRN PAIN LEVEL 7-10 Pantoprazole Sodium 40 mg 10/06/18 10:00 10/07/18 10:11 Protonix - PO 40 mg BID DESIRE Administration s1 s2 RRR lungs clear Abd- soft, NT immobilizer left PLAN DC fluids pain control DVT prophylaxis needs rehab Problem List - Problems (1) Fracture of distal end of femur Code(s): S72.409A - UNSP FRACTURE OF LOWER END OF UNSP FEMUR, INIT FOR CLOS FX (2) Fall Code(s): W19.XXXA - UNSPECIFIED FALL, INITIAL ENCOUNTER Qualifiers: Encounter type: subsequent encounter Qualified Code(s): W19.XXXD - Unspecified fall, subsequent encounter (3) Knee pain Code(s): M25.569 - PAIN IN UNSPECIFIED KNEE Qualifiers: Chronicity: acute Laterality: right Qualified Code(s): M25.561 - Pain in right knee
[2018-10-07] MEDS: CYCLOBENZAPRINE HCL 10 MG TABLET (FP) PO SCH ×2 (13:02→21:35)
[2018-10-07] MEDS: oxyCODONE HCL 5 MG TABLET PO PRN (13:02)
--- NOTE | 2018-10-07 13:27 | EKG ---
Test Reason : Blood Pressure : / mmHG Vent. Rate : 119 BPM Atrial Rate : 119 BPM P-R Int : 144 ms QRS Dur : 108 ms QT Int : 328 ms P-R-T Axes : 057 -43 097 degrees QTc Int : 461 ms SINUS TACHYCARDIA LEFT AXIS DEVIATION INFERIOR INFARCT , AGE UNDETERMINED ANTERIOR INFARCT (CITED ON OR BEFORE 19-JUN-1998) ABNORMAL ECG QUESTIONABLE CHANGE IN INITIAL FORCES OF LATERAL LEADS Confirmed by MD SONIDO, FÉLIX ([id number]) on 10/07/2018 1:26:48 PM Referred By: Confirmed By:FÉLIX HEAD MD
[2018-10-07] MEDS: ACETAMINOPHEN 1000 MG/100 ML VIAL (NON FORMULARY) IVPB PRN (16:17)
[2018-10-08] MEDS ORDERED: ZOLPIDEM TARTRATE 5 MG TABLET PO ONE ×2 (00:28→22:00)
[2018-10-08] MEDS: ACETAMINOPHEN 325 MG TABLET (FP) PO SCH ×4 (00:50→20:03)
[2018-10-08] MEDS: SODIUM CHLORIDE 1,000 ML IV SCH (05:50)
[2018-10-08] MEDS: GABAPENTIN 100 MG CAPSULE (FP) PO SCH ×3 (05:51→21:36)
[2018-10-08] MEDS: CYCLOBENZAPRINE HCL 10 MG TABLET (FP) PO SCH ×3 (05:51→21:36)
[2018-10-08] MEDS: morphine SULFATE 4 MG/ML VIAL IVPUSH PRN (05:51)
[2018-10-08] MEDS: oxyCODONE HCL 5 MG TABLET PO PRN ×3 (08:38→20:21)
--- NOTE | 2018-10-08 09:27 | CON.ORTH ---
Consult Reason for Consultation:: right distal femur fx - Past Medical History [employer]ACHINE: Yes: Multiple Sclerosis Gastrointestinal: Yes: GERD ...: No Musculoskeletal: Yes: Osteoarthritis (s/p R hip fracture 12/19), Other (chronic neuropathic pain) - Alcohol/Substance Use Hx Alcohol Use: No History of Substance Use: reports: None - Smoking History Smoking history: Current every day smoker Have you smoked in the past 12 months: Yes Aproximately how many cigarettes per day: 7 - Social History Usual Living Arrangement: With Child ADL: Family Assistance Occupation: , now History of Recent Travel: No Home Medications - Allergies Allergies/Adverse Reactions: Allergies Allergy/AdvReac Type Severity Reaction Status Date / Time strawberry Allergy Verified 10/05/18 22:06 - Home Medications Home Medications: Ambulatory Orders Cholecalciferol (Vitamin D3) [Vitamin D3] 1 cap PO WEEKLY 07/30/18 Cyclobenzaprine HCl [Flexeril 10 mg] 10 mg PO TID PRN 07/30/18 Furosemide [Lasix] 20 mg PO DAILY PRN 07/30/18 Gabapentin 100 mg PO TID PRN 07/30/18 Zolpidem Tartrate [Ambien] 10 mg PO HS 07/30/18 Acetaminophen [Tylenol .Regular Strength -] 650 mg PO Q6H tablet 08/10/18 Docusate Sodium [Colace -] 100 mg PO BID capsule 08/10/18 Pantoprazole Sodium [Protonix -] 40 mg PO BID tablet.ec 08/10/18 oxyCODONE HCL [Roxicodone -] 5 mg PO Q6H PRN #30 tablet MDD 4 08/10/18 Family Disease History - Family Disease History Family Disease History: Other: Father ( (74) Lung cancer), Mother ( (82) DMII, ETOH dependence), Brother ( (61) Lung cancer), Sister ( (68) pancretic and liver disease), Son (1, healthy), Daughter ( 2, healthy) Physical Exam for Ortho Vital Signs: Vital Signs Temperature 99.2 F 10/08/18 05:24 Pulse Rate 105 H 10/08/18 05:24 Respiratory Rate 20 10/08/18 05:24 Blood Pressure 116/53 L 10/08/18 05:24 O2 Sat by Pulse Oximetry (%) 98 10/08/18 05:24 Labs: CBC, BMP 10/06/18 08:35 10/06/18 08:35 - Lower Extremity Knee: Yes: Right, Limited ROM, Pain, Swelling, Tenderness, Other (nvi) Imaging - Results X-ray: Report Reviewed, Image Reviewed Cat Scan: Report Reviewed, Image Reviewed Assessment/Plan 73 year old female, with a significant PMH of MS, perforated ulcer, and right R ORIF, who presented to the ED for evaluation of right knee pain and swelling for two days. Patient was seen in the ED yesterday for the same complaint secondary to a fall out of bed. Pt now reporting that she actually fell after she stood from bed and her legs gave out. She landed onto her R knee mainly. Denies LOC or head strike. X-Rays of the RLE were negative for fracture. She returned to the ED as the pain had not subsided since her discharge. She describes the pain as constant, 10/10 in nature, and exacerbated with movement or palpation. Denies numbness or tingling of the RLE. Pt has been a minimal ambulator recently. a/p right minimally displaced intraarticular distal femur fx Risks and benefits were d/w pt in detail No surgical intervention recommended NWB RLE knee immobilizer pain control d/c planning d/w Dr. Erazo
[2018-10-08] MEDS: DOCUSATE SODIUM 100 MG CAPSULE (FP) PO SCH ×2 (10:12→21:36)
[2018-10-08] MEDS: PANTOPRAZOLE 40 MG TABLET (FP) PO SCH ×2 (10:12→21:37)
[2018-10-08] MEDS: NICOTINE 21 MG/24 HOURS TOPICAL PATCH TD SCH (12:21)
--- NOTE | 2018-10-08 12:51 | PN ---
Progress Note (short form) - Note Progress Note: pt seen/ examined chart reviewed all f/u noted Case discussed with RN also Requiring i/v morphine- frequent doses denies cp/sob Vital Signs Temp 98 F 10/08/18 10:00 Pulse 88 10/08/18 10:00 Resp 20 10/08/18 10:00 BP 150/74 10/08/18 10:00 Pulse Ox 98 10/08/18 05:24 Intake & Output 10/07/18 10/08/18 10/08/18 23:59 11:59 23:59 Intake Total 100 1050 Output Total 100 300 Balance 0 750 Intake: IV 950 Normal Saline - 1,000 ml 950 @ 83 mls/hr IV ASDIR [facility] Rx#:[id number] Oral 100 100 Output: Urine 100 300 Mitchell 100 300 Other: Voiding Method Indwelling Catheter Indwelling Catheter Active Medications Acetaminophen (Ofirmev Injection -) 1,000 mg IVPB Q6H PRN PRN Reason: FEVER Last Admin: 10/07/18 16:17 Dose: 1,000 mg Acetaminophen (Tylenol -) 650 mg PO Q6H [facility] Last Admin: 10/08/18 08:37 Dose: 650 mg Cyclobenzaprine HCl (Flexeril -) 10 mg PO TID [facility] Last Admin: 10/08/18 05:51 Dose: 10 mg Docusate Sodium (Colace -) 100 mg PO BID [facility] Last Admin: 10/08/18 10:12 Dose: 100 mg Furosemide (Lasix -) 20 mg PO DAILY PRN PRN Reason: LE edema Gabapentin (Neurontin -) 100 mg PO TID [facility] Last Admin: 10/08/18 05:51 Dose: 100 mg Sodium Chloride (Normal Saline -) 1,000 mls @ 83 mls/hr IV ASDIR [facility] Last Admin: 10/08/18 05:50 Dose: 83 mls/hr Morphine Sulfate (Morphine Sulfate) 4 mg IVPUSH Q4H PRN PRN Reason: PAIN 4-6 Last Admin: 10/08/18 05:51 Dose: 4 mg Morphine Sulfate (Ms Contin -) 15 mg PO BID [facility] Nicotine (Nicoderm Patch -) 21 mg TD DAILY [facility] Last Admin: 10/08/18 12:21 Dose: 21 mg Ondansetron HCl (Zofran Injection) 4 mg IVPUSH Q6H PRN PRN Reason: NAUSEA AND/OR VOMITING Oxycodone HCl (Roxicodone -) 5 mg PO Q6H PRN PRN Reason: PAIN LEVEL 7-10 Last Admin: 10/08/18 08:38 Dose: 5 mg Pantoprazole Sodium (Protonix -) 40 mg PO BID [facility]IRE Last Admin: 10/08/18 10:12 Dose: 40 mg CBC, BMP 10/06/18 08:35 10/06/18 08:35 Physical Exam Awake s1 s2 RRR lungs clear Abd- soft, NT immobilizer left PLAN pain control-- Add MScontin -- DVT prophylaxis needs rehab d/c tele ANTICIPATE D/C TOMORROW 2nd Orhto consult - Noted/ Appreciated dvt prophylaxis will follow Problem List - Problems (1) Fracture of distal end of femur Code(s): S72.409A - UNSP FRACTURE OF LOWER END OF UNSP FEMUR, INIT FOR CLOS FX (2) Fall Code(s): W19.XXXA - UNSPECIFIED FALL, INITIAL ENCOUNTER Qualifiers: Encounter type: subsequent encounter Qualified Code(s): W19.XXXD - Unspecified fall, subsequent encounter (3) Knee pain Code(s): M25.569 - PAIN IN UNSPECIFIED KNEE Qualifiers: Chronicity: acute Laterality: right Qualified Code(s): M25.561 - Pain in right knee
[2018-10-08] MEDS ORDERED: morphine SO4 SUSTAINED ACTING 15 MG TABLET.SA PO SCH (13:00)
[2018-10-08] MEDS ORDERED: ENOXAPARIN NA (PORCINE) 40 MG/0.4 ML DISP.SYRIN SQ SCH (13:00)
[2018-10-08] MEDS ORDERED: ACETAMINOPHEN 1000 MG/100 ML VIAL (NON FORMULARY) IVPB PRN (16:59)
[2018-10-08] MEDS ORDERED: FUROSEMIDE 20 MG TABLET (FP) PO PRN (16:59)
[2018-10-08] MEDS ORDERED: ONDANSETRON 4 MG/2 ML VIAL IVPUSH PRN (16:59)
[2018-10-08] MEDS: morphine SO4 SUSTAINED ACTING 15 MG TABLET.SA PO SCH (21:36)
[2018-10-09] MEDS: ACETAMINOPHEN 325 MG TABLET (FP) PO SCH ×4 (02:03→19:46)
[2018-10-09] MEDS: SODIUM CHLORIDE 1,000 ML IV SCH ×2 (06:16→18:32)
[2018-10-09] MEDS: GABAPENTIN 100 MG CAPSULE (FP) PO SCH ×3 (06:16→22:04)
[2018-10-09] MEDS: CYCLOBENZAPRINE HCL 10 MG TABLET (FP) PO SCH ×3 (06:16→22:04)
[2018-10-09] MEDS: oxyCODONE HCL 5 MG TABLET PO PRN ×2 (06:23→18:33)
[2018-10-09 07:47] LABS: BASO % 0.4 % (0-2.0); EOS % 1.8 % (0-4.5); HEMATOCRIT 24.5 % (32.4-45.2); HEMOGLOBIN 8.4 GM/dL (10.7-15.3); MCH 31.4 pg (25.7-33.7); MCHC 34.2 g/dl (32.0-36.0); MEAN CELL VOLUME 91.8 fl (80-96); MEAN PLT VOLUME 8.2 fl (7.5-11.1); MONO % 9.6 % (3.8-10.2); NEUT % 59.2 % (42.8-82.8); PLATELET COUNT 287 K/MM3 (134-434); RBC 2.67 M/mm3 (3.60-5.2); RDW 12.6 % (11.6-15.6); WHITE BLOOD COUNT 7.5 K/mm3 (4.0-10.0)
[2018-10-09 08:11] LABS: ALBUMIN 2.2 g/dl (3.4-5.0); BILIRUBIN,TOTAL 0.4 mg/dL (0.2-1); BLOOD UREA NITROGEN 7.2 mg/dL (7-18); CREATININE 0.5 mg/dL (0.55-1.3); POTASSIUM 3.7 mmol/L (3.5-5.1); TOT PROT 5.1 g/dl (6.4-8.2)
[2018-10-09] MEDS: PANTOPRAZOLE 40 MG TABLET (FP) PO SCH ×2 (09:06→22:04)
[2018-10-09] MEDS: ENOXAPARIN NA (PORCINE) 40 MG/0.4 ML DISP.SYRIN SQ SCH (09:06)
[2018-10-09] MEDS: NICOTINE 21 MG/24 HOURS TOPICAL PATCH TD SCH (09:06)
[2018-10-09] MEDS: DOCUSATE SODIUM 100 MG CAPSULE (FP) PO SCH ×2 (10:13→22:04)
[2018-10-09] MEDS: morphine SO4 SUSTAINED ACTING 15 MG TABLET.SA PO SCH ×2 (10:14→22:05)
--- NOTE | 2018-10-09 12:19 | PN ---
Progress Note (short form) - Note Progress Note: had a low grade temp today no distress except for pain in knee Vital Signs - 24 hr 10/08/18 10/08/18 10/09/18 14:00 18:00 00:00 Temperature 98.9 F Pulse Rate 98 H Respiratory 100 H Rate Blood Pressure 141/80 O2 Sat by Pulse 98 98 Oximetry (%) 10/09/18 10/09/18 10/09/18 06:54 08:00 10:00 Temperature 99.0 F 100.3 F H Pulse Rate 109 H 107 H Respiratory 20 20 Rate Blood Pressure 118/54 L 115/54 L O2 Sat by Pulse 97 Oximetry (%) Current Medications Generic Name Dose Route Start Last Admin Trade Name Freq PRN Reason Stop Dose Admin Acetaminophen 650 mg 10/08/18 19:30 10/09/18 09:04 Tylenol - PO 650 mg Q6H DESIRE Administration Acetaminophen 1,000 mg 10/08/18 16:59 10/08/18 18:59 Ofirmev Injection - IVPB 1,000 mg Q6H PRN Administration FEVER Cyclobenzaprine HCl 10 mg 10/08/18 22:00 10/09/18 06:16 Flexeril - PO 10 mg TID DESIRE Administration Docusate Sodium 100 mg 10/08/18 22:00 10/09/18 10:13 Colace - PO 100 mg BID DESIRE Administration Enoxaparin Sodium 40 mg 10/09/18 10:00 10/09/18 09:06 Lovenox - SQ 40 mg DAILY DESIRE Administration Furosemide 20 mg 10/08/18 16:59 Lasix - PO DAILY PRN LE edema Gabapentin 100 mg 10/08/18 22:00 10/09/18 06:16 Neurontin - PO 100 mg TID DESIRE Administration Sodium Chloride 1,000 mls @ 83 mls/hr 10/08/18 16:59 10/09/18 06:16 Normal Saline - IV 83 mls/hr ASDIR DESIRE Administration Morphine Sulfate 15 mg 10/08/18 22:00 10/09/18 10:14 Ms Contin - PO 15 mg BID DESIRE Administration Nicotine 21 mg 10/09/18 10:00 10/09/18 09:06 Nicoderm Patch - TD 21 mg DAILY DESIRE Administration Ondansetron HCl 4 mg 10/08/18 16:59 Zofran Injection IVPUSH Q6H PRN NAUSEA AND/OR VOMITING Oxycodone HCl 5 mg 10/08/18 16:59 10/09/18 06:23 Roxicodone - PO 5 mg Q6H PRN Administration PAIN LEVEL 7-10 Pantoprazole Sodium 40 mg 10/08/18 22:00 10/09/18 09:06 Protonix - PO 40 mg BID DESIRE Administration Laboratory Results - last 24 hr 10/09/18 10/09/18 07:10 07:10 WBC 7.5 RBC 2.67 L Hgb 8.4 L Hct 24.5 L D MCV 91.8 MCH 31.4 MCHC 34.2 RDW 12.6 Plt Count 287 MPV 8.2 Absolute Neuts (auto) 4.4 Neutrophils % 59.2 Lymphocytes % 29.0 D Monocytes % 9.6 Eosinophils % 1.8 D Basophils % 0.4 Nucleated RBC % 0 Sodium 142 Potassium 3.7 Chloride 110 H Carbon Dioxide 24 Anion Gap 7 L BUN 7.2 Creatinine 0.5 L Est GFR (CKD-EPI)AfAm 112.86 Est GFR (CKD-EPI)NonAf 97.37 Random Glucose 105 Calcium 8.0 L Total Bilirubin 0.4 AST 7 L ALT 11 L Alkaline Phosphatase 73 Total Protein 5.1 L Albumin 2.2 L s1 s2 RRR lungs clear Abd- soft, NT immobilizer left PLAN DC fluids noted anemia-- pt is on lovenox sc- will start iron tabs dc thompson check portable CXR monitor fever curve pain control DVT prophylaxis needs rehab ortho eval noted no surgeries planned Problem List - Problems (1) Fracture of distal end of femur Code(s): S72.409A - UNSP FRACTURE OF LOWER END OF UNSP FEMUR, INIT FOR CLOS FX (2) Fall Code(s): W19.XXXA - UNSPECIFIED FALL, INITIAL ENCOUNTER Qualifiers: Encounter type: subsequent encounter Qualified Code(s): W19.XXXD - Unspecified fall, subsequent encounter (3) Knee pain Code(s): M25.569 - PAIN IN UNSPECIFIED KNEE Qualifiers: Chronicity: acute Laterality: right Qualified Code(s): M25.561 - Pain in right knee
[2018-10-09] MEDS: ASCORBIC ACID 500 MG TABLET (FP) PO SCH (13:52)
[2018-10-09] MEDS: FERROUS SO4 325 MG TABLET (FP) PO SCH (13:52)
--- NOTE | 2018-10-09 14:48 | PN ---
Progress Note (short form) - Note Progress Note: Ortho Pt seen and examined s/p right distal femur fx- Selected Entries 10/09/18 10:00 Temperature 100.3 F H Pulse Rate 107 H Respiratory 20 Rate Blood Pressure 115/54 L knee immobilizer intact, nvi a/p No surgical intervention [facility]B RLE PT eval pain control d/c planning d/w Dr. Erazo
[2018-10-09] MEDS ORDERED: ZOLPIDEM TARTRATE 5 MG TABLET PO ONE (22:32)
[2018-10-10] MEDS: ACETAMINOPHEN 325 MG TABLET (FP) PO SCH ×5 (01:34→18:42)
[2018-10-10] MEDS: oxyCODONE HCL 5 MG TABLET PO PRN ×3 (05:51→18:41)
[2018-10-10] MEDS: CYCLOBENZAPRINE HCL 10 MG TABLET (FP) PO SCH ×2 (05:51→14:41)
[2018-10-10] MEDS: SODIUM CHLORIDE 1,000 ML IV SCH (05:52)
[2018-10-10] MEDS: GABAPENTIN 100 MG CAPSULE (FP) PO SCH ×2 (05:53→14:41)
[2018-10-10 08:11] LABS: BASO % 0.5 % (0-2.0); EOS % 3.1 % (0-4.5); HEMATOCRIT 26.1 % (32.4-45.2); HEMOGLOBIN 8.7 GM/dL (10.7-15.3); LYMPH % 36.6 % (8-40); MCH 30.3 pg (25.7-33.7); MCHC 33.4 g/dl (32.0-36.0); MEAN CELL VOLUME 90.9 fl (80-96); MEAN PLT VOLUME 8.1 fl (7.5-11.1); MONO % 9.4 % (3.8-10.2); NEUT % 50.4 % (42.8-82.8); PLATELET COUNT 343 K/MM3 (134-434); RBC 2.87 M/mm3 (3.60-5.2); RDW 12.5 % (11.6-15.6); WHITE BLOOD COUNT 6.1 K/mm3 (4.0-10.0)
[2018-10-10 08:43] LABS: ALBUMIN 2.2 g/dl (3.4-5.0); BILIRUBIN,TOTAL 0.3 mg/dL (0.2-1); BLOOD UREA NITROGEN 6.8 mg/dL (7-18); CALCIUM 8.5 mg/dL (8.5-10.1); CREATININE 0.5 mg/dL (0.55-1.3); TOT PROT 5.5 g/dl (6.4-8.2)
[2018-10-10] MEDS: ENOXAPARIN NA (PORCINE) 40 MG/0.4 ML DISP.SYRIN SQ SCH (10:56)
[2018-10-10] MEDS: DOCUSATE SODIUM 100 MG CAPSULE (FP) PO SCH (10:57)
[2018-10-10] MEDS: ASCORBIC ACID 500 MG TABLET (FP) PO SCH (10:57)
[2018-10-10] MEDS: PANTOPRAZOLE 40 MG TABLET (FP) PO SCH (10:57)
[2018-10-10] MEDS: morphine SO4 SUSTAINED ACTING 15 MG TABLET.SA PO SCH (10:58)
[2018-10-10] MEDS: NICOTINE 21 MG/24 HOURS TOPICAL PATCH TD SCH (10:59)
--- NOTE | 2018-10-10 11:23 | PN ---
Progress Note (short form) - Note Progress Note: Pt seen and examined. She is comfortable, doing ok, stable. In a right knee immobilizer. No surgery recommended. Con't knee immobilizer, very light PWB only. Transfer to [place] likely today. Follow up in the office as an out patient with Dr Erazo
[2018-10-10] MEDS: FERROUS SO4 325 MG TABLET (FP) PO SCH (11:47)
--- NOTE | 2018-10-10 13:09 | DS ---
Physical Examination Vital Signs: Vital Signs Temperature 98.6 F 10/10/18 06:24 Pulse Rate 107 H 10/10/18 06:24 Respiratory Rate 20 10/10/18 06:24 Blood Pressure 154/84 10/10/18 06:24 O2 Sat by Pulse Oximetry (%) 98 10/10/18 00:00 Constitutional: Yes: No Distress, Calm Cardiovascular: Yes: Regular Rate and Rhythm Respiratory: Yes: CTA Bilaterally Gastrointestinal: Yes: Normal Bowel Sounds, Soft. No: Tenderness Edema: Yes Labs: CBC, BMP 10/10/18 07:00 10/10/18 07:00 Discharge Summary Reason For Visit: MULTIPLE SCLEROSIS, HYPERTENSION, FALL Current Active Problems Fall (Acute) Fracture of distal end of femur (Acute) Knee pain (Acute) Tachycardia (Acute) Hospital Course: ADMISSION HISTORY -- HISTORY OF PRESENT ILLNESS: The patent is a 73 year old female who presented to the ER with complaints of pain in the right knee following a fall morning. She presented to the hospital, where she underwent an Xray knee and pelvis, as well as a CT head. There were no fractures in the Xrays, and no intracranial hemorrhages in the CT head. The pain is constant and non-radiating, exacerbated by movement. Yesterday, she fell down as she was getting out of bed to her right side, but denies hitting her head or any loss of consciousness. F w/ a history of MS, s/p R hip ORIF 12/2017 ER course was notable for: (1)N/S (2)Acetaminophen (3)XRay CT lower extremity --= demonstrate a right mildly displaced intra-articular distal femur fracture, and significant osteopenia. She was evaluated by Ortho- No surgical intervention [facility]B RLE PT eval pain control on immobilizer Had slight low grade fever-- dc thompson -- now she does not have fever cxr negative no elevated WBC DVT prophylaxis-- Lovenox sc stable for dc to NH Condition: Fair - Instructions Disposition: [facility] - Home Medications Comprehensive Discharge Medication List: Ambulatory Orders Cholecalciferol (Vitamin D3) [Vitamin D3] 1 cap PO WEEKLY 07/30/18 Cyclobenzaprine HCl [Flexeril 10 mg] 10 mg PO TID PRN 07/30/18 Furosemide [Lasix] 20 mg PO DAILY PRN 04/29/19 Gabapentin 100 mg PO TID PRN 07/30/18 Zolpidem Tartrate [Ambien] 10 mg PO HS 07/30/18 Acetaminophen [Tylenol .Regular Strength -] 650 mg PO Q6H tablet 08/10/18 Docusate Sodium [Colace -] 100 mg PO BID capsule 08/10/18 Pantoprazole Sodium [Protonix -] 40 mg PO BID tablet.ec 08/10/18 oxyCODONE HCL [Roxicodone -] 5 mg PO Q6H PRN #30 tablet MDD 4 08/10/18
[2018-10-10 14:36] VITALS: BP 129/71; PULSE 94; TEMP 98.1
== END 2018-10-10 19:02 | DRG 340 ==
LOC: JER 21:54 → JERBED 10-06 03:53 → INTOOBSV 10-06 03:53 → J4W 10-06 05:55 → OBSVTOIN 10-07 11:19 → J6S 10-08 15:51
PROVIDERS: ADMIT Internal Medicine; ATTEND Internal Medicine
DX: S72.491A Other fracture of lower end of right femur, initial encounter for closed fracture (principal); R00.0 Tachycardia, unspecified; G35 Multiple sclerosis; F41.9 Anxiety disorder, unspecified; M25.561 Pain in right knee; G89.29 Other chronic pain; F17.210 Nicotine dependence, cigarettes, uncomplicated; K21.9 Gastro-esophageal reflux disease without esophagitis; D72.829 Elevated white blood cell count, unspecified; M85.80 Other specified disorders of bone density and structure, unspecified site; D64.9 Anemia, unspecified; W06.XXXA Fall from bed, initial encounter; Y92.092 Bedroom in other non-institutional residence as the place of occurrence of the external cause; Z99.3 Dependence on wheelchair
CPT/HCPCS: 36415; 71045-TC-FY; 73700-TC-RT; 80053; 83735; 84100; 84484; 85025; 93005; 93010; 97116-GP; 97161-GP; 99282-25; G0378; J0131; J7030

== ENCOUNTER 2018-10-25 13:49 | Inpatient (IN) | payer OTHER ==
--- NOTE | 2018-10-25 15:04 | PDOC ---
Documentation entered by Kyara Wright SCRIBE, acting as scribe for Josh Canela MD. Josh Canela MD: This documentation has been prepared by the Adriana hernandez Brenda, SCRIBE, under my direction and personally reviewed by me in its entirety. I confirm that the documentation accurately reflects all work, treatment, procedures, and medical decision making performed by me. History of Present Illness - General Chief Complaint: Altered Mental Status Stated Complaint: Altered Mental Status Time Seen by Provider: 10/25/18 14:41 History Source: Family Exam Limitations: No Limitations - History of Present Illness Initial Comments: 10/25/18 16:03 The patient is a 73 year old female, with a significant PMH of MS, perforated ulcer, and right R ORIF, who presents to the emergency department with altered mental status, as per daughter. The daughter, on the bedside, notes that she has been experiencing waxing waning bouts of mental confusion, and has been having odd speech for the past 6 days. As per daughter, the patient has a recent history of right knee pain, which has been evaluated by her orthopedic, but has recently had some pus coming out of it. The daughter also states that the patient has been unable to ambulate and hasn't been herself due to extensive frequent orthopedic issues. The patient denies chest pain, shortness of breath. Denies fever, chills, nausea , vomiting, diarrhea and constipation. Denies dysuria, frequency, urgency and hematuria. Denies any other symptoms. Allergies: Strawberries Past surgical history: Right hip replacement Social history: Denies tobacco use, alcohol use or illicit drug use. PCP:Dr. Franco Lagunas Past History - Past Medical History Allergies/Adverse Reactions: Allergies Allergy/AdvReac Type Severity Reaction Status Date / Time strawberry Allergy Verified 10/05/18 22:06 Home Medications: Ambulatory Orders Cyclobenzaprine HCl [Flexeril 10 mg] 10 mg PO TID PRN 07/30/18 Gabapentin 100 mg PO TID PRN 07/30/18 Zolpidem Tartrate [Ambien] 10 mg PO HS 07/30/18 oxyCODONE HCL [Roxicodone -] 5 mg PO Q6H PRN #30 tablet MDD 4 08/10/18 Morphine *Sr* [Ms Contin -] 15 mg PO BID #60 tablet.sa MDD 2 10/10/18 Nitrofurantoin Monohyd/M-Cryst [Macrobid -] 100 mg PO BID 10/25/18 Tizanidine HCl 4 mg PO BID 10/25/18 Anemia: No Asthma: No Cancer: No Cardiac Disorders: No CVA: No COPD: No CHF: No Dementia: No Diabetes: No GI Disorders: Yes (PERFORATED ULCER) Disorders: No HTN: No Hypercholesterolemia: No Liver Disease: No Seizures: No Thyroid Disease: No - Surgical History Abdominal Surgery: Yes ( A CHILD s/p swallowing object.) Appendectomy: No Cardiac Surgery: No Cholecystectomy: No GI Surgery: Yes (PERFORATED ULCER REPAIR) Lung Surgery: No Neurologic Surgery: No Orthopedic Surgery: (right hip fx, s/p ORIF 12/19) - Immunization History Immunization Up to Date: Yes - Suicide/Smoking/Psychosocial Hx Smoking History: Never smoked Have you smoked in the past 12 months: Yes Number of Cigarettes Smoked Daily: 7 'Breaking Loose' booklet given: 07/31/18 Hx Alcohol Use: No Drug/Substance Use Hx: No Substance Use Type: None Hx Substance Use Treatment: No Review of Systems - Review of Systems Able to Perform ROS?: Yes Comments:: 10/25/18 16:04 A complete review of 10 out of 10 review of systems is taken and is negative apart from what is previously mentioned below and in the HPI. *Physical Exam - Vital Signs Last Vital Signs Temp Pulse Resp BP Pulse Ox 98.7 F 101 H 19 105/50 L 96 10/25/18 13:50 10/25/18 13:50 10/25/18 13:50 10/25/18 13:50 10/25/18 13:50 - Physical Exam Comments: 10/25/18 16:03 Vitals: Triage Vital signs reviewed General Appearance: no acute distress, well nourished well developed, Head: Atraumatic, normocephalic Eyes: Pupils equal reactive round, extraocular movement intact Neck: Supple;No Nuchal rigidity Chest Wall: Nontender Cardiac: Regular rate and rhythm, no murmurs, no rubs, no gallops, Lungs: Clear to auscultation bilateral, good air movement bilaterally, Abdomen: Soft, nondistended, normal bowel sounds, nontender to palpation Extremities: Full range of motion to all extremities, no cyanosis, clubbing, or edema Skin: (+) 2nd degree break down of skin (5 by 2 cm) on right knee, producing pus. Warm. Neuro: AOX3; Cranial Nerves 2-12 grossly intact, Strength intact to all extremities, Sensation intact to all extremities Psych: normal mood, normal affect ED Treatment Course - LABORATORY CBC & Chemistry Diagram: 10/29/18 05:35 10/28/18 05:59 Medical Decision Making - Medical Decision Making 10/25/18 16:01 Progressively worsening waxing and waning delirium recent UTI small ulcer to inside of right leg We'll check labs head CT urinalysis and reasses Dr. Buchanan to follow up labs and imaging and dispo *DC/Admit/Observation/Transfer Diagnosis at time of Disposition: Elevated troponin Knee pain Qualifiers: Chronicity: chronic Laterality: right Qualified Code(s): M25.561 - Pain in right knee; G89.29 - Other chronic pain UTI (urinary tract infection) Qualifiers: Urinary tract infection type: site unspecified Hematuria presence: without hematuria Qualified Code(s): N39.0 - Urinary tract infection, site not specified - Discharge Dispostion Condition at time of disposition: Guarded Decision to Admit order: Yes - Referrals - Patient Instructions - Post Discharge Activity
[2018-10-25 15:46] LABS: BASO % 0.6 % (0-2.0); EOS % 0.7 % (0-4.5); HEMATOCRIT 30.8 % (32.4-45.2); HEMOGLOBIN 10.2 GM/dL (10.7-15.3); LYMPH % 18.1 % (8-40); MCH 29.8 pg (25.7-33.7); MCHC 33.2 g/dl (32.0-36.0); MEAN CELL VOLUME 89.7 fl (80-96); MEAN PLT VOLUME 8.6 fl (7.5-11.1); MONO % 8.6 % (3.8-10.2); PLATELET COUNT 588 K/MM3 (134-434); RBC 3.43 M/mm3 (3.60-5.2)
[2018-10-25 15:59] LABS: INR 1.24 (0.83-1.09); PROTHROMBIN TIME (PATIENT) 14.7 SEC (9.7-13.0)
[2018-10-25 16:01] LABS: ACTIVATED PTT 36.1 SECONDS (25.2-36.5)
--- NOTE | 2018-10-25 16:22 | PDOC ---
*Physical Exam - Vital Signs Last Vital Signs Temp Pulse Resp BP Pulse Ox 98.7 F 101 H 19 105/50 L 96 10/25/18 13:50 10/25/18 13:50 10/25/18 13:50 10/25/18 13:50 10/25/18 13:50 - Physical Exam Comments: 10/25/18 16:52 Gen: awake, uncomfortable R knee pain, but brace to L knee Heart Score/ECG Review - ECG Intrepretation Comment:: 10/25/18 16:21 sinus tach at 107, L axis, q waves III/avf which are age indeterminate, poor r wave progression with q waves anteriorly which are age indeterminate, no acute st/t wave findings 10/25/18 16:23 ekg is unchaged from prior 10/19 ED Treatment Course - LABORATORY CBC & Chemistry Diagram: 10/25/18 15:24 10/25/18 15:24 - ADDITIONAL ORDERS Additional order review: Laboratory Results 10/25/18 15:24 PT with INR 14.70 H INR 1.24 H PTT (Actin FS) 36.1 10/25/18 15:24 RBC 3.43 L MCV 89.7 MCHC 33.2 RDW 14.0 D MPV 8.6 Neutrophils % 72.0 D Lymphocytes % 18.1 D Monocytes % 8.6 Eosinophils % 0.7 Basophils % 0.6 Medical Decision Making - Medical Decision Making 10/25/18 16:36 a/p: pt signed out by Dr. Canela pending labs, imaging, and ekg -no acute findings on ekg -mildly elevated trop -cxr with poss widened mediastinum, unchanged from prior, healed humerus fx -pending head ct 10/25/18 16:53 pt updated on trop pending head ct case discussed with dr. esparza who accepts pt to service pmd is dr. wan ortho is dr. francisco pt will need admission for ams and elevated trop, dehydration 10/25/18 16:56 ivf hydration ordered pain meds ordered pending straight cath and head ct 10/25/18 19:05 pt with uti will start rocephin culture pending *DC/Admit/Observation/Transfer Diagnosis at time of Disposition: Knee pain, Elevated troponin, UTI (urinary tract infection) - Discharge Dispostion Condition at time of disposition: Guarded Decision to Admit order: Yes - Referrals - Patient Instructions - Post Discharge Activity
[2018-10-25 16:29] LABS: ALBUMIN 2.8 g/dl (3.4-5.0); BILIRUBIN,TOTAL 0.5 mg/dL (0.2-1); BLOOD UREA NITROGEN 21.1 mg/dL (7-18); CALCIUM 10.1 mg/dL (8.5-10.1); CREATININE 0.9 mg/dL (0.55-1.3); TOT PROT 7.9 g/dl (6.4-8.2)
[2018-10-25] MEDS ORDERED: GABAPENTIN 100 MG CAPSULE (FP) PO ONE (16:54)
[2018-10-25] MEDS ORDERED: oxyCODONE HCL 5 MG TABLET PO ONE (16:54)
[2018-10-25] MEDS ORDERED: CYCLOBENZAPRINE HCL 10 MG TABLET (FP) PO ONE (16:55)
[2018-10-25] MEDS ORDERED: SODIUM CHLORIDE 0.9% 1000 ML INFUS.BAG IV ONE (16:56)
[2018-10-25] MEDS: ASPIRIN 81 MG CHEWABLE TABLETS PO SCH (17:15)
[2018-10-25 17:32] LABS: VENOUS PC02 36.6 mmHg (41-51); VENOUS PH 7.42 (7.31-7.41)
[2018-10-25] MEDS ORDERED: LORazepam 2 MG/ML SDV VIAL ONE (18:37)
[2018-10-25 18:45] LABS: EPI CELLS 1.5 /HPF (0-5/HPF); HYALINE CASTS 1 /lpf (0-8); URINE APPEARANCE CLOUDY; URINE BACTERIA 1034.6 /hpf (NEGATIVE); URINE BILIRUBIN NEGATIVE (NEGATIVE); URINE COLOR DK YELLOW; URINE GLUCOSE (UA) NEGATIVE (NEGATIVE); URINE KETONE 1+ (NEGATIVE); URINE LEUK ESTERASE TRACE (NEGATIVE); URINE NITRITE POSITIVE (NEGATIVE); URINE PROTEIN 1+ (NEGATIVE); URINE RBC 0 /hpf (0-4); URINE UROBILINOGEN 0.2 mg/dL (0.2-1.0); URINE WBC 4 /hpf (0-5)
[2018-10-25] MEDS ORDERED: CEFTRIAXONE 1 GM in DEXTROSE 5%-WATER - 100 ML IVPB ONE (19:04)
[2018-10-25] MEDS ORDERED: CEFTRIAXONE 1 GM/50 ML BAG ONE (20:09)
[2018-10-25] MEDS: DOCUSATE SODIUM 100 MG CAPSULE (FP) PO SCH (23:05)
[2018-10-26] MEDS: ACETAMINOPHEN 325 MG TABLET (FP) PO PRN (03:30)
[2018-10-26] MEDS: oxyCODONE HCL 5 MG TABLET PO PRN (07:42)
[2018-10-26 07:55] LABS: HEMATOCRIT 27.8 % (32.4-45.2); HEMOGLOBIN 9.4 GM/dL (10.7-15.3); MCH 30.1 pg (25.7-33.7); MCHC 33.6 g/dl (32.0-36.0); MEAN CELL VOLUME 89.5 fl (80-96); MEAN PLT VOLUME 8.2 fl (7.5-11.1); PLATELET COUNT 560 K/MM3 (134-434); RBC 3.11 M/mm3 (3.60-5.2); RDW 14.2 % (11.6-15.6)
[2018-10-26 08:16] LABS: ALBUMIN 2.5 g/dl (3.4-5.0); BILIRUBIN,TOTAL 0.5 mg/dL (0.2-1); BLOOD UREA NITROGEN 22.3 mg/dL (7-18); CALCIUM 9.8 mg/dL (8.5-10.1); CREATININE 0.8 mg/dL (0.55-1.3); POTASSIUM 4.3 mmol/L (3.5-5.1); TOT PROT 6.9 g/dl (6.4-8.2)
--- NOTE | 2018-10-26 08:28 | CON.CARD ---
Consult Consult Specialty:: Cardiology Referred by:: Dr. Kent Reason for Consultation:: Abnl ECG - History of Present Illness Chief Complaint: Change in mental status History of Present Illness: History is obtained from the chart as patient cannot provide history: The patient is a 73 year old female, with a significant PMH of MS, perforated ulcer, and right R ORIF, who presents to the emergency department with altered mental status, as per daughter. The daughter, on the bedside, notes that she has been experiencing waxing waning bouts of mental confusion, and has been having odd speech for the past 6 days. As per daughter, the patient has a recent history of right knee pain, which has been evaluated by her orthopedic, but has recently had some pus coming out of it. The daughter also states that the patient has been unable to ambulate and hasn't been herself due to extensive frequent orthopedic issues. She has a low grade fever. 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 Gastrointestinal: Yes: GERD ...: No Musculoskeletal: Yes: Osteoarthritis (s/p R hip fracture 12/19), Other (chronic neuropathic pain) - Alcohol/Substance Use Hx Alcohol Use: No History of Substance Use: reports: None - Smoking History Smoking history: Current some day smoker Have you smoked in the past 12 months: Yes Aproximately how many cigarettes per day: 7 - Social History Usual Living Arrangement: With Child ADL: Family Assistance Occupation: , now History of Recent Travel: No Home Medications - Allergies Allergies/Adverse Reactions: Allergies Allergy/AdvReac Type Severity Reaction Status Date / Time strawberry Allergy Verified 10/05/18 22:06 - Home Medications Home Medications: Ambulatory Orders Cyclobenzaprine HCl [Flexeril 10 mg] 10 mg PO TID PRN 07/30/18 Gabapentin 100 mg PO TID PRN 07/30/18 Zolpidem Tartrate [Ambien] 10 mg PO HS 07/30/18 oxyCODONE HCL [Roxicodone -] 5 mg PO Q6H PRN #30 tablet MDD 4 08/10/18 Morphine *Sr* [Ms Contin -] 15 mg PO BID #60 tablet.sa MDD 2 10/10/18 Nitrofurantoin Monohyd/M-Cryst [Macrobid -] 100 mg PO BID 10/25/18 Tizanidine HCl 4 mg PO BID 10/25/18 Family Disease History - Family Disease History Family Disease History: Other: Father ( (74) Lung cancer), Mother ( (82) DMII, ETOH dependence), Brother ( (61) Lung cancer), Sister ( (68) pancretic and liver disease), Son (1, healthy), Daughter ( 2, healthy) Review of Systems Findings/Remarks: see HPI - Review of Systems Constitutional: denies: No Symptoms, Chills, Diaphoresis, Fever, Lethargy, Loss of Appetite, Malaise, Night Sweats, Unintentional Wgt. Loss, Weakness, Other Eyes: denies: No Symptoms, Blind Spots, Blurred Vision, Double Vision, Eye Pain , Floaters, Photophobia, Recent Change in Vision, Other HENT: denies: No Symptoms, Difficult Swallowing, Ear Discharge, Ear Pain, Epistaxis, Gingival Bleeding, Hearing Loss, Mouth Swelling, Nasal Congestion, Ocular Prosthesis, Throat Pain, Toothache, Ringing in Ears, Other Neck: denies: No Symptoms, Decreased ROM, Lumps, Pain on Movement, Stiffness, Swollen Glands, Tenderness, Other Cardiovascular: denies: No Symptoms, Chest Pain, Edema, Palpitations, Shortness of Breath, Other Respiratory: denies: No Symptoms, Cough, Exercise Intolerance, Hemoptysis, Orthopnea, PND, Snoring, SOB, SOB on Exertion, Wheezing, Other Gastrointestinal: denies: No Symptoms, Abdominal Pain, Bloating, Constipation, Diarrhea, Dysphagia, Indigestion, Melena, Nausea, Rectal Bleeding, Vomiting, Vomiting Blood, Other Genitourinary: denies: No Symptoms, Burning, Discharge, Dysuria, Flank Pain, Frequency, Hematuria, Incontinence, Lesions, Menses, Pain, Testicular Mass, Testicular Pain, Testicular Swelling, Urgency, Vaginal Bleeding, Other Breasts: denies: No Symptoms Reported, See HPI, Breast Implants, Discharge from Nipple, Lumps, Pain, Skin Changes, Other Musculoskeletal: denies: No Symptoms, Back Pain, Crepitus, Decreased ROM, Extremity Pain, Joint Pain, Joint Swelling, Muscle Pain, Muscle Cramps, Muscle Weakness, Other Integumentary: denies: No Symptoms, Blister, Bruising, Change in Color, Eczema, Erythema, Incision, Lesions, Lump, Pallor, Pruritis, Rash, Wound, Other Neurological: denies: No Symptoms, Change in LOC, Change in Speech, Confusion, Dizziness, Headache, Incoordination, Numbness, Parasthesia, Pre-Existing Deficit , Seizure, Syncope, Tremors, Unsteady Gait, Weakness, Other Endocrine: denies: No Symptoms, Excessive Sweating, Flushing, Increased Hunger, Increased Thirst, Intolerance to Cold, Intolerance to Heat, Unexplained Weight Gain, Unexplained Weight Loss, Other Hematology/Lymphatic: denies: No Symptoms, Easily Bruised, Excessive Bleeding, Swollen Glands, Other Psychiatric: denies: No Symptoms, Altered Sleep Pattern, Anxiety, Depression, Hallucinations, Panic, Paranoia, Suicidal, Other - Risk Factors Known Risk Factors: Yes: Smoking Vital Signs: Vital Signs Temperature 99.5 F 10/26/18 02:00 Pulse Rate 109 H 10/26/18 06:00 Respiratory Rate 20 10/26/18 06:00 Blood Pressure 146/94 10/26/18 06:00 O2 Sat by Pulse Oximetry (%) 92 L 10/25/18 21:00 Constitutional: Yes: Cachectic, Thin Eyes: Yes: Conjunctiva Clear Respiratory: Yes: Other (clear anteriorly, no wheezing) Gastrointestinal: Yes: Soft (NT) Cardiovascular: Yes: Regular Rate and Rhythm JVD: No Carotid Bruit: No Heart Sounds: Yes: S1, S2 (RRR, No M/R/G) Musculoskeletal: Yes: Other (contracted.) Edema: No Peripheral Pulses WNL: Yes Neurological: Yes: Confusion - Other Data Labs, Other Data: CBC, BMP 10/26/18 06:15 INR, PTT INR 1.24 (0.83-1.09) H 10/25/18 15:24 Troponin, BNP 10/25/18 10/25/18 15:24 22:30 Troponin I 0.13 H 0.12 H Troponin, BNP 10/25/18 10/25/18 15:24 22:30 Troponin I 0.13 H 0.12 H Laboratory Tests 10/25/18 10/25/18 10/25/18 15:24 15:24 18:21 WBC 12.0 H Hgb 10.2 L Plt Count 588 H D Sodium Potassium BUN Creatinine Random Glucose Calcium Total Bilirubin AST Alkaline Phosphatase Troponin I 0.13 H Urine pH 5.0 Ur Specific Bick[place] 1.021 Urine Protein 1+ H Urine Glucose (UA) Negative Urine Ketones 1+ H Urine Blood 3+ H Urine Nitrite Positive H D Ur Leukocyte Esterase Trace Urine Bacteria (Auto) 1034.6 10/25/18 10/26/18 10/26/18 22:30 06:15 06:15 WBC Pending Hgb Pending Plt Count Pending Sodium 142 Potassium 4.3 BUN 22.3 H Creatinine 0.8 Random Glucose 110 H Calcium 9.8 Total Bilirubin 0.5 AST 16 Alkaline Phosphatase 101 Troponin I 0.12 H Urine pH Ur Specific [place] Urine Protein Urine Glucose (UA) Urine Ketones Urine Blood Urine Nitrite Ur Leukocyte Esterase Urine Bacteria (Auto) ST 107bpm, left axis, LAHB w/ poor R wave progression, inferior Qs. No change since 12/2017 Echo: Pending Imaging - Results X-ray: Image Reviewed EKG: Image Reviewed Assessment/Plan IMP: 1. Altered mental status, fever, suspected UTI 2. Multiple Sclerosis 3. Abnl ECG: cannot r/o old IWMI, Left axis, Poor R wave progression- unchanged from 12/2017 4. Borderline TnI elevation, most likely secondary to SIRS/ demand ischemia. Doubt ACS as enzymes flat and no acute ECG changes. REC: 1. Hydrate 2. Abx as per PMD, f/u cultures 3. Ortho evaluation. 4. Echo for wall motion/ EF assessment. 5. Currently in NSR, stable BP Will follow.
--- NOTE | 2018-10-26 08:43 | CON.ORTH ---
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 Gastrointestinal: Yes: GERD ...: No Musculoskeletal: Yes: Osteoarthritis (s/p R hip fracture 12/19), Other (chronic neuropathic pain) - Alcohol/Substance Use Hx Alcohol Use: No History of Substance Use: reports: None - Smoking History Smoking history: Current some day smoker Have you smoked in the past 12 months: Yes Aproximately how many cigarettes per day: 7 - Social History Usual Living Arrangement: With Child ADL: Family Assistance Occupation: , now History of Recent Travel: No Home Medications - Allergies Allergies/Adverse Reactions: Allergies Allergy/AdvReac Type Severity Reaction Status Date / Time strawberry Allergy Verified 10/05/18 22:06 - Home Medications Home Medications: Ambulatory Orders Cyclobenzaprine HCl [Flexeril 10 mg] 10 mg PO TID PRN 07/30/18 Gabapentin 100 mg PO TID PRN 07/30/18 Zolpidem Tartrate [Ambien] 10 mg PO HS 07/30/18 oxyCODONE HCL [Roxicodone -] 5 mg PO Q6H PRN #30 tablet MDD 4 08/10/18 Morphine *Sr* [Ms Contin -] 15 mg PO BID #60 tablet.sa MDD 2 10/10/18 Nitrofurantoin Monohyd/M-Cryst [Macrobid -] 100 mg PO BID 10/25/18 Tizanidine HCl 4 mg PO BID 10/25/18 Family Disease History - Family Disease History Family Disease History: Other: Father ( (74) Lung cancer), Mother ( (82) DMII, ETOH dependence), Brother ( (61) Lung cancer), Sister ( (68) pancretic and liver disease), Son (1, healthy), Daughter ( 2, healthy) Physical Exam for Ortho Vital Signs: Vital Signs Temperature 99.5 F 10/26/18 02:00 Pulse Rate 109 H 10/26/18 06:00 Respiratory Rate 20 10/26/18 06:00 Blood Pressure 146/94 10/26/18 06:00 O2 Sat by Pulse Oximetry (%) 92 L 10/25/18 21:00 Labs: CBC, BMP 10/26/18 06:15 10/26/18 06:15 INR, PTT INR 1.24 (0.83-1.09) H 10/25/18 15:24 - Lower Extremity Knee: Yes: Right, Other (+ contracture, minimal ttp, calf soft, nt, nvi) Assessment/Plan 73 year old female, with a significant PMH of MS, perforated ulcer, and right R ORIF, who presents to the emergency department with altered mental status, as per daughter. The daughter, on the bedside, notes that she has been experiencing waxing waning bouts of mental confusion, and has been having odd speech for the past 6 days. As per daughter, the patient has a recent history of right knee pain, which has been evaluated by her orthopedic, but has recently had some pus coming out of it. The daughter also states that the patient has been unable to ambulate and hasn't been herself due to extensive frequent orthopedic issues. She has been followed by Dr. López while she was in [facility]. a/p- right distal femur fx- 3-4 weeks out [facility] PT for ROM exercises pain control will follow d/w Dr. Erazo
--- NOTE | 2018-10-26 09:09 | HP ---
Admitting History and Physical - Primary Care Physician PCP: Mak Hui - Admission Chief Complaint: altered mentation History of Present Illness: ER history History of Present Illness Initial Comments: 10/25/18 16:03 The patient is a 73 year old female, with a significant PMH of MS, perforated ulcer, and right R ORIF, who presents to the emergency department with altered mental status, as per daughter. The daughter, on the bedside, notes that she has been experiencing waxing waning bouts of mental confusion, and has been having odd speech for the past 6 days. As per daughter, the patient has a recent history of right knee pain, which has been evaluated by her orthopedic, but has recently had some pus coming out of it. The daughter also states that the patient has been unable to ambulate and hasn't been herself due to extensive frequent orthopedic issues. The patient denies chest pain, shortness of breath. Denies fever, chills, nausea , vomiting, diarrhea and constipation. Denies dysuria, frequency, urgency and hematuria. Denies any other symptoms. Allergies: Strawberries Past surgical history: Right hip replacement Social history: Denies tobacco use, alcohol use or illicit drug use. patient examined by pr telemetry-- Found to have urinary tract infection On IV antibiotics Patient complains of pain Awake, history not reliable History Source: Medical Record Limitations to Obtaining History: Poor Historian - Past Medical History [employer]: Yes: Multiple Sclerosis Gastrointestinal: Yes: GERD ...: No Musculoskeletal: Yes: Osteoarthritis (s/p R hip fracture 12/19), Other (chronic neuropathic pain) - Smoking History Smoking history: Current some day smoker Have you smoked in the past 12 months: Yes Aproximately how many cigarettes per day: 7 - Alcohol/Substance Use Hx Alcohol Use: No History of Substance Use: reports: None - Social History ADL: Family Assistance Occupation: , now History of Recent Travel: No Home Medications - Allergies Allergies/Adverse Reactions: Allergies Allergy/AdvReac Type Severity Reaction Status Date / Time strawberry Allergy Verified 10/05/18 22:06 - Home Medications Home Medications: Ambulatory Orders Cyclobenzaprine HCl [Flexeril 10 mg] 10 mg PO TID PRN 07/30/18 Gabapentin 100 mg PO TID PRN 07/30/18 Zolpidem Tartrate [Ambien] 10 mg PO HS 07/30/18 oxyCODONE HCL [Roxicodone -] 5 mg PO Q6H PRN #30 tablet MDD 4 08/10/18 Morphine *Sr* [Ms Contin -] 15 mg PO BID #60 tablet.sa MDD 2 10/10/18 Nitrofurantoin Monohyd/M-Cryst [Macrobid -] 100 mg PO BID 10/25/18 Tizanidine HCl 4 mg PO BID 10/25/18 Family Disease History - Family Disease History Family Disease History: Other: Father ( (74) Lung cancer), Mother ( (82) DMII, ETOH dependence), Brother ( (61) Lung cancer), Sister ( (68) pancretic and liver disease), Son (1, healthy), Daughter ( 2, healthy) Physical Examination Vital Signs: Vital Signs Temperature 99.5 F 10/26/18 02:00 Pulse Rate 109 H 10/26/18 06:00 Respiratory Rate 20 10/26/18 06:00 Blood Pressure 146/94 10/26/18 06:00 O2 Sat by Pulse Oximetry (%) 92 L 10/25/18 21:00 Constitutional: Yes: Mild Distress Cardiovascular: Yes: Regular Rate and Rhythm Respiratory: Yes: CTA Bilaterally Gastrointestinal: Yes: Normal Bowel Sounds, Soft. No: Tenderness Extremities: Yes: Other (contracted extremities bilateral, more contraction on the right knee compared to left) Edema: Yes (Right knee) Wound/Incision: Yes: Other (pressure ulcer noted on the underside of right thigh , sloughing noted) Labs: CBC, BMP 10/26/18 06:15 10/26/18 06:15 Imaging - Results Chest X-ray: Image Reviewed (no infiltrate) Cat Scan: Report Reviewed (head CT negative) EKG: Image Reviewed (normal sinus) Problem List - Problems (1) Elevated troponin Code(s): R74.8 - ABNORMAL LEVELS OF OTHER SERUM ENZYMES (2) Knee pain Code(s): M25.569 - PAIN IN UNSPECIFIED KNEE (3) UTI (urinary tract infection) Code(s): N39.0 - URINARY TRACT INFECTION, SITE NOT SPECIFIED (4) HTN (hypertension) Code(s): I10 - ESSENTIAL (PRIMARY) HYPERTENSION (5) Multiple sclerosis Code(s): G35 - MULTIPLE SCLEROSIS Assessment/Plan plan Altered mentation likely due to UTI, narcotics --Discontinue MS Contin -- On IV ceftriaxone --Cultures pending Troponins are flat Cardiology evaluation noted Spoke with orthopedic---- immobilizer splint is placed on the left knee even though the fracture is on the right knee Reason for this is immobilizer was removed on the right knee as it caused a pressure ulcer on the right thigh Immobilizer was placed in the usp by orthopedics on the left knee to help keep it straight and not edgardo. The right knee is fully contracted and cannot be extended as per orthopedics DVT prophylaxis Continue telemetry
[2018-10-26] MEDS ORDERED: cefTRIAXone SODIUM 1 GM VIAL ONE (09:45)
[2018-10-26] MEDS: NICOTINE 21 MG/24 HOURS TOPICAL PATCH TD SCH ×2 (10:10→11:22)
[2018-10-26] MEDS: DOCUSATE SODIUM 100 MG CAPSULE (FP) PO SCH ×3 (10:10→22:58)
[2018-10-26] MEDS: CYCLOBENZAPRINE HCL 10 MG TABLET (FP) PO PRN ×3 (10:11→22:58)
[2018-10-26] MEDS: ENOXAPARIN NA (PORCINE) 40 MG/0.4 ML DISP.SYRIN SQ SCH ×2 (10:11→10:44)
[2018-10-26] MEDS: ASCORBIC ACID 500 MG TABLET (FP) PO SCH ×2 (10:11→11:22)
[2018-10-26] MEDS: ASPIRIN 81 MG CHEWABLE TABLETS PO SCH ×2 (10:11→11:21)
--- NOTE | 2018-10-26 10:31 | ECHO ---
Name: DONAL MANN Exam:Adult Echocardiogram Study Date: 10/26/2018 08:43 AM Age: 73 yrs Reason For Study: fever, altered mental status, +TNI Height: 67 in Weight: 140 lb BSA: 1.7 m2 MMode/2D Measurements & Calculations LVOT diam: 2.1 cm Doppler Measurements & Calculations PA V2 max: 109.9 cm/sec PA max P.8 mmHg Procedure There was technical limitations during this study due to uncooperative patient. Left Ventricle Left ventricular systolic function is grossly normal. The transmitral spectral Doppler flow pattern i s normal for age. Regional wall motion abnormalities cannot be excluded due to limited visualization. Right Ventricle The right ventricle is grossly normal size. The right ventricular systolic function is grossly normal . Atria Normal left and right atrial size and function. Mitral Valve The mitral valve is grossly normal. There is no mitral valve stenosis. There is trace to mild mitral regurgitation. Tricuspid Valve The tricuspid valve is normal in structure and function. There is Trace to mild tricuspid regurgitati on. Aortic Valve The aortic valve opens well. No hemodynamically significant valvular aortic stenosis. Pulmonic Valve The pulmonic valve is normal in structure and function. Pericardium/Pleura There is no pericardial effusion. Interpretation Summary There was technical limitations during this study due to uncooperative patient. Left ventricular systolic function is grossly normal. Regional wall motion abnormalities cannot be excluded due to limited visualization. There is trace to mild mitral regurgitation. There is no pericardial effusion. MD Dial *[place] 10/26/2018 10:30 AM
[2018-10-26] MEDS: CEFTRIAXONE 1 GM in DEXTROSE 5%-WATER - 50 ML IVPB SCH (11:22)
[2018-10-26] MEDS: COLLAGENASE CLOSTRIDIUM HIST. 30 GRAMS TUBE TP SCH (11:22)
--- NOTE | 2018-10-26 14:18 | EKG ---
Test Reason : Blood Pressure : / mmHG Vent. Rate : 107 BPM Atrial Rate : 107 BPM P-R Int : 142 ms QRS Dur : 098 ms QT Int : 344 ms P-R-T Axes : 050 -45 074 degrees QTc Int : 459 ms SINUS TACHYCARDIA LEFT AXIS DEVIATION LEFT ANTERIOR HEMIBLOCK ABNORMAL ECG Confirmed by SCARLET CARTER MD ([id number]) on 10/26/2018 2:18:53 PM Referred By: Confirmed By:SCARLET CARTER MD
--- NOTE | 2018-10-26 15:27 | PN ---
Progress Note (short form) - Note Progress Note: History d/w daughter Patricia; patient has been not "herself" since the hip fracture. Mostly in rehab but having a difficult time ambulating. Prior to admission, family noted she was not at baseline mental status. Here we have noted low grade fever, mild increased WBC which seems to be likely from UTI. Also, mildly hypoxic with borderline TnI and relatively clear CXR. Echo TDS, RV is not well visualized and pt was not able to lay still for a complete study. This was d/w PMD and daughter, important to r/o PE. Will hydrate gently and obtain CTA Follow renal fxn closely.
[2018-10-26] MEDS: GABAPENTIN 100 MG CAPSULE (FP) PO PRN ×2 (15:44→22:58)
[2018-10-26] MEDS: SODIUM CHLORIDE 1,000 ML IV SCH (15:44)
[2018-10-26] MEDS ORDERED: diazePAM 5 MG TABLET PO STA (16:22)
[2018-10-26] MEDS ORDERED: ENOXAPARIN NA (PORCINE) 60 MG/0.6 ML DISP.SYRIN SQ SCH (22:15)
[2018-10-27] MEDS: ACETAMINOPHEN 325 MG TABLET (FP) PO PRN ×2 (03:33→22:15)
[2018-10-27] MEDS: oxyCODONE HCL 5 MG TABLET PO PRN ×3 (03:37→18:02)
[2018-10-27 06:54] LABS: HEMOGLOBIN 8.8 GM/dL (10.7-15.3); MCH 30.2 pg (25.7-33.7); MCHC 33.9 g/dl (32.0-36.0); MEAN CELL VOLUME 89.1 fl (80-96); MEAN PLT VOLUME 8.2 fl (7.5-11.1); PLATELET COUNT 545 K/MM3 (134-434); RBC 2.92 M/mm3 (3.60-5.2); RDW 14.2 % (11.6-15.6)
[2018-10-27 07:31] LABS: ALBUMIN 2.4 g/dl (3.4-5.0); BILIRUBIN,TOTAL 0.4 mg/dL (0.2-1); BLOOD UREA NITROGEN 22.2 mg/dL (7-18); CALCIUM 9.2 mg/dL (8.5-10.1); CREATININE 0.9 mg/dL (0.55-1.3); TOT PROT 6.6 g/dl (6.4-8.2)
--- NOTE | 2018-10-27 08:48 | PN ---
Progress Note, Physician Chief Complaint: altered MS History of Present Illness: CT diagnosed PE overnight, lovenox dose given. lethargic this am, opens eyes to loud voice, not communicative b/c falls back to sleep. appears comfortable family states pt has been bed- and WC-bound, with PT to strengthen legs while in rehab. - Current Medication List Current Medications: Active Medications Acetaminophen (Tylenol -) 650 mg PO Q6H PRN PRN Reason: PAIN OR FEVER Last Admin: 10/27/18 03:33 Dose: 650 mg Ascorbic Acid (Vitamin C -) 500 mg PO DAILY COUNTS INCLUDE 234 BEDS AT THE [facility] Last Admin: 10/26/18 11:22 Dose: 500 mg Aspirin (Asa -) 81 mg PO DAILY COUNTS INCLUDE 234 BEDS AT THE [facility] Last Admin: 10/26/18 11:21 Dose: 81 mg Collagenase (Santyl -) 1 applic TP DAILY COUNTS INCLUDE 234 BEDS AT THE [facility]; Protocol Last Admin: 10/26/18 11:22 Dose: 1 applic Cyclobenzaprine HCl (Flexeril -) 10 mg PO TID PRN PRN Reason: MUSCLE SPASMS Last Admin: 10/26/18 22:58 Dose: 10 mg Docusate Sodium (Colace -) 100 mg PO BID COUNTS INCLUDE 234 BEDS AT THE [facility] Last Admin: 10/26/18 22:58 Dose: 100 mg Enoxaparin Sodium (Lovenox -) 60 mg SQ BID COUNTS INCLUDE 234 BEDS AT THE [facility] Last Admin: 10/26/18 22:58 Dose: 60 mg Gabapentin (Neurontin -) 100 mg PO TID PRN PRN Reason: PAIN Last Admin: 10/26/18 22:58 Dose: 100 mg Ceftriaxone Sodium 1 gm/ (Dextrose) 50 mls @ 100 mls/hr IVPB DAILY COUNTS INCLUDE 234 BEDS AT THE [facility] Last Admin: 10/26/18 11:22 Dose: 100 mls/hr Sodium Chloride (Normal Saline -) 1,000 mls @ 60 mls/hr IV ASDIR COUNTS INCLUDE 234 BEDS AT THE [facility] Last Admin: 10/26/18 15:44 Dose: 60 mls/hr Nicotine (Nicoderm Patch -) 21 mg TD DAILY COUNTS INCLUDE 234 BEDS AT THE [facility] Last Admin: 10/26/18 11:22 Dose: 21 mg Oxycodone HCl (Roxicodone -) 5 mg PO Q6H PRN PRN Reason: PAIN LEVEL 6-10 Last Admin: 10/27/18 03:37 Dose: 5 mg - Objective Vital Signs: Vital Signs Temperature 99.9 F H 10/27/18 02:00 Pulse Rate 99 H 10/27/18 02:00 Respiratory Rate 20 10/27/18 02:00 Blood Pressure 132/63 10/27/18 02:00 O2 Sat by Pulse Oximetry (%) 95 10/26/18 21:00 Constitutional: Yes: Well Nourished, No Distress, Calm Cardiovascular: Yes: Regular Rate and Rhythm, S1, S2. No: JVD, Gallop, Murmur Respiratory: Yes: Regular, CTA Bilaterally (not deep breaths on request). No: Accessory Muscle Use, Rales, Wheezes Extremities: No: Cold Edema: No Neurological: Yes: Lethargy. No: Seizure Psychiatric: No: Agitated Labs: CBC, BMP 10/27/18 06:02 10/27/18 06:02 INR, PTT INR 1.24 (0.83-1.09) H 10/25/18 15:24 Assessment/Plan Echo: TDS. nl LVSF. nl RV size/fxn. mild MR/TR tele: NSR IMP: 1. RLL subsegmental PE--AC started. no clinical RV strain, hemodynamically stable 2. UTI, on abx 3. CT findings c/w ? acute/subacute renal infarction vs pyelo 4. Multiple Sclerosis 5. Abnl ECG: cannot r/o old IWMI, Left axis, Poor R wave progression- unchanged from 12/2017. indeterminate-range TnI elevation, flat trend (0.1 x 2), secondary to PE/demand ischemia. 6. leukocytosis, thrombocytosis 7. anemia REC: -lovenox started overnight, one dose received (at 11 pm). will transition to Eliquis (PE tx dose: 10 po bid x 7 days, then decrease to 5 bid) -hgb drifting down, suspect this is dilutional as pt receiving IVF and albumin trending down as well. recent baseline hgb was 8s on prior hosp discharge 10/19. monitor H/H trend on AC. check stool occult blood, ferritin and iron panel -hydrate for now, post-contrast -UTI tx per pmd -rec heme input regarding duration of AC: seems like provoked VTE, pt with femur fracture 10/05 treated non-operatively, underlying MS, has been immobile/ sedentary--however per dtr at bedside, there is high likelihood she will never be ambulatory b/c of severity of her MS
[2018-10-27] MEDS: APIXABAN 5 MG TABLET PO SCH ×2 (10:34→22:15)
[2018-10-27] MEDS: ASCORBIC ACID 500 MG TABLET (FP) PO SCH (10:34)
[2018-10-27] MEDS: ASPIRIN 81 MG CHEWABLE TABLETS PO SCH (10:34)
[2018-10-27] MEDS: NICOTINE 21 MG/24 HOURS TOPICAL PATCH TD SCH (10:35)
[2018-10-27] MEDS: DOCUSATE SODIUM 100 MG CAPSULE (FP) PO SCH ×2 (10:35→22:15)
[2018-10-27] MEDS ORDERED: cefTRIAXone SODIUM 1 GM VIAL ONE (10:51)
[2018-10-27] MEDS ORDERED: DEXTROSE 5%-WATER - 50 ML IVPB ONE (10:51)
[2018-10-27] MEDS: CEFTRIAXONE 1 GM in DEXTROSE 5%-WATER - 50 ML IVPB SCH (10:57)
--- NOTE | 2018-10-27 12:11 | PN ---
Progress Note, Physician History of Present Illness: 73 year old female, with a significant PMH of MS, perforated ulcer, and right R ORIF, who presents to the emergency department with altered mental status, as per daughter. The daughter, on the bedside, notes that she has been experiencing waxing waning bouts of mental confusion, and has been having odd speech for the past 6 days. As per daughter, the patient has a recent history of right knee pain, which has been evaluated by her orthopedic, but has recently had some pus coming out of it. The daughter also states that the patient has been unable to ambulate and hasn't been herself due to extensive frequent orthopedic issues. The patient denies chest pain, shortness of breath. Denies fever, chills, nausea , vomiting, diarrhea and constipation. Denies dysuria, frequency, urgency and hematuria. Denies any other symptoms. - Current Medication List Current Medications: Active Medications Acetaminophen (Tylenol -) 650 mg PO Q6H PRN PRN Reason: PAIN OR FEVER Last Admin: 10/27/18 03:33 Dose: 650 mg Apixaban (Eliquis -) 10 mg PO BID [facility] Last Admin: 10/27/18 10:34 Dose: 10 mg Ascorbic Acid (Vitamin C -) 500 mg PO DAILY [facility] Last Admin: 10/27/18 10:34 Dose: 500 mg Aspirin (Asa -) 81 mg PO DAILY [facility] Last Admin: 10/27/18 10:34 Dose: 81 mg Collagenase (Santyl -) 1 applic TP DAILY [facility]; Protocol Last Admin: 10/26/18 11:22 Dose: 1 applic Cyclobenzaprine HCl (Flexeril -) 10 mg PO TID PRN PRN Reason: MUSCLE SPASMS Last Admin: 10/26/18 22:58 Dose: 10 mg Docusate Sodium (Colace -) 100 mg PO BID [facility] Last Admin: 10/27/18 10:35 Dose: 100 mg Gabapentin (Neurontin -) 100 mg PO TID PRN PRN Reason: PAIN Last Admin: 10/26/18 22:58 Dose: 100 mg Ceftriaxone Sodium 1 gm/ (Dextrose) 50 mls @ 100 mls/hr IVPB DAILY [facility] Last Admin: 10/27/18 10:57 Dose: 100 mls/hr Sodium Chloride (Normal Saline -) 1,000 mls @ 60 mls/hr IV ASDIR [facility] Last Admin: 10/26/18 15:44 Dose: 60 mls/hr Nicotine (Nicoderm Patch -) 21 mg TD DAILY [facility] Last Admin: 10/27/18 10:35 Dose: 21 mg Oxycodone HCl (Roxicodone -) 5 mg PO Q6H PRN PRN Reason: PAIN LEVEL 6-10 Last Admin: 10/27/18 03:37 Dose: 5 mg - Objective Vital Signs: Vital Signs Temperature 98.2 F 10/27/18 09:00 Pulse Rate 85 10/27/18 09:00 Respiratory Rate 20 10/27/18 09:00 Blood Pressure 119/66 10/27/18 09:00 O2 Sat by Pulse Oximetry (%) 95 10/27/18 09:00 Constitutional: Yes: No Distress Eyes: Yes: Conjunctiva Clear, EOM Intact HENT: Yes: Atraumatic, Normocephalic Neck: Yes: Supple, Trachea Midline Cardiovascular: Yes: Regular Rate and Rhythm, S1, S2 Respiratory: Yes: Regular, CTA Bilaterally Gastrointestinal: Yes: Normal Bowel Sounds, Soft Edema: No Labs: CBC, BMP 10/27/18 06:02 10/27/18 06:02 INR, PTT INR 1.24 (0.83-1.09) H 10/25/18 15:24 Problem List - Problems (1) Altered mental status Code(s): R41.82 - ALTERED MENTAL STATUS, UNSPECIFIED (2) UTI (urinary tract infection) Code(s): N39.0 - URINARY TRACT INFECTION, SITE NOT SPECIFIED (3) Elevated troponin Code(s): R74.8 - ABNORMAL LEVELS OF OTHER SERUM ENZYMES (4) Knee pain Code(s): M25.569 - PAIN IN UNSPECIFIED KNEE (5) Elevated alkaline phosphatase level Code(s): R74.8 - ABNORMAL LEVELS OF OTHER SERUM ENZYMES (6) Fracture of distal end of femur Code(s): S72.409A - UNSP FRACTURE OF LOWER END OF UNSP FEMUR, INIT FOR CLOS FX (7) HTN (hypertension) Code(s): I10 - ESSENTIAL (PRIMARY) HYPERTENSION (8) Multiple sclerosis Code(s): G35 - MULTIPLE SCLEROSIS (9) Anemia Code(s): D64.9 - ANEMIA, UNSPECIFIED (10) Pulmonary emboli Code(s): I26.99 - OTHER PULMONARY EMBOLISM WITHOUT ACUTE COR PULMONALE Assessment/Plan (1) Altered mental status Code(s): R41.82 - ALTERED MENTAL STATUS, UNSPECIFIED (2) UTI (urinary tract infection) Code(s): N39.0 - URINARY TRACT INFECTION, SITE NOT SPECIFIED (3) Elevated troponin Code(s): R74.8 - ABNORMAL LEVELS OF OTHER SERUM ENZYMES (4) Knee pain Code(s): M25.569 - PAIN IN UNSPECIFIED KNEE (5) Elevated alkaline phosphatase level Code(s): R74.8 - ABNORMAL LEVELS OF OTHER SERUM ENZYMES (6) Fracture of distal end of femur Code(s): S72.409A - UNSP FRACTURE OF LOWER END OF UNSP FEMUR, INIT FOR CLOS FX (7) HTN (hypertension) Code(s): I10 - ESSENTIAL (PRIMARY) HYPERTENSION (8) Multiple sclerosis Code(s): G35 - MULTIPLE SCLEROSIS (9) Anemia Code(s): D64.9 - ANEMIA, UNSPECIFIED 10) PE: On Anticoagulation
[2018-10-27] MEDS: COLLAGENASE CLOSTRIDIUM HIST. 30 GRAMS TUBE TP SCH (12:33)
[2018-10-27] MEDS: CYCLOBENZAPRINE HCL 10 MG TABLET (FP) PO PRN ×2 (14:33→22:17)
[2018-10-27] MEDS: SODIUM CHLORIDE 1,000 ML IV SCH (15:12)
[2018-10-27] MEDS: GABAPENTIN 100 MG CAPSULE (FP) PO PRN (17:13)
[2018-10-28] MEDS: GABAPENTIN 100 MG CAPSULE (FP) PO PRN ×3 (02:31→21:47)
[2018-10-28] MEDS: oxyCODONE HCL 5 MG TABLET PO PRN ×4 (02:31→23:46)
[2018-10-28 07:03] LABS: BASO % 0.6 % (0-2.0); EOS % 3.4 % (0-4.5); HEMATOCRIT 26.7 % (32.4-45.2); HEMOGLOBIN 8.7 GM/dL (10.7-15.3); LYMPH % 28.7 % (8-40); MCH 29.3 pg (25.7-33.7); MCHC 32.7 g/dl (32.0-36.0); MEAN CELL VOLUME 89.5 fl (80-96); MEAN PLT VOLUME 8.1 fl (7.5-11.1); MONO % 8.1 % (3.8-10.2); NEUT % 59.2 % (42.8-82.8); PLATELET COUNT 542 K/MM3 (134-434); RBC 2.98 M/mm3 (3.60-5.2); RDW 14.5 % (11.6-15.6); WHITE BLOOD COUNT 8.4 K/mm3 (4.0-10.0)
[2018-10-28 07:13] LABS: BLOOD UREA NITROGEN 17.4 mg/dL (7-18); CREATININE 0.8 mg/dL (0.55-1.3); POTASSIUM 4.3 mmol/L (3.5-5.1)
--- NOTE | 2018-10-28 08:49 | PN ---
Progress Note, Physician Chief Complaint: tachy History of Present Illness: feels well except pain in legs. denies cp, sob. denies palpit, presyncope - Current Medication List Current Medications: Active Medications Acetaminophen (Tylenol -) 650 mg PO Q6H PRN PRN Reason: PAIN OR FEVER Last Admin: 10/27/18 22:15 Dose: 650 mg Apixaban (Eliquis -) 10 mg PO BID [facility] Last Admin: 10/27/18 22:15 Dose: 10 mg Ascorbic Acid (Vitamin C -) 500 mg PO DAILY [facility] Last Admin: 10/27/18 10:34 Dose: 500 mg Aspirin (Asa -) 81 mg PO DAILY [facility] Last Admin: 10/27/18 10:34 Dose: 81 mg Collagenase (Santyl -) 1 applic TP DAILY [facility]; Protocol Last Admin: 10/27/18 12:33 Dose: 1 applic Cyclobenzaprine HCl (Flexeril -) 10 mg PO TID PRN PRN Reason: MUSCLE SPASMS Last Admin: 10/27/18 22:17 Dose: 10 mg Docusate Sodium (Colace -) 100 mg PO BID [facility] Last Admin: 10/27/18 22:15 Dose: 100 mg Gabapentin (Neurontin -) 100 mg PO TID PRN PRN Reason: PAIN Last Admin: 10/28/18 02:31 Dose: 100 mg Ceftriaxone Sodium 1 gm/ (Dextrose) 50 mls @ 100 mls/hr IVPB DAILY [facility] Last Admin: 10/27/18 10:57 Dose: 100 mls/hr Sodium Chloride (Normal Saline -) 1,000 mls @ 60 mls/hr IV ASDIR [facility] Last Admin: 10/27/18 15:12 Dose: 60 mls/hr Nicotine (Nicoderm Patch -) 21 mg TD DAILY [facility] Last Admin: 10/27/18 10:35 Dose: 21 mg Oxycodone HCl (Roxicodone -) 5 mg PO Q6H PRN PRN Reason: PAIN LEVEL 6-10 Last Admin: 10/28/18 02:31 Dose: 5 mg - Objective Vital Signs: Vital Signs Temperature 98.4 F 10/28/18 06:00 Pulse Rate 93 H 10/28/18 06:00 Respiratory Rate 20 10/28/18 06:00 Blood Pressure 111/46 L 10/28/18 06:00 O2 Sat by Pulse Oximetry (%) 96 10/27/18 21:00 Constitutional: Yes: Well Nourished, No Distress, Calm Cardiovascular: Yes: Regular Rate and Rhythm, S1, S2. No: Gallop, Murmur Respiratory: Yes: Regular, CTA Bilaterally. No: Accessory Muscle Use, Rales, Wheezes Extremities: No: Cold Edema: No Neurological: Yes: Alert. No: Seizure Psychiatric: No: Agitated Labs: CBC, BMP 10/28/18 05:59 10/28/18 05:59 INR, PTT INR 1.24 (0.83-1.09) H 10/25/18 15:24 Assessment/Plan Echo: TDS. nl LVSF. nl RV size/fxn. mild MR/TR tele: NSR, brief run (10 beats) SVT IMP: 1. small PE (RLL subsegmental)--AC started. -->sinus tach secondary to PE 2. UTI, on abx 3. CT findings c/w ? acute/subacute renal infarction vs pyelo 4. Multiple Sclerosis 5. Abnl ECG: cannot r/o old IWMI, Left axis, Poor R wave progression- unchanged from 12/2017. indeterminate-range TnI elevation, flat trend (0.1 x 2), secondary to PE/demand ischemia. 6. leukocytosis, thrombocytosis 7. anemia--suspect dilutional component here, currently at prior [facility] REC: -continue Eliquis (PE tx dose: 10 po bid x 7 days, then decrease to 5 bid) -h/h stable at prior baseline -no clinical RV strain, hemodynamically stable--d/c telemetry -no AVN blockers directed at sinus tach are necessary, as this should gradually resolved within next few days (PE tx, infection tx) -UTI tx per pmd -rec heme input regarding duration of AC: seems like provoked VTE, pt with femur fracture 10/05 treated non-operatively, underlying MS, has been immobile/ sedentary--however per dtr at bedside, there is high likelihood she will never be ambulatory b/c of severity of her MS
[2018-10-28] MEDS ORDERED: DEXTROSE 5%-WATER - 50 ML IVPB ONE (08:53)
[2018-10-28] MEDS ORDERED: cefTRIAXone SODIUM 1 GM VIAL ONE (08:53)
[2018-10-28] MEDS: ASPIRIN 81 MG CHEWABLE TABLETS PO SCH (09:20)
[2018-10-28] MEDS: APIXABAN 5 MG TABLET PO SCH ×2 (09:20→21:46)
[2018-10-28] MEDS: DOCUSATE SODIUM 100 MG CAPSULE (FP) PO SCH ×2 (09:20→21:46)
[2018-10-28] MEDS: ACETAMINOPHEN 325 MG TABLET (FP) PO PRN ×3 (09:20→23:46)
[2018-10-28] MEDS: ASCORBIC ACID 500 MG TABLET (FP) PO SCH (09:20)
[2018-10-28] MEDS: CEFTRIAXONE 1 GM in DEXTROSE 5%-WATER - 50 ML IVPB SCH (09:21)
[2018-10-28] MEDS: NICOTINE 21 MG/24 HOURS TOPICAL PATCH TD SCH (09:21)
[2018-10-28] MEDS: COLLAGENASE CLOSTRIDIUM HIST. 30 GRAMS TUBE TP SCH (09:21)
[2018-10-28] MEDS: CYCLOBENZAPRINE HCL 10 MG TABLET (FP) PO PRN ×2 (12:51→21:47)
[2018-10-28] MEDS: SODIUM CHLORIDE 1,000 ML IV SCH (15:21)
--- NOTE | 2018-10-28 16:35 | PN ---
Progress Note, Physician History of Present Illness: 73 year old female, with a significant PMH of MS, perforated ulcer, and right R ORIF, who presents to the emergency department with altered mental status, as per daughter. The daughter, on the bedside, notes that she has been experiencing waxing waning bouts of mental confusion, and has been having odd speech for the past 6 days. As per daughter, the patient has a recent history of right knee pain, which has been evaluated by her orthopedic, but has recently had some pus coming out of it. The daughter also states that the patient has been unable to ambulate and hasn't been herself due to extensive frequent orthopedic issues. The patient denies chest pain, shortness of breath. Denies fever, chills, nausea , vomiting, diarrhea and constipation. Denies dysuria, frequency, urgency and hematuria. Denies any other symptoms. Pt is better oriented No Fever No SOB\No chest pain No palpiataions - Current Medication List Current Medications: Active Medications Acetaminophen (Tylenol -) 650 mg PO Q6H PRN PRN Reason: PAIN OR FEVER Last Admin: 10/28/18 16:23 Dose: 650 mg Apixaban (Eliquis -) 10 mg PO BID [facility] Last Admin: 10/28/18 09:20 Dose: 10 mg Ascorbic Acid (Vitamin C -) 500 mg PO DAILY [facility] Last Admin: 10/28/18 09:20 Dose: 500 mg Aspirin (Asa -) 81 mg PO DAILY [facility] Last Admin: 10/28/18 09:20 Dose: 81 mg Collagenase (Santyl -) 1 applic TP DAILY [facility]; Protocol Last Admin: 10/28/18 09:21 Dose: 1 applic Cyclobenzaprine HCl (Flexeril -) 10 mg PO TID PRN PRN Reason: MUSCLE SPASMS Last Admin: 10/28/18 12:51 Dose: 10 mg Docusate Sodium (Colace -) 100 mg PO BID [facility] Last Admin: 10/28/18 09:20 Dose: 100 mg Gabapentin (Neurontin -) 100 mg PO TID PRN PRN Reason: PAIN Last Admin: 10/28/18 12:51 Dose: 100 mg Ceftriaxone Sodium 1 gm/ (Dextrose) 50 mls @ 100 mls/hr IVPB DAILY [facility] Last Admin: 10/28/18 09:21 Dose: 100 mls/hr Sodium Chloride (Normal Saline -) 1,000 mls @ 60 mls/hr IV ASDIR [facility] Last Admin: 10/28/18 15:21 Dose: 60 mls/hr Nicotine (Nicoderm Patch -) 21 mg TD DAILY [facility] Last Admin: 10/28/18 09:21 Dose: 21 mg Oxycodone HCl (Roxicodone -) 5 mg PO Q6H PRN PRN Reason: PAIN LEVEL 6-10 Last Admin: 10/28/18 16:23 Dose: 5 mg - Objective Vital Signs: Vital Signs Temperature 98.6 F 10/28/18 13:55 Pulse Rate 92 H 10/28/18 13:55 Respiratory Rate 20 10/28/18 13:55 Blood Pressure 97/63 10/28/18 13:55 O2 Sat by Pulse Oximetry (%) 96 10/28/18 09:00 Constitutional: Yes: No Distress Eyes: Yes: Conjunctiva Clear, EOM Intact HENT: Yes: Atraumatic, Normocephalic Neck: Yes: Supple, Trachea Midline Cardiovascular: Yes: Regular Rate and Rhythm, S1, S2 Respiratory: Yes: Regular, CTA Bilaterally Gastrointestinal: Yes: Normal Bowel Sounds, Soft Edema: No Peripheral Pulses WNL: Yes Neurological: Yes: Alert, Oriented, Cran Nerves II-XII Intact Psychiatric: Yes: Alert, Oriented Labs: CBC, BMP 10/28/18 05:59 10/28/18 05:59 INR, PTT INR 1.24 (0.83-1.09) H 10/25/18 15:24 Problem List - Problems (1) Altered mental status Code(s): R41.82 - ALTERED MENTAL STATUS, UNSPECIFIED (2) UTI (urinary tract infection) Code(s): N39.0 - URINARY TRACT INFECTION, SITE NOT SPECIFIED (3) Elevated troponin Code(s): R74.8 - ABNORMAL LEVELS OF OTHER SERUM ENZYMES (4) Knee pain Code(s): M25.569 - PAIN IN UNSPECIFIED KNEE (5) Elevated alkaline phosphatase level Code(s): R74.8 - ABNORMAL LEVELS OF OTHER SERUM ENZYMES (6) Fracture of distal end of femur Code(s): S72.409A - UNSP FRACTURE OF LOWER END OF UNSP FEMUR, INIT FOR CLOS FX (7) HTN (hypertension) Code(s): I10 - ESSENTIAL (PRIMARY) HYPERTENSION (8) Multiple sclerosis Code(s): G35 - MULTIPLE SCLEROSIS (9) Anemia Code(s): D64.9 - ANEMIA, UNSPECIFIED (10) Pulmonary emboli Code(s): I26.99 - OTHER PULMONARY EMBOLISM WITHOUT ACUTE COR PULMONALE Assessment/Plan (1) Altered mental status Code(s): R41.82 - ALTERED MENTAL STATUS, UNSPECIFIED (2) UTI (urinary tract infection) Code(s): N39.0 - URINARY TRACT INFECTION, SITE NOT SPECIFIED (3) Elevated troponin Code(s): R74.8 - ABNORMAL LEVELS OF OTHER SERUM ENZYMES (4) Knee pain Code(s): M25.569 - PAIN IN UNSPECIFIED KNEE (5) Elevated alkaline phosphatase level Code(s): R74.8 - ABNORMAL LEVELS OF OTHER SERUM ENZYMES (6) Fracture of distal end of femur Code(s): S72.409A - UNSP FRACTURE OF LOWER END OF UNSP FEMUR, INIT FOR CLOS FX (7) HTN (hypertension) Code(s): I10 - ESSENTIAL (PRIMARY) HYPERTENSION (8) Multiple sclerosis Code(s): G35 - MULTIPLE SCLEROSIS (9) Anemia Code(s): D64.9 - ANEMIA, UNSPECIFIED 10) PE: On Anticoagulation
[2018-10-29] MEDS: CYCLOBENZAPRINE HCL 10 MG TABLET (FP) PO PRN ×2 (06:07→22:19)
[2018-10-29] MEDS: oxyCODONE HCL 5 MG TABLET PO PRN ×3 (06:07→18:04)
[2018-10-29] MEDS: GABAPENTIN 100 MG CAPSULE (FP) PO PRN ×2 (06:07→22:19)
[2018-10-29 06:21] LABS: BASO % 0.7 % (0-2.0); EOS % 2.1 % (0-4.5); HEMOGLOBIN 8.9 GM/dL (10.7-15.3); LYMPH % 23.6 % (8-40); MCH 30.2 pg (25.7-33.7); MCHC 34.3 g/dl (32.0-36.0); MEAN CELL VOLUME 88.2 fl (80-96); MONO % 6.4 % (3.8-10.2); NEUT % 67.2 % (42.8-82.8); PLATELET COUNT 542 K/MM3 (134-434); RBC 2.95 M/mm3 (3.60-5.2); RDW 14.5 % (11.6-15.6); WHITE BLOOD COUNT 10.4 K/mm3 (4.0-10.0)
[2018-10-29] MEDS ORDERED: cefTRIAXone SODIUM 1 GM VIAL ONE (08:52)
[2018-10-29] MEDS ORDERED: DEXTROSE 5%-WATER - 50 ML IVPB ONE (08:53)
[2018-10-29] MEDS: NICOTINE 21 MG/24 HOURS TOPICAL PATCH TD SCH (09:38)
[2018-10-29] MEDS: CEFTRIAXONE 1 GM in DEXTROSE 5%-WATER - 50 ML IVPB SCH (09:38)
[2018-10-29] MEDS: ASPIRIN 81 MG CHEWABLE TABLETS PO SCH (09:39)
[2018-10-29] MEDS: COLLAGENASE CLOSTRIDIUM HIST. 30 GRAMS TUBE TP SCH (09:39)
[2018-10-29] MEDS: APIXABAN 5 MG TABLET PO SCH ×2 (09:39→21:23)
[2018-10-29] MEDS: ASCORBIC ACID 500 MG TABLET (FP) PO SCH (09:39)
[2018-10-29] MEDS: DOCUSATE SODIUM 100 MG CAPSULE (FP) PO SCH ×2 (09:39→21:23)
--- NOTE | 2018-10-29 09:41 | PN ---
Progress Note, Physician Chief Complaint: altered MS History of Present Illness: feels well except for ongoing chronic leg pains since her fracture denies cp, sob, palpit - Current Medication List Current Medications: Active Medications Acetaminophen (Tylenol -) 650 mg PO Q6H PRN PRN Reason: PAIN OR FEVER Last Admin: 10/28/18 23:46 Dose: 650 mg Apixaban (Eliquis -) 10 mg PO BID [facility] Last Admin: 10/28/18 21:46 Dose: 10 mg Ascorbic Acid (Vitamin C -) 500 mg PO DAILY [facility] Last Admin: 10/28/18 09:20 Dose: 500 mg Aspirin (Asa -) 81 mg PO DAILY [facility] Last Admin: 10/28/18 09:20 Dose: 81 mg Collagenase (Santyl -) 1 applic TP DAILY [facility]; Protocol Last Admin: 10/28/18 09:21 Dose: 1 applic Cyclobenzaprine HCl (Flexeril -) 10 mg PO TID PRN PRN Reason: MUSCLE SPASMS Last Admin: 10/29/18 06:07 Dose: 10 mg Docusate Sodium (Colace -) 100 mg PO BID [facility] Last Admin: 10/28/18 21:46 Dose: 100 mg Gabapentin (Neurontin -) 100 mg PO TID PRN PRN Reason: PAIN Last Admin: 10/29/18 06:07 Dose: 100 mg Ceftriaxone Sodium 1 gm/ (Dextrose) 50 mls @ 100 mls/hr IVPB DAILY [facility] Last Admin: 10/28/18 09:21 Dose: 100 mls/hr Sodium Chloride (Normal Saline -) 1,000 mls @ 60 mls/hr IV ASDIR [facility] Last Admin: 10/28/18 15:21 Dose: 60 mls/hr Nicotine (Nicoderm Patch -) 21 mg TD DAILY [facility] Last Admin: 10/28/18 09:21 Dose: 21 mg Oxycodone HCl (Roxicodone -) 5 mg PO Q6H PRN PRN Reason: PAIN LEVEL 4 - 6 Last Admin: 10/29/18 06:07 Dose: 5 mg - Objective Vital Signs: Vital Signs Temperature 99 F 10/29/18 06:00 Pulse Rate 90 10/29/18 06:00 Respiratory Rate 20 10/29/18 06:00 Blood Pressure 105/58 L 10/29/18 06:00 O2 Sat by Pulse Oximetry (%) 95 10/28/18 21:00 Constitutional: Yes: Well Nourished, No Distress, Calm Cardiovascular: Yes: Regular Rate and Rhythm, S1, S2. No: Gallop, Murmur Respiratory: Yes: Regular, CTA Bilaterally. No: Accessory Muscle Use, Rales, Wheezes Extremities: No: Cold Edema: No Neurological: Yes: Alert, Oriented Psychiatric: No: Agitated Labs: CBC, BMP 10/29/18 05:35 10/28/18 05:59 INR, PTT INR 1.24 (0.83-1.09) H 10/25/18 15:24 Assessment/Plan Echo: TDS. nl LVSF. nl RV size/fxn. mild MR/TR IMP: 1. small PE (RLL subsegmental)--AC started. -->sinus tach secondary to PE 2. UTI, on abx 3. CT findings c/w ? acute/subacute renal infarction vs pyelo 4. Multiple Sclerosis 5. Abnl ECG: cannot r/o old IWMI, Left axis, Poor R wave progression- unchanged from 12/2017. indeterminate-range TnI elevation, flat trend (0.1 x 2), secondary to PE/demand ischemia. 6. leukocytosis, thrombocytosis 7. anemia--suspect dilutional component here, currently at prior [facility] REC: -continue Eliquis (PE tx dose: 10 po bid x 7 days, then decrease to 5 bid) -h/h stable at prior baseline -no clinical RV strain, hemodynamically stable--d/c telemetry -tachycardia is improving--no AVN blockers indicated -UTI tx per pmd -rec heme input regarding duration of AC: seems like provoked VTE, pt with femur fracture 10/05 treated non-operatively, underlying MS, has been immobile/ sedentary--however per dtr at bedside, there is high likelihood she will never be ambulatory b/c of severity of her MS -off tele
[2018-10-29] MEDS: ACETAMINOPHEN 325 MG TABLET (FP) PO PRN (11:56)
--- NOTE | 2018-10-29 12:15 | PN ---
Progress Note (short form) - Note Progress Note: pt seen/ examined chart reviewed Awake/ confused son in law at bed side and also discussed with pts daughter Patricia on phone She reports her baseline is normal-- pt not in distress Vital Signs Temp 99 F 10/29/18 06:00 Pulse 90 10/29/18 06:00 Resp 20 10/29/18 06:00 BP 105/58 L 10/29/18 06:00 Pulse Ox 95 10/28/18 21:00 Intake & Output 10/28/18 10/29/18 10/29/18 23:59 11:59 23:59 Intake Total 1380 1020 Balance 1380 1020 Intake: IV 730 720 Normal Saline - 1,000 ml 720 720 @ 60 mls/hr IV [facility] Rx#:[id number] lfa 10 IVPB 50 Oral 600 300 Other: Voiding Method Incontinent Incontinent # Unmeasured Voids Void 1 1 Bowel Movement Yes Yes: SOFT /FORMED # Bowel Movements 1 Active Medications Acetaminophen (Tylenol -) 650 mg PO Q6H PRN PRN Reason: PAIN OR FEVER Last Admin: 10/29/18 11:56 Dose: 650 mg Apixaban (Eliquis -) 10 mg PO BID [facility] Last Admin: 10/29/18 09:39 Dose: 10 mg Ascorbic Acid (Vitamin C -) 500 mg PO DAILY [facility] Last Admin: 10/29/18 09:39 Dose: 500 mg Aspirin (Asa -) 81 mg PO DAILY [facility] Last Admin: 10/29/18 09:39 Dose: 81 mg Collagenase (Santyl -) 1 applic TP DAILY [facility]; Protocol Last Admin: 10/29/18 09:39 Dose: 1 applic Cyclobenzaprine HCl (Flexeril -) 10 mg PO TID PRN PRN Reason: MUSCLE SPASMS Last Admin: 10/29/18 06:07 Dose: 10 mg Docusate Sodium (Colace -) 100 mg PO BID [facility] Last Admin: 10/29/18 09:39 Dose: 100 mg Gabapentin (Neurontin -) 100 mg PO TID PRN PRN Reason: PAIN Last Admin: 10/29/18 06:07 Dose: 100 mg Ceftriaxone Sodium 1 gm/ (Dextrose) 50 mls @ 100 mls/hr IVPB DAILY [facility] Last Admin: 10/29/18 09:38 Dose: 100 mls/hr Sodium Chloride (Normal Saline -) 1,000 mls @ 60 mls/hr IV ASDIR [facility] Last Admin: 10/28/18 15:21 Dose: 60 mls/hr Nicotine (Nicoderm Patch -) 21 mg TD DAILY [facility] Last Admin: 10/29/18 09:38 Dose: 21 mg Oxycodone HCl (Roxicodone -) 5 mg PO Q6H PRN PRN Reason: PAIN LEVEL 4 - 6 Last Admin: 10/29/18 11:55 Dose: 5 mg CBC, BMP 10/29/18 05:35 10/28/18 05:59 Microbiology 10/25/18 18:21 Urine Culture - Final Urine - Urine - Catheterized Klebsiella Pneumoniae Alpha Hemolytic Streptococcus 10/25/18 17:00 Blood Culture - Preliminary Blood - Peripheral Venous NO GROWTH OBTAINED AFTER 72 HOURS, INCUBATION TO CONTINUE FOR 2 DAYS. 10/25/18 15:24 Blood Culture - Preliminary Blood - Peripheral Venous NO GROWTH OBTAINED AFTER 72 HOURS, INCUBATION TO CONTINUE FOR 2 DAYS. Physical Examination Constitutional: Yes: No Distress Cardiovascular: Yes: Regular Rate and Rhythm Respiratory: Yes: CTA Bilaterally Gastrointestinal: Yes: Normal Bowel Sounds, Soft. 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 hematology consult continue pressent care ---Spoke with orthopedic---- immobilizer splint is placed on the left knee even though the fracture is on the right knee Reason for this is immobilizer was removed on the right knee as it caused a pressure ulcer on the right thigh Immobilizer was placed in the group home by orthopedics on the left knee to help keep it straight and not edgardo. The right knee is fully contracted and cannot be extended as per orthopedics u/s legs pending Likely provoked dvt will follow Problem List - Problems (1) Altered mental status Code(s): R41.82 - ALTERED MENTAL STATUS, UNSPECIFIED (2) Multiple sclerosis Code(s): G35 - MULTIPLE SCLEROSIS (3) Pulmonary emboli Code(s): I26.99 - OTHER PULMONARY EMBOLISM WITHOUT ACUTE COR PULMONALE (4) UTI (urinary tract infection) Code(s): N39.0 - URINARY TRACT INFECTION, SITE NOT SPECIFIED Qualifiers: Urinary tract infection type: site unspecified Hematuria presence: without hematuria Qualified Code(s): N39.0 - Urinary tract infection, site not specified
--- NOTE | 2018-10-29 14:25 | CONSULT ---
Consultation: CONSULT REQUEST: Heme/Onc HISTORY OF PRESENT ILLNESS: Patient is a 73 yo F with a PMHx of MS, recent perforated pyloric ulcer (s/p emergent omental patch repair), presented to the ED because of AMS. Patient had worsening confusion, waxing and waning in nature since L hip fracture on 10/05. In the ED she was found with a UTI, and is currently being treated with IV abx. Patient was found mildly hypoxic 10/27. CT chest then revealed a RLL subsugmental PE. A/c was started with Lovenox and patient was then switched to Eliquis. Patient currently denies symptoms except for LLE pain. Patient is currently back at baseline. She denies sob, chest pain, nausea, vomiting, fevers, chills, sob, cough, melena, hematochezia, hematuria. We were consulted for Anemia. patient Hgb on admission 10.2, went down to 8.7 yesterday, and now 8.9. FOBT negative. Iron level was 14, Iron sat 9, Low TIBC, High ferritin. Patient says she was never diagnosed with Anemia. Colonoscopy 10 years ago. normal Family hx: Liver, Lung ca in Father (smoker), Liver Ca in Mother, Lung Ca in brother (smoker) Surgeries: R hip replacement, recent emergent omental patch repair Allergies: strawberries Home meds: Flexeril, Gabapentin,Zolpidem,Ambien, oxycodone Social hx: denies tobacco, alcohol REVIEW OF SYSTEMS: CONSTITUTIONAL: Absent: fever, chills, diaphoresis, generalized weakness, malaise, loss of appetite, weight change HEENT: Absent: rhinorrhea, nasal congestion, throat pain, throat swelling, difficulty swallowing, mouth swelling, ear pain, eye pain, visual changes CARDIOVASCULAR: Absent: chest pain, syncope, palpitations, irregular heart rate, lightheadedness , peripheral edema RESPIRATORY: Absent: cough, shortness of breath, dyspnea with exertion, orthopnea, wheezing, stridor, hemoptysis GASTROINTESTINAL: Absent: abdominal pain, abdominal distension, nausea, vomiting, diarrhea, constipation, melena, hematochezia GENITOURINARY: Absent: dysuria, frequency, urgency, hesitancy, hematuria, flank pain, genital pain SKIN: Absent: rash, itching, pallor HEMATOLOGIC/IMMUNOLOGIC: Absent: easy bleeding, easy bruising, lymphadenopathy, frequent infections NEUROLOGIC: Absent: headache, focal weakness or paresthesias, dizziness, unsteady gait, seizure, mental status changes, bladder or bowel incontinence PHYSICAL EXAMINATION Vital Signs - 24 hr 10/28/18 10/28/18 10/29/18 17:00 21:00 06:00 Temperature 97.9 F 99 F 99 F Pulse Rate 88 90 90 Respiratory 20 20 20 Rate Blood Pressure 115/61 105/58 L 105/58 L O2 Sat by Pulse 95 Oximetry (%) Limited physical exam of LE because patient said she was in pain. GENERAL: a/o x 3, watching tv. HEAD: Normal with no signs of trauma. EYES: cataracts, anicteric EARS, NOSE, THROAT: oropharynx clear without exudates. NECK: supple without lymphadenopathy, JVD, or masses. LUNGS: Breath sounds equal, clear to auscultation bilaterally HEART: RRR, no murmurs appreciated ABDOMEN: soft, nontender, + scar on abdomen above umbilicus from recent sx MUSCULOSKELETAL: Normal range of motion at all joints. No bony deformities or tenderness. No CVA tenderness. LOWER EXTREMITIES: LLE immobilizer. RLE contracted. Says she is in pain. BREAST: no palpable masses, no nipple discharge. Laboratory Results - last 24 hr 10/29/18 10/29/18 05:35 06:00 WBC 10.4 H RBC 2.95 L Hgb 8.9 L Hct 26.0 L MCV 88.2 MCH 30.2 MCHC 34.3 RDW 14.5 Plt Count 542 H MPV 8.0 Absolute Neuts (auto) 7.0 Neutrophils % 67.2 Lymphocytes % 23.6 Monocytes % 6.4 Eosinophils % 2.1 Basophils % 0.7 Nucleated RBC % 0 Stool Occult Blood Negative ASSESSMENT/PLAN: #RLL Subsegmental PE #Anemia #UTI #MS -Dilutional Anemia with component of ACD (MS) -stable today. 8.9 from 8.7 -likely dilutional in nature, has been receiving fluid since admission -no signs of bleeding. negative FOBT -agree with A/C for PE -monitor CBC -normal transfusion thresholds Visit type - Emergency Visit Emergency Visit: Yes ED Registration Date: 10/25/18 Care time: The patient presented to the Emergency Department on the above date and was hospitalized for further evaluation of their emergent condition. - New Patient This patient is new to me today: Yes Date on this admission: 10/30/18 - Critical Care Critical Care patient: No ATTENDING PHYSICIAN STATEMENT I saw and evaluated the patient. I reviewed the resident's note and discussed the case with the resident. I agree with the resident's findings and plan as documented. SUBJECTIVE: OBJECTIVE: ASSESSMENT AND PLAN:
[2018-10-29] MEDS: SODIUM CHLORIDE 1,000 ML IV SCH (18:05)
--- NOTE | 2018-10-29 22:21 | PN ---
Teaching Attending Note Name of Resident: Aries Schwartz ATTENDING PHYSICIAN STATEMENT I saw and evaluated the patient. I reviewed the resident's note and discussed the case with the resident. I agree with the resident's findings and plan as documented. 73 y/o lady with a PMHx of MS, recent perforated pyloric ulcer (s/p emergent omental patch repair), presented to the ED because of AMS. Patient had worsening confusion, waxing and waning in nature since L hip fracture on 10/05. In the ED she was found with a UTI, and is currently being treated with IV abx. Patient was found mildly hypoxic 10/27. CT chest then revealed a RLL subsegmental PE. A/c was started with Lovenox and patient was then switched to Apixaban. Hgb on admission 10.2, went down to 8.7 yesterday, and now 8.9. FOBT negative. Iron level was 14, Iron sat 9, Low TIBC, High ferritin. SUBJECTIVE: Her main complaint is pain in her legs. Denied SOB, chest pain OBJECTIVE: Last Vital Signs Temp Pulse Resp BP Pulse Ox 98.3 F 95 H 20 133/76 95 10/29/18 14:00 10/29/18 14:00 10/29/18 06:00 10/29/18 14:00 10/28/18 21:00 General: NAD HEENT: Moist Mucous Membranes CVS: S1, S2 Lungs: CTAB (Anterior) Abdomen: Soft, NT, ND Psych: Alert. Conversant 10/29/18 05:35 10/28/18 05:59 Abnormal Lab Results 10/29/18 05:35 WBC 10.4 H RBC 2.95 L Hgb 8.9 L Hct 26.0 L Plt Count 542 H ASSESSMENT AND PLAN: 73 y/o lady with MS, recent perforated pyloric ulcer, RLL subsegmental PE started on Lovenox and now swithced to Apixaban. 1. Anemia. Likely inflammatory/chronic disease related, Elevated ferritin and platelets. Consider CRP testing. A dilutional component cannot be ruled out. Obtain reticulocytes. An iron deficiency component might also be present. 2. RLL provoked subsegmental PE. Apixaban. Mildly prolonged INR. Given provoked cause, a period of 6 months initially recommended with close monitoring for bleeding. Will need to be re-evaluated then. Consider hematology outpatient follow-up. 3. Thank you for this consultation.
[2018-10-30] MEDS: oxyCODONE HCL 5 MG TABLET PO PRN ×4 (00:11→21:55)
[2018-10-30] MEDS: SODIUM CHLORIDE 1,000 ML IV SCH ×2 (03:12→21:54)
[2018-10-30 07:54] LABS: BASO % 0.3 % (0-2.0); EOS % 1.6 % (0-4.5); HEMOGLOBIN 8.7 GM/dL (10.7-15.3); LYMPH % 21.7 % (8-40); MCH 29.4 pg (25.7-33.7); MCHC 33.5 g/dl (32.0-36.0); MONO % 5.4 % (3.8-10.2); PLATELET COUNT 530 K/MM3 (134-434); RBC 2.95 M/mm3 (3.60-5.2); RDW 14.3 % (11.6-15.6)
--- NOTE | 2018-10-30 09:34 | PN ---
Progress Note (short form) - Note Progress Note: pt seen/ examined comfortable no distress afebrile Vital Signs Temp 99.9 F H 10/30/18 06:27 Pulse 85 10/30/18 06:27 Resp 18 10/30/18 06:27 BP 105/66 10/30/18 06:27 Pulse Ox 97 10/29/18 21:00 Intake & Output 10/29/18 10/29/18 10/30/18 11:59 23:59 11:59 Intake Total 1020 100 540 Balance 1020 100 540 Intake: IV 720 540 Normal Saline - 1,000 ml 720 540 @ 60 mls/hr IV [facility]IR [facility] Rx#:[id number] Oral 300 100 Other: Voiding Method Incontinent Incontinent # Unmeasured Voids Void 1 2 Bowel Movement Yes: SOFT /FORMED Yes Yes # Bowel Movements 1 1 Active Medications Acetaminophen (Tylenol -) 650 mg PO Q6H PRN PRN Reason: PAIN OR FEVER Last Admin: 10/29/18 11:56 Dose: 650 mg Apixaban (Eliquis -) 10 mg PO BID [facility] Stop: 11/02/18 22:01 Last Admin: 10/29/18 21:23 Dose: 10 mg Ascorbic Acid (Vitamin C -) 500 mg PO DAILY [facility] Last Admin: 10/29/18 09:39 Dose: 500 mg Aspirin (Asa -) 81 mg PO DAILY [facility] Last Admin: 10/29/18 09:39 Dose: 81 mg Collagenase (Santyl -) 1 applic TP DAILY [facility]; Protocol Last Admin: 10/29/18 09:39 Dose: 1 applic Cyclobenzaprine HCl (Flexeril -) 10 mg PO TID PRN PRN Reason: MUSCLE SPASMS Last Admin: 10/29/18 22:19 Dose: 10 mg Docusate Sodium (Colace -) 100 mg PO BID [facility] Last Admin: 10/29/18 21:23 Dose: 100 mg Gabapentin (Neurontin -) 100 mg PO TID PRN PRN Reason: PAIN Last Admin: 10/29/18 22:19 Dose: 100 mg Ceftriaxone Sodium 1 gm/ (Dextrose) 50 mls @ 100 mls/hr IVPB DAILY [facility] Last Admin: 10/29/18 09:38 Dose: 100 mls/hr Sodium Chloride (Normal Saline -) 1,000 mls @ 60 mls/hr IV ASDIR [facility] Last Admin: 10/30/18 03:12 Dose: 60 mls/hr Nicotine (Nicoderm Patch -) 21 mg TD DAILY [facility] Last Admin: 10/29/18 09:38 Dose: 21 mg Oxycodone HCl (Roxicodone -) 5 mg PO Q6H PRN PRN Reason: PAIN LEVEL 4 - 6 Last Admin: 10/30/18 08:12 Dose: 5 mg CBC, BMP 10/30/18 06:42 10/28/18 05:59 u/s legs - pending Hematology consult noted / appreciated Neuro consult - pending Physical Examination Constitutional: Yes: No Distress.Comfortable Cardiovascular: Yes: Regular Rate and Rhythm Respiratory: Yes: CTA Bilaterally Gastrointestinal: Yes: Normal Bowel Sounds, Soft. No: Tenderness Extremities: Yes: Other (contracted extremities bilateral, more contraction on the right knee compared to left) Edema: Yes (Right knee) Wound/Incision: Yes: Other (pressure ulcer noted on the underside of right thigh , sloughing noted) Imaging - Results Chest X-ray: Image Reviewed (no infiltrate) Cat Scan: Report Reviewed (head CT negative) EKG: Image Reviewed (normal sinus) Assessment/Plan comfortable Continue present care u/s legs pending Likely provoked dvt d/c abx in am physical therapy oob - chair d/c planning - Likely tomorrow will follow Problem List - Problems (1) Altered mental status Code(s): R41.82 - ALTERED MENTAL STATUS, UNSPECIFIED (2) Multiple sclerosis Code(s): G35 - MULTIPLE SCLEROSIS (3) Pulmonary emboli Code(s): I26.99 - OTHER PULMONARY EMBOLISM WITHOUT ACUTE COR PULMONALE (4) UTI (urinary tract infection) Code(s): N39.0 - URINARY TRACT INFECTION, SITE NOT SPECIFIED Qualifiers: Urinary tract infection type: site unspecified Hematuria presence: without hematuria Qualified Code(s): N39.0 - Urinary tract infection, site not specified Problem List - Problems (1) Altered mental status Code(s): R41.82 - ALTERED MENTAL STATUS, UNSPECIFIED (2) Multiple sclerosis Code(s): G35 - MULTIPLE SCLEROSIS (3) Pulmonary emboli Code(s): I26.99 - OTHER PULMONARY EMBOLISM WITHOUT ACUTE COR PULMONALE (4) UTI (urinary tract infection) Code(s): N39.0 - URINARY TRACT INFECTION, SITE NOT SPECIFIED Qualifiers: Urinary tract infection type: site unspecified Hematuria presence: without hematuria Qualified Code(s): N39.0 - Urinary tract infection, site not specified
[2018-10-30] MEDS ORDERED: DEXTROSE 5%-WATER - 50 ML IVPB ONE (09:43)
[2018-10-30] MEDS ORDERED: cefTRIAXone SODIUM 1 GM VIAL ONE (09:43)
[2018-10-30] MEDS: ASPIRIN 81 MG CHEWABLE TABLETS PO SCH (09:46)
[2018-10-30] MEDS: CEFTRIAXONE 1 GM in DEXTROSE 5%-WATER - 50 ML IVPB SCH (09:47)
[2018-10-30] MEDS: ASCORBIC ACID 500 MG TABLET (FP) PO SCH (09:47)
[2018-10-30] MEDS: DOCUSATE SODIUM 100 MG CAPSULE (FP) PO SCH ×3 (09:47→21:57)
[2018-10-30] MEDS: NICOTINE 21 MG/24 HOURS TOPICAL PATCH TD SCH (09:47)
[2018-10-30] MEDS: APIXABAN 5 MG TABLET PO SCH ×2 (09:47→21:54)
[2018-10-30] MEDS ORDERED: PT OWN MED DRAWER 7, Y5N ONE (11:06)
[2018-10-30] MEDS: COLLAGENASE CLOSTRIDIUM HIST. 30 GRAMS TUBE TP SCH (11:28)
[2018-10-30] MEDS: CYCLOBENZAPRINE HCL 10 MG TABLET (FP) PO PRN (12:33)
--- NOTE | 2018-10-30 14:02 | PN ---
Progress Note, Physician Chief Complaint: denies CP or SOB No palps - Current Medication List Current Medications: Active Medications Acetaminophen (Tylenol -) 650 mg PO Q6H PRN PRN Reason: PAIN OR FEVER Last Admin: 10/29/18 11:56 Dose: 650 mg Apixaban (Eliquis -) 10 mg PO BID [facility] Stop: 11/02/18 22:01 Last Admin: 10/30/18 09:47 Dose: 10 mg Ascorbic Acid (Vitamin C -) 500 mg PO DAILY [facility] Last Admin: 10/30/18 09:47 Dose: 500 mg Aspirin (Asa -) 81 mg PO DAILY [facility] Last Admin: 10/30/18 09:46 Dose: 81 mg Collagenase (Santyl -) 1 applic TP DAILY [facility]; Protocol Last Admin: 10/30/18 11:28 Dose: 1 applic Cyclobenzaprine HCl (Flexeril -) 10 mg PO TID PRN PRN Reason: MUSCLE SPASMS Last Admin: 10/30/18 12:33 Dose: 10 mg Docusate Sodium (Colace -) 100 mg PO BID [facility] Last Admin: 10/30/18 10:24 Dose: Not Given Gabapentin (Neurontin -) 100 mg PO TID PRN PRN Reason: PAIN Last Admin: 10/29/18 22:19 Dose: 100 mg Ceftriaxone Sodium 1 gm/ (Dextrose) 50 mls @ 100 mls/hr IVPB DAILY [facility] Last Admin: 10/30/18 09:47 Dose: 100 mls/hr Sodium Chloride (Normal Saline -) 1,000 mls @ 60 mls/hr IV ASDIR [facility] Last Admin: 10/30/18 03:12 Dose: 60 mls/hr Nicotine (Nicoderm Patch -) 21 mg TD DAILY [facility] Last Admin: 10/30/18 09:47 Dose: 21 mg Oxycodone HCl (Roxicodone -) 5 mg PO Q6H PRN PRN Reason: PAIN LEVEL 4 - 6 Last Admin: 10/30/18 13:45 Dose: 5 mg - Objective Vital Signs: Vital Signs Temperature 99.9 F H 10/30/18 06:27 Pulse Rate 85 10/30/18 06:27 Respiratory Rate 18 10/30/18 06:27 Blood Pressure 105/66 10/30/18 06:27 O2 Sat by Pulse Oximetry (%) 97 10/29/18 21:00 Constitutional: Yes: No Distress, Calm Eyes: Yes: Conjunctiva Clear, EOM Intact Cardiovascular: Yes: Regular Rate and Rhythm Respiratory: Yes: CTA Bilaterally (no wheezing or rales) Gastrointestinal: Yes: Soft Edema: Yes Edema: LLE: 1+, RLE: 1+ Neurological: Yes: Alert ...Motor Strength: WNL Labs: CBC, BMP 10/30/18 06:42 10/28/18 05:59 INR, PTT INR 1.24 (0.83-1.09) H 10/25/18 15:24 Assessment/Plan Assessment/Plan Echo: TDS. nl LVSF. nl RV size/fxn. mild MR/TR IMP: 1. Small PE (RLL subsegmental)--AC started. -->sinus tach secondary to PE 2. UTI, on abx 3. CT findings c/w ? acute/subacute renal infarction vs pyelo 4. Multiple Sclerosis 5. Abnl ECG: cannot r/o old IWMI, Left axis, Poor R wave progression- unchanged from 12/2017. indeterminate-range TnI elevation, flat trend (0.1 x 2), secondary to PE/demand ischemia. 6. leukocytosis, thrombocytosis 7. Anemia--suspect dilutional component here, currently at prior [place] REC: -continue Eliquis (PE tx dose: 10 po bid x 7 days, then decrease to 5 bid) -h/h stable at prior baseline -no clinical RV strain, hemodynamically stable -tachycardia is improved--no AVN blockers indicated -UTI tx per pmd -rec heme input regarding duration of AC: seems like provoked VTE, pt with femur fracture 10/05 treated non-operatively, underlying MS, has been immobile/ sedentary--however per dtr at bedside, there is high likelihood she will never be ambulatory b/c of severity of her MS
--- NOTE | 2018-10-30 16:30 | PN ---
Progress Note (short form) - Note Progress Note: Ortho Pt seen and examined- comfortable Selected Entries 10/30/18 16:21 Temperature 98.9 F Pulse Rate 86 Respiratory 20 Rate Blood Pressure 118/69 Laboratory Tests 10/30/18 06:42 WBC 10.0 Hgb 8.7 L Hct 26.0 L Plt Count 530 H + contractures b/l LE, + ulcerations from immobilizers nvi a/p PT for ROM exercises OOB to chair NTD ok to d/c from ortho pov d/w Dr. López
[2018-10-30] MEDS: ACETAMINOPHEN 325 MG TABLET (FP) PO PRN (17:03)
[2018-10-30] MEDS: GABAPENTIN 100 MG CAPSULE (FP) PO PRN (17:12)
--- NOTE | 2018-10-30 18:41 | PN ---
Progress Note (short form) - Note Progress Note: Patient seen and examined Lying in bed No chest pain or SOB Last Vital Signs Temp Pulse Resp BP Pulse Ox 98.0 F 95 H 18 122/52 L 97 10/30/18 18:18 10/30/18 18:18 10/30/18 18:18 10/30/18 18:18 10/29/18 21:00 Lungs - cllear Cor- RSR Abd-soft Flexion contractures right medial proximal metatarsal - infected furuncle CBC, BMP 10/30/18 06:42 10/28/18 05:59 Current Medications Generic Name Dose Route Start Last Admin Trade Name Freq PRN Reason Stop Dose Admin Acetaminophen 650 mg 10/25/18 16:49 10/30/18 17:03 Tylenol - PO 650 mg Q6H PRN Administration PAIN OR FEVER Apixaban 10 mg 10/27/18 10:00 10/30/18 09:47 Eliquis - PO 11/02/18 22:01 10 mg BID DESIRE Administration Ascorbic Acid 500 mg 10/26/18 10:00 10/30/18 09:47 Vitamin C - PO 500 mg DAILY [facility] Administration Aspirin 81 mg 10/25/18 17:00 10/30/18 09:46 Asa - PO 81 mg DAILY [facility] Administration Collagenase 1 applic 10/26/18 10:15 10/30/18 11:28 Santyl - TP 1 applic DAILY [facility] Administration Protocol Cyclobenzaprine HCl 10 mg 10/25/18 16:49 10/30/18 12:33 Flexeril - PO 10 mg TID PRN Administration MUSCLE SPASMS Docusate Sodium 100 mg 10/25/18 22:00 10/30/18 10:24 Colace - PO Not Given BID DESIRE Gabapentin 100 mg 10/25/18 16:49 10/30/18 17:12 Neurontin - PO 100 mg TID PRN Administration PAIN Ceftriaxone Sodium 1 gm/ 50 mls @ 100 mls/hr 10/26/18 10:00 10/30/18 09:47 Dextrose IVPB 100 mls/hr DAILY [facility] Administration Sodium Chloride 1,000 mls @ 60 mls/hr 10/26/18 15:15 10/30/18 03:12 Normal Saline - IV 60 mls/hr ASDIR [facility] Administration Nicotine 21 mg 10/26/18 10:00 10/30/18 09:47 Nicoderm Patch - TD 21 mg DAILY [facility] Administration Oxycodone HCl 5 mg 10/28/18 23:21 10/30/18 13:45 Roxicodone - PO 5 mg Q6H PRN Administration PAIN LEVEL 4 - 6 Impression: Presumed provoked subsegmental RLL p.e. M.S. Anemia - low Fe++ /low TIBC/ elevated ferritin - picture compatible with chronic disease and cannot exclude component of blood loss. Would obtain stool guaics , ? feasibility in future of GI assessment/ Would consider 6months of full dose eliquis . In view of sedentary status , inability to ambulate, secondary to contractures and M.S.,in future might consider continuation of low dose eliqus such as 2.5 mg daily. Currently on ASA 81 mg in addition to full dose eliquis, ? need to continue ASA.
--- NOTE | 2018-10-30 18:51 | CONSULT ---
Consult - text type - Consultation Consultation Note: NEUROLOGY CONSULTATION is greatly appreciated: Pt is well-known to me with Multiple Sclerosis, migraine headaches and Restless Limbs Syndrome (RLS). However, she was last seen by me on 06/09/14 and requests that she be consulted by a different neurologist at this time. Thank you very much, Martín Cohn MD
[2018-10-31] MEDS: ACETAMINOPHEN 325 MG TABLET (FP) PO PRN ×3 (00:15→14:08)
[2018-10-31] MEDS: CYCLOBENZAPRINE HCL 10 MG TABLET (FP) PO PRN ×2 (00:16→17:28)
[2018-10-31] MEDS: oxyCODONE HCL 5 MG TABLET PO PRN ×3 (02:58→22:36)
[2018-10-31] MEDS: GABAPENTIN 100 MG CAPSULE (FP) PO PRN (07:42)
[2018-10-31 07:48] LABS: BASO % 0.6 % (0-2.0); EOS % 3.5 % (0-4.5); HEMATOCRIT 24.8 % (32.4-45.2); HEMOGLOBIN 8.3 GM/dL (10.7-15.3); LYMPH % 27.3 % (8-40); MCH 29.4 pg (25.7-33.7); MCHC 33.5 g/dl (32.0-36.0); MEAN CELL VOLUME 87.8 fl (80-96); MEAN PLT VOLUME 7.7 fl (7.5-11.1); MONO % 8.6 % (3.8-10.2); PLATELET COUNT 507 K/MM3 (134-434); RBC 2.82 M/mm3 (3.60-5.2); RDW 14.4 % (11.6-15.6); WHITE BLOOD COUNT 7.6 K/mm3 (4.0-10.0)
[2018-10-31] MEDS ORDERED: cefTRIAXone SODIUM 1 GM VIAL ONE (10:06)
[2018-10-31] MEDS ORDERED: DEXTROSE 5%-WATER - 50 ML IVPB ONE (10:06)
[2018-10-31] MEDS: DOCUSATE SODIUM 100 MG CAPSULE (FP) PO SCH ×4 (10:10→23:25)
[2018-10-31] MEDS: ASCORBIC ACID 500 MG TABLET (FP) PO SCH (10:10)
[2018-10-31] MEDS: ASPIRIN 81 MG CHEWABLE TABLETS PO SCH (10:10)
[2018-10-31] MEDS: APIXABAN 5 MG TABLET PO SCH ×2 (10:10→22:37)
[2018-10-31] MEDS: CEFTRIAXONE 1 GM in DEXTROSE 5%-WATER - 50 ML IVPB SCH (10:11)
[2018-10-31] MEDS: NICOTINE 21 MG/24 HOURS TOPICAL PATCH TD SCH (10:11)
[2018-10-31] MEDS: COLLAGENASE CLOSTRIDIUM HIST. 30 GRAMS TUBE TP SCH (10:52)
--- NOTE | 2018-10-31 11:43 | DS ---
Physical Examination Vital Signs: Vital Signs Temperature 98.1 F 10/31/18 11:39 Pulse Rate 95 H 10/31/18 11:39 Respiratory Rate 20 10/31/18 11:39 Blood Pressure 133/61 10/31/18 11:39 O2 Sat by Pulse Oximetry (%) 100 10/30/18 21:00 Labs: CBC, BMP 10/31/18 07:05 10/28/18 05:59 Discharge Summary Reason For Visit: ELEVATED TROPONIN LEVEL,UTI Current Active Problems Altered mental status (Acute) Anemia (Acute) Elevated troponin (Acute) HTN (hypertension) (Acute) Knee pain (Acute) Multiple sclerosis (Acute) Pulmonary emboli (Acute) UTI (urinary tract infection) (Acute) UTI (urinary tract infection) (Acute) Condition: Guarded - Instructions - Home Medications Comprehensive Discharge Medication List: Ambulatory Orders Cyclobenzaprine HCl [Flexeril 10 mg] 10 mg PO TID PRN 07/30/18 Gabapentin 100 mg PO TID PRN 07/30/18 Zolpidem Tartrate [Ambien] 10 mg PO HS 07/30/18 oxyCODONE HCL [Roxicodone -] 5 mg PO Q6H PRN #30 tablet MDD 4 08/10/18 Morphine *Sr* [Ms Contin -] 15 mg PO BID #60 tablet.sa MDD 2 10/10/18 Tizanidine HCl 4 mg PO BID 10/25/18 Apixaban [Eliquis -] 10 mg PO BID tablet 10/31/18 Ascorbic Acid [Vitamin C -] 500 mg PO DAILY tablet 10/31/18 Collagenase Clostridium Hist. [Santyl -] 1 applic TP DAILY tube 10/31/18 Docusate Sodium [Colace -] 100 mg PO BID capsule 10/31/18
--- NOTE | 2018-10-31 11:49 | DS ---
Physical Examination Vital Signs: Vital Signs Temperature 98.1 F 10/31/18 11:39 Pulse Rate 95 H 10/31/18 11:39 Respiratory Rate 20 10/31/18 11:39 Blood Pressure 133/61 10/31/18 11:39 O2 Sat by Pulse Oximetry (%) 100 10/30/18 21:00 Findings/Remarks: pt seen/ examined comfortable pain issues with moving contracted pain under control with meds Constitutional: Yes: No Distress, Calm Eyes: Yes: Conjunctiva Clear Neck: Yes: Supple Cardiovascular: Yes: Regular Rate and Rhythm Respiratory: Yes: CTA Bilaterally Gastrointestinal: Yes: Soft Edema: No Neurological: Yes: Alert Labs: CBC, BMP 10/31/18 07:05 10/28/18 05:59 Discharge Summary Reason For Visit: ELEVATED TROPONIN LEVEL,UTI Current Active Problems Altered mental status (Acute) Anemia (Acute) Elevated troponin (Acute) HTN (hypertension) (Acute) Knee pain (Acute) Multiple sclerosis (Acute) Pulmonary emboli (Acute) UTI (urinary tract infection) (Acute) UTI (urinary tract infection) (Acute) Hospital Course: The patient is a 73 year old female, with a significant PMH of MS, perforated ulcer, and right R ORIF, who presents to the emergency department with altered mental status, as per daughter. The daughter, on the bedside, notes that she has been experiencing waxing waning bouts of mental confusion, and has been having odd speech for the past 6 days. As per daughter, the patient has a recent history of right knee pain, which has been evaluated by her orthopedic, but has recently had some pus coming out of it. The daughter also states that the patient has been unable to ambulate and hasn't been herself due to extensive frequent orthopedic issues. pt treated for uti with abx work up also showed PE- Likely provoked as pt essentially bedbound On Eliquis Seen by Hematology and ortho also seen by cardio for abnormal ekg/ elevated troponins Now stable/ baseline can be d/c back to [facility] Need Anemia work up as out pt-- per pts PMD in care home as needed d/c asa need to follow orhto Also Need to see / f/u with Neuro for MS meds reconcilled. d/c off abx. Discussed with nursing staff also as well as case managers. Condition: Guarded - Instructions Disposition: LONGTERM FACILITY - Home Medications Comprehensive Discharge Medication List: Ambulatory Orders Cyclobenzaprine HCl [Flexeril 10 mg] 10 mg PO TID PRN 07/30/18 Gabapentin 100 mg PO TID PRN 07/30/18 Zolpidem Tartrate [Ambien] 10 mg PO HS 07/30/18 oxyCODONE HCL [Roxicodone -] 5 mg PO Q6H PRN #30 tablet MDD 4 08/10/18 Morphine *Sr* [Ms Contin -] 15 mg PO BID #60 tablet.sa MDD 2 10/10/18 Tizanidine HCl 4 mg PO BID 10/25/18 Apixaban [Eliquis -] 10 mg PO BID tablet 10/31/18 Ascorbic Acid [Vitamin C -] 500 mg PO DAILY tablet 10/31/18 Collagenase Clostridium Hist. [Santyl -] 1 applic TP DAILY tube 10/31/18 Docusate Sodium [Colace -] 100 mg PO BID capsule 10/31/18
--- NOTE | 2018-10-31 11:56 | PN ---
Progress Note (short form) - Note Progress Note: no chest pain, palps, dyspnea Current Medications Acetaminophen (Tylenol -) 650 mg PO Q6H PRN PRN Reason: PAIN OR FEVER Last Admin: 10/31/18 08:07 Dose: 650 mg Apixaban (Eliquis -) 10 mg PO BID [facility] Stop: 11/02/18 22:01 Last Admin: 10/31/18 10:10 Dose: 10 mg Ascorbic Acid (Vitamin C -) 500 mg PO DAILY [facility] Last Admin: 10/31/18 10:10 Dose: 500 mg Aspirin (Asa -) 81 mg PO DAILY [facility] Last Admin: 10/31/18 10:10 Dose: 81 mg Collagenase (Santyl -) 1 applic TP DAILY [facility]; Protocol Last Admin: 10/31/18 10:52 Dose: 1 applic Cyclobenzaprine HCl (Flexeril -) 10 mg PO TID PRN PRN Reason: MUSCLE SPASMS Last Admin: 10/31/18 00:16 Dose: 10 mg Docusate Sodium (Colace -) 100 mg PO BID [facility] Last Admin: 10/31/18 10:10 Dose: 100 mg Gabapentin (Neurontin -) 100 mg PO TID PRN PRN Reason: PAIN Last Admin: 10/31/18 07:42 Dose: 100 mg Sodium Chloride (Normal Saline -) 1,000 mls @ 60 mls/hr IV ASDIR [facility] Last Admin: 10/30/18 21:54 Dose: 60 mls/hr Nicotine (Nicoderm Patch -) 21 mg TD DAILY [facility] Last Admin: 10/31/18 10:11 Dose: 21 mg Oxycodone HCl (Roxicodone -) 5 mg PO Q6H PRN PRN Reason: PAIN LEVEL 4 - 6 Last Admin: 10/31/18 10:49 Dose: 5 mg Vital Signs Period Temp Pulse Resp BP Sys/Storey Pulse Ox Last 24 Hr 98.0 F-98.9 F 86-95 18-20 118-133/52-69 100 Constitutional: Yes: No Distress, Calm Eyes: Yes: Conjunctiva Clear, EOM Intact Cardiovascular: Yes: Regular Rate and Rhythm Respiratory: Yes: CTA Bilaterally (no wheezing or rales) Gastrointestinal: Yes: Soft Edema: Yes Edema: LLE: 1+, RLE: 1+ Neurological: Yes: Alert no jaundice, diaphoresis not agitated Assessment/Plan Echo: TDS. nl LVSF. nl RV size/fxn. mild MR/TR IMP: 1. Small PE (RLL subsegmental)--AC started. -->sinus tach secondary to PE 2. UTI, on abx 3. CT findings c/w ? acute/subacute renal infarction vs pyelo 4. Multiple Sclerosis 5. Abnl ECG: cannot r/o old IWMI, Left axis, Poor R wave progression- unchanged from 12/2017. indeterminate-range TnI elevation, flat trend (0.1 x 2), secondary to PE/demand ischemia. 6. leukocytosis, thrombocytosis 7. Anemia--suspect dilutional component here, currently at prior [facility] REC: -continue Eliquis (PE tx dose: 10 po bid x 7 days, then decrease to 5 bid) -h/h stable at prior baseline -no clinical RV strain, hemodynamically stable -tachycardia is improved--no AVN blockers indicated -UTI tx per pmd -per heme 6 months of AC for provoked DVT, consider low dose eliquis mcfp given limited mobility
--- NOTE | 2018-10-31 12:19 | PN ---
Progress Note (short form) - Note Progress Note: CONDITION UNCHANGED NOTHING TO DO ORTHOPEDICALLY PLAN: PT, DECUBITUS PRECAUTIONS
[2018-11-01] MEDS: CYCLOBENZAPRINE HCL 10 MG TABLET (FP) PO PRN ×2 (03:20→20:37)
[2018-11-01] MEDS: oxyCODONE HCL 5 MG TABLET PO PRN ×4 (04:47→23:20)
[2018-11-01 07:05] LABS: BASO % 0.5 % (0-2.0); EOS % 1.3 % (0-4.5); HEMATOCRIT 28.9 % (32.4-45.2); HEMOGLOBIN 9.5 GM/dL (10.7-15.3); LYMPH % 14.5 % (8-40); MCH 29.2 pg (25.7-33.7); MCHC 32.8 g/dl (32.0-36.0); MEAN CELL VOLUME 88.9 fl (80-96); MEAN PLT VOLUME 8.6 fl (7.5-11.1); MONO % 5.6 % (3.8-10.2); NEUT % 78.1 % (42.8-82.8); PLATELET COUNT 487 K/MM3 (134-434); RBC 3.25 M/mm3 (3.60-5.2); WHITE BLOOD COUNT 11.7 K/mm3 (4.0-10.0)
[2018-11-01] MEDS: ACETAMINOPHEN 325 MG TABLET (FP) PO PRN ×3 (07:39→20:37)
--- NOTE | 2018-11-01 09:55 | PN ---
Progress Note (short form) - Note Progress Note: comfortable. No new issues Vital Signs Temp 98.4 F 11/01/18 07:15 Pulse 102 H 11/01/18 07:15 Resp 20 11/01/18 07:15 BP 136/74 11/01/18 07:15 Pulse Ox 100 10/30/18 21:00 Intake & Output 10/31/18 10/31/18 11/01/18 11:59 23:59 11:59 Intake Total 300 410 Balance 300 410 Intake: IV 300 360 Normal Saline - 1,000 ml 300 360 @ 60 mls/hr IV ASDIR [facility] Rx#:[id number] IVPB 50 Other: Voiding Method Incontinent Incontinent # Unmeasured Voids Void 1 2 Bowel Movement No Yes: large Yes # Bowel Movements 1 Active Medications Acetaminophen (Tylenol -) 650 mg PO Q6H PRN PRN Reason: PAIN OR FEVER Last Admin: 11/01/18 07:39 Dose: 650 mg Apixaban (Eliquis -) 10 mg PO BID [facility] Stop: 11/02/18 22:01 Last Admin: 10/31/18 22:37 Dose: 10 mg Ascorbic Acid (Vitamin C -) 500 mg PO DAILY [facility] Last Admin: 10/31/18 10:10 Dose: 500 mg Aspirin (Asa -) 81 mg PO DAILY [facility] Last Admin: 10/31/18 10:10 Dose: 81 mg Collagenase (Santyl -) 1 applic TP DAILY [facility]; Protocol Last Admin: 10/31/18 10:52 Dose: 1 applic Cyclobenzaprine HCl (Flexeril -) 10 mg PO TID PRN PRN Reason: MUSCLE SPASMS Last Admin: 11/01/18 03:20 Dose: 10 mg Docusate Sodium (Colace -) 100 mg PO BID [facility] Last Admin: 10/31/18 23:25 Dose: Not Given Gabapentin (Neurontin -) 100 mg PO TID PRN PRN Reason: PAIN Last Admin: 10/31/18 07:42 Dose: 100 mg Sodium Chloride (Normal Saline -) 1,000 mls @ 60 mls/hr IV ASDIR [facility] Last Admin: 10/30/18 21:54 Dose: 60 mls/hr Nicotine (Nicoderm Patch -) 21 mg TD DAILY [facility] Last Admin: 10/31/18 10:11 Dose: 21 mg Oxycodone HCl (Roxicodone -) 5 mg PO Q6H PRN PRN Reason: PAIN LEVEL 4 - 6 Last Admin: 11/01/18 04:47 Dose: 5 mg CBC, BMP 11/01/18 05:50 10/28/18 05:59 Physical Examination Constitutional: Yes: No Distress.Comfortable Cardiovascular: Yes: Regular Rate and Rhythm Respiratory: Yes: CTA Bilaterally Gastrointestinal: Yes: Normal Bowel Sounds, Soft. No: Tenderness Extremities: Yes: Other (contracted extremities bilateral, more contraction on the right knee compared to left) Edema: Yes (Right knee) Wound/Incision: Yes: Other (pressure ulcer noted on the underside of right thigh , sloughing noted) Imaging - Results Chest X-ray: Image Reviewed (no infiltrate) Cat Scan: Report Reviewed (head CT negative) EKG: Image Reviewed (normal sinus) Assessment/Plan comfortable Continue present care stable for discharge-----awaiting authorization--- from insurance Slightly elevated WBC TODAY Patient has no fever/comfortable----can be monitored in the assisted Problem List - Problems (1) Altered mental status Code(s): R41.82 - ALTERED MENTAL STATUS, UNSPECIFIED (2) Multiple sclerosis Code(s): G35 - MULTIPLE SCLEROSIS (3) Pulmonary emboli Code(s): I26.99 - OTHER PULMONARY EMBOLISM WITHOUT ACUTE COR PULMONALE (4) UTI (urinary tract infection) Code(s): N39.0 - URINARY TRACT INFECTION, SITE NOT SPECIFIED Qualifiers: Urinary tract infection type: site unspecified Hematuria presence: without hematuria Qualified Code(s): N39.0 - Urinary tract infection, site not specified Problem List - Problems (1) Altered mental status Code(s): R41.82 - ALTERED MENTAL STATUS, UNSPECIFIED (2) Multiple sclerosis Code(s): G35 - MULTIPLE SCLEROSIS (3) Pulmonary emboli Code(s): I26.99 - OTHER PULMONARY EMBOLISM WITHOUT ACUTE COR PULMONALE (4) UTI (urinary tract infection) Code(s): N39.0 - URINARY TRACT INFECTION, SITE NOT SPECIFIED Qualifiers: Urinary tract infection type: site unspecified Hematuria presence: without hematuria Qualified Code(s): N39.0 - Urinary tract infection, site not specified
[2018-11-01] MEDS ORDERED: PT OWN MED DRAWER 7, Y5N ONE (10:13)
[2018-11-01] MEDS: NICOTINE 21 MG/24 HOURS TOPICAL PATCH TD SCH (10:15)
[2018-11-01] MEDS: DOCUSATE SODIUM 100 MG CAPSULE (FP) PO SCH ×2 (10:15→21:26)
[2018-11-01] MEDS: ASCORBIC ACID 500 MG TABLET (FP) PO SCH (10:15)
[2018-11-01] MEDS: APIXABAN 5 MG TABLET PO SCH ×2 (10:16→21:25)
[2018-11-01] MEDS: COLLAGENASE CLOSTRIDIUM HIST. 30 GRAMS TUBE TP SCH (10:16)
[2018-11-01] MEDS: ASPIRIN 81 MG CHEWABLE TABLETS PO SCH (10:16)
--- NOTE | 2018-11-01 11:18 | PN ---
Progress Note (short form) - Note Progress Note: s: no chest pain, palps, dyspnea dizzy Current Medications Generic Name Dose Route Start Last Admin Trade Name Freq PRN Reason Stop Dose Admin Acetaminophen 650 mg 10/25/18 16:49 11/01/18 07:39 Tylenol - PO 650 mg Q6H PRN Administration PAIN OR FEVER Apixaban 10 mg 10/27/18 10:00 11/01/18 10:16 Eliquis - PO 11/02/18 22:01 10 mg BID DESIRE Administration Ascorbic Acid 500 mg 10/26/18 10:00 11/01/18 10:15 Vitamin C - PO 500 mg DAILY [facility] Administration Aspirin 81 mg 10/25/18 17:00 11/01/18 10:16 Asa - PO 81 mg DAILY [facility] Administration Collagenase 1 applic 10/26/18 10:15 11/01/18 10:16 Santyl - TP 1 applic DAILY [facility] Administration Protocol Cyclobenzaprine HCl 10 mg 10/25/18 16:49 11/01/18 03:20 Flexeril - PO 10 mg TID PRN Administration MUSCLE SPASMS Docusate Sodium 100 mg 10/25/18 22:00 11/01/18 10:15 Colace - PO 100 mg BID DESIRE Administration Gabapentin 100 mg 10/25/18 16:49 10/31/18 07:42 Neurontin - PO 100 mg TID PRN Administration PAIN Sodium Chloride 1,000 mls @ 60 mls/hr 10/26/18 15:15 10/30/18 21:54 Normal Saline - IV 60 mls/hr ASDIR [facility] Administration Nicotine 21 mg 10/26/18 10:00 11/01/18 10:15 Nicoderm Patch - TD 21 mg DAILY [facility] Administration Oxycodone HCl 5 mg 10/28/18 23:21 11/01/18 11:02 Roxicodone - PO 5 mg Q6H PRN Administration PAIN LEVEL 4 - 6 Vital Signs Period Temp Pulse Resp BP Sys/Storey Pulse Ox Last 24 Hr 98 F-99 F 86-102 20-20 129-142/61-74 Constitutional: Yes: No Distress, Calm Eyes: Yes: Conjunctiva Clear, EOM Intact Cardiovascular: Yes: Regular Rate and Rhythm Respiratory: Yes: CTA Bilaterally (no wheezing or rales) Gastrointestinal: Yes: Soft Edema:no Neurological: Yes: Alert no jaundice, diaphoresis not agitated CBC, BMP 11/01/18 05:50 10/28/18 05:59 Echo: TDS. nl LVSF. nl RV size/fxn. mild MR/TR IMP: 1. Small PE (RLL subsegmental)--AC started. -->sinus tach secondary to PE 2. UTI, on abx 3. CT findings c/w ? acute/subacute renal infarction vs pyelo 4. Multiple Sclerosis 5. Abnl ECG: cannot r/o old IWMI, Left axis, Poor R wave progression- unchanged from 12/2017. indeterminate-range TnI elevation, flat trend (0.1 x 2), secondary to PE/demand ischemia. 6. leukocytosis, thrombocytosis 7. Anemia--suspect dilutional component here, currently at prior [place] REC: -continue Eliquis -h/h stable at prior baseline -no clinical RV strain, hemodynamically stable -tachycardia is improved--no AVN blockers indicated -UTI tx per pmd -per heme 6 months of AC for provoked DVT
[2018-11-01] MEDS: SODIUM CHLORIDE 1,000 ML IV SCH ×2 (15:34→20:34)
[2018-11-01 16:41] VITALS: BMI 20.8
--- NOTE | 2018-11-01 18:34 | PN ---
Progress Note (short form) - Note Progress Note: Will start IV Venofer 200mg every other day x 5 doses.
[2018-11-01] MEDS: IRON SUCROSE INJECTION 200 MG in SODIUM CHLORIDE 90 ML IVPB SCH (20:37)
[2018-11-01] MEDS: GABAPENTIN 100 MG CAPSULE (FP) PO PRN (23:20)
[2018-11-02] MEDS: oxyCODONE HCL 5 MG TABLET PO PRN ×2 (07:26→17:16)
[2018-11-02] MEDS: ASPIRIN 81 MG CHEWABLE TABLETS PO SCH (09:35)
[2018-11-02] MEDS: APIXABAN 5 MG TABLET PO SCH ×2 (09:35→22:10)
[2018-11-02] MEDS: DOCUSATE SODIUM 100 MG CAPSULE (FP) PO SCH ×2 (09:36→22:10)
[2018-11-02] MEDS: ASCORBIC ACID 500 MG TABLET (FP) PO SCH (09:36)
[2018-11-02] MEDS: NICOTINE 21 MG/24 HOURS TOPICAL PATCH TD SCH (09:36)
[2018-11-02] MEDS: COLLAGENASE CLOSTRIDIUM HIST. 30 GRAMS TUBE TP SCH (09:36)
--- NOTE | 2018-11-02 11:21 | PN ---
Progress Note, Physician Chief Complaint: seen and examined no CP or SOB - Current Medication List Current Medications: Active Medications Acetaminophen (Tylenol -) 650 mg PO Q6H PRN PRN Reason: PAIN OR FEVER Last Admin: 11/01/18 20:37 Dose: 650 mg Apixaban (Eliquis -) 10 mg PO BID [facility] Stop: 11/02/18 22:01 Last Admin: 11/02/18 09:35 Dose: 10 mg Ascorbic Acid (Vitamin C -) 500 mg PO DAILY [facility] Last Admin: 11/02/18 09:36 Dose: 500 mg Aspirin (Asa -) 81 mg PO DAILY [facility] Last Admin: 11/02/18 09:35 Dose: 81 mg Collagenase (Santyl -) 1 applic TP DAILY [facility]; Protocol Last Admin: 11/02/18 09:36 Dose: 1 applic Cyclobenzaprine HCl (Flexeril -) 10 mg PO TID PRN PRN Reason: MUSCLE SPASMS Last Admin: 11/01/18 20:37 Dose: 10 mg Docusate Sodium (Colace -) 100 mg PO BID [facility] Last Admin: 11/02/18 09:36 Dose: Not Given Gabapentin (Neurontin -) 100 mg PO TID PRN PRN Reason: PAIN Last Admin: 11/01/18 23:20 Dose: 100 mg Sodium Chloride (Normal Saline -) 1,000 mls @ 60 mls/hr IV ASDIR [facility] Last Admin: 11/01/18 20:34 Dose: Not Given Iron Sucrose 200 mg/ Sodium (Chloride) 100 mls @ 100 mls/hr IVPB Q2D [facility] Stop: 11/10/18 23:00 Last Admin: 11/01/18 20:37 Dose: 100 mls/hr Nicotine (Nicoderm Patch -) 21 mg TD DAILY [facility] Last Admin: 11/02/18 09:36 Dose: 21 mg Oxycodone HCl (Roxicodone -) 5 mg PO Q6H PRN PRN Reason: PAIN LEVEL 4 - 6 Last Admin: 11/02/18 07:26 Dose: 5 mg - Objective Vital Signs: Vital Signs Temperature 98.2 F 11/02/18 06:00 Pulse Rate 103 H 11/02/18 06:00 Respiratory Rate 18 11/02/18 06:00 Blood Pressure 108/79 11/02/18 06:00 O2 Sat by Pulse Oximetry (%) 98 11/01/18 21:00 Constitutional: Yes: No Distress, Calm Eyes: Yes: Conjunctiva Clear Cardiovascular: Yes: Regular Rate and Rhythm Respiratory: Yes: CTA Bilaterally Gastrointestinal: Yes: Soft Edema: No Neurological: Yes: Alert, Oriented ...Motor Strength: WNL Labs: CBC, BMP 11/01/18 05:50 10/28/18 05:59 INR, PTT INR 1.24 (0.83-1.09) H 10/25/18 15:24 Assessment/Plan Echo: TDS. nl LVSF. nl RV size/fxn. mild MR/TR IMP: 1. Small PE (RLL subsegmental)--AC started. -->sinus tach secondary to PE 2. UTI, on abx 3. CT findings c/w ? acute/subacute renal infarction vs pyelo 4. Multiple Sclerosis 5. Abnl ECG: cannot r/o old IWMI, Left axis, Poor R wave progression- unchanged from 12/2017. indeterminate-range TnI elevation, flat trend (0.1 x 2), secondary to PE/demand ischemia. 6. leukocytosis, thrombocytosis 7. Anemia--suspect dilutional component here, currently at prior [facility] REC: -continue Eliquis, adjust to maintenance dose as per dosing protocol/guideline for PE -h/h stable at prior baseline -no clinical RV strain, hemodynamically stable -tachycardia is improved--no AVN blockers indicated -UTI tx per pmd -per heme 6 months of AC for provoked DVT
--- NOTE | 2018-11-02 12:47 | PN ---
Progress Note (short form) - Note Progress Note: comfortable no new issues afebrile alert/ awake Hematology f/u noted-- Got venofer yesterday-- suggested 5 doses. Vital Signs Temp 98.2 F 11/02/18 06:00 Pulse 103 H 11/02/18 06:00 Resp 18 11/02/18 06:00 BP 108/79 11/02/18 06:00 Pulse Ox 98 11/01/18 21:00 Intake & Output 11/01/18 11/02/18 11/02/18 23:59 11:59 23:59 Intake Total 350 220 Balance 350 220 Weight 133 lb 121 lb 9.6 oz Intake: IVPB 100 Oral 350 120 Other: Voiding Method Incontinent # Unmeasured Voids Void 1 Bowel Movement Yes No # Bowel Movements 1 Height 5 ft 7 in Body Mass Index (BMI) 20.8 Weight Measurement Method Built in [facility] Active Medications Acetaminophen (Tylenol -) 650 mg PO Q6H PRN PRN Reason: PAIN OR FEVER Last Admin: 11/01/18 20:37 Dose: 650 mg Apixaban (Eliquis -) 10 mg PO BID [facility] Stop: 11/02/18 22:01 Last Admin: 11/02/18 09:35 Dose: 10 mg Ascorbic Acid (Vitamin C -) 500 mg PO DAILY [facility] Last Admin: 11/02/18 09:36 Dose: 500 mg Aspirin (Asa -) 81 mg PO DAILY [facility] Last Admin: 11/02/18 09:35 Dose: 81 mg Collagenase (Santyl -) 1 applic TP DAILY [facility]; Protocol Last Admin: 11/02/18 09:36 Dose: 1 applic Cyclobenzaprine HCl (Flexeril -) 10 mg PO TID PRN PRN Reason: MUSCLE SPASMS Last Admin: 11/01/18 20:37 Dose: 10 mg Docusate Sodium (Colace -) 100 mg PO BID [facility] Last Admin: 11/02/18 09:36 Dose: Not Given Gabapentin (Neurontin -) 100 mg PO TID PRN PRN Reason: PAIN Last Admin: 11/01/18 23:20 Dose: 100 mg Sodium Chloride (Normal Saline -) 1,000 mls @ 60 mls/hr IV ASDIR DESIRE Last Admin: 11/01/18 20:34 Dose: Not Given Iron Sucrose 200 mg/ Sodium (Chloride) 100 mls @ 100 mls/hr IVPB Q2D [facility] Stop: 11/10/18 23:00 Last Admin: 11/01/18 20:37 Dose: 100 mls/hr Nicotine (Nicoderm Patch -) 21 mg TD DAILY [facility] Last Admin: 11/02/18 09:36 Dose: 21 mg Oxycodone HCl (Roxicodone -) 5 mg PO Q6H PRN PRN Reason: PAIN LEVEL 4 - 6 Last Admin: 11/02/18 07:26 Dose: 5 mg CBC, BMP 11/01/18 05:50 10/28/18 05:59 Physical Examination Constitutional: Yes: No Distress.Comfortable Cardiovascular: Yes: Regular Rate and Rhythm Respiratory: Yes: CTA Bilaterally Gastrointestinal: Yes: Normal Bowel Sounds, Soft. No: Tenderness Extremities: Yes: Other (contracted extremities bilateral, more contraction on the right knee compared to left) Edema: Yes (Right knee) Wound/Incision: Yes: Other (pressure ulcer noted on the underside of right thigh , sloughing noted) Imaging - Results Chest X-ray: Image Reviewed (no infiltrate) Cat Scan: Report Reviewed (head CT negative) EKG: Image Reviewed (normal sinus) Assessment/Plan comfortable Continue present care stable for discharge-----awaiting authorization--- from insurance Can get venofer in prison-- Discussed with healthcare consulting manager Problem List - Problems (1) Altered mental status Code(s): R41.82 - ALTERED MENTAL STATUS, UNSPECIFIED (2) Multiple sclerosis Code(s): G35 - MULTIPLE SCLEROSIS (3) Pulmonary emboli Code(s): I26.99 - OTHER PULMONARY EMBOLISM WITHOUT ACUTE COR PULMONALE (4) UTI (urinary tract infection) Code(s): N39.0 - URINARY TRACT INFECTION, SITE NOT SPECIFIED Qualifiers: Urinary tract infection type: site unspecified Hematuria presence: without hematuria Qualified Code(s): N39.0 - Urinary tract infection, site not specified
[2018-11-02] MEDS: SODIUM CHLORIDE 1,000 ML IV SCH (17:18)
[2018-11-02] MEDS: GABAPENTIN 100 MG CAPSULE (FP) PO PRN (22:10)
[2018-11-03] MEDS: ASPIRIN 81 MG CHEWABLE TABLETS PO SCH (10:19)
[2018-11-03] MEDS: ASCORBIC ACID 500 MG TABLET (FP) PO SCH (10:19)
[2018-11-03] MEDS: oxyCODONE HCL 5 MG TABLET PO PRN (10:19)
[2018-11-03] MEDS: NICOTINE 21 MG/24 HOURS TOPICAL PATCH TD SCH (10:21)
[2018-11-03] MEDS: COLLAGENASE CLOSTRIDIUM HIST. 30 GRAMS TUBE TP SCH (10:21)
[2018-11-03] MEDS: DOCUSATE SODIUM 100 MG CAPSULE (FP) PO SCH (10:21)
[2018-11-03] MEDS: IRON SUCROSE INJECTION 200 MG in SODIUM CHLORIDE 90 ML IVPB SCH (10:22)
--- NOTE | 2018-11-03 13:15 | PN ---
Progress Note (short form) - Note Progress Note: comfortable no new issues Vital Signs Temp 98.2 F 11/03/18 10:00 Pulse 107 H 11/03/18 10:00 Resp 18 11/03/18 10:00 BP 130/62 11/03/18 10:00 Pulse Ox 96 11/02/18 21:00 Intake & Output 11/02/18 11/03/18 11/03/18 23:59 11:59 23:59 Intake Total 200 Balance 200 Weight 122 lb 9 oz Intake: IV 0 SL 0 IVPB 0 Oral 200 Other: Voiding Method Incontinent # Unmeasured Voids Void 0 Bowel Movement No Weight Measurement Method Built in [facility] Active Medications Acetaminophen (Tylenol -) 650 mg PO Q6H PRN PRN Reason: PAIN OR FEVER Last Admin: 11/01/18 20:37 Dose: 650 mg Ascorbic Acid (Vitamin C -) 500 mg PO DAILY [facility] Last Admin: 11/03/18 10:19 Dose: 500 mg Aspirin (Asa -) 81 mg PO DAILY [facility] Last Admin: 11/03/18 10:19 Dose: 81 mg Collagenase (Santyl -) 1 applic TP DAILY [facility]; Protocol Last Admin: 11/03/18 10:21 Dose: 1 applic Cyclobenzaprine HCl (Flexeril -) 10 mg PO TID PRN PRN Reason: MUSCLE SPASMS Last Admin: 11/01/18 20:37 Dose: 10 mg Docusate Sodium (Colace -) 100 mg PO BID [facility] Last Admin: 11/03/18 10:21 Dose: 100 mg Gabapentin (Neurontin -) 100 mg PO TID PRN PRN Reason: PAIN Last Admin: 11/02/18 22:10 Dose: 100 mg Iron Sucrose 200 mg/ Sodium (Chloride) 100 mls @ 100 mls/hr IVPB Q2D [facility] Stop: 11/10/18 23:00 Last Admin: 11/03/18 10:22 Dose: 100 mls/hr Nicotine (Nicoderm Patch -) 21 mg TD DAILY [facility] Last Admin: 11/03/18 10:21 Dose: 21 mg CBC, BMP 11/01/18 05:50 10/28/18 05:59 Physical Examination Constitutional: Yes: No Distress.Comfortable Cardiovascular: Yes: Regular Rate and Rhythm Respiratory: Yes: CTA Bilaterally Gastrointestinal: Yes: Normal Bowel Sounds, Soft. No: Tenderness Extremities: Yes: Other (contracted extremities bilateral, more contraction on the right knee compared to left) Edema: Yes (Right knee) Wound/Incision: Yes: Other (pressure ulcer noted on the underside of right thigh , sloughing noted) Imaging - Results Chest X-ray: Image Reviewed (no infiltrate) Cat Scan: Report Reviewed (head CT negative) EKG: Image Reviewed (normal sinus) Assessment/Plan comfortable Continue present care stable for discharge-----awaiting authorization--- from insurance Can get venofer in senior care-- Discussed with e commerce manager will get 2nd dose today Problem List - Problems (1) Altered mental status Code(s): R41.82 - ALTERED MENTAL STATUS, UNSPECIFIED (2) Multiple sclerosis Code(s): G35 - MULTIPLE SCLEROSIS (3) Pulmonary emboli Code(s): I26.99 - OTHER PULMONARY EMBOLISM WITHOUT ACUTE COR PULMONALE (4) UTI (urinary tract infection) Code(s): N39.0 - URINARY TRACT INFECTION, SITE NOT SPECIFIED Qualifiers: Urinary tract infection type: site unspecified Hematuria presence: without hematuria Qualified Code(s): N39.0 - Urinary tract infection, site not specified
[2018-11-03] MEDS ORDERED: PT OWN MED DRAWER 7, Y5N ONE (15:10)
[2018-11-03 15:46] VITALS: BP 112/48; PULSE 71; TEMP 98.5
[2018-11-03] MEDS: GABAPENTIN 100 MG CAPSULE (FP) PO PRN (15:46)
[2018-11-03] MEDS ORDERED: oxyCODONE HCL 5 MG TABLET PO PRN (17:15)
[2018-11-03] MEDS: CYCLOBENZAPRINE HCL 10 MG TABLET (FP) PO PRN (18:12)
== END 2018-11-03 19:27 | DRG 134 ==
LOC: JER 13:49 → JERBED 16:57 → J4W 21:07 → J8W 10-29 19:14
PROVIDERS: ADMIT Internal Medicine; ATTEND Internal Medicine
DX: I26.99 Other pulmonary embolism without acute cor pulmonale (principal); R53.2 Functional quadriplegia; G93.41 Metabolic encephalopathy; G35 Multiple sclerosis; I24.8 Other forms of acute ischemic heart disease; N39.0 Urinary tract infection, site not specified; R64 Cachexia; I10 Essential (primary) hypertension; R94.31 Abnormal electrocardiogram [ECG] [EKG]; D64.9 Anemia, unspecified; D47.3 Essential (hemorrhagic) thrombocythemia; G43.909 Migraine, unspecified, not intractable, without status migrainosus; G25.81 Restless legs syndrome; Z74.01 Bed confinement status
CPT/HCPCS: 36415; 70450-TC; 71045-TC-FY; 71275-TC; 80048; 80053; 81003; 82272; 82550; 82553; 82728; 82803; 83540; 83550; 83605; 84484; 85025; 85027; 85610; 85730; 86850; 86900; 86901; 87040; 87086; 87186; 93005; 93010; 93306-TC; 93971-TC; 97162-GP; 99285-25; J1756; J7030

== ENCOUNTER 2018-11-19 12:13 | Emergency (ER) | payer OTHER ==
[2018-11-19 12:56] VITALS: BP 108/81; PULSE 89; TEMP 99.1; BMI 23.4
--- NOTE | 2018-11-19 13:23 | PDOC ---
History of Present Illness - General Chief Complaint: Weakness Stated Complaint: Weakness History Source: Patient Exam Limitations: No Limitations - History of Present Illness Initial Comments: 11/19/18 13:46 73 yo female MS (lower ext bilaterally contracted), perforated ulcer, and right patellar ORIF and PE (on eliquis) and multiple lower ext ulcers presents from [place] for uncontrolled pain as per nursing staff. Pt, pts daughter and sister state pt has been in the same quality, intensity and frequency of pain, denies any acute changes. Since patellar fracture and starting opioids, pt has noted decreased appetite. Pt denies any recent change in health, denies any medical complaints including F/C/N/V, CP, SOB, abdominal pain, changes in bowel or bladder habits Past History - Past Medical History Allergies/Adverse Reactions: Allergies Allergy/AdvReac Type Severity Reaction Status Date / Time strawberry Allergy Verified 10/05/18 22:06 Home Medications: Ambulatory Orders Cyclobenzaprine HCl [Flexeril 10 mg] 10 mg PO TID PRN 07/30/18 Gabapentin 100 mg PO TID PRN 07/30/18 Zolpidem Tartrate [Ambien] 10 mg PO HS 07/30/18 oxyCODONE HCL [Roxicodone -] 5 mg PO Q6H PRN #30 tablet MDD 4 08/10/18 Morphine *Sr* [Ms Contin -] 15 mg PO BID #60 tablet.sa MDD 2 10/10/18 Tizanidine HCl 4 mg PO BID 10/25/18 Apixaban [Eliquis -] 10 mg PO BID tablet 10/31/18 Ascorbic Acid [Vitamin C -] 500 mg PO DAILY tablet 10/31/18 Collagenase Clostridium Hist. [Santyl -] 1 applic TP DAILY tube 10/31/18 Docusate Sodium [Colace -] 100 mg PO BID capsule 10/31/18 Sulfamethoxazole/Trimethoprim [Bactrim Ds Tablet] 1 each PO BID 3 Days #6 tablet 11/19/18 Anemia: No Asthma: No Cancer: No Cardiac Disorders: No CVA: No COPD: No CHF: No Dementia: No Diabetes: No GI Disorders: Yes (PERFORATED ULCER) Disorders: No HTN: No Hypercholesterolemia: No Liver Disease: No Seizures: No Thyroid Disease: No - Surgical History Abdominal Surgery: Yes ( A CHILD s/p swallowing object.) Appendectomy: No Cardiac Surgery: No Cholecystectomy: No GI Surgery: Yes (PERFORATED ULCER REPAIR) Lung Surgery: No Neurologic Surgery: No Orthopedic Surgery: (right hip fx, s/p ORIF 12/19) - Immunization History Immunization Up to Date: Yes - Suicide/Smoking/Psychosocial Hx Smoking History: Unknown if ever smoked Have you smoked in the past 12 months: No Number of Cigarettes Smoked Daily: 7 Information on smoking cessation initiated: No 'Breaking Loose' booklet given: 07/31/18 Hx Alcohol Use: No Drug/Substance Use Hx: No Substance Use Type: None Hx Substance Use Treatment: No Review of Systems - Review of Systems Constitutional: Yes: See HPI HEENTM: Yes: See HPI Respiratory: Yes: See HPI Cardiac (ROS): Yes: See HPI ABD/GI: Yes: See HPI : Yes: See HPI Musculoskeletal: Yes: See HPI Integumentary: Yes: See HPI Neurological: Yes: See HPI *Physical Exam - Vital Signs Last Vital Signs Temp Pulse Resp BP Pulse Ox 99.1 F 89 16 108/81 98 11/19/18 12:14 11/19/18 12:14 11/19/18 12:14 11/19/18 12:14 11/19/18 12:14 - Physical Exam General Appearance: Yes: Nourished, Appropriately Dressed. No: Apparent Distress HEENT: positive: EOMI Neck: positive: Supple. negative: Carotid bruit Respiratory/Chest: positive: Lungs Clear, Normal Breath Sounds. negative: Crackles, Rales, Rhonchi, Stridor, Wheezing Cardiovascular: positive: Regular Rhythm, Regular Rate, S1, S2. negative: Edema , JVD, Murmur Vascular Pulses: Dorsalis-Pedis (R): 4+, Doralis-Pedis (L): 4+ Gastrointestinal/Abdominal: positive: Flat, Soft. negative: Pulsatile Mass, Distended, Guarding, Rebound, Tenderness Musculoskeletal: negative: CVA Tenderness Extremity: positive: Normal Capillary Refill, Normal Inspection Integumentary: positive: Other (multiple superficial ulcers to the bilateral lower ext with some drainage. No surrounding erythema, warmth or pain) Neurologic: positive: Fully Oriented, Alert, Normal Mood/Affect, Normal Response ED Treatment Course - LABORATORY CBC & Chemistry Diagram: 11/19/18 14:32 11/19/18 14:32 Medical Decision Making - Medical Decision Making 11/19/18 14:05 73 yo female MS (lower ext bilaterally contracted), perforated ulcer, and right patellar ORIF and PE (on eliquis) and multiple lower ext ulcers presents from [place] for uncontrolled pain as per nursing staff. Pt, pts daughter and sister state pt has been in the same quality, intensity and frequency of pain, denies any acute changes. Since patellar fracture and starting opioids, pt has noted decreased appetite. Pt denies any recent change in health, denies any medical complaints including F/C/N/V, CP, SOB, abdominal pain, changes in bowel or bladder habits Discussed care with [facility] staff including nursing day care supervisor, state pt was sent her for low grade temp of 99.8 orally concerns for sepsis. Rectal temp on arrival to ED 99.1, vitals WNL pt has bilateral lower ext ulcers with some drainage from the site without surrounding redness/pain or warmth however minor drainage is noted basics, blood cultures, UA if normal, pt DC back to DC Pt has multiple ulcers that are known, some have drainage pt notes recent UTI that was treated. Labs WNL including WBC, H/H and electrolytes UA shows UTI, cultures sent 11/19/18 16:23 Discussed Pharmacy to send antibiotics for found UTI with [place], state that if the antibiotic is placed in the paperwork, the DC can prescribe it on there own Pt safe and ready for DC home at this time *DC/Admit/Observation/Transfer Diagnosis at time of Disposition: UTI (urinary tract infection) - Discharge Dispostion Disposition: HOME Condition at time of disposition: Stable Decision to Admit order: No - Prescriptions Prescriptions: Sulfamethoxazole/Trimethoprim [Bactrim Ds Tablet] 1 each PO BID 3 Days #6 tablet - Referrals Referrals: Mansi Lagunas MD [Primary Care Provider] - - Patient Instructions Printed Discharge Instructions: DI for Urinary Tract Infection (UTI) Additional Instructions: Please see your Primary Doctor within the next 48 hours. Take the antibiotic prescribed to you as directed. Return to the ER for new or concerning symptoms including but not limited to: fevers, inability to eat or drink, excessive pain. Bactrim 160/800 PO 3X daily for the next 3 days is the antibiotic recommended for your UTI Thank you - Post Discharge Activity
[2018-11-19 14:51] LABS: BASO % 0.8 % (0-2.0); EOS % 2.9 % (0-4.5); HEMATOCRIT 33.9 % (32.4-45.2); LYMPH % 29.2 % (8-40); MCH 28.6 pg (25.7-33.7); MCHC 32.6 g/dl (32.0-36.0); MEAN PLT VOLUME 8.5 fl (7.5-11.1); MONO % 9.2 % (3.8-10.2); NEUT % 57.9 % (42.8-82.8); PLATELET COUNT 414 K/MM3 (134-434); RBC 3.86 M/mm3 (3.60-5.2); RDW 15.7 % (11.6-15.6); WHITE BLOOD COUNT 7.5 K/mm3 (4.0-10.0)
[2018-11-19 15:07] LABS: URINE APPEARANCE CLOUDY; URINE BILIRUBIN NEGATIVE (NEGATIVE); URINE COLOR YELLOW; URINE GLUCOSE (UA) NEGATIVE (NEGATIVE); URINE KETONE NEGATIVE (NEGATIVE); URINE LEUK ESTERASE 2+ (NEGATIVE); URINE NITRITE NEGATIVE (NEGATIVE); URINE PROTEIN 1+ (NEGATIVE)
[2018-11-19 15:41] LABS: BILIRUBIN,TOTAL 0.4 mg/dL (0.2-1); BLOOD UREA NITROGEN 19.2 mg/dL (7-18); CALCIUM 9.8 mg/dL (8.5-10.1); CREATININE 0.6 mg/dL (0.55-1.3); POTASSIUM 4.7 mmol/L (3.5-5.1); TOT PROT 7.2 g/dl (6.4-8.2)
--- NOTE | 2018-11-19 16:03 | PDOC ---
Documentation entered by Rose Wright SCRIBE, acting as scribe for Kimberlyn Reilly MD. Kimberlyn Reilly MD: This documentation has been prepared by the Adriana hernandez Adrianna, SCRIBE, under my direction and personally reviewed by me in its entirety. I confirm that the documentation accurately reflects all work, treatment, procedures, and medical decision making performed by me. Attending Attestation - Resident Resident Name: Nate Barahona - HPI HPI: The patient is a 73 year old female, with a significant PMH of MS (contracted bilateral lower extremities), perforated ulcer, PE, right patellar ORIF, and multiple lower extremity ulcers. who presents to the ED BIBEMS from [facility] for uncontrollable pain for one day as per nursing note. Family at bedside notes that the patient is at her baseline without any changes. Denies fever, chills, nausea, vomit, chest pain, SOB. abdominal pain, diarrhea, constipation, urinary changes. Allergies: [place] Surgical History: Perforated ulcer repair, right hip fracture s/p ORIF, right patellar ORIF Social History: Denies EtOH, tobacco, or illicit drug use PCP: Dr. Lagunas - Physicial Exam PE: 11/19/18 15:59 Agree with resident exam. PAtient is alert and in NAD. CV: rrr no m/r/g Pulm: CTA b/ abdomen: soft, non tender non distended without guarding or rebound. + chronic contractures. - Medical Decision Making 11/19/18 16:00 Pt presents to the ED after sent in from [place] for increased pain. Patient denies increased pain or any other complaints. LAbs are within normal limits, except for UA that indicates UTI. Will discharge home to [place].
[2018-11-19] MEDS ORDERED: oxyCODONE HCL 5 MG TABLET PO ONE (16:11)
[2018-11-19] MEDS ORDERED: oxyCODONE HCL 5 MG TABLET ONE (16:25)
[2018-11-19] MEDS ORDERED: SULFAMETHOXAZOLE/TRIMETHOPRIM 800MG/160MG D.S. TABLET ONE (16:26)
[2018-11-19] MEDS ORDERED: SULFAMETHOXAZOLE/TRIMETHOPRIM 800MG/160MG D.S. TABLET PO ONE (16:26)
[2018-11-19 16:52] LABS: URINE RBC 10.1 /hpf (0-4); URINE WBC 128.6 /hpf (0-5)
[2018-11-19 16:53] LABS: EPI CELLS 2.2 /HPF (0-5/HPF); HYALINE CASTS 127.77 /lpf (0-8); URINE BACTERIA 1844.2 /hpf (NEGATIVE); URINE CRYSTALS CALCIUM OXALATE /hpf
== END 2018-11-19 19:00 ==
LOC: JER 12:13
DX: N39.0 Urinary tract infection, site not specified (principal); G35 Multiple sclerosis; L97.929 Non-pressure chronic ulcer of unspecified part of left lower leg with unspecified severity; L97.919 Non-pressure chronic ulcer of unspecified part of right lower leg with unspecified severity; Z86.711 Personal history of pulmonary embolism; Z79.01 Long term (current) use of anticoagulants
CPT/HCPCS: 36415; 80053; 81003; 85025; 87040; 87086; 87186; 99284-25

== ENCOUNTER 2018-11-28 09:23 | Inpatient (IN) | payer OTHER ==
[2018-11-28 10:41] LABS: BASO % 0.8 % (0-2.0); EOS % 0.6 % (0-4.5); HEMATOCRIT 36.1 % (32.4-45.2); HEMOGLOBIN 11.9 GM/dL (10.7-15.3); LYMPH % 17.2 % (8-40); MCH 28.8 pg (25.7-33.7); MEAN CELL VOLUME 87.3 fl (80-96); MEAN PLT VOLUME 9.1 fl (7.5-11.1); MONO % 7.4 % (3.8-10.2); PLATELET COUNT 467 K/MM3 (134-434); RBC 4.14 M/mm3 (3.60-5.2); RDW 16.1 % (11.6-15.6); WHITE BLOOD COUNT 8.7 K/mm3 (4.0-10.0)
[2018-11-28] MEDS ORDERED: LORazepam 2 MG/ML SDV VIAL ONE ×3 (10:41→17:08)
[2018-11-28 10:43] LABS: EPI CELLS >36 /HPF (0-5/HPF); HYALINE CASTS 178 /lpf (0-8); PH,URINE 5.5 (5.0-8.0); URINE APPEARANCE TURBID; URINE BACTERIA 4619.8 /hpf (NEGATIVE); URINE BILIRUBIN NEGATIVE (NEGATIVE); URINE COLOR DK YELLOW; URINE GLUCOSE (UA) NEGATIVE (NEGATIVE); URINE KETONE 1+ (NEGATIVE); URINE LEUK ESTERASE 2+ (NEGATIVE); URINE NITRITE NEGATIVE (NEGATIVE); URINE PROTEIN 2+ (NEGATIVE); URINE WBC 553 /hpf (0-5)
--- NOTE | 2018-11-28 10:44 | PDOC ---
Documentation entered by Tre Carlos SCRIBE, acting as scribe for Abhishek Blandon MD. Abhishek Blandon MD: This documentation has been prepared by the Terrance hernandez Xhesika, SCRIBE, under my direction and personally reviewed by me in its entirety. I confirm that the documentation accurately reflects all work, treatment, procedures, and medical decision making performed by me. History of Present Illness - General Chief Complaint: Injury Stated Complaint: FALL History Source: Patient Exam Limitations: No Limitations, Clinical Condition (AMS ) - History of Present Illness Initial Comments: 11/28/18 10:01 The patient is a 73 year old female, with a significant PMH of MS (contracted bilateral lower extremities), perforated ulcer, PE, right patellar ORIF, multiple lower extremity ulcers and recent UTI who presents to the ED BIBEMS from [facility] s/p unwitnessed fall this morning. As per [place] notes the patient was in bed last night and this morning was found on the floor holding onto the side rail with her hand. Sister at bedside notes the patient has been declining since 12/19 (broke her hip), 09/19 (broke her knee) and intermittently has periods of confusion. At this time, pt continues to repeat "heaven" and is crying over the of her parents many years ago. Sister at bedside states this is her baseline mental status. History is limited due to patient's clinical condition. Allergies: [place] Surgical History: Perforated ulcer repair, right hip fracture s/p ORIF, right patellar ORIF Social History: Denies EtOH, tobacco, or illicit drug use PCP: Dr. Lagunas Past History - Past Medical History Allergies/Adverse Reactions: Allergies Allergy/AdvReac Type Severity Reaction Status Date / Time strawberry Allergy Verified 11/28/18 11:26 Home Medications: Ambulatory Orders Gabapentin 200 mg PO TID PRN 07/30/18 Zolpidem Tartrate [Ambien] 10 mg PO HS 07/30/18 Morphine *Sr* [Ms Contin -] 15 mg PO BID #60 tablet.sa MDD 2 10/10/18 Tizanidine HCl 4 mg PO BID 10/25/18 Apixaban [Eliquis -] 10 mg PO BID tablet 10/31/18 Ascorbic Acid [Vitamin C -] 500 mg PO DAILY tablet 10/31/18 Collagenase Clostridium Hist. [Santyl -] 1 applic TP DAILY tube 10/31/18 Docusate Sodium [Colace -] 100 mg PO BID capsule 10/31/18 Baclofen 10 mg PO BID 11/28/18 oxyCODONE HCL [Roxicodone -] 10 mg PO Q6H PRN MDD 4 11/28/18 Anemia: No Asthma: No Cancer: No Cardiac Disorders: No CVA: No COPD: No CHF: No Dementia: No Diabetes: No GI Disorders: Yes (PERFORATED ULCER) Disorders: No HTN: No Hypercholesterolemia: No Liver Disease: No Seizures: No Thyroid Disease: No - Surgical History Abdominal Surgery: Yes ( A CHILD s/p swallowing object.) Appendectomy: No Cardiac Surgery: No Cholecystectomy: No GI Surgery: Yes (PERFORATED ULCER REPAIR) Lung Surgery: No Neurologic Surgery: No Orthopedic Surgery: (right hip fx, s/p ORIF 12/19) - Immunization History Immunization Up to Date: Yes - Suicide/Smoking/Psychosocial Hx Smoking History: Unknown if ever smoked Have you smoked in the past 12 months: No Number of Cigarettes Smoked Daily: 7 'Breaking Loose' booklet given: 07/31/18 Hx Alcohol Use: No Drug/Substance Use Hx: No Substance Use Type: None Hx Substance Use Treatment: No Review of Systems - Review of Systems Able to Perform ROS?: No Comments:: 11/28/18 10:14 Limited due to patient's clinical condition. *Physical Exam - Vital Signs Last Vital Signs Temp Pulse Resp BP Pulse Ox 98.8 F 113 H 20 148/98 93 L 11/28/18 09:42 11/28/18 09:42 11/28/18 09:42 11/28/18 09:42 11/28/18 09:42 - Physical Exam Comments: 11/28/18 10:14 GENERAL: Awake, alert, oriented to name only, in no acute distress HEAD: +nasal bridge superfical abraision and mild edema EYES: PERRLA, EOMI, sclera anicteric, conjunctiva clear ENT: Auricles normal inspection, hearing grossly normal, nares patent, oropharynx clear without exudates. Very dry MM NECK: c-collar in place LUNGS: Breath sounds equal, clear to auscultation bilaterally. No wheezes, and no crackles HEART: Regular rate and rhythm, HR 94, normal S1 and S2, no murmurs, rubs or gallops ABDOMEN: Soft, nontender, normoactive bowel sounds. No guarding, no rebound. No masses : Rectally afebrile EXTREMITIES: +LE contractures, otherwise normal range of motion, no edema. No clubbing or cyanosis. No cords, erythema, or tenderness BACK: No midline spinal tenderness in cervical/thoracic/lumbar region NEUROLOGICAL: Normal speech, cranial nerves intact, contracted LE's but moving all extremities spontaneously SKIN: Midline abdominal scar noted, well healed. Otherwise, warm, Dry, normal turgor, no rashes or lesions noted. Heart Score/ECG Review #1 11/28/18 10:40 EKG read and int by me: Sinus tachycardia, rate 113. LAD. Wavy baseline due to pt agitation but no obvious JOSUE ED Treatment Course - LABORATORY CBC & Chemistry Diagram: 11/28/18 10:23 11/28/18 10:23 - RADIOLOGY Radiology Studies Ordered: Category Date Time Status CERVICAL SPINE CT W/O CONTR [CT] Stat CT Scan 11/28/18 09:[address] WITHOUT CONTRAST [CT] Stat CT Scan 11/28/18 09:58 Ordered CHEST X-RAY PORTABLE* [RAD] Stat Radiology 11/28/18 09:59 Ordered PELVIS [RAD] Stat Radiology 11/28/18 09:59 Ordered Medical Decision Making - Medical Decision Making 11/28/18 10:41 73yo F with MMP including head strike on AC, presents to the ED with unwitnessed fall, some evidence of facial trauma Possible syncope, per nurse Vazquez at [facility], pt was found on the floor this morning Plan for syncope and trauma w/u, tele obs admission Pt agitated, will require ativan for sedation for CT given head strike on eliquis 11/28/18 12:28 Labs wnl UA concerning for UTI, covered pt with ceftriaxone based on prev sensitivities CTH negative but quaality limited by pt movement (despite 1.5mg ativan IV for agitation) Pt at baseline at this time per family members with no neuro deficits, will hold off on rpt CT imaging at this time as low yield 11/28/18 15:[address] Kent, pt accepted for admission to m/s Case discussed in detail with admitting physician including history, physical exam and ancillary studies. Admitting physician has assumed care for the patient, will follow all pending diagnostics and will complete the evaluation and treatment. *DC/Admit/Observation/Transfer Diagnosis at time of Disposition: Fall, UTI (urinary tract infection) - Discharge Dispostion Condition at time of disposition: Stable - Referrals Referrals: Mansi Lagunas MD [Staff Physician] - - Patient Instructions - Post Discharge Activity - Attestations Physician Attestion: 11/28/18 15:10 I, Dr. Abhishek Blandon MD, attest that this document has been prepared under my direction and personally reviewed by me in its entirety. I further attest, that it accurately reflects all work, treatment, procedures and medical decision -making performed by me.
[2018-11-28 10:55] LABS: INR 1.68 (0.83-1.09); PROTHROMBIN TIME (PATIENT) 19.9 SEC (9.7-13.0)
[2018-11-28 10:58] LABS: ACTIVATED PTT 41.4 SECONDS (25.2-36.5)
[2018-11-28 11:22] LABS: URINE CRYSTALS CA OXALATES /hpf; URINE RBC 26.3 /hpf (0-4); YEAST NONE SEEN (NEGATIVE)
[2018-11-28 11:23] LABS: ALBUMIN 3.4 g/dl (3.4-5.0); ALK PHOS 136 U/L (45-117); ANION GAP 7 MMOL/L (8-16); BILIRUBIN,TOTAL 0.4 mg/dL (0.2-1); BLOOD UREA NITROGEN 16.1 mg/dL (7-18); CALCIUM 10.1 mg/dL (8.5-10.1); CHLORIDE 107 mmol/L (98-107); CO2 26 mmol/L (21-32); CREATININE 0.7 mg/dL (0.55-1.3); GLUCOSE,RANDOM 112 mg/dL (74-106); POTASSIUM 4.8 mmol/L (3.5-5.1); SGOT/AST 26 U/L (15-37); SGPT/ALT 28 U/L (13-61); SODIUM 141 mmol/L (136-145); TOT PROT 7.6 g/dl (6.4-8.2)
[2018-11-28] MEDS ORDERED: CEFTRIAXONE 1,000 MG in DEXTROSE 5%-WATER - 50 ML IVPB ONE (11:29)
[2018-11-28] MEDS ORDERED: CEFTRIAXONE 1 GM/50 ML BAG ONE (11:52)
--- NOTE | 2018-11-28 12:13 | EKG ---
Test Reason : Blood Pressure : / mmHG Vent. Rate : 113 BPM Atrial Rate : 113 BPM P-R Int : 146 ms QRS Dur : 084 ms QT Int : 336 ms P-R-T Axes : 090 -61 090 degrees QTc Int : 460 ms POOR DATA QUALITY, INTERPRETATION MAY BE ADVERSELY AFFECTED SINUS TACHYCARDIA LEFT AXIS DEVIATION ANTERIOR INFARCT (CITED ON OR BEFORE 28-NOV-2018) ABNORMAL ECG WHEN COMPARED WITH ECG OF 25-OCT-2018 16:06, NO SIGNIFICANT CHANGE WAS FOUND Confirmed by JC BAIG, OLEGARIO ([id number]) on 11/28/2018 12:13:10 PM Referred By: Confirmed By:OLEGARIO GREENE MD
[2018-11-28] MEDS ORDERED: oxyCODONE HCL 5 MG TABLET PO ONE (14:22)
[2018-11-28] MEDS ORDERED: oxyCODONE HCL 5 MG TABLET ONE (14:37)
[2018-11-28 19:44] VITALS: BMI 17.6
[2018-11-28] MEDS: oxyCODONE HCL 5 MG TABLET PO PRN (20:10)
[2018-11-28] MEDS: DOCUSATE SODIUM 100 MG CAPSULE (FP) PO SCH (21:59)
[2018-11-28] MEDS: morphine SO4 SUSTAINED ACTING 15 MG TABLET.SA PO SCH (22:02)
[2018-11-28] MEDS: ZOLPIDEM TARTRATE 5 MG TABLET PO PRN (22:02)
[2018-11-28] MEDS: BACLOFEN 10 MG TABLET (FP) PO SCH (22:02)
[2018-11-28] MEDS: TIZANIDINE HCL 4 MG TABLET PO SCH (22:53)
[2018-11-29 08:06] LABS: BASO % 0.9 % (0-2.0); EOS % 2.1 % (0-4.5); HEMATOCRIT 34.2 % (32.4-45.2); HEMOGLOBIN 11.4 GM/dL (10.7-15.3); LYMPH % 31.5 % (8-40); MCH 29.2 pg (25.7-33.7); MCHC 33.3 g/dl (32.0-36.0); MEAN CELL VOLUME 87.5 fl (80-96); MEAN PLT VOLUME 8.9 fl (7.5-11.1); MONO % 9.9 % (3.8-10.2); NEUT % 55.6 % (42.8-82.8); PLATELET COUNT 422 K/MM3 (134-434); RDW 16.5 % (11.6-15.6); WHITE BLOOD COUNT 7.4 K/mm3 (4.0-10.0)
[2018-11-29 08:41] LABS: ALBUMIN 3.3 g/dl (3.4-5.0); BILIRUBIN,TOTAL 0.5 mg/dL (0.2-1); BLOOD UREA NITROGEN 15.9 mg/dL (7-18); CALCIUM 10.1 mg/dL (8.5-10.1); CREATININE 0.6 mg/dL (0.55-1.3); POTASSIUM 4.2 mmol/L (3.5-5.1); TOT PROT 7.2 g/dl (6.4-8.2)
[2018-11-29] MEDS ORDERED: cefTRIAXone SODIUM 1 GM VIAL ONE (09:11)
[2018-11-29] MEDS ORDERED: PT OWN MED DRAWER 7, Y5N ONE ×2 (09:11→21:37)
[2018-11-29] MEDS ORDERED: DEXTROSE 5%-WATER - 50 ML IVPB ONE (09:11)
[2018-11-29] MEDS: CEFTRIAXONE 1 GM in DEXTROSE 5%-WATER - 50 ML IVPB SCH (09:17)
[2018-11-29] MEDS: BACLOFEN 10 MG TABLET (FP) PO SCH ×2 (09:18→22:01)
[2018-11-29] MEDS: DOCUSATE SODIUM 100 MG CAPSULE (FP) PO SCH (09:18)
[2018-11-29] MEDS: morphine SO4 SUSTAINED ACTING 15 MG TABLET.SA PO SCH ×2 (09:18→22:01)
[2018-11-29] MEDS: TIZANIDINE HCL 4 MG TABLET PO SCH ×2 (09:20→22:02)
--- NOTE | 2018-11-29 10:24 | HP ---
Admitting History and Physical - Primary Care Physician PCP: Mak Hui - Admission Chief Complaint: s/p fall History of Present Illness: ER HISTORY - History of Present Illness Initial Comments: 11/28/18 10:01 The patient is a 73 year old female, with a significant PMH of MS (contracted bilateral lower extremities), perforated ulcer, PE, right patellar ORIF, multiple lower extremity ulcers and recent UTI who presents to the ED BIBEMS from [facility] s/p unwitnessed fall this morning. As per ME notes the patient was in bed last night and this morning was found on the floor holding onto the side rail with her hand. Sister at bedside notes the patient has been declining since 12/19 (broke her hip), 09/19 (broke her knee) and intermittently has periods of confusion. At this time, pt continues to repeat "heaven" and is crying over the of her parents many years ago. Sister at bedside states this is her baseline mental status. History is limited due to patient's clinical condition. Allergies: [place] Surgical History: Perforated ulcer repair, right hip fracture s/p ORIF, right patellar ORIF, h/o recent PE rt lung on October 2018 admission-- provoked due to prolonged immobilization-- on [facility] Social History: Denies EtOH, tobacco, or illicit drug use Pt examined by me on the floors was restless all night last night as per RN She is more calm today-- ate food She is confused Has pain in right hip pt is contracted History Source: Medical Record Limitations to Obtaining History: Poor Historian - Past Medical History [employer]: Yes: Multiple Sclerosis Pulmonary: Yes: Pulmonary Embolus Gastrointestinal: Yes: GERD Musculoskeletal: Yes: Osteoarthritis (s/p R hip fracture 12/19), Other (chronic neuropathic pain) - Advance Directives Advance Directives: Yes: Living Will, Health Care Proxy - Smoking History Smoking history: Former smoker Have you smoked in the past 12 months: Yes Aproximately how many cigarettes per day: 7 If you are a former smoker, when did you quit?: october 04 2018 - Alcohol/Substance Use Hx Alcohol Use: No History of Substance Use: reports: None - Social History ADL: Family Assistance Occupation: , now History of Recent Travel: No Home Medications - Allergies Allergies/Adverse Reactions: Allergies Allergy/AdvReac Type Severity Reaction Status Date / Time strawberry Allergy Verified 11/28/18 11:26 - Home Medications Home Medications: Ambulatory Orders Gabapentin 200 mg PO TID PRN 07/30/18 Zolpidem Tartrate [Ambien] 10 mg PO HS 07/30/18 Morphine *Sr* [Ms Contin -] 15 mg PO BID #60 tablet.sa MDD 2 10/10/18 Tizanidine HCl 4 mg PO BID 10/25/18 Apixaban [Eliquis -] 10 mg PO BID tablet 10/31/18 Ascorbic Acid [Vitamin C -] 500 mg PO DAILY tablet 10/31/18 Collagenase Clostridium Hist. [Santyl -] 1 applic TP DAILY tube 10/31/18 Docusate Sodium [Colace -] 100 mg PO BID capsule 10/31/18 Baclofen 10 mg PO BID 11/28/18 oxyCODONE HCL [Roxicodone -] 10 mg PO Q6H PRN MDD 4 11/28/18 Family Disease History - Family Disease History Family Disease History: Other: Father ( (74) Lung cancer), Mother ( (82) DMII, ETOH dependence), Brother ( (61) Lung cancer), Sister ( (68) pancretic and liver disease), Son (1, healthy), Daughter ( 2, healthy) Review of Systems - Review of Systems Constitutional: denies: Chills, Fever Physical Examination Vital Signs: Vital Signs Temperature 97.9 F 11/29/18 09:28 Pulse Rate 113 H 11/29/18 09:28 Respiratory Rate 20 11/29/18 09:28 Blood Pressure 122/59 L 11/29/18 09:28 O2 Sat by Pulse Oximetry (%) 97 11/28/18 17:17 Constitutional: Yes: No Distress, Calm Cardiovascular: Yes: Regular Rate and Rhythm Respiratory: Yes: Diminished Gastrointestinal: Yes: Normal Bowel Sounds, Soft. No: Tenderness Extremities: Yes: Other (ecchymosis to right hip, right hand, right forehead) Edema: No Neurological: Yes: Alert. No: Oriented Labs: CBC, BMP 11/29/18 07:49 11/29/18 07:49 Imaging - Results Chest X-ray: Image Reviewed (no infiltrate) Cat Scan: Report Reviewed (CT head, c spine, pelvis/hip, facial bones-- no acute fractures) EKG: Image Reviewed (sinus tachycardia) Problem List - Problems (1) Fall Code(s): W19.XXXA - UNSPECIFIED FALL, INITIAL ENCOUNTER (2) UTI (urinary tract infection) Code(s): N39.0 - URINARY TRACT INFECTION, SITE NOT SPECIFIED (3) Altered mental status Code(s): R41.82 - ALTERED MENTAL STATUS, UNSPECIFIED (4) HTN (hypertension) Code(s): I10 - ESSENTIAL (PRIMARY) HYPERTENSION (5) Multiple sclerosis Code(s): G35 - MULTIPLE SCLEROSIS Assessment/Plan PLAN CT studies all negative for fracture she is on Eliquis full dose for recent PE-- will hold it till we get second CT head today May need to decrease Eliquis to [address] head negative Psychiatry eval Repeat urine cultures iv antibiotics continue with meds
[2018-11-29] MEDS ORDERED: LORazepam 2 MG/ML SDV VIAL IVPUSH ONE (10:34)
[2018-11-29] MEDS: POLYETHYLENE GLYCOL 3350 119 GM BTL PO SCH ×2 (11:03→22:01)
--- NOTE | 2018-11-29 15:17 | PN ---
Progress Note (short form) - Note Progress Note: ID consult dictated imp/reccd 73 yo female [facility] with MS, s/p hip fracture 12/19 , knee fracture 09/19, recent PE - amitted [facility] no fevers has continued to have periods of confusion has a urine culture and UA sent from ED- UA contaminated with many epis, urnie culture multiple contaminants c/w contamination no fevers, normal WBC started on rocephin I do not think she has a UTI she is agitated but stops moaning to answer questions appropriately suggest psych and neurology evaluations can d/c antiibotics Problem List - Problems (1) Fall Code(s): W19.XXXA - UNSPECIFIED FALL, INITIAL ENCOUNTER (2) Altered mental status Code(s): R41.82 - ALTERED MENTAL STATUS, UNSPECIFIED
--- NOTE | 2018-11-29 16:24 | CONS ---
INFECTIOUS DISEASE CONSULTATION DATE OF CONSULTATION: DATE OF DICTATION: 11/29/2018 REQUESTING PHYSICIAN: Shonna Kent MD This is a 73-year-old woman with past medical history of MS with contracted bilateral lower extremities. [facility] She was brought to the emergency room for an unwitnessed fall. She is currently on Eliquis. She had a recent PE in October of the right lower lobe. She has a prior history of hip fracture in December 2017 and a knee fracture in September 2018. She is currently quite agitated. She had multiple x-rays done that were unremarkable. She had a head CT done that showed no acute changes. She has a normal white count and no fever. The urinalysis was done in the emergency room, that was notable for greater than 36 epithelial cells consistent with contamination. Urine culture, as well, grew multiple organisms. I am asked to see her for possible UTI. She is moaning and groaning at baseline, but stops when asked a question and tries to answer it. PAST MEDICAL HISTORY: Notable for MS. She has had a perforated ulcer in the past. She had the right lower lobe PE recently in October. She has a history of GERD. She has osteoarthritis. SURGICAL HISTORY: Notable for right patellar ORIF and she has had a hip nailing as well, status post right hip fracture. MEDICATIONS AT THE JAIL: Include oxycodone, Ambien, tizanidine, morphine, gabapentin, Colace, Santyl, baclofen, vitamin C, and Eliquis. SOCIAL HISTORY: She is a former smoker. She quit in 2018. She is [facility] REVIEW OF SYSTEMS: She denies all complaints. PHYSICAL EXAMINATION: Vital Signs: She is afebrile. Temperature is 97.9. Pulse of 113, blood pressure 110/59, respiratory rate of 20. General: She appears agitated. HEENT: She is normocephalic. She is anicteric. Lungs: Clear to auscultation. Heart: Regular rate and rhythm. Abdomen: Soft. Extremities: Her legs are contracted. She will not turn or permit a better exam. LABORATORY DATA: Her white count is 7.4, hemoglobin 11.4, platelets of 422. Her BUN is 15 and creatinine 0.6. LFTs are normal except for an alkaline phosphatase of 128. Urinalysis results as stated previously. In summary, this is a 73-year-old woman admitted status post unwitnessed fall. She has no fevers, and her white count is normal. She was started on Rocephin for a possible urinary tract infection. I do not think she has a urinary tract infection. She is agitated, but stops moaning to answer questions appropriately. I would suggest psychiatry and neurology evaluations and suggest stopping the antibiotics. BRIAN REES M.D. [id number] MTDD
[2018-11-29] MEDS: SENNOSIDES 8.6MG TABLET (FP) PO SCH (22:00)
[2018-11-29] MEDS: ZOLPIDEM TARTRATE 5 MG TABLET PO PRN (22:02)
[2018-11-29] MEDS: GABAPENTIN 100 MG CAPSULE (FP) PO PRN (22:16)
[2018-11-30] MEDS ORDERED: cefTRIAXone SODIUM 1 GM VIAL ONE (08:08)
[2018-11-30] MEDS ORDERED: DEXTROSE 5%-WATER - 50 ML IVPB ONE (08:08)
[2018-11-30] MEDS: oxyCODONE HCL 5 MG TABLET PO PRN (08:38)
[2018-11-30] MEDS: CEFTRIAXONE 1 GM in DEXTROSE 5%-WATER - 50 ML IVPB SCH (10:15)
[2018-11-30] MEDS ORDERED: PT OWN MED DRAWER 7, Y5N ONE ×2 (11:01→11:21)
[2018-11-30] MEDS: TIZANIDINE HCL 4 MG TABLET PO SCH ×2 (11:12→21:39)
[2018-11-30] MEDS: POLYETHYLENE GLYCOL 3350 119 GM BTL PO SCH ×2 (11:12→21:37)
[2018-11-30] MEDS: BACLOFEN 10 MG TABLET (FP) PO SCH ×2 (11:12→21:37)
[2018-11-30] MEDS: morphine SO4 SUSTAINED ACTING 15 MG TABLET.SA PO SCH ×2 (11:13→21:35)
--- NOTE | 2018-11-30 11:35 | PN ---
Progress Note (short form) - Note Progress Note: pt seen/ examined chart reviewed calm at present alert/ awake contracted Vital Signs Temp 98.7 F 11/30/18 09:05 Pulse 106 H 11/30/18 11:10 Resp 20 11/30/18 11:10 BP 123/56 L 11/30/18 11:10 Pulse Ox 95 11/29/18 21:00 Intake & Output 11/29/18 11/29/18 11/30/18 11:59 23:59 11:59 Intake Total 50 570 Balance 50 570 Intake: Oral 50 570 Other: Voiding Method Diaper Incontinent # Unmeasured Voids Void 1 2 Bowel Movement No No No Active Medications Apixaban (Eliquis -) 5 mg PO BID [facility] Baclofen (Lioresal -) 10 mg PO BID [facility] Last Admin: 11/30/18 11:12 Dose: 10 mg Gabapentin (Neurontin -) 200 mg PO Q8H PRN PRN Reason: PAIN Last Admin: 11/29/18 22:16 Dose: 200 mg Ceftriaxone Sodium 1 gm/ (Dextrose) 50 mls @ 100 mls/hr IVPB DAILY@0800 [facility] Last Admin: 11/30/18 10:15 Dose: 100 mls/hr Morphine Sulfate (Ms Contin -) 15 mg PO BID [facility] Last Admin: 11/30/18 11:13 Dose: 15 mg Oxycodone HCl (Roxicodone -) 10 mg PO Q6H PRN PRN Reason: PAIN LEVEL 6-10 Last Admin: 11/30/18 08:38 Dose: 10 mg Polyethylene Glycol (Miralax (For Daily Use) -) 17 gm PO BID [facility] Last Admin: 11/30/18 11:12 Dose: 17 gm Senna (Senna -) 2 tab PO HS [facility] Last Admin: 11/29/18 22:00 Dose: 2 tab Tizanidine HCl (Tizanidine Hcl) 4 mg PO BID [facility] Last Admin: 11/30/18 11:12 Dose: 4 mg Zolpidem Tartrate (Ambien -) 5 mg PO HS PRN PRN Reason: INSOMNIA Last Admin: 11/29/18 22:02 Dose: 5 mg CBC,CMP WBC 7.4 K/mm3 (4.0-10.0) 11/29/18 07:49 RBC 3.90 M/mm3 (3.60-5.2) 11/29/18 07:49 Hgb 11.4 GM/dL (10.7-15.3) 11/29/18 07:49 Hct 34.2 % (32.4-45.2) 11/29/18 07:49 MCV 87.5 fl (80-96) 11/29/18 07:49 MCH 29.2 pg (25.7-33.7) 11/29/18 07:49 MCHC 33.3 g/dl (32.0-36.0) 11/29/18 07:49 RDW 16.5 % (11.6-15.6) H 11/29/18 07:49 Plt Count 422 K/MM3 (134-434) 11/29/18 07:49 MPV 8.9 fl (7.5-11.1) 11/29/18 07:49 Absolute Neuts (auto) 4.1 K/mm3 (1.5-8.0) 11/29/18 07:49 Neutrophils % 55.6 % (42.8-82.8) D 11/29/18 07:49 Lymphocytes % 31.5 % (8-40) D 11/29/18 07:49 Monocytes % 9.9 % (3.8-10.2) 11/29/18 07:49 Eosinophils % 2.1 % (0-4.5) D 11/29/18 07:49 Basophils % 0.9 % (0-2.0) 11/29/18 07:49 Nucleated RBC % 0 % (0-0) 11/29/18 07:49 Sodium 140 mmol/L (136-145) 11/29/18 07:49 Potassium 4.2 mmol/L (3.5-5.1) 11/29/18 07:49 Chloride 107 mmol/L (98-107) 11/29/18 07:49 Carbon Dioxide 22 mmol/L (21-32) 11/29/18 07:49 Anion Gap 11 MMOL/L (8-16) 11/29/18 07:49 BUN 15.9 mg/dL (7-18) 11/29/18 07:49 Creatinine 0.6 mg/dL (0.55-1.3) 11/29/18 07:49 Est GFR (CKD-EPI)AfAm 106.28 11/29/18 07:49 Est GFR (CKD-EPI)NonAf 91.70 11/29/18 07:49 Random Glucose 98 mg/dL (74-106) 11/29/18 07:49 Calcium 10.1 mg/dL (8.5-10.1) 11/29/18 07:49 Magnesium 2.5 mg/dL (1.8-2.4) H 11/28/18 10:23 Total Bilirubin 0.5 mg/dL (0.2-1) 11/29/18 07:49 AST 25 U/L (15-37) 11/29/18 07:49 ALT 26 U/L (13-61) 11/29/18 07:49 Alkaline Phosphatase 128 U/L (45-117) H 11/29/18 07:49 Troponin I < 0.02 ng/ml (0.00-0.05) 11/28/18 10:23 Total Protein 7.2 g/dl (6.4-8.2) 11/29/18 07:49 Albumin 3.3 g/dl (3.4-5.0) L 11/29/18 07:49 CBC, BMP 11/29/18 07:49 11/29/18 07:49 Microbiology 11/29/18 11:30 Urine Culture - Preliminary Urine - Urine - Catheterized 11/28/18 10:25 Urine Culture - Final Urine - Urine - Catheterized Contaminated: Please Repeat ct head--ve x 2 Physical Examination Constitutional: Yes: No Distress, Calm Cardiovascular: Yes: Regular Rate and Rhythm Respiratory: Yes: Diminished Gastrointestinal: Yes: Normal Bowel Sounds, Soft. No: Tenderness Extremities: Yes: Other (ecchymosis to right hip, right hand, right forehead) Edema: No Neurological: Yes: Alert. No: Oriented Imaging - Results Chest X-ray: Image Reviewed (no infiltrate) Cat Scan: Report Reviewed (CT head, c spine, pelvis/hip, facial bones-- no acute fractures) EKG: Image Reviewed (sinus tachycardia) Problem List - Problems (1) Fall Code(s): W19.XXXA - UNSPECIFIED FALL, INITIAL ENCOUNTER (2) UTI (urinary tract infection) Code(s): N39.0 - URINARY TRACT INFECTION, SITE NOT SPECIFIED (3) Altered mental status Code(s): R41.82 - ALTERED MENTAL STATUS, UNSPECIFIED (4) HTN (hypertension) Code(s): I10 - ESSENTIAL (PRIMARY) HYPERTENSION (5) Multiple sclerosis Code(s): G35 - MULTIPLE SCLEROSIS Assessment/Plan Stable restart eliquis fall precautions f/u cultures i/d , psych to follow will follow
--- NOTE | 2018-11-30 12:56 | PN ---
Problem List - Problems (1) Fall Code(s): W19.XXXA - UNSPECIFIED FALL, INITIAL ENCOUNTER (2) Altered mental status Code(s): R41.82 - ALTERED MENTAL STATUS, UNSPECIFIED
--- NOTE | 2018-11-30 14:33 | CON.PSY ---
Psychiatry Consult Chief Complaint: 73 Year old female with a long history of MS and mild Dementia , seen for Psych eval for Confusion. family reports its an acute mental status change. Patient is on MS contin, oxycodone and gets Ambien at night on a prn basis. [facility] She is confused nd unable to remember or answer questions at this time. Symptoms: reports: Memory Impairment, Disorganized/Disruptive Thoughts - Previous Psychiatric Treatment Outpatient: None Inpatient: None - Previous Substance Abuse Treatment Outpatient: None Inpatient: None - Current Medications Current Medications: Active Medications Apixaban (Eliquis -) 5 mg PO BID [facility] Baclofen (Lioresal -) 10 mg PO BID [facility] Last Admin: 11/30/18 11:12 Dose: 10 mg Gabapentin (Neurontin -) 200 mg PO Q8H PRN PRN Reason: PAIN Last Admin: 11/29/18 22:16 Dose: 200 mg Morphine Sulfate (Ms Contin -) 15 mg PO BID [facility] Last Admin: 11/30/18 11:13 Dose: 15 mg Oxycodone HCl (Roxicodone -) 10 mg PO Q6H PRN PRN Reason: PAIN LEVEL 6-10 Last Admin: 11/30/18 08:38 Dose: 10 mg Polyethylene Glycol (Miralax (For Daily Use) -) 17 gm PO BID [facility] Last Admin: 11/30/18 11:12 Dose: 17 gm Senna (Senna -) 2 tab PO HS [facility] Last Admin: 11/29/18 22:00 Dose: 2 tab Tizanidine HCl (Tizanidine Hcl) 4 mg PO BID [facility] Last Admin: 11/30/18 11:12 Dose: 4 mg Zolpidem Tartrate (Ambien -) 5 mg PO HS PRN PRN Reason: INSOMNIA Last Admin: 11/29/18 22:02 Dose: 5 mg - Allergies Allergies: Allergies Allergy/AdvReac Type Severity Reaction Status Date / Time strawberry Allergy Verified 11/28/18 11:26 - Current Living Status Usual Living Arrangement: Care Home - Current Mental Status Evaluation Appearance: Disheveled Attitude: Guarded - Affect Affect: Constrictive Appropriateness: Not Appropriate - Mood Mood: Anxious - Speech/Language Expressive: Delayed - Psychomotor Activity Psychomotor Activity: Slowed - Thought Process Thought Process: Circumstantial - Thought Content Hallucinations: Absent Delusions: Absent - Self Perception Self Perception: No Impairment - Cognition Attention: Diminished Orientation: Person Memory, Short Term: 1/3 Memory, Remote with Promptin/3 - Concentration Serial Sevens Intact: No Simple Calculations Intact: No - Abstraction Proverb Interpretation: Impaired Judgement: Minimally Impaired - Insight Insight: Impaired - Impulse Control Impulse Control: Good Control - Suicidal Ideation Suicidal Ideation: No - Homicidal Ideation Homicidal Ideation: No Assessment/Plan 1) if shawn an acute AMS, infection or Pain meds can cause rhses symptoms. 2) No need for any Psych meds at this time. {Patient is not clinically depressed.
[2018-11-30] MEDS: APIXABAN 5 MG TABLET PO SCH (21:37)
[2018-11-30] MEDS: SENNOSIDES 8.6MG TABLET (FP) PO SCH (21:37)
[2018-11-30] MEDS: ZOLPIDEM TARTRATE 5 MG TABLET PO PRN (21:40)
[2018-12-01] MEDS: oxyCODONE HCL 5 MG TABLET PO PRN (06:43)
[2018-12-01] MEDS ORDERED: PT OWN MED DRAWER 7, Y5N ONE (09:02)
[2018-12-01] MEDS: POLYETHYLENE GLYCOL 3350 119 GM BTL PO SCH ×2 (09:07→21:38)
[2018-12-01] MEDS: morphine SO4 SUSTAINED ACTING 15 MG TABLET.SA PO SCH ×2 (09:08→21:38)
[2018-12-01] MEDS: BACLOFEN 10 MG TABLET (FP) PO SCH ×2 (09:08→21:38)
[2018-12-01] MEDS: APIXABAN 5 MG TABLET PO SCH ×2 (09:10→21:38)
[2018-12-01] MEDS: TIZANIDINE HCL 4 MG TABLET PO SCH ×2 (09:11→21:39)
--- NOTE | 2018-12-01 11:26 | DS ---
Physical Examination Vital Signs: Vital Signs Temperature 98.6 F 12/01/18 05:17 Pulse Rate 101 H 12/01/18 09:25 Respiratory Rate 20 12/01/18 09:25 Blood Pressure 136/57 L 12/01/18 09:25 O2 Sat by Pulse Oximetry (%) 95 12/01/18 09:00 Labs: CBC, BMP 11/29/18 07:49 11/29/18 07:49 Discharge Summary Reason For Visit: UNWITNESSED FALL Current Active Problems Fall (Acute) UTI (urinary tract infection) (Acute) Condition: Stable - Instructions - Home Medications Comprehensive Discharge Medication List: Ambulatory Orders Gabapentin 200 mg PO TID PRN 07/30/18 Morphine *Sr* [Ms Contin -] 15 mg PO BID #60 tablet.sa MDD 2 10/10/18 Tizanidine HCl 4 mg PO BID 10/25/18 Ascorbic Acid [Vitamin C -] 500 mg PO DAILY tablet 10/31/18 Collagenase Clostridium Hist. [Santyl -] 1 applic TP DAILY tube 10/31/18 Docusate Sodium [Colace -] 100 mg PO BID capsule 10/31/18 Baclofen 10 mg PO BID 11/28/18 oxyCODONE HCL [Roxicodone -] 10 mg PO Q6H PRN MDD 4 11/28/18 Apixaban [Eliquis -] 5 mg PO BID tablet 12/01/18 Polyethylene Glycol 3350 [Miralax 119 gm Btl -] 17 gm PO BID bottle 12/01/18 Sennosides [Senna -] 2 tab PO HS tablet 12/01/18
[2018-12-01] MEDS: LORazepam 1 MG TABLET PO PRN (15:14)
[2018-12-01] MEDS: GABAPENTIN 100 MG CAPSULE (FP) PO PRN (16:25)
--- NOTE | 2018-12-01 17:03 | PN ---
Progress Note (short form) - Note Progress Note: comfortable no new issues afebrile Vital Signs Temp 97.3 F L 12/01/18 15:11 Pulse 94 H 12/01/18 15:11 Resp 18 12/01/18 15:11 BP 116/59 L 12/01/18 15:11 Pulse Ox 95 12/01/18 09:00 Intake & Output 11/30/18 12/01/18 12/01/18 23:59 11:59 23:59 Intake Total 300 350 680 Balance 300 350 680 Weight 116 lb Intake: Oral 300 350 480 Oral Supplement 200 Other: Voiding Method Incontinent Incontinent Incontinent # Unmeasured Voids Void 2 1 1 Bowel Movement No No No Height 5 ft 8 in Body Mass Index (BMI) 17.6 Active Medications Apixaban (Eliquis -) 5 mg PO BID [facility] Last Admin: 12/01/18 09:10 Dose: 5 mg Baclofen (Lioresal -) 10 mg PO BID [facility] Last Admin: 12/01/18 09:08 Dose: 10 mg Gabapentin (Neurontin -) 200 mg PO Q8H PRN PRN Reason: PAIN Last Admin: 12/01/18 16:25 Dose: 200 mg Lorazepam (Ativan -) 1 mg PO Q4H PRN PRN Reason: ANXIETY Last Admin: 12/01/18 15:14 Dose: 1 mg Morphine Sulfate (Ms Contin -) 15 mg PO BID [facility] Last Admin: 12/01/18 09:08 Dose: 15 mg Oxycodone HCl (Roxicodone -) 10 mg PO Q6H PRN PRN Reason: PAIN LEVEL 6-10 Last Admin: 12/01/18 06:43 Dose: 10 mg Polyethylene Glycol (Miralax (For Daily Use) -) 17 gm PO BID [facility] Last Admin: 12/01/18 09:07 Dose: 17 gm Senna (Senna -) 2 tab PO HS [facility] Last Admin: 11/30/18 21:37 Dose: 2 tab Tizanidine HCl (Tizanidine Hcl) 4 mg PO BID [facility] Last Admin: 12/01/18 09:11 Dose: 4 mg Zolpidem Tartrate (Ambien -) 5 mg PO HS PRN PRN Reason: INSOMNIA Last Admin: 11/30/18 21:40 Dose: 5 mg CBC, BMP 11/29/18 07:49 11/29/18 07:49 Microbiology 11/29/18 11:30 Urine Culture - Preliminary Urine - Urine - Catheterized Group D Strep Or Entero Coccus Physical Examination Constitutional: Yes: No Distress, Calm Cardiovascular: Yes: Regular Rate and Rhythm Respiratory: Yes: Diminished Gastrointestinal: Yes: Normal Bowel Sounds, Soft. No: Tenderness Extremities: Yes: Other (ecchymosis to right hip, right hand, right forehead) Edema: No Neurological: Yes: Alert. No: Oriented Imaging - Results Chest X-ray: Image Reviewed (no infiltrate) Cat Scan: Report Reviewed (CT head, c spine, pelvis/hip, facial bones-- no acute fractures) EKG: Image Reviewed (sinus tachycardia) Problem List - Problems (1) Fall Code(s): W19.XXXA - UNSPECIFIED FALL, INITIAL ENCOUNTER (2) UTI (urinary tract infection) Code(s): N39.0 - URINARY TRACT INFECTION, SITE NOT SPECIFIED (3) Altered mental status Code(s): R41.82 - ALTERED MENTAL STATUS, UNSPECIFIED (4) HTN (hypertension) Code(s): I10 - ESSENTIAL (PRIMARY) HYPERTENSION (5) Multiple sclerosis Code(s): G35 - MULTIPLE SCLEROSIS Assessment/Plan Stable d/c to residential today -- telephonic case manager says cant be discharged till monday will follow
[2018-12-01] MEDS: SENNOSIDES 8.6MG TABLET (FP) PO SCH (21:38)
[2018-12-02] MEDS: morphine SO4 SUSTAINED ACTING 15 MG TABLET.SA PO SCH ×2 (10:00→21:29)
[2018-12-02] MEDS: POLYETHYLENE GLYCOL 3350 119 GM BTL PO SCH ×2 (10:00→21:30)
[2018-12-02] MEDS: APIXABAN 5 MG TABLET PO SCH ×2 (10:00→21:29)
[2018-12-02] MEDS: BACLOFEN 10 MG TABLET (FP) PO SCH ×2 (10:10→21:29)
[2018-12-02] MEDS ORDERED: PT OWN MED DRAWER 7, Y5N ONE (10:39)
[2018-12-02] MEDS: TIZANIDINE HCL 4 MG TABLET PO SCH ×2 (10:41→21:29)
--- NOTE | 2018-12-02 13:31 | PN ---
Progress Note (short form) - Note Progress Note: comfortable no new issues except periods of agitation afebrile Eating well Purree diet Vital Signs Temp 97.3 F L 12/01/18 15:11 Pulse 94 H 12/01/18 15:11 Resp 18 12/01/18 15:11 BP 116/59 L 12/01/18 15:11 Pulse Ox 95 12/01/18 09:00 Intake & Output 11/30/18 12/01/18 12/01/18 23:59 11:59 23:59 Intake Total 300 350 680 Balance 300 350 680 Weight 116 lb Intake: Oral 300 350 480 Oral Supplement 200 Other: Voiding Method Incontinent Incontinent Incontinent # Unmeasured Voids Void 2 1 1 Bowel Movement No No No Height 5 ft 8 in Body Mass Index (BMI) 17.6 Active Medications Apixaban (Eliquis -) 5 mg PO BID [facility] Last Admin: 12/01/18 09:10 Dose: 5 mg Baclofen (Lioresal -) 10 mg PO BID [facility] Last Admin: 12/01/18 09:08 Dose: 10 mg Gabapentin (Neurontin -) 200 mg PO Q8H PRN PRN Reason: PAIN Last Admin: 12/01/18 16:25 Dose: 200 mg Lorazepam (Ativan -) 1 mg PO Q4H PRN PRN Reason: ANXIETY Last Admin: 12/01/18 15:14 Dose: 1 mg Morphine Sulfate (Ms Contin -) 15 mg PO BID [facility] Last Admin: 12/01/18 09:08 Dose: 15 mg Oxycodone HCl (Roxicodone -) 10 mg PO Q6H PRN PRN Reason: PAIN LEVEL 6-10 Last Admin: 12/01/18 06:43 Dose: 10 mg Polyethylene Glycol (Miralax (For Daily Use) -) 17 gm PO BID [facility] Last Admin: 12/01/18 09:07 Dose: 17 gm Senna (Senna -) 2 tab PO HS [facility] Last Admin: 11/30/18 21:37 Dose: 2 tab Tizanidine HCl (Tizanidine Hcl) 4 mg PO BID [facility] Last Admin: 12/01/18 09:11 Dose: 4 mg Zolpidem Tartrate (Ambien -) 5 mg PO HS PRN PRN Reason: INSOMNIA Last Admin: 11/30/18 21:40 Dose: 5 mg CBC, BMP 11/29/18 07:49 11/29/18 07:49 Microbiology 11/29/18 11:30 Urine Culture - Preliminary Urine - Urine - Catheterized Group D Strep Or Entero Coccus Physical Examination Constitutional: Yes: No Distress, awake/ comfortable Cardiovascular: Yes: Regular Rate and Rhythm Respiratory: Yes: Diminished Gastrointestinal: Yes: Normal Bowel Sounds, Soft. No: Tenderness Edema: No Neurological: Yes: Awake Imaging - Results Chest X-ray: Image Reviewed (no infiltrate) Cat Scan: Report Reviewed (CT head, c spine, pelvis/hip, facial bones-- no acute fractures) EKG: Image Reviewed (sinus tachycardia) Problem List - Problems (1) Fall Code(s): W19.XXXA - UNSPECIFIED FALL, INITIAL ENCOUNTER (2) UTI (urinary tract infection) Code(s): N39.0 - URINARY TRACT INFECTION, SITE NOT SPECIFIED (3) Altered mental status Code(s): R41.82 - ALTERED MENTAL STATUS, UNSPECIFIED (4) HTN (hypertension) Code(s): I10 - ESSENTIAL (PRIMARY) HYPERTENSION (5) Multiple sclerosis Code(s): G35 - MULTIPLE SCLEROSIS Assessment/Plan Stable d/c to half-way Monday-- gearcase assembler says cant be discharged till monday will follow
[2018-12-02] MEDS: oxyCODONE HCL 5 MG TABLET PO PRN (13:54)
[2018-12-02] MEDS: SENNOSIDES 8.6MG TABLET (FP) PO SCH (21:29)
[2018-12-02] MEDS: ZOLPIDEM TARTRATE 5 MG TABLET PO PRN (21:29)
[2018-12-03] MEDS: morphine SO4 SUSTAINED ACTING 15 MG TABLET.SA PO SCH ×2 (09:55→22:21)
[2018-12-03] MEDS: BACLOFEN 10 MG TABLET (FP) PO SCH ×2 (09:55→22:21)
[2018-12-03] MEDS: APIXABAN 5 MG TABLET PO SCH ×2 (09:55→22:21)
[2018-12-03] MEDS: POLYETHYLENE GLYCOL 3350 119 GM BTL PO SCH ×2 (09:56→22:21)
[2018-12-03] MEDS: TIZANIDINE HCL 4 MG TABLET PO SCH ×2 (09:57→22:21)
--- NOTE | 2018-12-03 11:24 | PN ---
Progress Note (short form) - Note Progress Note: comfortable no new issues Vital Signs Temp 98.8 F 12/03/18 10:00 Pulse 85 12/03/18 10:00 Resp 19 12/03/18 10:00 BP 123/68 12/03/18 10:00 Pulse Ox 96 12/02/18 21:00 Intake & Output 12/02/18 12/02/18 12/03/18 11:59 23:59 11:59 Intake Total 240 1200 240 Balance 240 1200 240 Intake: Oral 240 960 240 Oral Supplement 240 Other: Voiding Method Incontinent Incontinent Incontinent # Unmeasured Voids Void 1 2 Bowel Movement No Active Medications Apixaban (Eliquis -) 5 mg PO BID [facility] Last Admin: 12/03/18 09:55 Dose: 5 mg Baclofen (Lioresal -) 10 mg PO BID [facility] Last Admin: 12/03/18 09:55 Dose: 10 mg Gabapentin (Neurontin -) 200 mg PO Q8H PRN PRN Reason: PAIN Last Admin: 12/01/18 16:25 Dose: 200 mg Lorazepam (Ativan -) 1 mg PO Q4H PRN PRN Reason: ANXIETY Last Admin: 12/01/18 15:14 Dose: 1 mg Morphine Sulfate (Ms Contin -) 15 mg PO BID [facility] Last Admin: 12/03/18 09:55 Dose: 15 mg Oxycodone HCl (Roxicodone -) 10 mg PO Q6H PRN PRN Reason: PAIN LEVEL 6-10 Last Admin: 12/02/18 13:54 Dose: 10 mg Polyethylene Glycol (Miralax (For Daily Use) -) 17 gm PO BID [facility] Last Admin: 12/03/18 09:56 Dose: 17 gm Senna (Senna -) 2 tab PO HS [facility] Last Admin: 12/02/18 21:29 Dose: 2 tab Tizanidine HCl (Tizanidine Hcl) 4 mg PO BID [facility] Last Admin: 12/03/18 09:57 Dose: 4 mg Zolpidem Tartrate (Ambien -) 5 mg PO HS PRN PRN Reason: INSOMNIA Last Admin: 12/02/18 21:29 Dose: 5 mg CBC, BMP 11/29/18 07:49 11/29/18 07:49 Physical Examination Constitutional: Yes: No Distress, awake/ comfortable Cardiovascular: Yes: Regular Rate and Rhythm Respiratory: Yes: Diminished Gastrointestinal: Yes: Normal Bowel Sounds, Soft. No: Tenderness Edema: No Neurological: Yes: Awake Imaging - Results Chest X-ray: Image Reviewed (no infiltrate) Cat Scan: Report Reviewed (CT head, c spine, pelvis/hip, facial bones-- no acute fractures) EKG: Image Reviewed (sinus tachycardia) Problem List - Problems (1) Fall Code(s): W19.XXXA - UNSPECIFIED FALL, INITIAL ENCOUNTER (2) UTI (urinary tract infection) Code(s): N39.0 - URINARY TRACT INFECTION, SITE NOT SPECIFIED (3) Altered mental status Code(s): R41.82 - ALTERED MENTAL STATUS, UNSPECIFIED (4) HTN (hypertension) Code(s): I10 - ESSENTIAL (PRIMARY) HYPERTENSION (5) Multiple sclerosis Code(s): G35 - MULTIPLE SCLEROSIS Assessment/Plan [facility]-- field case manager says cant be discharged till Monday will follow
[2018-12-03] MEDS: oxyCODONE HCL 5 MG TABLET PO PRN (18:53)
[2018-12-03] MEDS: SENNOSIDES 8.6MG TABLET (FP) PO SCH (22:21)
[2018-12-03] MEDS: ZOLPIDEM TARTRATE 5 MG TABLET PO PRN (22:21)
[2018-12-04] MEDS ORDERED: PT OWN MED DRAWER 7, Y5N ONE (09:37)
[2018-12-04] MEDS: BACLOFEN 10 MG TABLET (FP) PO SCH ×2 (10:19→21:39)
[2018-12-04] MEDS: morphine SO4 SUSTAINED ACTING 15 MG TABLET.SA PO SCH ×2 (10:19→21:38)
[2018-12-04] MEDS: APIXABAN 5 MG TABLET PO SCH ×2 (10:20→21:39)
[2018-12-04] MEDS: TIZANIDINE HCL 4 MG TABLET PO SCH ×2 (10:20→21:39)
[2018-12-04] MEDS: POLYETHYLENE GLYCOL 3350 119 GM BTL PO SCH ×2 (10:21→21:38)
--- NOTE | 2018-12-04 10:45 | PN ---
Progress Note (short form) - Note Progress Note: No complaints feels well Vital Signs - 24 hr 12/03/18 12/03/18 12/03/18 14:46 18:00 21:00 Temperature 98.2 F 97.6 F Pulse Rate 82 100 H Respiratory 18 20 20 Rate Blood Pressure 124/52 L 128/60 O2 Sat by Pulse 97 Oximetry (%) 12/03/18 12/04/18 12/04/18 22:00 06:33 10:00 Temperature 98.6 F Pulse Rate 91 H 86 88 Respiratory 20 18 18 Rate Blood Pressure 125/72 132/80 120/88 O2 Sat by Pulse Oximetry (%) Current Medications Generic Name Dose Route Start Last Admin Trade Name Freq PRN Reason Stop Dose Admin Apixaban 5 mg 11/30/18 22:00 12/04/18 10:20 Eliquis - PO 5 mg BID DESIRE Administration Baclofen 10 mg 11/28/18 22:00 12/04/18 10:19 Lioresal - PO 10 mg BID DESIRE Administration Gabapentin 200 mg 11/28/18 17:39 12/01/18 16:25 Neurontin - PO 200 mg Q8H PRN Administration PAIN Lorazepam 1 mg 12/01/18 14:32 12/01/18 15:14 Ativan - PO 1 mg Q4H PRN Administration ANXIETY Morphine Sulfate 15 mg 11/28/18 22:00 12/04/18 10:19 Ms Contin - PO 15 mg BID DESIRE Administration Oxycodone HCl 10 mg 11/28/18 17:39 12/03/18 18:53 Roxicodone - PO 10 mg Q6H PRN Administration PAIN LEVEL 6-10 Polyethylene Glycol 17 gm 11/29/18 11:00 12/04/18 10:21 Miralax (For Daily Use) - PO 17 gm BID DESIRE Administration Senna 2 tab 11/29/18 22:00 12/03/18 22:21 Senna - PO 2 tab HS DESIRE Administration Tizanidine HCl 4 mg 11/28/18 22:00 12/04/18 10:20 Tizanidine Hcl PO 4 mg BID DESIRE Administration Zolpidem Tartrate 5 mg 11/28/18 22:00 12/03/18 22:21 Ambien - PO 5 mg HS PRN Administration INSOMNIA S1S2 RRR Lungs clear Abd- soft, NT No edema PLAN pain control adequate pt is at baseline PT eval Stable for dc to [facility] Problem List - Problems (1) Fall Code(s): W19.XXXA - UNSPECIFIED FALL, INITIAL ENCOUNTER (2) UTI (urinary tract infection) Code(s): N39.0 - URINARY TRACT INFECTION, SITE NOT SPECIFIED (3) Altered mental status Code(s): R41.82 - ALTERED MENTAL STATUS, UNSPECIFIED (4) HTN (hypertension) Code(s): I10 - ESSENTIAL (PRIMARY) HYPERTENSION (5) Multiple sclerosis Code(s): G35 - MULTIPLE SCLEROSIS
[2018-12-04] MEDS: SENNOSIDES 8.6MG TABLET (FP) PO SCH (21:39)
[2018-12-04] MEDS: ZOLPIDEM TARTRATE 5 MG TABLET PO PRN (21:39)
[2018-12-05] MEDS: oxyCODONE HCL 5 MG TABLET PO PRN ×2 (02:04→19:26)
[2018-12-05] MEDS ORDERED: PT OWN MED DRAWER 7, Y5N ONE (10:04)
[2018-12-05] MEDS: POLYETHYLENE GLYCOL 3350 119 GM BTL PO SCH ×2 (10:13→23:01)
[2018-12-05] MEDS: morphine SO4 SUSTAINED ACTING 15 MG TABLET.SA PO SCH ×2 (10:14→22:42)
[2018-12-05] MEDS: APIXABAN 5 MG TABLET PO SCH ×2 (10:14→22:59)
[2018-12-05] MEDS: BACLOFEN 10 MG TABLET (FP) PO SCH ×2 (10:14→23:00)
[2018-12-05] MEDS: TIZANIDINE HCL 4 MG TABLET PO SCH ×2 (10:15→23:00)
--- NOTE | 2018-12-05 10:55 | PN ---
Progress Note (short form) - Note Progress Note: No complaints feels well Vital Signs - 24 hr 12/04/18 12/04/18 12/04/18 15:27 18:00 21:00 Temperature 98.6 F 98.2 F Pulse Rate 92 H 90 Respiratory 18 20 20 Rate Blood Pressure 128/50 L 105/59 L O2 Sat by Pulse 97 Oximetry (%) 12/04/18 12/05/18 12/05/18 22:00 05:49 10:01 Temperature 98.3 F 98.2 F Pulse Rate 103 H 77 88 Respiratory 20 20 20 Rate Blood Pressure 107/79 105/55 L 114/59 L O2 Sat by Pulse Oximetry (%) Current Medications Generic Name Dose Route Start Last Admin Trade Name Freq PRN Reason Stop Dose Admin Apixaban 5 mg 11/30/18 22:00 12/05/18 10:14 Eliquis - PO 5 mg BID DESIRE Administration Baclofen 10 mg 11/28/18 22:00 12/05/18 10:14 Lioresal - PO 10 mg BID DESIRE Administration Gabapentin 200 mg 11/28/18 17:39 12/01/18 16:25 Neurontin - PO 200 mg Q8H PRN Administration PAIN Lorazepam 1 mg 12/01/18 14:32 12/01/18 15:14 Ativan - PO 1 mg Q4H PRN Administration ANXIETY Morphine Sulfate 15 mg 11/28/18 22:00 12/05/18 10:14 Ms Contin - PO 15 mg BID DESIRE Administration Oxycodone HCl 10 mg 11/28/18 17:39 12/05/18 02:04 Roxicodone - PO 10 mg Q6H PRN Administration PAIN LEVEL 6-10 Polyethylene Glycol 17 gm 11/29/18 11:00 12/05/18 10:13 Miralax (For Daily Use) - PO 17 gm BID DESIRE Administration Senna 2 tab 11/29/18 22:00 12/04/18 21:39 Senna - PO 2 tab HS DESIRE Administration Tizanidine HCl 4 mg 11/28/18 22:00 12/05/18 10:15 Tizanidine Hcl PO 4 mg BID DESIRE Administration Zolpidem Tartrate 5 mg 11/28/18 22:00 12/04/18 21:39 Ambien - PO 5 mg HS PRN Administration INSOMNIA S1S2 RRR Lungs clear Abd- soft, NT No edema PLAN pain control adequate pt is at baseline PT eval Stable for dc to [facility] Problem List - Problems (1) Fall Code(s): W19.XXXA - UNSPECIFIED FALL, INITIAL ENCOUNTER (2) UTI (urinary tract infection) Code(s): N39.0 - URINARY TRACT INFECTION, SITE NOT SPECIFIED (3) Altered mental status Code(s): R41.82 - ALTERED MENTAL STATUS, UNSPECIFIED (4) HTN (hypertension) Code(s): I10 - ESSENTIAL (PRIMARY) HYPERTENSION (5) Multiple sclerosis Code(s): G35 - MULTIPLE SCLEROSIS
[2018-12-05] MEDS: SENNOSIDES 8.6MG TABLET (FP) PO SCH (22:58)
[2018-12-05] MEDS: ZOLPIDEM TARTRATE 5 MG TABLET PO PRN (22:59)
[2018-12-05] MEDS: LORazepam 1 MG TABLET PO PRN (23:03)
[2018-12-06] MEDS ORDERED: PT OWN MED DRAWER 7, Y5N ONE (10:20)
[2018-12-06] MEDS: morphine SO4 SUSTAINED ACTING 15 MG TABLET.SA PO SCH ×2 (10:33→22:13)
[2018-12-06] MEDS: BACLOFEN 10 MG TABLET (FP) PO SCH ×2 (10:34→22:13)
[2018-12-06] MEDS: APIXABAN 5 MG TABLET PO SCH ×2 (10:34→22:14)
[2018-12-06] MEDS: TIZANIDINE HCL 4 MG TABLET PO SCH ×2 (10:34→22:20)
[2018-12-06] MEDS: POLYETHYLENE GLYCOL 3350 119 GM BTL PO SCH ×2 (10:34→22:14)
--- NOTE | 2018-12-06 10:50 | PN ---
Progress Note (short form) - Note Progress Note: No complaints feels well appears to be in pain Vital Signs - 24 hr 12/05/18 12/05/18 12/05/18 14:38 18:00 21:00 Temperature 97.8 F 98.1 F Pulse Rate 87 98 H Respiratory 20 20 Rate Blood Pressure 106/58 L 124/91 O2 Sat by Pulse 97 Oximetry (%) 12/05/18 12/06/18 12/06/18 22:00 02:00 06:00 Temperature 99.2 F 97.4 F L 97 F L Pulse Rate 105 H 98 H 95 H Respiratory 20 20 20 Rate Blood Pressure 99/72 110/48 L 132/73 O2 Sat by Pulse Oximetry (%) 12/06/18 09:15 Temperature 98.3 F Pulse Rate 109 H Respiratory 20 Rate Blood Pressure 115/68 O2 Sat by Pulse Oximetry (%) Current Medications Generic Name Dose Route Start Last Admin Trade Name Freq PRN Reason Stop Dose Admin Apixaban 5 mg 11/30/18 22:00 12/06/18 10:34 Eliquis - PO 5 mg BID DESIRE Administration Baclofen 10 mg 11/28/18 22:00 12/06/18 10:34 Lioresal - PO 10 mg BID DESIRE Administration Gabapentin 200 mg 11/28/18 17:39 12/01/18 16:25 Neurontin - PO 200 mg Q8H PRN Administration PAIN Lorazepam 1 mg 12/01/18 14:32 12/05/18 23:03 Ativan - PO 1 mg Q4H PRN Administration ANXIETY Morphine Sulfate 15 mg 11/28/18 22:00 12/06/18 10:33 Ms Contin - PO 15 mg BID DESIRE Administration Oxycodone HCl 10 mg 11/28/18 17:39 12/05/18 19:26 Roxicodone - PO 10 mg Q6H PRN Administration PAIN LEVEL 6-10 Polyethylene Glycol 17 gm 11/29/18 11:00 12/06/18 10:34 Miralax (For Daily Use) - PO 17 gm BID DESIRE Administration Senna 2 tab 11/29/18 22:00 12/05/18 22:58 Senna - PO 2 tab HS DESIRE Administration Tizanidine HCl 4 mg 11/28/18 22:00 12/06/18 10:34 Tizanidine Hcl PO 4 mg BID DESIRE Administration Zolpidem Tartrate 5 mg 11/28/18 22:00 12/05/18 22:59 Ambien - PO 5 mg HS PRN Administration INSOMNIA S1S2 RRR Lungs clear Abd- soft, NT No edema PLAN pain control adequate pt is at baseline PT eval apparently insurance denied authorization called daughter Patricia-- awaiting call back Problem List - Problems (1) Fall Code(s): W19.XXXA - UNSPECIFIED FALL, INITIAL ENCOUNTER (2) UTI (urinary tract infection) Code(s): N39.0 - URINARY TRACT INFECTION, SITE NOT SPECIFIED (3) Altered mental status Code(s): R41.82 - ALTERED MENTAL STATUS, UNSPECIFIED (4) HTN (hypertension) Code(s): I10 - ESSENTIAL (PRIMARY) HYPERTENSION (5) Multiple sclerosis Code(s): G35 - MULTIPLE SCLEROSIS
[2018-12-06] MEDS: oxyCODONE HCL 5 MG TABLET PO PRN (17:31)
[2018-12-06] MEDS: SENNOSIDES 8.6MG TABLET (FP) PO SCH (22:13)
[2018-12-06] MEDS: ZOLPIDEM TARTRATE 5 MG TABLET PO PRN (22:14)
[2018-12-07] MEDS: APIXABAN 5 MG TABLET PO SCH (10:29)
[2018-12-07] MEDS: morphine SO4 SUSTAINED ACTING 15 MG TABLET.SA PO SCH (10:29)
[2018-12-07] MEDS: TIZANIDINE HCL 4 MG TABLET PO SCH (10:30)
[2018-12-07] MEDS: BACLOFEN 10 MG TABLET (FP) PO SCH (10:30)
[2018-12-07] MEDS: POLYETHYLENE GLYCOL 3350 119 GM BTL PO SCH (10:32)
--- NOTE | 2018-12-07 10:49 | PN ---
Progress Note (short form) - Note Progress Note: comfortable chart reviewed awake no distress denies pain calm Vital Signs Temp 98.3 F 12/07/18 06:00 Pulse 89 12/07/18 06:00 Resp 20 12/07/18 06:00 BP 107/63 12/07/18 06:00 Pulse Ox 97 12/06/18 10:35 Intake & Output 12/06/18 12/06/18 12/07/18 11:59 23:59 11:59 Intake Total 0 400 Balance 0 400 Intake: IV 0 saline lock 0 Oral 400 Other: Voiding Method Incontinent Incontinent Incontinent # Unmeasured Voids Void 1 1 Bowel Movement No Yes Body Mass Index (BMI) 17.6 Active Medications Apixaban (Eliquis -) 5 mg PO BID [facility] Last Admin: 12/07/18 10:29 Dose: 5 mg Baclofen (Lioresal -) 10 mg PO BID [facility] Last Admin: 12/07/18 10:30 Dose: 10 mg Gabapentin (Neurontin -) 200 mg PO Q8H PRN PRN Reason: PAIN Last Admin: 12/01/18 16:25 Dose: 200 mg Lorazepam (Ativan -) 1 mg PO Q4H PRN PRN Reason: ANXIETY Last Admin: 12/05/18 23:03 Dose: 1 mg Morphine Sulfate (Ms Contin -) 15 mg PO BID [facility] Last Admin: 12/07/18 10:29 Dose: 15 mg Oxycodone HCl (Roxicodone -) 10 mg PO Q6H PRN PRN Reason: PAIN LEVEL 6-10 Last Admin: 12/06/18 17:31 Dose: 10 mg Polyethylene Glycol (Miralax (For Daily Use) -) 17 gm PO BID [facility] Last Admin: 12/07/18 10:32 Dose: 17 gm Senna (Senna -) 2 tab PO HS [facility] Last Admin: 12/06/18 22:13 Dose: 2 tab Tizanidine HCl (Tizanidine Hcl) 4 mg PO BID [facility] Last Admin: 12/07/18 10:30 Dose: 4 mg Zolpidem Tartrate (Ambien -) 5 mg PO HS PRN PRN Reason: INSOMNIA Last Admin: 12/06/18 22:14 Dose: 5 mg CBC, BMP 11/29/18 07:49 11/29/18 07:49 Physical Exam S1S2 RRR Lungs clear Abd- soft, NT No edema PLAN pain control adequate pt is at baseline PT eval apparently insurance denied authorization Discussed with C/M also Will follow
[2018-12-08] MEDS: SENNOSIDES 8.6MG TABLET (FP) PO SCH (00:56)
[2018-12-08] MEDS: ZOLPIDEM TARTRATE 5 MG TABLET PO PRN (00:57)
[2018-12-08] MEDS: APIXABAN 5 MG TABLET PO SCH ×2 (00:57→09:51)
[2018-12-08] MEDS: TIZANIDINE HCL 4 MG TABLET PO SCH ×2 (00:57→09:51)
[2018-12-08] MEDS: BACLOFEN 10 MG TABLET (FP) PO SCH ×2 (00:58→09:52)
[2018-12-08] MEDS: morphine SO4 SUSTAINED ACTING 15 MG TABLET.SA PO SCH ×2 (00:58→09:53)
[2018-12-08] MEDS: POLYETHYLENE GLYCOL 3350 119 GM BTL PO SCH ×2 (01:00→09:55)
[2018-12-08] MEDS ORDERED: PT OWN MED DRAWER 7, Y5N ONE (09:06)
--- NOTE | 2018-12-08 18:56 | PN ---
Progress Note (short form) - Note Progress Note: No complaints feels well appears to be in pain Vital Signs - 24 hr 12/07/18 12/07/18 12/08/18 21:00 22:00 06:00 Temperature 98.7 F 98.4 F Pulse Rate 89 93 H Respiratory 20 20 Rate Blood Pressure 127/54 L 168/88 O2 Sat by Pulse 97 Oximetry (%) 12/08/18 12/08/18 12/08/18 09:00 09:55 14:56 Temperature 98.2 F 98.7 F Pulse Rate 95 H 86 Respiratory 18 18 Rate Blood Pressure 102/53 L 113/53 L O2 Sat by Pulse 94 L Oximetry (%) 12/08/18 18:14 Temperature 98.5 F Pulse Rate 95 H Respiratory 18 Rate Blood Pressure 114/60 O2 Sat by Pulse Oximetry (%) Current Medications Generic Name Dose Route Start Last Admin Trade Name Freq PRN Reason Stop Dose Admin Apixaban 5 mg 11/30/18 22:00 12/08/18 09:51 Eliquis - PO 5 mg BID DESIRE Administration Baclofen 10 mg 11/28/18 22:00 12/08/18 09:52 Lioresal - PO 10 mg BID [facility] Administration Gabapentin 200 mg 11/28/18 17:39 12/01/18 16:25 Neurontin - PO 200 mg Q8H PRN Administration PAIN Lorazepam 1 mg 12/01/18 14:32 12/05/18 23:03 Ativan - PO 1 mg Q4H PRN Administration ANXIETY Morphine Sulfate 15 mg 11/28/18 22:00 12/08/18 09:53 Ms Contin - PO 15 mg BID DESIRE Administration Oxycodone HCl 10 mg 11/28/18 17:39 12/06/18 17:31 Roxicodone - PO 10 mg Q6H PRN Administration PAIN LEVEL 6-10 Polyethylene Glycol 17 gm 11/29/18 11:00 12/08/18 09:55 Miralax (For Daily Use) - PO 17 gm BID DESIRE Administration Senna 2 tab 11/29/18 22:00 12/08/18 00:56 Senna - PO 2 tab HS DESIRE Administration Tizanidine HCl 4 mg 11/28/18 22:00 12/08/18 09:51 Tizanidine Hcl PO 4 mg BID DESIRE Administration Zolpidem Tartrate 5 mg 11/28/18 22:00 12/08/18 00:57 Ambien - PO 5 mg HS PRN Administration INSOMNIA S1S2 RRR Lungs clear Abd- soft, NT No edema PLAN pain control adequate pt is at baseline PT eval apparently insurance denied authorization called daughter Patricia-- awaiting call back Problem List - Problems (1) Fall Code(s): W19.XXXA - UNSPECIFIED FALL, INITIAL ENCOUNTER (2) UTI (urinary tract infection) Code(s): N39.0 - URINARY TRACT INFECTION, SITE NOT SPECIFIED (3) Altered mental status Code(s): R41.82 - ALTERED MENTAL STATUS, UNSPECIFIED (4) HTN (hypertension) Code(s): I10 - ESSENTIAL (PRIMARY) HYPERTENSION (5) Multiple sclerosis Code(s): G35 - MULTIPLE SCLEROSIS
[2018-12-09] MEDS: BACLOFEN 10 MG TABLET (FP) PO SCH ×3 (00:07→23:35)
[2018-12-09] MEDS: SENNOSIDES 8.6MG TABLET (FP) PO SCH ×2 (00:07→23:35)
[2018-12-09] MEDS: morphine SO4 SUSTAINED ACTING 15 MG TABLET.SA PO SCH ×3 (00:07→23:34)
[2018-12-09] MEDS: APIXABAN 5 MG TABLET PO SCH ×3 (00:07→23:35)
[2018-12-09] MEDS: ZOLPIDEM TARTRATE 5 MG TABLET PO PRN ×2 (00:07→23:36)
[2018-12-09] MEDS: POLYETHYLENE GLYCOL 3350 119 GM BTL PO SCH ×3 (00:08→23:36)
[2018-12-09] MEDS: TIZANIDINE HCL 4 MG TABLET PO SCH ×3 (02:08→23:36)
--- NOTE | 2018-12-09 09:55 | PN ---
Progress Note (short form) - Note Progress Note: No complaints feels well Vital Signs - 24 hr 12/08/18 12/08/18 12/08/18 14:56 18:14 21:00 Temperature 98.7 F 98.5 F Pulse Rate 86 95 H Respiratory 18 18 Rate Blood Pressure 113/53 L 114/60 O2 Sat by Pulse 95 Oximetry (%) 12/08/18 12/09/18 22:00 08:29 Temperature 97.8 F 97.8 F Pulse Rate 100 H 104 H Respiratory 18 20 Rate Blood Pressure 127/68 110/59 L O2 Sat by Pulse Oximetry (%) Current Medications Generic Name Dose Route Start Last Admin Trade Name Freq PRN Reason Stop Dose Admin Apixaban 5 mg 11/30/18 22:00 12/09/18 00:07 Eliquis - PO 5 mg BID DESIRE Administration Baclofen 10 mg 11/28/18 22:00 12/09/18 00:07 Lioresal - PO 10 mg BID DESIRE Administration Gabapentin 200 mg 11/28/18 17:39 12/01/18 16:25 Neurontin - PO 200 mg Q8H PRN Administration PAIN Lorazepam 1 mg 12/01/18 14:32 12/05/18 23:03 Ativan - PO 1 mg Q4H PRN Administration ANXIETY Morphine Sulfate 15 mg 11/28/18 22:00 12/09/18 00:07 Ms Contin - PO 15 mg BID DESIRE Administration Oxycodone HCl 10 mg 11/28/18 17:39 12/06/18 17:31 Roxicodone - PO 10 mg Q6H PRN Administration PAIN LEVEL 6-10 Polyethylene Glycol 17 gm 11/29/18 11:00 12/09/18 00:08 Miralax (For Daily Use) - PO 17 gm BID DESIRE Administration Senna 2 tab 11/29/18 22:00 12/09/18 00:07 Senna - PO 2 tab HS DESIRE Administration Tizanidine HCl 4 mg 11/28/18 22:00 12/09/18 02:08 Tizanidine Hcl PO 4 mg BID DESIRE Administration Zolpidem Tartrate 5 mg 11/28/18 22:00 12/09/18 00:07 Ambien - PO 5 mg HS PRN Administration INSOMNIA S1S2 RRR Lungs clear Abd- soft, NT No edema PLAN pain control adequate pt is at baseline PT eval now awaiting for long-term placement-- insurance issues Problem List - Problems (1) Fall Code(s): W19.XXXA - UNSPECIFIED FALL, INITIAL ENCOUNTER (2) UTI (urinary tract infection) Code(s): N39.0 - URINARY TRACT INFECTION, SITE NOT SPECIFIED (3) Altered mental status Code(s): R41.82 - ALTERED MENTAL STATUS, UNSPECIFIED (4) HTN (hypertension) Code(s): I10 - ESSENTIAL (PRIMARY) HYPERTENSION (5) Multiple sclerosis Code(s): G35 - MULTIPLE SCLEROSIS
[2018-12-09] MEDS ORDERED: PT OWN MED DRAWER 7, Y5N ONE ×2 (10:33→10:47)
[2018-12-10] MEDS ORDERED: PT OWN MED DRAWER 7, Y5N ONE ×2 (10:14→22:46)
[2018-12-10] MEDS: BACLOFEN 10 MG TABLET (FP) PO SCH ×2 (10:19→22:54)
[2018-12-10] MEDS: APIXABAN 5 MG TABLET PO SCH ×2 (10:19→22:54)
[2018-12-10] MEDS: morphine SO4 SUSTAINED ACTING 15 MG TABLET.SA PO SCH ×3 (10:19→22:55)
[2018-12-10] MEDS: TIZANIDINE HCL 4 MG TABLET PO SCH ×2 (10:21→22:54)
--- NOTE | 2018-12-10 12:20 | PN ---
Progress Note (short form) - Note Progress Note: Pt seen/ examined comfortable. no new issues Vital Signs Temp 98.0 F 12/10/18 05:58 Pulse 96 H 12/10/18 05:58 Resp 20 12/10/18 05:58 BP 109/66 12/10/18 05:58 Pulse Ox 97 12/09/18 21:00 Intake & Output 12/09/18 12/10/18 12/10/18 23:59 11:59 23:59 Intake Total 118 0 Balance 118 0 Intake: IV 0 saline lock 0 Oral 118 Other: Voiding Method Diaper Bowel Movement No No # Bowel Movements 1 Active Medications Apixaban (Eliquis -) 5 mg PO BID [facility] Last Admin: 12/10/18 10:19 Dose: 5 mg Baclofen (Lioresal -) 10 mg PO BID [facility] Last Admin: 12/10/18 10:19 Dose: 10 mg Gabapentin (Neurontin -) 200 mg PO Q8H PRN PRN Reason: PAIN Last Admin: 12/01/18 16:25 Dose: 200 mg Morphine Sulfate (Ms Contin -) 15 mg PO BID [facility] Last Admin: 12/09/18 23:34 Dose: 15 mg Oxycodone HCl (Roxicodone -) 10 mg PO Q6H PRN PRN Reason: PAIN LEVEL 6-10 Last Admin: 12/06/18 17:31 Dose: 10 mg Polyethylene Glycol (Miralax (For Daily Use) -) 17 gm PO BID [facility] Last Admin: 12/09/18 23:36 Dose: 17 gm Senna (Senna -) 2 tab PO HS [facility] Last Admin: 12/09/18 23:35 Dose: 2 tab Tizanidine HCl (Tizanidine Hcl) 4 mg PO BID [facility] Last Admin: 12/10/18 10:21 Dose: 4 mg Zolpidem Tartrate (Ambien -) 5 mg PO HS PRN PRN Reason: INSOMNIA Last Admin: 12/09/18 23:36 Dose: 5 mg CBC, BMP 11/29/18 07:49 11/29/18 07:49 Physical Awake/ no distress comfortable S1S2 RRR Lungs clear Abd- soft, NT No edema- Contracted PLAN pain control adequate pt is at baseline PT eval now awaiting for [facility] placement-- insurance issues. Will follow Problem List - Problems (1) Fall Code(s): W19.XXXA - UNSPECIFIED FALL, INITIAL ENCOUNTER (2) UTI (urinary tract infection) Code(s): N39.0 - URINARY TRACT INFECTION, SITE NOT SPECIFIED (3) Altered mental status Code(s): R41.82 - ALTERED MENTAL STATUS, UNSPECIFIED (4) HTN (hypertension) Code(s): I10 - ESSENTIAL (PRIMARY) HYPERTENSION (5) Multiple sclerosis Code(s): G35 - MULTIPLE SCLEROSIS
[2018-12-10] MEDS: POLYETHYLENE GLYCOL 3350 119 GM BTL PO SCH ×2 (12:33→22:58)
[2018-12-10] MEDS: SENNOSIDES 8.6MG TABLET (FP) PO SCH (22:54)
[2018-12-11] MEDS ORDERED: PT OWN MED DRAWER 7, Y5N ONE (09:45)
[2018-12-11] MEDS: TIZANIDINE HCL 4 MG TABLET PO SCH ×2 (09:51→22:30)
[2018-12-11] MEDS: APIXABAN 5 MG TABLET PO SCH ×2 (09:51→22:30)
[2018-12-11] MEDS: morphine SO4 SUSTAINED ACTING 15 MG TABLET.SA PO SCH ×2 (09:51→22:27)
[2018-12-11] MEDS: BACLOFEN 10 MG TABLET (FP) PO SCH ×2 (09:51→22:30)
[2018-12-11] MEDS: POLYETHYLENE GLYCOL 3350 119 GM BTL PO SCH ×2 (09:54→22:28)
--- NOTE | 2018-12-11 10:51 | DS ---
Physical Examination Vital Signs: Vital Signs Temperature 98.1 F 12/11/18 06:00 Pulse Rate 90 12/11/18 06:00 Respiratory Rate 20 12/11/18 06:00 Blood Pressure 131/61 12/11/18 06:00 O2 Sat by Pulse Oximetry (%) 98 12/10/18 21:00 Constitutional: Yes: No Distress, Calm Cardiovascular: Yes: Regular Rate and Rhythm Respiratory: Yes: CTA Bilaterally Gastrointestinal: Yes: Normal Bowel Sounds, Soft. No: Tenderness Extremities: Yes: Other (contracted) Edema: No Labs: CBC, BMP 11/29/18 07:49 11/29/18 07:49 Discharge Summary Reason For Visit: UNWITNESSED FALL Current Active Problems Fall (Acute) UTI (urinary tract infection) (Acute) Hospital Course: ADMITTING HISTORY History of Present Illness: ER HISTORY - History of Present Illness Initial Comments: 11/28/18 10:01 The patient is a 73 year old female, with a significant PMH of MS (contracted bilateral lower extremities), perforated ulcer, PE, right patellar ORIF, multiple lower extremity ulcers and recent UTI who presents to the ED [facility]EM[facility] from [facility] s/p unwitnessed fall this morning. As per [place] notes the patient was in bed last night and this morning was found on the floor holding onto the side rail with her hand. Sister at bedside notes the patient has been declining since 12/19 (broke her hip), 09/19 (broke her knee) and intermittently has periods of confusion. At this time, pt continues to repeat "heaven" and is crying over the of her parents many years ago. Sister at bedside states this is her baseline mental status. History is limited due to patient's clinical condition. Allergies: [place] Surgical History: Perforated ulcer repair, right hip fracture s/p ORIF, right patellar ORIF, h/o recent PE rt lung on October 2018 admission-- provoked due to prolonged immobilization-- on Eliquis Social History: Denies EtOH, tobacco, or illicit drug use Pt examined by me on the floors was restless all night last night as per RN She is more calm today-- ate food She is confused Has pain in right hip pt is contracted HOSPITAL COURSE CT head, plevic ct negative for acute pathology UA and urine culture was positive - seen by ID-- antibiotics dc as it is colonized She was also evaluated by Psychiatry as well Pt is total care , dependent of ADL's - she is bedbound Pt is not a rehab candidate She will require assisted facility for further care Condition: Stable - Instructions Disposition: [facility] - Home Medications Comprehensive Discharge Medication List: Ambulatory Orders Gabapentin 200 mg PO TID PRN 07/30/18 Morphine *Sr* [Ms Contin -] 15 mg PO BID #60 tablet.sa MDD 2 10/10/18 Tizanidine HCl 4 mg PO BID 10/25/18 Ascorbic Acid [Vitamin C -] 500 mg PO DAILY tablet 10/31/18 Collagenase Clostridium Hist. [Santyl -] 1 applic TP DAILY tube 10/31/18 Docusate Sodium [Colace -] 100 mg PO BID capsule 10/31/18 Baclofen 10 mg PO BID 11/28/18 oxyCODONE HCL [Roxicodone -] 10 mg PO Q6H PRN MDD 4 11/28/18 Apixaban [Eliquis -] 5 mg PO BID tablet 12/01/18 Polyethylene Glycol 3350 [Miralax 119 gm Btl -] 17 gm PO BID bottle 12/01/18 Sennosides [Senna -] 2 tab PO HS tablet 12/01/18
[2018-12-11] MEDS: oxyCODONE HCL 5 MG TABLET PO PRN (14:31)
--- NOTE | 2018-12-11 14:39 | EKG ---
Test Reason : Blood Pressure : / mmHG Vent. Rate : 102 BPM Atrial Rate : 102 BPM P-R Int : 144 ms QRS Dur : 098 ms QT Int : 352 ms P-R-T Axes : 082 -54 066 degrees QTc Int : 458 ms POOR DATA QUALITY, INTERPRETATION MAY BE ADVERSELY AFFECTED SINUS TACHYCARDIA LEFT AXIS DEVIATION SEPTAL INFARCT (CITED ON OR BEFORE 28-NOV-2018) POSSIBLE LATERAL INFARCT (CITED ON OR BEFORE 28-NOV-2018) INFERIOR INFARCT , AGE UNDETERMINED ABNORMAL ECG Confirmed by Yoshi Marvin MD ([id number]) on 12/11/2018 2:39:03 PM Referred By: RILEY SCANLON DR Confirmed By:Yoshi Marvin MD
[2018-12-11] MEDS: SENNOSIDES 8.6MG TABLET (FP) PO SCH (22:27)
[2018-12-11] MEDS: ZOLPIDEM TARTRATE 5 MG TABLET PO PRN (22:28)
[2018-12-12] MEDS: oxyCODONE HCL 5 MG TABLET PO PRN (05:25)
[2018-12-12] MEDS: morphine SO4 SUSTAINED ACTING 15 MG TABLET.SA PO SCH ×2 (10:47→22:48)
[2018-12-12] MEDS: APIXABAN 5 MG TABLET PO SCH ×2 (10:47→22:48)
[2018-12-12] MEDS: BACLOFEN 10 MG TABLET (FP) PO SCH ×2 (10:47→22:48)
--- NOTE | 2018-12-12 11:44 | PN ---
Progress Note (short form) - Note Progress Note: No complaints feels well vitals noted Current Medications Generic Name Dose Route Start Last Admin Trade Name Freq PRN Reason Stop Dose Admin Apixaban 5 mg 11/30/18 22:00 12/09/18 00:07 Eliquis - PO 5 mg BID DESIRE Administration Baclofen 10 mg 11/28/18 22:00 12/09/18 00:07 Lioresal - PO 10 mg BID DESIRE Administration Gabapentin 200 mg 11/28/18 17:39 12/01/18 16:25 Neurontin - PO 200 mg Q8H PRN Administration PAIN Lorazepam 1 mg 12/01/18 14:32 12/05/18 23:03 Ativan - PO 1 mg Q4H PRN Administration ANXIETY Morphine Sulfate 15 mg 11/28/18 22:00 12/09/18 00:07 Ms Contin - PO 15 mg BID DESIRE Administration Oxycodone HCl 10 mg 11/28/18 17:39 12/06/18 17:31 Roxicodone - PO 10 mg Q6H PRN Administration PAIN LEVEL 6-10 Polyethylene Glycol 17 gm 11/29/18 11:00 12/09/18 00:08 Miralax (For Daily Use) - PO 17 gm BID DESIRE Administration Senna 2 tab 11/29/18 22:00 12/09/18 00:07 Senna - PO 2 tab HS DESIRE Administration Tizanidine HCl 4 mg 11/28/18 22:00 12/09/18 02:08 Tizanidine Hcl PO 4 mg BID DESIRE Administration Zolpidem Tartrate 5 mg 11/28/18 22:00 12/09/18 00:07 Ambien - PO 5 mg HS PRN Administration INSOMNIA S1S2 RRR Lungs clear Abd- soft, NT No edema PLAN pain control adequate pt is at baseline PT eval now awaiting for half-way placement-- insurance issues Problem List - Problems (1) Fall Code(s): W19.XXXA - UNSPECIFIED FALL, INITIAL ENCOUNTER (2) UTI (urinary tract infection) Code(s): N39.0 - URINARY TRACT INFECTION, SITE NOT SPECIFIED (3) Altered mental status Code(s): R41.82 - ALTERED MENTAL STATUS, UNSPECIFIED (4) HTN (hypertension) Code(s): I10 - ESSENTIAL (PRIMARY) HYPERTENSION (5) Multiple sclerosis Code(s): G35 - MULTIPLE SCLEROSIS
[2018-12-12] MEDS: TIZANIDINE HCL 4 MG TABLET PO SCH ×2 (12:26→22:48)
[2018-12-12] MEDS: POLYETHYLENE GLYCOL 3350 119 GM BTL PO SCH ×2 (12:26→22:48)
[2018-12-12] MEDS: SENNOSIDES 8.6MG TABLET (FP) PO SCH (22:48)
[2018-12-12] MEDS: ZOLPIDEM TARTRATE 5 MG TABLET PO PRN (22:48)
[2018-12-13] MEDS ORDERED: PT OWN MED DRAWER 7, Y5N ONE ×2 (10:26→21:08)
[2018-12-13] MEDS: morphine SO4 SUSTAINED ACTING 15 MG TABLET.SA PO SCH ×2 (11:02→21:24)
[2018-12-13] MEDS: BACLOFEN 10 MG TABLET (FP) PO SCH ×2 (11:03→21:25)
[2018-12-13] MEDS: TIZANIDINE HCL 4 MG TABLET PO SCH ×2 (11:03→21:26)
[2018-12-13] MEDS: APIXABAN 5 MG TABLET PO SCH ×2 (11:04→21:25)
[2018-12-13] MEDS: POLYETHYLENE GLYCOL 3350 119 GM BTL PO SCH ×2 (11:04→21:26)
--- NOTE | 2018-12-13 11:58 | PN ---
Progress Note (short form) - Note Progress Note: No complaints feels well vitals noted c/o chest pain yesterday-- EKG NSR and cardiac enzyme negative Vital Signs - 24 hr 12/12/18 12/12/18 12/12/18 18:07 21:00 22:00 Temperature 97.8 F Pulse Rate 81 84 Respiratory 20 20 20 Rate Blood Pressure 108/52 L 102/60 O2 Sat by Pulse 96 Oximetry (%) 12/13/18 12/13/18 06:15 14:00 Temperature 98.0 F 98.7 F Pulse Rate 82 73 Respiratory 20 20 Rate Blood Pressure 110/60 118/51 L O2 Sat by Pulse Oximetry (%) Current Medications Generic Name Dose Route Start Last Admin Trade Name Freq PRN Reason Stop Dose Admin Al Hydroxide/Mg Hydroxide 30 ml 12/13/18 13:34 Mylanta Suspension - PO TID PRN DYSPEPSIA Apixaban 5 mg 11/30/18 22:00 12/13/18 11:04 Eliquis - PO 5 mg BID DESIRE Administration Baclofen 10 mg 11/28/18 22:00 12/13/18 11:03 Lioresal - PO 10 mg BID DESIRE Administration Gabapentin 200 mg 11/28/18 17:39 12/01/18 16:25 Neurontin - PO 200 mg Q8H PRN Administration PAIN Morphine Sulfate 15 mg 11/28/18 22:00 12/13/18 11:02 Ms Contin - PO 15 mg BID DESIRE Administration Oxycodone HCl 10 mg 11/28/18 17:39 12/13/18 14:10 Roxicodone - PO 10 mg Q6H PRN Administration PAIN LEVEL 6-10 Pantoprazole Sodium 40 mg 12/13/18 13:45 12/13/18 14:11 Protonix - PO 40 mg DAILY DESIRE Administration Polyethylene Glycol 17 gm 11/29/18 11:00 12/13/18 11:04 Miralax (For Daily Use) - PO 17 gm BID DESIRE Administration Senna 2 tab 11/29/18 22:00 12/12/18 22:48 Senna - PO 2 tab HS DESIRE Administration Tizanidine HCl 4 mg 11/28/18 22:00 12/13/18 11:03 Tizanidine Hcl PO 4 mg BID DESIRE Administration Zolpidem Tartrate 5 mg 11/28/18 22:00 12/12/18 22:48 Ambien - PO 5 mg HS PRN Administration INSOMNIA S1S2 RRR Lungs clear Abd- soft, NT No edema PLAN pain control adequate pt is at baseline start Protonix and MAALOX PRN PT eval now awaiting for fpc placement-- insurance issues Problem List - Problems (1) Fall Code(s): W19.XXXA - UNSPECIFIED FALL, INITIAL ENCOUNTER (2) UTI (urinary tract infection) Code(s): N39.0 - URINARY TRACT INFECTION, SITE NOT SPECIFIED (3) Altered mental status Code(s): R41.82 - ALTERED MENTAL STATUS, UNSPECIFIED (4) HTN (hypertension) Code(s): I10 - ESSENTIAL (PRIMARY) HYPERTENSION (5) Multiple sclerosis Code(s): G35 - MULTIPLE SCLEROSIS
[2018-12-13] MEDS ORDERED: MAG HYDROX/AL HYDROX/SIMETH -MYLANTA- ORAL SUSPENSION PO PRN (13:34)
[2018-12-13] MEDS: oxyCODONE HCL 5 MG TABLET PO PRN (14:10)
[2018-12-13] MEDS: PANTOPRAZOLE 40 MG TABLET (FP) PO SCH (14:11)
[2018-12-13] MEDS: SENNOSIDES 8.6MG TABLET (FP) PO SCH (21:24)
[2018-12-13] MEDS: ZOLPIDEM TARTRATE 5 MG TABLET PO PRN (21:25)
[2018-12-14] MEDS: morphine SO4 SUSTAINED ACTING 15 MG TABLET.SA PO SCH ×2 (09:48→21:16)
[2018-12-14] MEDS: PANTOPRAZOLE 40 MG TABLET (FP) PO SCH (09:48)
[2018-12-14] MEDS: APIXABAN 5 MG TABLET PO SCH ×2 (09:49→21:16)
[2018-12-14] MEDS: BACLOFEN 10 MG TABLET (FP) PO SCH ×2 (09:50→21:17)
[2018-12-14] MEDS: TIZANIDINE HCL 4 MG TABLET PO SCH ×2 (09:50→21:19)
[2018-12-14] MEDS: POLYETHYLENE GLYCOL 3350 119 GM BTL PO SCH ×2 (09:57→21:20)
--- NOTE | 2018-12-14 10:09 | PN ---
Progress Note (short form) - Note Progress Note: pt seen/ examined comfortable no new issues social issues regarding discharge Discussed with assistant guest services manager again today Vital Signs Temp 98.6 F 12/14/18 06:00 Pulse 84 12/14/18 06:00 Resp 20 12/14/18 06:00 BP 121/50 L 12/14/18 06:00 Pulse Ox 96 12/14/18 10:01 Intake & Output 12/13/18 12/13/18 12/14/18 11:59 23:59 11:59 Intake Total 450 300 Balance 450 300 Intake: Oral 450 200 Oral Supplement 100 Other: Voiding Method Incontinent Incontinent Incontinent # Unmeasured Voids Void 2 1 Bowel Movement Yes Yes: small No # Bowel Movements 1 Active Medications Al Hydroxide/Mg Hydroxide (Mylanta Suspension -) 30 ml PO TID PRN PRN Reason: DYSPEPSIA Apixaban (Eliquis -) 5 mg PO BID [facility] Last Admin: 12/14/18 09:49 Dose: 5 mg Baclofen (Lioresal -) 10 mg PO BID [facility] Last Admin: 12/14/18 09:50 Dose: 10 mg Gabapentin (Neurontin -) 200 mg PO Q8H PRN PRN Reason: PAIN Last Admin: 12/01/18 16:25 Dose: 200 mg Morphine Sulfate (Ms Contin -) 15 mg PO BID [facility] Last Admin: 12/14/18 09:48 Dose: 15 mg Oxycodone HCl (Roxicodone -) 10 mg PO Q6H PRN PRN Reason: PAIN LEVEL 6-10 Last Admin: 12/13/18 14:10 Dose: 10 mg Pantoprazole Sodium (Protonix -) 40 mg PO DAILY [facility] Last Admin: 12/14/18 09:48 Dose: 40 mg Polyethylene Glycol (Miralax (For Daily Use) -) 17 gm PO BID [facility] Last Admin: 12/14/18 09:57 Dose: 17 gm Senna (Senna -) 2 tab PO HS [facility] Last Admin: 12/13/18 21:24 Dose: 2 tab Tizanidine HCl (Tizanidine Hcl) 4 mg PO BID [facility] Last Admin: 12/14/18 09:50 Dose: 4 mg Zolpidem Tartrate (Ambien -) 5 mg PO HS PRN PRN Reason: INSOMNIA Last Admin: 12/13/18 21:25 Dose: 5 mg CBC, BMP 11/29/18 07:49 11/29/18 07:49 Physical Exam Awake / Comfortable S1S2 RRR Lungs clear Abd- soft, NT No edema PLAN pain control adequate pt is at baseline now awaiting for alf placement-- insurance issues Problem List - Problems (1) Fall Code(s): W19.XXXA - UNSPECIFIED FALL, INITIAL ENCOUNTER (2) UTI (urinary tract infection) Code(s): N39.0 - URINARY TRACT INFECTION, SITE NOT SPECIFIED (3) Altered mental status Code(s): R41.82 - ALTERED MENTAL STATUS, UNSPECIFIED (4) HTN (hypertension) Code(s): I10 - ESSENTIAL (PRIMARY) HYPERTENSION (5) Multiple sclerosis Code(s): G35 - MULTIPLE SCLEROSIS
[2018-12-14] MEDS: SENNOSIDES 8.6MG TABLET (FP) PO SCH (21:16)
[2018-12-14] MEDS: ZOLPIDEM TARTRATE 5 MG TABLET PO PRN (21:17)
[2018-12-14] MEDS ORDERED: PT OWN MED DRAWER 7, Y5N ONE (21:19)
[2018-12-15] MEDS: oxyCODONE HCL 5 MG TABLET PO PRN ×3 (00:47→13:05)
[2018-12-15] MEDS ORDERED: PT OWN MED DRAWER 7, Y5N ONE (09:24)
[2018-12-15] MEDS: TIZANIDINE HCL 4 MG TABLET PO SCH ×2 (09:37→22:00)
[2018-12-15] MEDS: APIXABAN 5 MG TABLET PO SCH ×2 (09:37→22:01)
[2018-12-15] MEDS: PANTOPRAZOLE 40 MG TABLET (FP) PO SCH (09:37)
[2018-12-15] MEDS: morphine SO4 SUSTAINED ACTING 15 MG TABLET.SA PO SCH ×2 (09:37→22:00)
[2018-12-15] MEDS: BACLOFEN 10 MG TABLET (FP) PO SCH ×2 (09:37→22:00)
[2018-12-15] MEDS: POLYETHYLENE GLYCOL 3350 119 GM BTL PO SCH ×2 (09:38→22:00)
--- NOTE | 2018-12-15 11:22 | PN ---
Progress Note (short form) - Note Progress Note: No complaints feels well vitals noted no chest pains 12/14/18 12/15/18 12/15/18 22:00 06:00 15:42 Temperature 98.7 F 98.8 F Pulse Rate 102 H 104 H Respiratory 18 20 Rate Blood Pressure 105/62 114/68 O2 Sat by Pulse 94 L Oximetry (%) Current Medications Generic Name Dose Route Start Last Admin Trade Name Freq PRN Reason Stop Dose Admin Al Hydroxide/Mg Hydroxide 30 ml 12/13/18 13:34 Mylanta Suspension - PO TID PRN DYSPEPSIA Apixaban 5 mg 11/30/18 22:00 12/15/18 09:37 Eliquis - PO 5 mg BID DESIRE Administration Baclofen 10 mg 11/28/18 22:00 12/15/18 09:37 Lioresal - PO 10 mg BID DESIRE Administration Gabapentin 200 mg 11/28/18 17:39 12/01/18 16:25 Neurontin - PO 200 mg Q8H PRN Administration PAIN Morphine Sulfate 15 mg 11/28/18 22:00 12/15/18 09:37 Ms Contin - PO 15 mg BID DESIRE Administration Oxycodone HCl 10 mg 11/28/18 17:39 12/15/18 13:05 Roxicodone - PO 10 mg Q6H PRN Administration PAIN LEVEL 6-10 Pantoprazole Sodium 40 mg 12/13/18 13:45 12/15/18 09:37 Protonix - PO 40 mg DAILY DESIRE Administration Polyethylene Glycol 17 gm 11/29/18 11:00 12/15/18 09:38 Miralax (For Daily Use) - PO 17 gm BID DESIRE Administration Senna 2 tab 11/29/18 22:00 12/14/18 21:16 Senna - PO 2 tab HS DESIRE Administration Tizanidine HCl 4 mg 11/28/18 22:00 12/15/18 09:37 Tizanidine Hcl PO 4 mg BID DESIRE Administration Zolpidem Tartrate 5 mg 11/28/18 22:00 12/14/18 21:17 Ambien - PO 5 mg HS PRN Administration INSOMNIA S1S2 RRR Lungs clear Abd- soft, NT No edema PLAN pain control adequate pt is at baseline start Protonix and MAALOX PRN PT eval now awaiting for long-term placement-- insurance issues Problem List - Problems (1) Fall Code(s): W19.XXXA - UNSPECIFIED FALL, INITIAL ENCOUNTER (2) UTI (urinary tract infection) Code(s): N39.0 - URINARY TRACT INFECTION, SITE NOT SPECIFIED (3) Altered mental status Code(s): R41.82 - ALTERED MENTAL STATUS, UNSPECIFIED (4) HTN (hypertension) Code(s): I10 - ESSENTIAL (PRIMARY) HYPERTENSION (5) Multiple sclerosis Code(s): G35 - MULTIPLE SCLEROSIS
[2018-12-15] MEDS: ZOLPIDEM TARTRATE 5 MG TABLET PO PRN (22:00)
[2018-12-15] MEDS: SENNOSIDES 8.6MG TABLET (FP) PO SCH (22:03)
[2018-12-16] MEDS: oxyCODONE HCL 5 MG TABLET PO PRN ×2 (05:42→14:09)
--- NOTE | 2018-12-16 08:59 | PN ---
Progress Note (short form) - Note Progress Note: No complaints feels well vitals noted no chest pains restless Vital Signs - 24 hr 12/15/18 12/15/18 12/16/18 18:30 21:00 09:58 Temperature 98.6 F 97.7 F Pulse Rate 101 H 104 H Respiratory 20 20 Rate Blood Pressure 135/67 137/61 O2 Sat by Pulse 95 Oximetry (%) 12/16/18 15:29 Temperature 97.8 F Pulse Rate 96 H Respiratory 20 Rate Blood Pressure 120/73 O2 Sat by Pulse Oximetry (%) Current Medications Generic Name Dose Route Start Last Admin Trade Name Freq PRN Reason Stop Dose Admin Al Hydroxide/Mg Hydroxide 30 ml 12/13/18 13:34 Mylanta Suspension - PO TID PRN DYSPEPSIA Alprazolam 0.5 mg 12/16/18 15:40 12/16/18 15:55 Xanax - PO 0.5 mg Q6H PRN Administration ANXIETY Apixaban 5 mg 11/30/18 22:00 12/16/18 10:03 Eliquis - PO 5 mg BID DESIRE Administration Baclofen 10 mg 11/28/18 22:00 12/16/18 10:03 Lioresal - PO 10 mg BID DESIRE Administration Gabapentin 200 mg 11/28/18 17:39 12/01/18 16:25 Neurontin - PO 200 mg Q8H PRN Administration PAIN Morphine Sulfate 15 mg 11/28/18 22:00 12/16/18 10:00 Ms Contin - PO 15 mg BID DESIRE Administration Oxycodone HCl 10 mg 11/28/18 17:39 12/16/18 14:09 Roxicodone - PO 10 mg Q6H PRN Administration PAIN LEVEL 6-10 Pantoprazole Sodium 40 mg 12/13/18 13:45 12/16/18 10:04 Protonix - PO 40 mg DAILY DESIRE Administration Polyethylene Glycol 17 gm 11/29/18 11:00 12/16/18 10:10 Miralax (For Daily Use) - PO 17 gm BID DESIRE Administration Senna 2 tab 11/29/18 22:00 12/15/18 22:03 Senna - PO 2 tab HS DESIRE Administration Tizanidine HCl 4 mg 11/28/18 22:00 12/16/18 10:04 Tizanidine Hcl PO 4 mg BID DESIRE Administration Zolpidem Tartrate 5 mg 11/28/18 22:00 12/15/18 22:00 Ambien - PO 5 mg HS PRN Administration INSOMNIA S1S2 RRR Lungs clear Abd- soft, NT No edema PLAN pain control adequate pt is at baseline Protonix and MAALOX PRN PT eval now awaiting for long-term placement-- insurance issues xanax prn Problem List - Problems (1) Fall Code(s): W19.XXXA - UNSPECIFIED FALL, INITIAL ENCOUNTER (2) UTI (urinary tract infection) Code(s): N39.0 - URINARY TRACT INFECTION, SITE NOT SPECIFIED (3) Altered mental status Code(s): R41.82 - ALTERED MENTAL STATUS, UNSPECIFIED (4) HTN (hypertension) Code(s): I10 - ESSENTIAL (PRIMARY) HYPERTENSION (5) Multiple sclerosis Code(s): G35 - MULTIPLE SCLEROSIS
[2018-12-16] MEDS ORDERED: PT OWN MED DRAWER 7, Y5N ONE (09:58)
[2018-12-16] MEDS: morphine SO4 SUSTAINED ACTING 15 MG TABLET.SA PO SCH ×2 (10:00→21:26)
[2018-12-16] MEDS: BACLOFEN 10 MG TABLET (FP) PO SCH ×2 (10:03→21:26)
[2018-12-16] MEDS: APIXABAN 5 MG TABLET PO SCH ×2 (10:03→21:26)
[2018-12-16] MEDS: TIZANIDINE HCL 4 MG TABLET PO SCH ×2 (10:04→21:26)
[2018-12-16] MEDS: PANTOPRAZOLE 40 MG TABLET (FP) PO SCH (10:04)
[2018-12-16] MEDS: POLYETHYLENE GLYCOL 3350 119 GM BTL PO SCH ×2 (10:10→21:27)
[2018-12-16] MEDS: ALPRAZolam 0.25 MG TABLET PO PRN (15:55)
[2018-12-16] MEDS: SENNOSIDES 8.6MG TABLET (FP) PO SCH (21:27)
[2018-12-17] MEDS ORDERED: PT OWN MED DRAWER 7, Y5N ONE ×2 (10:25→23:07)
[2018-12-17] MEDS: BACLOFEN 10 MG TABLET (FP) PO SCH ×2 (10:28→23:13)
[2018-12-17] MEDS: morphine SO4 SUSTAINED ACTING 15 MG TABLET.SA PO SCH ×2 (10:28→23:13)
[2018-12-17] MEDS: PANTOPRAZOLE 40 MG TABLET (FP) PO SCH (10:28)
[2018-12-17] MEDS: POLYETHYLENE GLYCOL 3350 119 GM BTL PO SCH ×2 (10:29→23:14)
[2018-12-17] MEDS: APIXABAN 5 MG TABLET PO SCH ×2 (10:29→23:14)
[2018-12-17] MEDS: TIZANIDINE HCL 4 MG TABLET PO SCH ×2 (10:32→23:14)
--- NOTE | 2018-12-17 12:44 | PN ---
Progress Note (short form) - Note Progress Note: pt seen/ examined comfortable no new issues Vital Signs Temp 97.6 F 12/17/18 09:00 Pulse 96 H 12/17/18 09:00 Resp 18 12/17/18 09:00 BP 112/75 12/17/18 09:00 Pulse Ox 97 12/17/18 08:47 Intake & Output 12/16/18 12/17/18 12/17/18 23:59 11:59 23:59 Intake Total 250 0 Balance 250 0 Intake: Oral 250 0 Other: Voiding Method Incontinent Incontinent # Unmeasured Voids Void 2 Bowel Movement No Active Medications Al Hydroxide/Mg Hydroxide (Mylanta Suspension -) 30 ml PO TID PRN PRN Reason: DYSPEPSIA Alprazolam (Xanax -) 0.5 mg PO Q6H PRN PRN Reason: ANXIETY Last Admin: 12/16/18 15:55 Dose: 0.5 mg Apixaban (Eliquis -) 5 mg PO BID [facility] Last Admin: 12/17/18 10:29 Dose: 5 mg Baclofen (Lioresal -) 10 mg PO BID [facility] Last Admin: 12/17/18 10:28 Dose: 10 mg Gabapentin (Neurontin -) 200 mg PO Q8H PRN PRN Reason: PAIN Last Admin: 12/01/18 16:25 Dose: 200 mg Morphine Sulfate (Ms Contin -) 15 mg PO BID [facility] Last Admin: 12/17/18 10:28 Dose: 15 mg Oxycodone HCl (Roxicodone -) 10 mg PO Q6H PRN PRN Reason: PAIN LEVEL 6-10 Last Admin: 12/16/18 14:09 Dose: 10 mg Pantoprazole Sodium (Protonix -) 40 mg PO DAILY [facility] Last Admin: 12/17/18 10:28 Dose: 40 mg Polyethylene Glycol (Miralax (For Daily Use) -) 17 gm PO BID [facility] Last Admin: 12/17/18 10:29 Dose: 17 gm Senna (Senna -) 2 tab PO HS [facility] Last Admin: 12/16/18 21:27 Dose: 2 tab Tizanidine HCl (Tizanidine Hcl) 4 mg PO BID [facility] Last Admin: 12/17/18 10:32 Dose: 4 mg Zolpidem Tartrate (Ambien -) 5 mg PO HS PRN PRN Reason: INSOMNIA Last Admin: 12/15/18 22:00 Dose: 5 mg CBC, BMP 11/29/18 07:49 11/29/18 07:49 Physical Exam awake/ comfortable S1S2 RRR Lungs clear Abd- soft, NT No edema PLAN pain control adequate pt is at baseline Protonix and MAALOX PRN PT eval 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 D/W again with C/ M xanax prn will follow Problem List - Problems (1) Fall Code(s): W19.XXXA - UNSPECIFIED FALL, INITIAL ENCOUNTER (2) UTI (urinary tract infection) Code(s): N39.0 - URINARY TRACT INFECTION, SITE NOT SPECIFIED (3) Altered mental status Code(s): R41.82 - ALTERED MENTAL STATUS, UNSPECIFIED (4) HTN (hypertension) Code(s): I10 - ESSENTIAL (PRIMARY) HYPERTENSION (5) Multiple sclerosis Code(s): G35 - MULTIPLE SCLEROSIS
[2018-12-17] MEDS: oxyCODONE HCL 5 MG TABLET PO PRN (18:09)
[2018-12-17] MEDS: ZOLPIDEM TARTRATE 5 MG TABLET PO PRN (23:13)
[2018-12-17] MEDS: SENNOSIDES 8.6MG TABLET (FP) PO SCH (23:14)
[2018-12-18] MEDS: ALPRAZolam 0.25 MG TABLET PO PRN ×2 (05:03→12:00)
[2018-12-18] MEDS: oxyCODONE HCL 5 MG TABLET PO PRN ×2 (05:06→16:06)
[2018-12-18] MEDS ORDERED: PT OWN MED DRAWER 7, Y5N ONE (10:54)
[2018-12-18] MEDS: morphine SO4 SUSTAINED ACTING 15 MG TABLET.SA PO SCH ×2 (10:59→22:12)
[2018-12-18] MEDS: PANTOPRAZOLE 40 MG TABLET (FP) PO SCH (10:59)
[2018-12-18] MEDS: BACLOFEN 10 MG TABLET (FP) PO SCH ×2 (10:59→22:11)
[2018-12-18] MEDS: APIXABAN 5 MG TABLET PO SCH ×2 (11:01→22:12)
[2018-12-18] MEDS: TIZANIDINE HCL 4 MG TABLET PO SCH ×2 (11:02→22:19)
[2018-12-18] MEDS: POLYETHYLENE GLYCOL 3350 119 GM BTL PO SCH ×2 (11:08→22:12)
--- NOTE | 2018-12-18 12:31 | PN ---
Progress Note (short form) - Note Progress Note: No complaints feels well vitals noted no chest pains restless Vital Signs - 24 hr 12/17/18 12/17/18 12/17/18 15:00 18:00 21:00 Temperature 98.4 F 97.9 F Pulse Rate 99 H 94 H Respiratory 18 18 Rate Blood Pressure 115/59 L 151/70 O2 Sat by Pulse 96 Oximetry (%) 12/17/18 12/18/18 12/18/18 22:00 06:00 10:12 Temperature 98.1 F 98.2 F 97.6 F Pulse Rate 101 H 100 H 84 Respiratory 18 18 18 Rate Blood Pressure 97/66 130/77 112/66 O2 Sat by Pulse Oximetry (%) Current Medications Generic Name Dose Route Start Last Admin Trade Name Freq PRN Reason Stop Dose Admin Al Hydroxide/Mg Hydroxide 30 ml 12/13/18 13:34 Mylanta Suspension - PO TID PRN DYSPEPSIA Alprazolam 0.5 mg 12/16/18 15:40 12/18/18 12:00 Xanax - PO 0.5 mg Q6H PRN Administration ANXIETY Apixaban 5 mg 11/30/18 22:00 12/18/18 11:01 Eliquis - PO 5 mg BID DESIRE Administration Baclofen 10 mg 11/28/18 22:00 12/18/18 10:59 Lioresal - PO 10 mg BID DESIRE Administration Gabapentin 200 mg 11/28/18 17:39 12/01/18 16:25 Neurontin - PO 200 mg Q8H PRN Administration PAIN Morphine Sulfate 15 mg 11/28/18 22:00 12/18/18 10:59 Ms Contin - PO 15 mg BID DESIRE Administration Oxycodone HCl 10 mg 11/28/18 17:39 12/18/18 05:06 Roxicodone - PO 10 mg Q6H PRN Administration PAIN LEVEL 6-10 Pantoprazole Sodium 40 mg 12/13/18 13:45 12/18/18 10:59 Protonix - PO 40 mg DAILY DESIRE Administration Polyethylene Glycol 17 gm 11/29/18 11:00 12/18/18 11:08 Miralax (For Daily Use) - PO Not Given BID DESIRE Senna 2 tab 11/29/18 22:00 12/17/18 23:14 Senna - PO 2 tab HS DESIRE Administration Tizanidine HCl 4 mg 11/28/18 22:00 12/18/18 11:02 Tizanidine Hcl PO 4 mg BID DESIRE Administration Zolpidem Tartrate 5 mg 11/28/18 22:00 12/17/18 23:13 Ambien - PO 5 mg HS PRN Administration INSOMNIA S1S2 RRR Lungs clear Abd- soft, NT No edema PLAN pain control adequate pt is at baseline Protonix and MAALOX PRN PT eval now awaiting for senior care placement-- insurance issues xanax prn Problem List - Problems (1) Fall Code(s): W19.XXXA - UNSPECIFIED FALL, INITIAL ENCOUNTER (2) UTI (urinary tract infection) Code(s): N39.0 - URINARY TRACT INFECTION, SITE NOT SPECIFIED (3) Altered mental status Code(s): R41.82 - ALTERED MENTAL STATUS, UNSPECIFIED (4) HTN (hypertension) Code(s): I10 - ESSENTIAL (PRIMARY) HYPERTENSION (5) Multiple sclerosis Code(s): G35 - MULTIPLE SCLEROSIS
[2018-12-18] MEDS: SENNOSIDES 8.6MG TABLET (FP) PO SCH (22:11)
[2018-12-18] MEDS: ZOLPIDEM TARTRATE 5 MG TABLET PO PRN (22:12)
[2018-12-19] MEDS: ALPRAZolam 0.25 MG TABLET PO PRN ×2 (01:00→10:32)
[2018-12-19] MEDS ORDERED: PT OWN MED DRAWER 7, Y5N ONE ×2 (10:26→12:52)
[2018-12-19] MEDS: BACLOFEN 10 MG TABLET (FP) PO SCH ×2 (10:33→22:51)
[2018-12-19] MEDS: PANTOPRAZOLE 40 MG TABLET (FP) PO SCH (10:33)
[2018-12-19] MEDS: POLYETHYLENE GLYCOL 3350 119 GM BTL PO SCH ×2 (10:33→22:53)
[2018-12-19] MEDS: morphine SO4 SUSTAINED ACTING 15 MG TABLET.SA PO SCH ×2 (10:33→22:52)
[2018-12-19] MEDS: TIZANIDINE HCL 4 MG TABLET PO SCH ×2 (12:13→22:51)
[2018-12-19] MEDS: APIXABAN 5 MG TABLET PO SCH ×2 (12:14→22:52)
--- NOTE | 2018-12-19 12:40 | PN ---
Progress Note (short form) - Note Progress Note: No complaints feels well vitals noted no chest pains comfortable Vital Signs - 24 hr 12/18/18 12/18/18 12/18/18 14:29 18:48 21:00 Temperature 98.9 F 97.9 F Pulse Rate 85 92 H Respiratory 18 18 Rate Blood Pressure 146/61 128/81 O2 Sat by Pulse 96 Oximetry (%) 12/18/18 12/19/18 22:00 07:26 Temperature 97.9 F 99.1 F Pulse Rate 94 H 96 H Respiratory 18 18 Rate Blood Pressure 123/60 149/65 O2 Sat by Pulse Oximetry (%) Current Medications Generic Name Dose Route Start Last Admin Trade Name Freq PRN Reason Stop Dose Admin Al Hydroxide/Mg Hydroxide 30 ml 12/13/18 13:34 Mylanta Suspension - PO TID PRN DYSPEPSIA Alprazolam 0.5 mg 12/16/18 15:40 12/19/18 10:32 Xanax - PO 0.5 mg Q6H PRN Administration ANXIETY Apixaban 5 mg 11/30/18 22:00 12/19/18 12:14 Eliquis - PO 5 mg BID DESIRE Administration Baclofen 10 mg 11/28/18 22:00 12/19/18 10:33 Lioresal - PO 10 mg BID DESIRE Administration Gabapentin 200 mg 11/28/18 17:39 12/01/18 16:25 Neurontin - PO 200 mg Q8H PRN Administration PAIN Morphine Sulfate 15 mg 11/28/18 22:00 12/19/18 10:33 Ms Contin - PO 15 mg BID DESIRE Administration Oxycodone HCl 10 mg 11/28/18 17:39 12/18/18 16:06 Roxicodone - PO 10 mg Q6H PRN Administration PAIN LEVEL 6-10 Pantoprazole Sodium 40 mg 12/13/18 13:45 12/19/18 10:33 Protonix - PO 40 mg DAILY DESIRE Administration Polyethylene Glycol 17 gm 11/29/18 11:00 12/19/18 10:33 Miralax (For Daily Use) - PO 17 gm BID DESIRE Administration Senna 2 tab 11/29/18 22:00 12/18/18 22:11 Senna - PO Not Given HS DESIRE Tizanidine HCl 4 mg 11/28/18 22:00 12/19/18 12:13 Tizanidine Hcl PO 4 mg BID DESIRE Administration Zolpidem Tartrate 5 mg 11/28/18 22:00 12/18/18 22:12 Ambien - PO 5 mg HS PRN Administration INSOMNIA S1S2 RRR Lungs clear Abd- soft, NT No edema PLAN pain control adequate pt is at baseline Protonix and MAALOX PRN PT eval now awaiting for care home placement-- insurance issues xanax prn Problem List - Problems (1) Fall Code(s): W19.XXXA - UNSPECIFIED FALL, INITIAL ENCOUNTER (2) UTI (urinary tract infection) Code(s): N39.0 - URINARY TRACT INFECTION, SITE NOT SPECIFIED (3) Altered mental status Code(s): R41.82 - ALTERED MENTAL STATUS, UNSPECIFIED (4) HTN (hypertension) Code(s): I10 - ESSENTIAL (PRIMARY) HYPERTENSION (5) Multiple sclerosis Code(s): G35 - MULTIPLE SCLEROSIS
[2018-12-19] MEDS: oxyCODONE HCL 5 MG TABLET PO PRN (17:32)
[2018-12-19] MEDS: SENNOSIDES 8.6MG TABLET (FP) PO SCH (22:51)
[2018-12-20] MEDS: ALPRAZolam 0.25 MG TABLET PO PRN ×2 (00:56→11:22)
[2018-12-20] MEDS: morphine SO4 SUSTAINED ACTING 15 MG TABLET.SA PO SCH (10:10)
[2018-12-20] MEDS: APIXABAN 5 MG TABLET PO SCH (10:10)
[2018-12-20] MEDS: BACLOFEN 10 MG TABLET (FP) PO SCH (10:10)
[2018-12-20] MEDS: PANTOPRAZOLE 40 MG TABLET (FP) PO SCH (10:10)
[2018-12-20] MEDS ORDERED: PT OWN MED DRAWER 7, Y5N ONE (10:15)
[2018-12-20] MEDS: TIZANIDINE HCL 4 MG TABLET PO SCH (10:16)
[2018-12-20] MEDS: POLYETHYLENE GLYCOL 3350 119 GM BTL PO SCH (10:59)
--- NOTE | 2018-12-20 12:32 | PN ---
Progress Note (short form) - Note Progress Note: crying c/o right lower chest wall this AM DEAL[employer] SAL[employer] REP helping her eat Vital Signs - 24 hr 12/19/18 12/19/18 12/19/18 15:00 18:00 21:00 Temperature 98.7 F 98.5 F Pulse Rate 76 94 H Respiratory 18 20 18 Rate Blood Pressure 102/65 136/72 O2 Sat by Pulse 98 Oximetry (%) 12/19/18 12/20/18 12/20/18 22:00 07:26 09:00 Temperature 98.0 F 98.6 F Pulse Rate 105 H 90 Respiratory 18 18 18 Rate Blood Pressure 115/68 109/75 O2 Sat by Pulse 97 Oximetry (%) 12/20/18 09:55 Temperature 98.4 F Pulse Rate 98 H Respiratory 18 Rate Blood Pressure 152/67 O2 Sat by Pulse Oximetry (%) Current Medications Generic Name Dose Route Start Last Admin Trade Name Freq PRN Reason Stop Dose Admin Al Hydroxide/Mg Hydroxide 30 ml 12/13/18 13:34 Mylanta Suspension - PO TID PRN DYSPEPSIA Alprazolam 0.5 mg 12/16/18 15:40 12/20/18 11:22 Xanax - PO 0.5 mg Q6H PRN Administration ANXIETY Apixaban 5 mg 11/30/18 22:00 12/20/18 10:10 Eliquis - PO 5 mg BID DESIRE Administration Baclofen 10 mg 11/28/18 22:00 12/20/18 10:10 Lioresal - PO 10 mg BID DESIRE Administration Gabapentin 200 mg 11/28/18 17:39 12/01/18 16:25 Neurontin - PO 200 mg Q8H PRN Administration PAIN Morphine Sulfate 15 mg 11/28/18 22:00 12/20/18 10:10 Ms Contin - PO 15 mg BID DESIRE Administration Oxycodone HCl 10 mg 11/28/18 17:39 12/19/18 17:32 Roxicodone - PO 10 mg Q6H PRN Administration PAIN LEVEL 6-10 Pantoprazole Sodium 40 mg 12/13/18 13:45 12/20/18 10:10 Protonix - PO 40 mg DAILY [facility]IRE Administration Polyethylene Glycol 17 gm 11/29/18 11:00 12/20/18 10:59 Miralax (For Daily Use) - PO 17 gm BID DESIRE Administration Senna 2 tab 11/29/18 22:00 12/19/18 22:51 Senna - PO 2 tab HS DESIRE Administration Tizanidine HCl 4 mg 11/28/18 22:00 12/20/18 10:16 Tizanidine Hcl PO 4 mg BID DESIRE Administration Zolpidem Tartrate 5 mg 11/28/18 22:00 12/18/18 22:12 Ambien - PO 5 mg HS PRN Administration INSOMNIA S1S2 RRR Lungs clear Abd- soft, NT no chest wall tenderness No edema PLAN check xrays rib series and CXR pt is at baseline pain meds Protonix and MAALOX PRN PT eval now awaiting for shelter placement-- insurance issues xanax prn Problem List - Problems (1) Fall Code(s): W19.XXXA - UNSPECIFIED FALL, INITIAL ENCOUNTER (2) UTI (urinary tract infection) Code(s): N39.0 - URINARY TRACT INFECTION, SITE NOT SPECIFIED (3) Altered mental status Code(s): R41.82 - ALTERED MENTAL STATUS, UNSPECIFIED (4) HTN (hypertension) Code(s): I10 - ESSENTIAL (PRIMARY) HYPERTENSION (5) Multiple sclerosis Code(s): G35 - MULTIPLE SCLEROSIS
[2018-12-20] MEDS: oxyCODONE HCL 5 MG TABLET PO PRN (16:35)
[2018-12-20 19:09] VITALS: BP 133/77; PULSE 94; TEMP 98.3
== END 2018-12-20 21:33 | DRG 43 ==
LOC: JER 09:23 → SUPCPDRO 09:23 → UNDOADMIN 10:44 → JERBED 10:44 → J5S 10:44
PROVIDERS: ADMIT Internal Medicine; ATTEND Internal Medicine
DX: G35 Multiple sclerosis (principal); N39.0 Urinary tract infection, site not specified; W19.XXXA Unspecified fall, initial encounter; I10 Essential (primary) hypertension; M62.462 Contracture of muscle, left lower leg; M62.461 Contracture of muscle, right lower leg; F03.90 Unspecified dementia, unspecified severity, without behavioral disturbance, psychotic disturbance, mood disturbance, and anxiety; R41.82 Altered mental status, unspecified; R53.2 Functional quadriplegia; G93.41 Metabolic encephalopathy
CPT/HCPCS: 36415; 70450-TC; 70486-TC; 71045-TC-FY; 71111-TC-FY; 72125-TC; 72170-TC-FY; 72192-TC; 80053; 81003; 83735; 84484; 85025; 85610; 85730; 86850; 86900; 86901; 87086; 87186; 93005; 93010; 97116-GP; 97161-GP; 99284-25; J0475

== ENCOUNTER 2019-03-23 12:25 | Inpatient (IN) | payer OTHER ==
--- NOTE | 2019-03-23 12:43 | PDOC ---
History of Present Illness - General Stated Complaint: AMS Time Seen by Provider: 03/23/19 12:41 Past History - Past Medical History Allergies/Adverse Reactions: Allergies Allergy/AdvReac Type Severity Reaction Status Date / Time strawberry Allergy Verified 03/23/19 15:38 Home Medications: Ambulatory Orders Gabapentin 200 mg PO TID PRN 07/30/18 Morphine *Sr* [Ms Contin -] 15 mg PO BID #60 tablet.sa MDD 2 10/10/18 Tizanidine HCl 4 mg PO BID 10/25/18 Baclofen 10 mg PO BID 11/28/18 oxyCODONE HCL [Roxicodone -] 10 mg PO Q6H PRN MDD 4 11/28/18 Apixaban [Eliquis -] 5 mg PO BID tablet 12/01/18 Polyethylene Glycol 3350 [Miralax 119 gm Btl -] 17 gm PO BID bottle 12/01/18 Sennosides [Senna -] 2 tab PO HS tablet 12/01/18 Brimonidine Tartrate [Alphagan 0.2% -] 1 drop OS TID 03/23/19 Dorzolamide HCl/Pf [Dorzolamide 2% Eye Drop] 1 drop OS TID 03/23/19 Escitalopram Oxalate [Lexapro -] 5 mg PO DAILY 03/23/19 Latanoprost/Pf [Latanoprost 0.005% Eye Drop] 1 drop OS HS 03/23/19 Timolol 0.25% [Timoptic 0.25%] 1 drop OS DAILY 03/23/19 Zolpidem Tartrate [Ambien] 5 mg PO HS 03/23/19 acetaZOLAMIDE [Diamox -] 250 mg PO BID 03/23/19 Anemia: No Asthma: No Cancer: No Cardiac Disorders: No CVA: No COPD: No CHF: No Dementia: No Diabetes: No GI Disorders: Yes (PERFORATED ULCER) Disorders: No HTN: No Hypercholesterolemia: No Liver Disease: No Seizures: No Thyroid Disease: No - Surgical History Abdominal Surgery: Yes ( A CHILD s/p swallowing object.) Appendectomy: No Cardiac Surgery: No Cholecystectomy: No GI Surgery: Yes (PERFORATED ULCER REPAIR) Lung Surgery: No Neurologic Surgery: No Orthopedic Surgery: (right hip fx, s/p ORIF 12/19) - Immunization History Immunization Up to Date: Yes - Psycho Social/Smoking Cessation Hx Smoking History: Former smoker Have you smoked in the past 12 months: Yes Number of Cigarettes Smoked Daily: 7 If you are a former smoker, when did you quit?: october 04 2018 'Breaking Loose' booklet given: 07/31/18 Hx Alcohol Use: No Drug/Substance Use Hx: No Substance Use Type: None Hx Substance Use Treatment: No ED Treatment Course - LABORATORY CBC & Chemistry Diagram: 03/23/19 13:40 03/23/19 13:21 Medical Decision Making - Medical Decision Making 03/23/19 14:22 HPI: 73yo F hx MS (contracted bilateral lower extremities), perforated ulcer, PE on Eliquis, right patellar ORIF, multiple lower extremity ulcers, frequent UTIs, and recent dx narrow angle glaucoma (medically managed by [facility], surgery scheduled 04/2019, no current sx) presents from [facility]) for daughter's concern of AMS. Pt states she was sent because they told her she was talking weird, but she states she is talking normally and feels fine, in USOH, no complaints. Per ND, daughter requested transfer for generalized weakness since 03/18/19. Of note, pt was dx with narrow angle glaucoma on at [facility] which is being treated medically with drops with surgery scheduled for 04/2019, pt's sx eye erythema and visual loss have resolved. Denies fever, chills, fatigue, headache, dizziness, numbness/tingling, weakness, vision changes, shortness of breath, cough, chest pain, palpitations, leg swelling, abdominal pain, blood in stool, diarrhea, constipation, nausea, vomiting, dysuria, hematuria, confusion, trauma, head injury, falls, any pain. ROS: Constitutional: Negative for chills, fever, fatigue, diaphoresis. HENT: Negative for sore throat, rhinorrhea, congestion. Eyes: Negative for visual disturbance. Respiratory: Negative for shortness of breath, cough, and wheezing. Cardiovascular: Negative for chest pain, palpitations, and leg swelling. Gastrointestinal: Negative for abdominal pain, blood in stool, constipation, diarrhea, nausea, and vomiting. Genitourinary: Negative for dysuria, flank pain, and hematuria. Musculoskeletal: Positive for chronic BLE pain and contractures. Negative for myalgias, back pain, and neck pain. Skin: Negative for rash. Neurological: Negative for light-headedness, dizziness, vertigo, syncope, weakness, numbness and headaches. Psychiatric/Behavioral: Negative for behavioral problems and confusion. PE: Gen: Alert, NAD, comfortable-appearing, lying on L side with BLE contractures HEENT: PERRL, EOMI, dry MM, NCAT. No conjunctival pallor. Sclera are non- icteric. CV: Regular rate and rhythm. No murmurs, rubs, or gallops. PULM: No resp distress. CTAB, no wheezes, rales, or rhonchi. ABD: soft, NT/ND, no rebound tenderness or guarding, no CVA tenderness. BACK: No TTP of c/t/l-spine. No step-offs or deformities. MSK: No bony deformities. 2+ pulses in all extremities. NEURO: AAOx3. PERRL. No gross CN deficits. Strength and sensation grossly intact throughout. EXTREMITIES: No cyanosis. No clubbing. No edema. No calf tenderness. PSYCH: Normal mood and thought pattern. SKIN: Warm and dry. Normal capillary refill. No rashes. No jaundice. MDM: 73yo F hx MS (contracted bilateral lower extremities), perforated ulcer, PE on Eliquis, right patellar ORIF, multiple lower extremity ulcers, frequent UTIs, and recent dx narrow angle glaucoma (medically managed by [facility], surgery scheduled 04/2019, no current sx) presents from [facility]) for daughter's concern of AMS, pt has no complaints. Hemodynamically stable, afebrile, neurologically intact, A&Ox3. Ddx: dehydration, metabolic derangement, anemia, infection (UTI, PNA), thyroid pathology, ICH, ACS/FL, arrhythmia -EKG -CXR -CTH -CBC,CMP,Coags,Mg,Phos,Cardiac profile,TSH,Lipase,UA/UC -IVF -prescribed eye drops for acute angle glaucoma -Dispo: pending w/u 03/23/19 16:25 EKG reviewed: NSR, 77bpm, LAD, normal intervals, no e/o acute ischemia CXR reviewed: previous fracture deformities of R ribs 09/07/09 that were not evident on prior exam 12/20/18. Reassessed pt - no rib pain or signs of deformity , no flail chest, pt denies falls/trauma/rib fractures/SOB. Labs reviewed: notable for UTI and calcium oxalate crystals, AST 40, CK 777, CK- MB 16.7, trop neg. -1g ceftriaxone for UTI. Per Dr Sutton, [facility]. Agreed with plan for admission for UTI tx at this time. Pending CTH, will admit. 03/23/19 16:57 CTH negative. Microblog sent to hospitalist for admission. 03/23/19 17:12 Spoke with Shonna Magaña who states takes care of pt, accepted admission under her. Discharge - Discharge Information Problems reviewed: Yes Clinical Impression/Diagnosis: UTI (urinary tract infection) Condition: Fair - Admission Yes - Follow up/Referral - Patient Discharge Instructions - Post Discharge Activity
[2019-03-23] MEDS ORDERED: SODIUM CHLORIDE 0.9% 500 ML INFUS.BAG IV ONE (13:33)
--- NOTE | 2019-03-23 13:55 | EKG ---
Test Reason : Blood Pressure : / mmHG Vent. Rate : 077 BPM Atrial Rate : 077 BPM P-R Int : 148 ms QRS Dur : 108 ms QT Int : 392 ms P-R-T Axes : 087 -39 055 degrees QTc Int : 443 ms POOR DATA QUALITY, INTERPRETATION MAY BE ADVERSELY AFFECTED NORMAL SINUS RHYTHM LEFT AXIS DEVIATION INFERIOR INFARCT (CITED ON OR BEFORE 28-NOV-2018) ANTERIOR INFARCT (CITED ON OR BEFORE 28-NOV-2018) ABNORMAL ECG WHEN COMPARED WITH ECG OF 11-DEC-2018 14:13, QUESTIONABLE CHANGE IN INITIAL FORCES OF SEPTAL LEADS T WAVE AMPLITUDE HAS DECREASED IN LATERAL LEADS Confirmed by FAITH FIGUEREDO MD ([id number]) on 03/23/2019 1:55:12 PM Referred By: Confirmed By:FAITH FIGUEREDO MD
[2019-03-23] MEDS ORDERED: DORZOLAMIDE 2% HCL OPHTHALMIC SOLUTION 10 ML BOTTLE OS ONE ×2 (14:27→18:11)
[2019-03-23] MEDS ORDERED: BRIMONIDINE TARTRATE 0.15% OPHTHALMIC 5 ML BOTTLE OS ONE ×2 (14:27)
[2019-03-23] MEDS ORDERED: POLYMYXIN B SULFATE/TMP 10 ML OPHTHALMIC SOLUTION OU ONE ×2 (14:28→18:08)
[2019-03-23 14:34] LABS: BASO % 0.5 % (0-2.0); EOS % 1.9 % (0-4.5); HEMATOCRIT 35.6 % (32.4-45.2); HEMOGLOBIN 12.2 GM/dL (10.7-15.3); MCH 30.8 pg (25.7-33.7); MCHC 34.2 g/dl (32.0-36.0); MEAN CELL VOLUME 90.1 fl (80-96); MEAN PLT VOLUME 10.1 fl (7.5-11.1); MONO % 9.3 % (3.8-10.2); NEUT % 64.3 % (42.8-82.8); PLATELET COUNT 291 K/MM3 (134-434); RBC 3.95 M/mm3 (3.60-5.2); RDW 13.9 % (11.6-15.6); WHITE BLOOD COUNT 8.6 K/mm3 (4.0-10.0)
--- NOTE | 2019-03-23 14:47 | PDOC ---
Documentation entered by Rose Wright SCRIBE, acting as scribe for Paz Sutton MD. Paz Sutton MD: This documentation has been prepared by the Adriana hernandez Adrianna, SCRIBE, under my direction and personally reviewed by me in its entirety. I confirm that the documentation accurately reflects all work, treatment, procedures, and medical decision making performed by me. Attending Attestation - Resident Resident Name: Dina Wilson - ED Attending Attestation I have performed the following: I have examined & evaluated the patient, The case was reviewed & discussed with the resident, I agree w/resident's findings & plan, Exceptions are as noted - HPI HPI: 03/23/19 14:25 Ms. Shelton is a 73 yo F h/o MS (now with contracted bilateral lower extremities) , perforated ulcer, PE , right patellar ORIF, multiple lower extremity ulcers and recent UTI [facility] due to daughter's concern about lethargy The patient reported eye irritation beginning on Mar 12, She was sent to the ER at [facility] on Mar 15 due to eye erythema and visual loss she was seen by Ophtho dx with presumed to be Narrow Angle Glaucoma, aggressively medically managed Plan is fr surgery in April Pt has been improving since her visits to the [facility] ER Her daughter was concerned about her because since [facility] the [facility] , she has been noted to be more lethargic Pt denies pain in any location No vomiting, no diarrhea No headache Allergies: Yolyn Medical history: MS, PE, GERD, Osteoarthritis Surgical History: Perforated ulcer repair, right hip fracture s/p ORIF, right patellar ORIF, h/o recent PE rt lung on October 2018 admission-- provoked due to prolonged immobilization-- on [facility] Social History: Denies EtOH, tobacco, or illicit drug use - Physicial Exam PE: 03/23/19 14:38 GENERAL: The patient is in no acute distress. ENT: Ears normal, nares patent, oropharynx clear without exudates. Dry mucous membranes. NECK: Normal range of motion, supple LUNGS: Breath sounds equal, clear to auscultation bilaterally. HEART:Regular rate and rhythm, normal S1 and S2 without murmur, rub or gallop. ABDOMEN: Soft, nontender, normoactive bowel sounds. EXTREMITIES: Contracted at hips and knees, no lower extremity edema NEUROLOGICAL: Cranial nerves II through XII grossly intact. Normal speech. contracted lower extremities SKIN: Warm, Dry, normal turgor, no rashes or lesions noted. - Medical Decision Making 03/23/19 14:39 73 yo F MS who presents to the ER due to "lethargy" DD: UTI, Dehydration, Electrolyte Abnormalities, Intracranial pathology will do: Labs CT UA Re Assess 03/23/19 14:45 Laboratory Tests 03/23/19 13:40 WBC 8.6 Hgb 12.2 Hct 35.6 Plt Count 291 D EKG: NSR rate of 77 bpm, LAD, intervals abn - pr:14ms, QRS:108ms, QTc:443ms, no st elevation or depression, t waves upright 03/23/19 16:02 Laboratory Tests 03/23/19 03/23/19 03/23/19 13:21 13:21 13:21 WBC Hgb Hct Plt Count PTT (Actin FS) Sodium 146 H Potassium 4.0 Chloride 118 H Carbon Dioxide 20 L BUN 21.9 H Creatinine 0.6 Random Glucose 135 H Creatine Kinase 777 H Troponin I < 0.02 TSH 0.38 03/23/19 03/23/19 13:40 13:40 WBC 8.6 Hgb 12.2 Hct 35.6 Plt Count 291 D PTT (Actin FS) 40.3 H Sodium Potassium Chloride Carbon Dioxide BUN Creatinine Random Glucose Creatine Kinase Troponin I TSH Laboratory Tests 03/23/19 14:50 Urine Blood 1+ H Urine Nitrite Negative Ur Leukocyte Esterase 2+ H Urine WBC (Auto) 67 Urine RBC (Auto) 5 Pt with UTI Will give Ceftriaxone Pt already received eye drops for glaucoma Will admit Clinical impression: UTI, initial presentation Altered Mental Status, initial presentation
[2019-03-23 15:20] LABS: EPI CELLS 1.8 /HPF (0-5/HPF); HYALINE CASTS 40 /lpf (0-8); PH,URINE 8.5 (5.0-8.0); URINE APPEARANCE TURBID; URINE BACTERIA >9000 /hpf (NEGATIVE); URINE BILIRUBIN NEGATIVE (NEGATIVE); URINE COLOR YELLOW; URINE GLUCOSE (UA) NEGATIVE (NEGATIVE); URINE KETONE NEGATIVE (NEGATIVE); URINE LEUK ESTERASE 2+ (NEGATIVE); URINE NITRITE NEGATIVE (NEGATIVE); URINE PROTEIN 1+ (NEGATIVE); URINE RBC 5 /hpf (0-4); URINE WBC 67 /hpf (0-5)
[2019-03-23 15:22] LABS: ALBUMIN 2.8 g/dl (3.4-5.0); BILIRUBIN,TOTAL 0.4 mg/dL (0.2-1); BLOOD UREA NITROGEN 21.9 mg/dL (7-18); CALCIUM 9.3 mg/dL (8.5-10.1); CREATININE 0.6 mg/dL (0.55-1.3); MAGNESIUM 2.3 mg/dL (1.8-2.4); PHOSPHOROUS 2.9 mg/dL (2.5-4.9); TOT PROT 6.5 g/dl (6.4-8.2)
[2019-03-23] MEDS ORDERED: oxyCODONE HCL 10 MG SUSTAINED ACTING TABLET PO ONE (15:24)
[2019-03-23] MEDS ORDERED: oxyCODONE HCL 10 MG SUSTAINED ACTING TABLET ONE (15:29)
[2019-03-23 16:03] LABS: URINE CRYSTALS CALCIUM OXALATE /hpf
[2019-03-23] MEDS ORDERED: CEFTRIAXONE 1 GM in DEXTROSE 5%-WATER - 100 ML IVPB ONE (16:24)
[2019-03-23] MEDS ORDERED: CEFTRIAXONE 1 GM/50 ML BAG ONE (16:46)
[2019-03-23] MEDS ORDERED: acetaZOLAMIDE 250 MG TABLET PO ONE (18:13)
[2019-03-23] MEDS ORDERED: TIMOLOL MALEATE 0.5% GFS OPHTHALMIC SOLN 5 ML BOTTLE OS ONE (18:15)
[2019-03-23] MEDS ORDERED: LATANOPROST 0.005% OPHTH SOLN 2.5ML BOTTLE OS ONE (19:00)
[2019-03-23] MEDS ORDERED: ACETAMINOPHEN 325 MG TABLET (FP) PO ONE (23:53)
[2019-03-24] MEDS ORDERED: ONDANSETRON 4 MG TABLET PO PRN (09:37)
[2019-03-24] MEDS ORDERED: BACLOFEN 10 MG TABLET (FP) PO SCH ×2 (10:00→22:00)
[2019-03-24] MEDS ORDERED: PT OWN MED DRAWER 7, Y5N ONE ×7 (10:06→22:49)
[2019-03-24] MEDS ORDERED: DEXTROSE 5%-WATER - 50 ML IVPB ONE (10:06)
[2019-03-24] MEDS ORDERED: cefTRIAXone SODIUM 1 GM VIAL ONE (10:06)
--- NOTE | 2019-03-24 10:09 | HP ---
Admitting History and Physical - Admission History of Present Illness: - HPI HPI: 03/23/19 14:25 Ms. Shelton is a 73 yo F h/o MS (now with contracted bilateral lower extremities) , perforated ulcer, PE , right patellar ORIF, multiple lower extremity ulcers and recent UTI [facility] due to daughter's concern about lethargy The patient reported eye irritation beginning on Mar 12, She was sent to the ER at [facility] on Mar 15 due to eye erythema and visual loss she was seen by Ophtho dx with presumed to be Narrow Angle Glaucoma, aggressively medically managed Plan is fr surgery in April Pt has been improving since her visits to the [facility] ER Her daughter was concerned about her because since returning to the assisted , she has been noted to be more lethargic Pt denies pain in any location No vomiting, no diarrhea No headache Allergies: [place] Medical history: MS, PE, GERD, Osteoarthritis Surgical History: Perforated ulcer repair, right hip fracture s/p ORIF, right patellar ORIF, h/o recent PE rt lung on October 2018 admission-- provoked due to prolonged immobilization-- on 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 Pulmonary: Yes: Pulmonary Embolus Gastrointestinal: Yes: GERD ...: No Musculoskeletal: Yes: Osteoarthritis (s/p R hip fracture 12/19), Other (chronic neuropathic pain) - Advance Directives Advance Directives: Yes: Health Care Proxy, DNR - Smoking History Smoking history: Former smoker Have you smoked in the past 12 months: Yes Aproximately how many cigarettes per day: 7 If you are a former smoker, when did you quit?: october 04 2018 - Alcohol/Substance Use Hx Alcohol Use: No History of Substance Use: reports: None - Social History ADL: Family Assistance Occupation: , now History of Recent Travel: No Home Medications - Allergies Allergies/Adverse Reactions: Allergies Allergy/AdvReac Type Severity Reaction Status Date / Time strawberry Allergy Verified 03/23/19 15:38 - Home Medications Home Medications: Ambulatory Orders Gabapentin 200 mg PO TID 07/30/18 Morphine *Sr* [Ms Contin -] 15 mg PO BID #60 tablet.sa MDD 2 10/10/18 Tizanidine HCl 4 mg PO BID 10/25/18 Baclofen 10 mg PO BID 11/28/18 oxyCODONE HCL [Roxicodone -] 10 mg PO Q6H PRN MDD 4 11/28/18 Apixaban [Eliquis -] 5 mg PO BID tablet 12/01/18 Polyethylene Glycol 3350 [Miralax 119 gm Btl -] 17 gm PO BID bottle 12/01/18 Sennosides [Senna -] 2 tab PO HS tablet 12/01/18 Brimonidine Tartrate [Alphagan 0.2% -] 1 drop OS TID 03/23/19 Dorzolamide HCl/Pf [Dorzolamide 2% Eye Drop] 1 drop OS TID 03/23/19 Escitalopram Oxalate [Lexapro -] 5 mg PO DAILY 03/23/19 Latanoprost/Pf [Latanoprost 0.005% Eye Drop] 1 drop OS HS 03/23/19 Timolol 0.25% [Timoptic 0.25%] 1 drop OS DAILY 03/23/19 Zolpidem Tartrate [Ambien] 5 mg PO HS 03/23/19 acetaZOLAMIDE [Diamox -] 250 mg PO BID 03/23/19 Multivitamin,Ther and Minerals [Vitamin and Minerals] 1 each PO DAILY 03/24/19 Ondansetron HCl [Zofran] 4 mg PO Q6H PRN 03/24/19 Physical Examination Vital Signs: Vital Signs Temperature 99.1 F 03/24/19 07:34 Pulse Rate 81 03/24/19 07:34 Respiratory Rate 20 03/24/19 07:34 Blood Pressure 125/56 L 03/24/19 07:34 O2 Sat by Pulse Oximetry (%) 99 03/24/19 03:05 Labs: CBC, BMP 03/23/19 13:40 03/23/19 13:21
[2019-03-24] MEDS: morphine SO4 SUSTAINED ACTING 15 MG TABLET.SA PO SCH ×2 (10:18→22:41)
[2019-03-24] MEDS: POLYETHYLENE GLYCOL 3350 119 GM BTL PO SCH ×2 (10:19→22:44)
[2019-03-24] MEDS: APIXABAN 5 MG TABLET PO SCH ×2 (10:20→22:40)
[2019-03-24] MEDS: CEFTRIAXONE 1 GM in DEXTROSE 5%-WATER - 50 ML IVPB SCH (10:20)
[2019-03-24] MEDS: MULTIVITAMINS THER W-MINERALS COMBO TABLET (FP) PO SCH (10:20)
[2019-03-24] MEDS: ESCITALOPRAM OXALATE 10 MG TABLET (FP) PO SCH (10:20)
[2019-03-24] MEDS: oxyCODONE HCL 5 MG TABLET PO PRN (10:23)
[2019-03-24] MEDS: acetaZOLAMIDE 250 MG TABLET PO SCH ×2 (11:18→22:40)
[2019-03-24] MEDS: TIMOLOL 0.25% OPHTHALMIC SOL 5 ML BOTTLE OS SCH (11:18)
[2019-03-24] MEDS: TIZANIDINE HCL 4 MG TABLET PO SCH ×3 (12:07→22:51)
[2019-03-24] MEDS: GABAPENTIN 100 MG CAPSULE (FP) PO SCH ×2 (14:21→22:41)
[2019-03-24] MEDS: DORZOLAMIDE 2% HCL OPHTHALMIC SOLUTION 10 ML BOTTLE OS SCH ×2 (14:24→23:00)
[2019-03-24] MEDS: BRIMONIDINE TARTRATE 0.2% OPHTHALMIC 5 ML BOTTLE OS SCH ×2 (14:25→22:56)
[2019-03-24] MEDS ORDERED: BRIMONIDINE TARTRATE 0.2% OPHTHALMIC 5 ML BOTTLE OS ONE (18:09)
[2019-03-24] MEDS: SENNOSIDES 8.6MG TABLET (FP) PO SCH (22:35)
[2019-03-24] MEDS: BACLOFEN 10 MG TABLET (FP) PO SCH (22:41)
[2019-03-24] MEDS: LATANOPROST 0.005% OPHTH SOLN 2.5ML BOTTLE OS SCH (23:03)
[2019-03-25] MEDS: GABAPENTIN 100 MG CAPSULE (FP) PO SCH ×3 (06:36→22:55)
[2019-03-25] MEDS: BRIMONIDINE TARTRATE 0.2% OPHTHALMIC 5 ML BOTTLE OS SCH ×3 (06:40→22:56)
[2019-03-25] MEDS: DORZOLAMIDE 2% HCL OPHTHALMIC SOLUTION 10 ML BOTTLE OS SCH ×3 (06:42→22:58)
[2019-03-25 08:11] LABS: BASO % 0.5 % (0-2.0); EOS % 2.2 % (0-4.5); HEMATOCRIT 32.9 % (32.4-45.2); HEMOGLOBIN 11.2 GM/dL (10.7-15.3); LYMPH % 30.1 % (8-40); MCH 30.6 pg (25.7-33.7); MCHC 34.1 g/dl (32.0-36.0); MEAN CELL VOLUME 89.9 fl (80-96); MONO % 8.9 % (3.8-10.2); NEUT % 58.3 % (42.8-82.8); PLATELET COUNT 288 K/MM3 (134-434); RBC 3.66 M/mm3 (3.60-5.2); RDW 14.1 % (11.6-15.6); WHITE BLOOD COUNT 8.1 K/mm3 (4.0-10.0)
[2019-03-25 09:12] LABS: ALBUMIN 2.6 g/dl (3.4-5.0); BILIRUBIN,TOTAL 0.4 mg/dL (0.2-1); CALCIUM 9.2 mg/dL (8.5-10.1); CREATININE 0.6 mg/dL (0.55-1.3); POTASSIUM 3.3 mmol/L (3.5-5.1); TOT PROT 5.9 g/dl (6.4-8.2)
[2019-03-25] MEDS: POLYETHYLENE GLYCOL 3350 119 GM BTL PO SCH ×2 (10:30→22:57)
[2019-03-25] MEDS ORDERED: DEXTROSE 5%-WATER - 50 ML IVPB ONE (10:33)
[2019-03-25] MEDS ORDERED: cefTRIAXone SODIUM 1 GM VIAL ONE (10:33)
[2019-03-25] MEDS ORDERED: PT OWN MED DRAWER 7, Y5N ONE (10:33)
[2019-03-25] MEDS: acetaZOLAMIDE 250 MG TABLET PO SCH ×2 (10:37→22:56)
[2019-03-25] MEDS: BACLOFEN 10 MG TABLET (FP) PO SCH ×2 (10:37→22:55)
[2019-03-25] MEDS: APIXABAN 5 MG TABLET PO SCH ×2 (10:37→22:55)
[2019-03-25] MEDS: ESCITALOPRAM OXALATE 10 MG TABLET (FP) PO SCH (10:37)
[2019-03-25] MEDS: morphine SO4 SUSTAINED ACTING 15 MG TABLET.SA PO SCH ×2 (10:37→22:54)
[2019-03-25] MEDS: CEFTRIAXONE 1 GM in DEXTROSE 5%-WATER - 50 ML IVPB SCH (10:38)
[2019-03-25] MEDS: MULTIVITAMINS THER W-MINERALS COMBO TABLET (FP) PO SCH (10:38)
[2019-03-25] MEDS: TIZANIDINE HCL 4 MG TABLET PO SCH ×2 (10:39→22:56)
[2019-03-25] MEDS: TIMOLOL 0.25% OPHTHALMIC SOL 5 ML BOTTLE OS SCH (10:42)
--- NOTE | 2019-03-25 12:01 | PN ---
Progress Note, Physician History of Present Illness: pt seen/ examined chart is reviewed. awake/ comfortable no distress Vital Signs Temp 98.3 F 03/25/19 07:00 Pulse 85 03/25/19 07:00 Resp 15 03/25/19 07:00 BP 125/61 03/25/19 07:00 Pulse Ox 97 03/24/19 09:00 Intake & Output 03/24/19 03/24/19 03/25/19 11:59 23:59 11:59 Intake Total 0 150 Balance 0 150 Weight 112 lb 6.4 oz Intake: IVPB 0 50 Oral 100 Other: Voiding Method Incontinent Incontinent Incontinent # Unmeasured Voids Void 1 1 Bowel Movement Yes: 1 Height 5 ft 8 in Body Mass Index (BMI) 17.1 Weight Measurement Method Standing Scale Built in [facility] Active Medications Acetazolamide (Diamox -) 250 mg PO BID [facility] Last Admin: 03/25/19 10:37 Dose: 250 mg Apixaban (Eliquis -) 5 mg PO BID [facility] Last Admin: 03/25/19 10:37 Dose: 5 mg Baclofen (Lioresal -) 10 mg PO BID [facility] Last Admin: 03/25/19 10:37 Dose: 10 mg Brimonidine Tartrate (Alphagan 0.2% -) 1 drop OS TID [facility] Last Admin: 03/25/19 06:40 Dose: 1 drop Dorzolamide HCl (Trusopt 2%) 1 drop OS TID [facility] Last Admin: 03/25/19 06:42 Dose: 1 drop Escitalopram Oxalate (Lexapro -) 5 mg PO DAILY [facility] Last Admin: 03/25/19 10:37 Dose: 5 mg Gabapentin (Neurontin -) 200 mg PO TID [facility] Last Admin: 03/25/19 06:36 Dose: 200 mg Ceftriaxone Sodium 1 gm/ (Dextrose) 50 mls @ 100 mls/hr IVPB DAILY@0800 [facility] Last Admin: 03/25/19 10:38 Dose: 100 mls/hr Latanoprost (Xalatan 0.005% Eye Drops -) 1 drop OS HS [facility] Last Admin: 03/24/19 23:03 Dose: 1 drop Morphine Sulfate (Ms Contin -) 15 mg PO BID [facility] Last Admin: 03/25/19 10:37 Dose: 15 mg Multivitamins/Minerals (Theragran-M) 1 each PO DAILY [facility] Last Admin: 03/25/19 10:38 Dose: 1 each Ondansetron HCl (Zofran -) 4 mg PO Q6H PRN PRN Reason: NAUSEA AND/OR VOMITING Oxycodone HCl (Roxicodone -) 5 mg PO Q6H PRN PRN Reason: PAIN LEVEL 6-10 Last Admin: 03/24/19 10:23 Dose: 5 mg Polyethylene Glycol (Miralax (For Daily Use) -) 17 gm PO BID [facility] Last Admin: 03/25/19 10:30 Dose: Not Given Senna (Senna -) 2 tab PO HS [facility] Last Admin: 03/24/19 22:35 Dose: 2 tab Timolol Maleate (Timoptic 0.25%) 1 drop OS DAILY [facility] Last Admin: 03/25/19 10:42 Dose: 1 drop Tizanidine HCl (Tizanidine Hcl) 4 mg PO BID [facility] Last Admin: 03/25/19 10:39 Dose: 4 mg Zolpidem Tartrate (Ambien -) 5 mg PO HS PRN PRN Reason: INSOMNIA CBC, BMP 03/25/19 07:50 03/25/19 07:50 Microbiology 03/23/19 14:50 Urine Culture - Final Urine - Urine - Catheterized Escherichia Coli Esbl Shaper Hand - Current Medication List Current Medications: Active Medications Acetazolamide (Diamox -) 250 mg PO BID [facility] Last Admin: 03/25/19 10:37 Dose: 250 mg Apixaban (Eliquis -) 5 mg PO BID [facility] Last Admin: 03/25/19 10:37 Dose: 5 mg Baclofen (Lioresal -) 10 mg PO BID [facility] Last Admin: 03/25/19 10:37 Dose: 10 mg Brimonidine Tartrate (Alphagan 0.2% -) 1 drop OS TID [facility] Last Admin: 03/25/19 06:40 Dose: 1 drop Dorzolamide HCl (Trusopt 2%) 1 drop OS TID [facility] Last Admin: 03/25/19 06:42 Dose: 1 drop Escitalopram Oxalate (Lexapro -) 5 mg PO DAILY [facility] Last Admin: 03/25/19 10:37 Dose: 5 mg Gabapentin (Neurontin -) 200 mg PO TID [facility] Last Admin: 03/25/19 06:36 Dose: 200 mg Ceftriaxone Sodium 1 gm/ (Dextrose) 50 mls @ 100 mls/hr IVPB DAILY@0800 [facility] Last Admin: 03/25/19 10:38 Dose: 100 mls/hr Latanoprost (Xalatan 0.005% Eye Drops -) 1 drop OS HS [facility] Last Admin: 03/24/19 23:03 Dose: 1 drop Morphine Sulfate (Ms Contin -) 15 mg PO BID [facility] Last Admin: 03/25/19 10:37 Dose: 15 mg Multivitamins/Minerals (Theragran-M) 1 each PO DAILY [facility] Last Admin: 03/25/19 10:38 Dose: 1 each Ondansetron HCl (Zofran -) 4 mg PO Q6H PRN PRN Reason: NAUSEA AND/OR VOMITING Oxycodone HCl (Roxicodone -) 5 mg PO Q6H PRN PRN Reason: PAIN LEVEL 6-10 Last Admin: 03/24/19 10:23 Dose: 5 mg Polyethylene Glycol (Miralax (For Daily Use) -) 17 gm PO BID [facility] Last Admin: 03/25/19 10:30 Dose: Not Given Senna (Senna -) 2 tab PO HS [facility] Last Admin: 03/24/19 22:35 Dose: 2 tab Timolol Maleate (Timoptic 0.25%) 1 drop OS DAILY [facility] Last Admin: 03/25/19 10:42 Dose: 1 drop Tizanidine HCl (Tizanidine Hcl) 4 mg PO BID [facility] Last Admin: 03/25/19 10:39 Dose: 4 mg Zolpidem Tartrate (Ambien -) 5 mg PO HS PRN PRN Reason: INSOMNIA - Objective Vital Signs: Vital Signs Temperature 98.3 F 03/25/19 07:00 Pulse Rate 85 03/25/19 07:00 Respiratory Rate 15 03/25/19 07:00 Blood Pressure 125/61 03/25/19 07:00 O2 Sat by Pulse Oximetry (%) 97 03/24/19 09:00 Constitutional: Yes: No Distress Eyes: Yes: Conjunctiva Clear Neck: Yes: Supple Cardiovascular: Yes: Regular Rate and Rhythm Respiratory: Yes: Diminished Gastrointestinal: Yes: Soft Edema: No Neurological: Yes: Alert Labs: CBC, BMP 03/25/19 07:50 03/25/19 07:50 Problem List - Problems (1) UTI (urinary tract infection) Code(s): N39.0 - URINARY TRACT INFECTION, SITE NOT SPECIFIED (2) Altered mental status Code(s): R41.82 - ALTERED MENTAL STATUS, UNSPECIFIED Assessment/Plan Better Back to baseline Abx Esbl Precautions will follow
[2019-03-25 15:15] VITALS: BMI 17.0
[2019-03-25] MEDS: oxyCODONE HCL 5 MG TABLET PO PRN (19:05)
[2019-03-25] MEDS: ZOLPIDEM TARTRATE 5 MG TABLET PO PRN (22:55)
[2019-03-25] MEDS: SENNOSIDES 8.6MG TABLET (FP) PO SCH (22:55)
[2019-03-25] MEDS: LATANOPROST 0.005% OPHTH SOLN 2.5ML BOTTLE OS SCH (22:56)
[2019-03-26] MEDS: GABAPENTIN 100 MG CAPSULE (FP) PO SCH ×3 (06:35→21:39)
[2019-03-26] MEDS: DORZOLAMIDE 2% HCL OPHTHALMIC SOLUTION 10 ML BOTTLE OS SCH ×3 (06:36→21:44)
[2019-03-26] MEDS: BRIMONIDINE TARTRATE 0.2% OPHTHALMIC 5 ML BOTTLE OS SCH ×3 (06:36→21:43)
[2019-03-26] MEDS ORDERED: cefTRIAXone SODIUM 1 GM VIAL ONE (10:05)
[2019-03-26] MEDS ORDERED: DEXTROSE 5%-WATER - 50 ML IVPB ONE (10:05)
[2019-03-26] MEDS: morphine SO4 SUSTAINED ACTING 15 MG TABLET.SA PO SCH ×2 (10:07→21:42)
[2019-03-26] MEDS: APIXABAN 5 MG TABLET PO SCH ×2 (10:08→21:40)
[2019-03-26] MEDS: ESCITALOPRAM OXALATE 10 MG TABLET (FP) PO SCH (10:08)
[2019-03-26] MEDS: BACLOFEN 10 MG TABLET (FP) PO SCH ×2 (10:08→21:41)
[2019-03-26] MEDS: POLYETHYLENE GLYCOL 3350 119 GM BTL PO SCH ×2 (10:09→21:42)
[2019-03-26] MEDS: MULTIVITAMINS THER W-MINERALS COMBO TABLET (FP) PO SCH (10:09)
[2019-03-26] MEDS: acetaZOLAMIDE 250 MG TABLET PO SCH ×2 (10:09→21:40)
[2019-03-26] MEDS: TIMOLOL 0.25% OPHTHALMIC SOL 5 ML BOTTLE OS SCH (10:25)
[2019-03-26] MEDS: TIZANIDINE HCL 4 MG TABLET PO SCH ×2 (10:26→21:40)
[2019-03-26] MEDS: CEFTRIAXONE 1 GM in DEXTROSE 5%-WATER - 50 ML IVPB SCH (10:29)
--- NOTE | 2019-03-26 10:53 | PN ---
Progress Note (short form) - Note Progress Note: awake and alert no distress at baseline Vital Signs - 24 hr 03/25/19 03/25/19 03/25/19 14:00 16:30 21:00 Temperature 98.2 F 98 F 97.8 F Pulse Rate 74 75 78 Respiratory 15 20 20 Rate Blood Pressure 76/40 L 107/63 140/65 03/26/19 06:00 Temperature 98.2 F Pulse Rate 83 Respiratory 20 Rate Blood Pressure 124/58 L Current Medications Generic Name Dose Route Start Last Admin Trade Name Freq PRN Reason Stop Dose Admin Acetazolamide 250 mg 03/24/19 10:00 03/26/19 10:09 Diamox - PO 250 mg BID [facility] Administration Apixaban 5 mg 03/24/19 10:00 03/26/19 10:08 Eliquis - PO 5 mg BID [facility] Administration Baclofen 10 mg 03/24/19 22:00 03/26/19 10:08 Lioresal - PO 10 mg BID [facility] Administration Brimonidine Tartrate 1 drop 03/24/19 14:00 03/26/19 06:36 Alphagan 0.2% - OS 1 drop TID [facility] Administration Dorzolamide HCl 1 drop 03/24/19 14:00 03/26/19 06:36 Trusopt 2% OS 1 drop TID [facility] Administration Escitalopram Oxalate 5 mg 03/24/19 10:00 03/26/19 10:08 Lexapro - PO 5 mg DAILY [facility] Administration Gabapentin 200 mg 03/24/19 14:00 03/26/19 06:35 Neurontin - PO 200 mg TID [facility] Administration Ceftriaxone Sodium 1 gm/ 50 mls @ 100 mls/hr 03/24/19 09:45 03/26/19 10:29 Dextrose IVPB 100 mls/hr DAILY@0800 [facility] Administration Latanoprost 1 drop 03/24/19 22:00 03/25/19 22:56 Xalatan 0.005% Eye Drops - OS 1 drop HS [facility] Administration Morphine Sulfate 15 mg 03/24/19 10:00 03/26/19 10:07 Ms Contin - PO 15 mg BID [facility] Administration Multivitamins/Minerals 1 each 03/24/19 10:00 03/26/19 10:09 Theragran-M PO 1 each DAILY [facility] Administration Ondansetron HCl 4 mg 03/24/19 09:37 Zofran - PO Q6H PRN NAUSEA AND/OR VOMITING Oxycodone HCl 5 mg 03/24/19 09:37 03/25/19 19:05 Roxicodone - PO 5 mg Q6H PRN Administration PAIN LEVEL 6-10 Polyethylene Glycol 17 gm 03/24/19 10:00 03/26/19 10:09 Miralax (For Daily Use) - PO Not Given BID [facility] Senna 2 tab 03/24/19 22:00 03/25/19 22:55 Senna - PO 2 tab HS [facility] Administration Timolol Maleate 1 drop 03/24/19 10:00 03/26/19 10:25 Timoptic 0.25% OS 1 drop DAILY [facility] Administration Tizanidine HCl 4 mg 03/24/19 10:00 03/26/19 10:26 Tizanidine Hcl PO 4 mg BID [facility] Administration Zolpidem Tartrate 5 mg 03/24/19 22:00 03/25/19 22:55 Ambien - PO 5 mg HS PRN Administration INSOMNIA S1 S2 RRR Lungs clear Abd- soft ,NT contracted no edema PLAN IV antibiotics urine culture ESBL ID eval with regards to ESBL -- she is afebrile with ceftriaxone and mentation better family wants another NE Problem List - Problems (1) UTI (urinary tract infection) Code(s): N39.0 - URINARY TRACT INFECTION, SITE NOT SPECIFIED (2) Altered mental status Code(s): R41.82 - ALTERED MENTAL STATUS, UNSPECIFIED (3) HTN (hypertension) Code(s): I10 - ESSENTIAL (PRIMARY) HYPERTENSION (4) Multiple sclerosis Code(s): G35 - MULTIPLE SCLEROSIS (5) UTI (urinary tract infection) Code(s): N39.0 - URINARY TRACT INFECTION, SITE NOT SPECIFIED Qualifiers: Urinary tract infection type: site unspecified Hematuria presence: without hematuria Qualified Code(s): N39.0 - Urinary tract infection, site not specified
[2019-03-26] MEDS: oxyCODONE HCL 5 MG TABLET PO PRN (14:27)
--- NOTE | 2019-03-26 15:24 | PN ---
Progress Note (short form) - Note Progress Note: ID consult dictated imp/reccd 73 yo female NHR with MS contracted and nonambulatory lethargy at admission cannot r/o UTI ecoli esbl uti- switch to ertapenem, can switch to po macrobid when ready for discharge-treat total 7 days contact isolation please call back thanks Problem List - Problems (1) UTI (urinary tract infection) Code(s): N39.0 - URINARY TRACT INFECTION, SITE NOT SPECIFIED (2) UTI due to extended-spectrum beta lactamase (ESBL) producing Escherichia coli Code(s): N39.0 - URINARY TRACT INFECTION, SITE NOT SPECIFIED; B96.29 - OTH ESCHERICHIA COLI THE CAUSE OF DISEASES CLASSD ELSWHR; Z16.12 - EXTENDED SPECTRUM BETA LACTAMASE (ESBL) RESISTANCE (3) Multiple sclerosis Code(s): G35 - MULTIPLE SCLEROSIS
[2019-03-26] MEDS: ERTAPENEM SODIUM 1 GM in SODIUM CHLORIDE 50 ML IVPB SCH (17:04)
[2019-03-26] MEDS ORDERED: PT OWN MED DRAWER 7, Y5N ONE (21:18)
[2019-03-26] MEDS: SENNOSIDES 8.6MG TABLET (FP) PO SCH (21:41)
[2019-03-26] MEDS: LATANOPROST 0.005% OPHTH SOLN 2.5ML BOTTLE OS SCH (21:45)
[2019-03-26] MEDS: ZOLPIDEM TARTRATE 5 MG TABLET PO PRN (21:56)
[2019-03-27] MEDS: oxyCODONE HCL 5 MG TABLET PO PRN (06:17)
[2019-03-27] MEDS: GABAPENTIN 100 MG CAPSULE (FP) PO SCH ×3 (06:17→22:12)
[2019-03-27] MEDS: DORZOLAMIDE 2% HCL OPHTHALMIC SOLUTION 10 ML BOTTLE OS SCH ×3 (06:18→22:15)
[2019-03-27] MEDS: BRIMONIDINE TARTRATE 0.2% OPHTHALMIC 5 ML BOTTLE OS SCH ×3 (06:18→22:17)
--- NOTE | 2019-03-27 09:38 | PN ---
Progress Note (short form) - Note Progress Note: pt seen/ examined chart reviewed Vital Signs Temp 97.9 F 03/27/19 07:20 Pulse 86 03/27/19 07:20 Resp 20 03/27/19 07:20 BP 106/48 L 03/27/19 07:20 Pulse Ox 95 03/25/19 09:00 Intake & Output 03/26/19 03/26/19 03/27/19 11:59 23:59 11:59 Intake Total 0 220 0 Balance 0 220 0 Intake: IV 0 saline lock 0 IVPB 0 100 0 Oral 120 Other: Voiding Method Incontinent Incontinent # Unmeasured Voids Void 2 2 Bowel Movement No No No # Bowel Movements 1 Active Medications Acetazolamide (Diamox -) 250 mg PO BID [facility] Last Admin: 03/26/19 21:40 Dose: 250 mg Apixaban (Eliquis -) 5 mg PO BID [facility] Last Admin: 03/26/19 21:40 Dose: 5 mg Baclofen (Lioresal -) 10 mg PO BID [facility] Last Admin: 03/26/19 21:41 Dose: 10 mg Brimonidine Tartrate (Alphagan 0.2% -) 1 drop OS TID [facility] Last Admin: 03/27/19 06:18 Dose: 1 drop Dorzolamide HCl (Trusopt 2%) 1 drop OS TID [facility] Last Admin: 03/27/19 06:18 Dose: 1 drop Escitalopram Oxalate (Lexapro -) 5 mg PO DAILY [facility] Last Admin: 03/26/19 10:08 Dose: 5 mg Gabapentin (Neurontin -) 200 mg PO TID [facility] Last Admin: 03/27/19 06:17 Dose: 200 mg Ertapenem 1 gm/ Sodium (Chloride) 50 mls @ 100 mls/hr IVPB DAILY [facility] Last Admin: 03/26/19 17:04 Dose: 100 mls/hr Latanoprost (Xalatan 0.005% Eye Drops -) 1 drop OS HS [facility] Last Admin: 03/26/19 21:45 Dose: 1 drop Morphine Sulfate (Ms Contin -) 15 mg PO BID [facility] Last Admin: 03/26/19 21:42 Dose: 15 mg Multivitamins/Minerals (Theragran-M) 1 each PO DAILY [facility] Last Admin: 03/26/19 10:09 Dose: 1 each Ondansetron HCl (Zofran -) 4 mg PO Q6H PRN PRN Reason: NAUSEA AND/OR VOMITING Polyethylene Glycol (Miralax (For Daily Use) -) 17 gm PO BID [facility] Last Admin: 03/26/19 21:42 Dose: 17 gm Senna (Senna -) 2 tab PO HS [facility] Last Admin: 03/26/19 21:41 Dose: 2 tab Timolol Maleate (Timoptic 0.25%) 1 drop OS DAILY [facility] Last Admin: 03/26/19 10:25 Dose: 1 drop Tizanidine HCl (Tizanidine Hcl) 4 mg PO BID [facility] Last Admin: 03/26/19 21:40 Dose: 4 mg Zolpidem Tartrate (Ambien -) 5 mg PO HS PRN PRN Reason: INSOMNIA Last Admin: 03/26/19 21:56 Dose: 5 mg CBC, BMP 03/25/19 07:50 03/25/19 07:50 Physical Exam Constitutional: Yes: No Distress. comfortable Eyes: Yes: Conjunctiva Clear Neck: Yes: Supple Cardiovascular: Yes: Regular Rate and Rhythm Respiratory: Yes: Diminished Gastrointestinal: Yes: Soft, non tender Edema: No Neurological: Yes: Alert Assessment/Plan Better Back to baseline Abx Esbl Precautions d/c planning likely tomorrow will follow Problem List - Problems (1) UTI (urinary tract infection) Code(s): N39.0 - URINARY TRACT INFECTION, SITE NOT SPECIFIED (2) Altered mental status Code(s): R41.82 - ALTERED MENTAL STATUS, UNSPECIFIED
[2019-03-27] MEDS: MULTIVITAMINS THER W-MINERALS COMBO TABLET (FP) PO SCH (09:51)
[2019-03-27] MEDS: APIXABAN 5 MG TABLET PO SCH ×2 (09:51→22:12)
[2019-03-27] MEDS: BACLOFEN 10 MG TABLET (FP) PO SCH ×2 (09:51→22:13)
[2019-03-27] MEDS: ESCITALOPRAM OXALATE 10 MG TABLET (FP) PO SCH (09:51)
[2019-03-27] MEDS: morphine SO4 SUSTAINED ACTING 15 MG TABLET.SA PO SCH ×2 (09:52→22:13)
[2019-03-27] MEDS: ERTAPENEM SODIUM 1 GM in SODIUM CHLORIDE 50 ML IVPB SCH (09:52)
[2019-03-27] MEDS: acetaZOLAMIDE 250 MG TABLET PO SCH ×2 (09:52→22:16)
[2019-03-27] MEDS: POLYETHYLENE GLYCOL 3350 119 GM BTL PO SCH ×2 (09:53→22:13)
[2019-03-27] MEDS: TIMOLOL 0.25% OPHTHALMIC SOL 5 ML BOTTLE OS SCH (10:20)
[2019-03-27] MEDS: TIZANIDINE HCL 4 MG TABLET PO SCH ×2 (10:20→22:15)
[2019-03-27 12:15] LABS: BASO % 0.3 % (0-2.0); EOS % 1.2 % (0-4.5); HEMATOCRIT 31.9 % (32.4-45.2); HEMOGLOBIN 10.9 GM/dL (10.7-15.3); LYMPH % 22.4 % (8-40); MCH 30.9 pg (25.7-33.7); MCHC 34.1 g/dl (32.0-36.0); MEAN CELL VOLUME 90.5 fl (80-96); MEAN PLT VOLUME 9.3 fl (7.5-11.1); MONO % 10.4 % (3.8-10.2); NEUT % 65.7 % (42.8-82.8); PLATELET COUNT 282 K/MM3 (134-434); RBC 3.53 M/mm3 (3.60-5.2); RDW 13.8 % (11.6-15.6); WHITE BLOOD COUNT 7.9 K/mm3 (4.0-10.0)
[2019-03-27 14:24] LABS: ALBUMIN 2.5 g/dl (3.4-5.0); BILIRUBIN,TOTAL 0.2 mg/dL (0.2-1); BLOOD UREA NITROGEN 17.5 mg/dL (7-18); CALCIUM 8.8 mg/dL (8.5-10.1); CREATININE 0.6 mg/dL (0.55-1.3); POTASSIUM 3.6 mmol/L (3.5-5.1)
[2019-03-27] MEDS: SENNOSIDES 8.6MG TABLET (FP) PO SCH (22:13)
[2019-03-27] MEDS: LATANOPROST 0.005% OPHTH SOLN 2.5ML BOTTLE OS SCH (22:15)
[2019-03-28] MEDS: GABAPENTIN 100 MG CAPSULE (FP) PO SCH ×3 (06:01→22:35)
[2019-03-28] MEDS: BRIMONIDINE TARTRATE 0.2% OPHTHALMIC 5 ML BOTTLE OS SCH ×3 (06:01→22:34)
[2019-03-28] MEDS: DORZOLAMIDE 2% HCL OPHTHALMIC SOLUTION 10 ML BOTTLE OS SCH ×3 (06:01→22:36)
[2019-03-28] MEDS ORDERED: PT OWN MED DRAWER 7, Y5N ONE ×2 (10:25→20:45)
[2019-03-28] MEDS: ESCITALOPRAM OXALATE 10 MG TABLET (FP) PO SCH (10:27)
[2019-03-28] MEDS: BACLOFEN 10 MG TABLET (FP) PO SCH ×2 (10:27→22:36)
[2019-03-28] MEDS: MULTIVITAMINS THER W-MINERALS COMBO TABLET (FP) PO SCH (10:27)
[2019-03-28] MEDS: APIXABAN 5 MG TABLET PO SCH ×2 (10:27→22:34)
[2019-03-28] MEDS: morphine SO4 SUSTAINED ACTING 15 MG TABLET.SA PO SCH ×2 (10:27→22:34)
[2019-03-28] MEDS: acetaZOLAMIDE 250 MG TABLET PO SCH ×2 (10:28→22:34)
[2019-03-28] MEDS: TIZANIDINE HCL 4 MG TABLET PO SCH ×2 (10:28→22:35)
[2019-03-28] MEDS: POLYETHYLENE GLYCOL 3350 119 GM BTL PO SCH ×2 (10:32→22:36)
[2019-03-28] MEDS: TIMOLOL 0.25% OPHTHALMIC SOL 5 ML BOTTLE OS SCH (10:33)
[2019-03-28] MEDS: ERTAPENEM SODIUM 1 GM in SODIUM CHLORIDE 50 ML IVPB SCH (10:41)
--- NOTE | 2019-03-28 15:48 | PN ---
Progress Note (short form) - Note Progress Note: feels well No issues Vital Signs Temp 98.2 F 03/28/19 06:53 Pulse 85 03/28/19 06:53 Resp 20 03/28/19 06:53 BP 120/58 L 03/28/19 06:53 Pulse Ox 99 03/27/19 21:00 Intake & Output 03/27/19 03/28/19 03/28/19 23:59 11:59 23:59 Intake Total 170 0 Balance 170 0 Intake: IV 0 0 saline lock 0 0 IVPB 50 Oral 120 Other: Voiding Method Incontinent # Unmeasured Voids Void 2 2 Bowel Movement No No # Bowel Movements 2 Active Medications Acetazolamide (Diamox -) 250 mg PO BID [facility] Last Admin: 03/28/19 10:28 Dose: 250 mg Apixaban (Eliquis -) 5 mg PO BID [facility] Last Admin: 03/28/19 10:27 Dose: 5 mg Baclofen (Lioresal -) 10 mg PO BID [facility] Last Admin: 03/28/19 10:27 Dose: 10 mg Brimonidine Tartrate (Alphagan 0.2% -) 1 drop OS TID [facility] Last Admin: 03/28/19 14:28 Dose: 1 drop Dorzolamide HCl (Trusopt 2%) 1 drop OS TID [facility] Last Admin: 03/28/19 14:27 Dose: 1 drop Escitalopram Oxalate (Lexapro -) 5 mg PO DAILY [facility] Last Admin: 03/28/19 10:27 Dose: 5 mg Gabapentin (Neurontin -) 200 mg PO TID [facility] Last Admin: 03/28/19 14:25 Dose: 200 mg Ertapenem 1 gm/ Sodium (Chloride) 50 mls @ 100 mls/hr IVPB DAILY [facility] Last Admin: 03/28/19 10:41 Dose: 100 mls/hr Latanoprost (Xalatan 0.005% Eye Drops -) 1 drop OS HS [facility] Last Admin: 03/27/19 22:15 Dose: 1 drop Morphine Sulfate (Ms Contin -) 15 mg PO BID [facility] Last Admin: 03/28/19 10:27 Dose: 15 mg Multivitamins/Minerals (Theragran-M) 1 each PO DAILY [facility] Last Admin: 03/28/19 10:27 Dose: 1 each Ondansetron HCl (Zofran -) 4 mg PO Q6H PRN PRN Reason: NAUSEA AND/OR VOMITING Polyethylene Glycol (Miralax (For Daily Use) -) 17 gm PO BID [facility] Last Admin: 03/28/19 10:32 Dose: Not Given Senna (Senna -) 2 tab PO HS [facility] Last Admin: 03/27/19 22:13 Dose: 2 tab Timolol Maleate (Timoptic 0.25%) 1 drop OS DAILY [facility] Last Admin: 03/28/19 10:33 Dose: 1 drop Tizanidine HCl (Tizanidine Hcl) 4 mg PO BID [facility] Last Admin: 03/28/19 10:28 Dose: 4 mg CBC, BMP 03/27/19 11:40 03/27/19 11:40 Physical Exam Constitutional: Yes: No Distress. comfortable Eyes: Yes: Conjunctiva Clear Neck: Yes: Supple Cardiovascular: Yes: Regular Rate and Rhythm Respiratory: Yes: Diminished Gastrointestinal: Yes: Soft, non tender Edema: No Neurological: Yes: Alert Assessment/Plan Better Back to baseline Abx Esbl Precautions d/c planning likely tomorrow will follow Problem List - Problems (1) UTI (urinary tract infection) Code(s): N39.0 - URINARY TRACT INFECTION, SITE NOT SPECIFIED (2) Altered mental status Code(s): R41.82 - ALTERED MENTAL STATUS, UNSPECIFIED Problem List - Problems (1) UTI (urinary tract infection) Code(s): N39.0 - URINARY TRACT INFECTION, SITE NOT SPECIFIED (2) Altered mental status Code(s): R41.82 - ALTERED MENTAL STATUS, UNSPECIFIED
[2019-03-28] MEDS: SENNOSIDES 8.6MG TABLET (FP) PO SCH (22:35)
[2019-03-28] MEDS: LATANOPROST 0.005% OPHTH SOLN 2.5ML BOTTLE OS SCH (22:36)
[2019-03-29] MEDS: GABAPENTIN 100 MG CAPSULE (FP) PO SCH ×2 (05:55→14:49)
[2019-03-29] MEDS: DORZOLAMIDE 2% HCL OPHTHALMIC SOLUTION 10 ML BOTTLE OS SCH ×2 (05:58→14:49)
[2019-03-29] MEDS: BRIMONIDINE TARTRATE 0.2% OPHTHALMIC 5 ML BOTTLE OS SCH ×2 (05:58→14:48)
--- NOTE | 2019-03-29 10:08 | DS ---
Physical Examination Vital Signs: Vital Signs Temperature 98.5 F 03/29/19 06:40 Pulse Rate 79 03/29/19 06:40 Respiratory Rate 20 03/29/19 06:40 Blood Pressure 108/70 03/29/19 06:40 O2 Sat by Pulse Oximetry (%) 99 03/28/19 21:00 Findings/Remarks: comfortable no complains afebrile Constitutional: Yes: No Distress, Calm Neck: Yes: Supple Cardiovascular: Yes: Regular Rate and Rhythm Respiratory: Yes: CTA Bilaterally Gastrointestinal: Yes: Soft Edema: No Neurological: Yes: Alert Psychiatric: Yes: Alert Labs: CBC, BMP 03/27/19 11:40 03/27/19 11:40 Discharge Summary Problems reviewed: Yes Reason For Visit: URINARY TRACT INFECTION Current Active Problems UTI (urinary tract infection) (Acute) UTI due to extended-spectrum beta lactamase (ESBL) producing Escherichia coli ( Acute) Hospital Course: Ms. Shelton is a 73 yo F h/o MS (now with contracted bilateral lower extremities) , perforated ulcer, PE , right patellar ORIF, multiple lower extremity ulcers and recent UTI who presents to the ED BIBEMS from [facility] due to daughter's concern about lethargy work up =ve for uti-- E coli - esbl treated with abx i/d followed stable now will treat 3 more days meds reconcilled d/w home health care case manager daughter requesting [facility] d/w Rn also Condition: Fair - Instructions - Home Medications Comprehensive Discharge Medication List: Ambulatory Orders Gabapentin 200 mg PO TID 07/30/18 Morphine *Sr* [Ms Contin -] 15 mg PO BID #60 tablet.sa MDD 2 10/10/18 Tizanidine HCl 4 mg PO BID 10/25/18 Baclofen 10 mg PO BID 11/28/18 oxyCODONE HCL [Roxicodone -] 10 mg PO Q6H PRN MDD 4 11/28/18 Apixaban [Eliquis -] 5 mg PO BID tablet 12/01/18 Polyethylene Glycol 3350 [Miralax 119 gm Btl -] 17 gm PO BID bottle 12/01/18 Sennosides [Senna -] 2 tab PO HS tablet 12/01/18 Brimonidine Tartrate [Alphagan 0.2% -] 1 drop OS TID 03/23/19 Dorzolamide HCl/Pf [Dorzolamide 2% Eye Drop] 1 drop OS TID 03/23/19 Escitalopram Oxalate [Lexapro -] 5 mg PO DAILY 03/23/19 Latanoprost/Pf [Latanoprost 0.005% Eye Drop] 1 drop OS HS 03/23/19 Timolol 0.25% [Timoptic 0.25%] 1 drop OS DAILY 03/23/19 Zolpidem Tartrate [Ambien] 5 mg PO HS 03/23/19 acetaZOLAMIDE [Diamox -] 250 mg PO BID 03/23/19 Multivitamin,Ther and Minerals [Vitamin and Minerals] 1 each PO DAILY 03/24/19 Ondansetron HCl [Zofran] 4 mg PO Q6H PRN 03/24/19 Nitrofurantoin Monohyd/M-Cryst [Macrobid -] 100 mg PO BID #6 capsule 03/29/19
[2019-03-29] MEDS: BACLOFEN 10 MG TABLET (FP) PO SCH (10:42)
[2019-03-29] MEDS: APIXABAN 5 MG TABLET PO SCH (10:42)
[2019-03-29] MEDS: ESCITALOPRAM OXALATE 10 MG TABLET (FP) PO SCH (10:42)
[2019-03-29] MEDS: acetaZOLAMIDE 250 MG TABLET PO SCH (10:43)
[2019-03-29] MEDS: TIZANIDINE HCL 4 MG TABLET PO SCH (10:43)
[2019-03-29] MEDS: MULTIVITAMINS THER W-MINERALS COMBO TABLET (FP) PO SCH (10:43)
[2019-03-29] MEDS: morphine SO4 SUSTAINED ACTING 15 MG TABLET.SA PO SCH (10:44)
[2019-03-29] MEDS: POLYETHYLENE GLYCOL 3350 119 GM BTL PO SCH (10:45)
[2019-03-29] MEDS: ERTAPENEM SODIUM 1 GM in SODIUM CHLORIDE 50 ML IVPB SCH (10:45)
[2019-03-29] MEDS: TIMOLOL 0.25% OPHTHALMIC SOL 5 ML BOTTLE OS SCH (10:46)
[2019-03-29 15:29] VITALS: BP 102/55; PULSE 74; TEMP 98.3
--- NOTE | 2019-03-29 18:57 | CONS ---
DATE OF CONSULTATION: 03/26/2019 HISTORY OF PRESENT ILLNESS: The patient is a 73-year-old woman with a history of MS. She [facility] the [facility]. She has contracted bilateral lower extremities and is non-ambulatory. She is in chronic pain. She presents to the hospital with complaints of lethargy per the daughter. She was started on ceftriaxone for a UTI. She is awake and alert. She intermittently cries. She is oriented to name and place but does not know the year. Intermittently, she appears to be talking to people who are not there. After admission, she was started on ceftriaxone. She was noted to have an E. coli ESBL in her urine and I am asked to see her for antibiotic recommendations. PAST MEDICAL HISTORY: Notable for MS. She has a history of a perforated ulcer. She has had a right lower lobe pulmonary embolism. She has a history of GERD and osteoarthritis. SOCIAL HISTORY: She is nonambulatory and resides at the intermediate. PAST SURGICAL HISTORY: Notable for right patellar ORIF. She has had a hip nailing in the past for a hip fracture. ALLERGIES: STRAWBERRIES. MEDICATIONS AT THE [facility]: Zofran, Lexapro, Roxicodone, Diamox, Ambien, tizanidine, senna, MiraLAX, MS Contin, Eliquis and Baclofen. PHYSICAL EXAMINATION: General: She alert and oriented x2. She knows she is at [facility] and knows her name. She thinks the year is 1968. Vital Signs: Temperature is 98.3. She has had no fever since admission. Pulse of 88, blood pressure 102/54, respiratory rate 20. HEENT: Normocephalic. Her eyes are anicteric. Neck: Supple. Lungs: Clear to auscultation. Abdomen: Soft, nontender. Extremities: Her legs are contracted. Skin: She has no skin breakdown. LABORATORY DATA: White count is 8.1, hemoglobin 11.2, platelets 288. Her BUN and creatinine are 16 and 0.7. LFTs are normal. Urinalysis has 2+ leukocytes with 67 white cells. 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 In summary, this is a 73-year-old woman with lethargy admitted from the intermediate; cannot rule out urinary tract infection. Given what I think is her underlying dementia and her MS, would switch her to ertapenem. She can switch to oral Macrobid when ready for discharge and treat for a week. Maintain contact isolation. Please call back if needed. BRIAN REES M.D. [id number]
== END 2019-03-29 18:20 | DRG 689 ==
LOC: JER 12:25 → JERBED 16:59 → J8W 22:36
PROVIDERS: ADMIT Internal Medicine; ATTEND Internal Medicine
DX: N39.0 Urinary tract infection, site not specified (principal); G93.41 Metabolic encephalopathy; Z16.12 Extended spectrum beta lactamase (ESBL) resistance; H40.9 Unspecified glaucoma; B96.20 Unspecified Escherichia coli [E. coli] as the cause of diseases classified elsewhere; G35 Multiple sclerosis; R41.82 Altered mental status, unspecified
CPT/HCPCS: 36415; 70450-TC; 71045-TC-FY; 80053; 81003; 82550; 82553; 83690; 83735; 84100; 84443; 84484; 85025; 85730; 87086; 87186; 93005; 93010; 97161-GP; 99284-25; J0475

== ENCOUNTER 2021-02-15 13:29 | Inpatient (IN) | payer OTHER ==
[2021-02-15] MEDS ORDERED: ONDANSETRON 4 MG/2 ML VIAL IVPUSH ONE ×2 (14:29→16:16)
[2021-02-15] MEDS ORDERED: ONDANSETRON 4 MG/2 ML VIAL ONE ×3 (14:50→22:08)
[2021-02-15] MEDS ORDERED: PANTOPRAZOLE SODIUM 40 MG VIAL IVPUSH ONE (14:57)
[2021-02-15 15:02] LABS: BASO % 0.6 % (0-2.0); HEMATOCRIT 44.7 % (32.4-45.2); HEMOGLOBIN 15.2 GM/dL (10.7-15.3); LYMPH % 12.7 % (8-40); MCHC 34.1 g/dl (32.0-36.0); MEAN PLT VOLUME 8.7 fl (7.5-11.1); MONO % 3.2 % (3.8-10.2); NEUT % 83.5 % (42.8-82.8); PLATELET COUNT 325 10^3/uL (134-434); RBC 4.92 M/mm3 (3.60-5.2); RDW 13.3 % (11.6-15.6); WHITE BLOOD COUNT 9.8 K/mm3 (4.0-10.0)
[2021-02-15] MEDS ORDERED: PANTOPRAZOLE SODIUM 40 MG VIAL ONE (15:05)
[2021-02-15 15:09] LABS: INR 1.11 (0.83-1.09); PROTHROMBIN TIME (PATIENT) 12.5 SEC (9.7-13.0)
[2021-02-15 15:12] LABS: ACTIVATED PTT 36.6 SECONDS (25.2-36.5)
[2021-02-15 15:24] LABS: CHLORIDE 109 mmol/L (98-107); SODIUM 144 mmol/L (136-145)
[2021-02-15 15:26] LABS: ALBUMIN 3.5 g/dl (3.4-5.0); CALCIUM 9.7 mg/dL (8.5-10.1)
[2021-02-15 15:27] LABS: ANION GAP 10 MMOL/L (8-16); BLOOD UREA NITROGEN 12.2 mg/dL (7-18); CO2 25 mmol/L (21-32); GLUCOSE,RANDOM 145 mg/dL (74-106); MAGNESIUM 2.5 mg/dL (1.8-2.4)
[2021-02-15 15:30] LABS: CREATININE 0.9 mg/dL (0.55-1.3); SGOT/AST 17 U/L (15-37); SGPT/ALT 19 U/L (13-61)
[2021-02-15 15:31] LABS: BILIRUBIN,TOTAL 0.6 mg/dL (0.2-1); TOT PROT 7.8 g/dl (6.4-8.2)
[2021-02-15 15:32] LABS: ALK PHOS 111 U/L (45-117)
[2021-02-15] MEDS ORDERED: SODIUM CHLORIDE 0.9% 500 ML INFUS.BAG IV ONE (16:03)
[2021-02-15] MEDS ORDERED: FAMOTIDINE 20 MG/50 ML IVPB 20 MG/50 ML MG IVPB ONE ×2 (16:12→16:33)
[2021-02-15] MEDS ORDERED: ACETAMINOPHEN 1000 MG/100 ML VIAL IVPB ONE (18:35)
[2021-02-15] MEDS ORDERED: ACETAMINOPHEN INJECTION 100 ML IVPB ONE (20:14)
[2021-02-15] MEDS ORDERED: oxyCODONE HCL 5 MG TABLET PO PRN (23:05)
[2021-02-15] MEDS ORDERED: TRIMETHOBENZAMIDE HCL 200MG/2ML INJ IM PRN (23:07)
[2021-02-15] MEDS ORDERED: ZOLPIDEM TARTRATE 5 MG TABLET PO ONE (23:08)
[2021-02-15] MEDS ORDERED: CHOLECALCIFEROL (VIT D3) 5000 UNITS (125 MCG) CAP PO SCH (23:15)
[2021-02-15] MEDS ORDERED: D5-1/2NS+20 MEQ KCL - 20 MEQ/1,000 ML INFUS.BAG IV SCH (23:30)
[2021-02-16] MEDS: GABAPENTIN 100 MG CAPSULE PO SCH ×3 (00:29→21:11)
[2021-02-16] MEDS: BACLOFEN 10 MG TABLET (FP) PO SCH ×3 (00:29→21:11)
[2021-02-16] MEDS: morphine SO4 SUSTAINED ACTING 15 MG TABLET.SA PO SCH ×3 (00:30→21:11)
[2021-02-16 01:29] VITALS: BMI 22.6
[2021-02-16] MEDS ORDERED: MAG HYDROX/AL HYDROX/SIMETH 30 ML UNIT-DOSE CUP PO PRN (05:34)
[2021-02-16] MEDS ORDERED: MINERAL OIL ENEMA 133 ML ENEMA RC ONE (05:45)
[2021-02-16] MEDS: ESCITALOPRAM OXALATE 10 MG TABLET PO SCH (09:16)
[2021-02-16 09:45] LABS: BASO % 0.3 % (0-2.0); EOS % 0.2 % (0-4.5); HEMATOCRIT 40.7 % (32.4-45.2); HEMOGLOBIN 13.3 GM/dL (10.7-15.3); LYMPH % 18.9 % (8-40); MCH 30.4 pg (25.7-33.7); MCHC 32.7 g/dl (32.0-36.0); MEAN CELL VOLUME 93.1 fl (80-96); MEAN PLT VOLUME 9.2 fl (7.5-11.1); MONO % 7.5 % (3.8-10.2); NEUT % 73.1 % (42.8-82.8); PLATELET COUNT 289 10^3/uL (134-434); RBC 4.38 M/mm3 (3.60-5.2); RDW 13.9 % (11.6-15.6); WHITE BLOOD COUNT 13.8 K/mm3 (4.0-10.0)
[2021-02-16] MEDS ORDERED: PANTOPRAZOLE 40 MG TABLET PO SCH (10:00)
[2021-02-16 11:37] LABS: BLOOD UREA NITROGEN 13.1 mg/dL (7-18); CALCIUM 9.5 mg/dL (8.5-10.1)
[2021-02-16] MEDS ORDERED: cefTRIAXone SODIUM 1 GM VIAL ONE (15:39)
[2021-02-16] MEDS ORDERED: DEXTROSE 5%-WATER - 50 ML IVPB ONE (15:39)
[2021-02-16] MEDS: CEFTRIAXONE 1 GM in DEXTROSE 5%-WATER - 50 ML IVPB SCH (16:11)
[2021-02-16 16:56] LABS: EPI CELLS 4 /uL (0-25.1); HYALINE CASTS 11 /uL (0-3.1); URINE APPEARANCE CLOUDY; URINE BACTERIA >9,000 /uL (0-1359); URINE BILIRUBIN NEGATIVE (NEGATIVE); URINE COLOR YELLOW; URINE GLUCOSE (UA) NEGATIVE (NEGATIVE); URINE KETONE TRACE (NEGATIVE); URINE LEUK ESTERASE TRACE (NEGATIVE); URINE NITRITE NEGATIVE (NEGATIVE); URINE PROTEIN 1+ (NEGATIVE); URINE RBC 17 /uL (0-23.9); URINE UROBILINOGEN 0.2 mg/dL (0.2-1.0); URINE WBC 232 /uL (0-25.8)
[2021-02-16 19:01] LABS: YEAST FEW (NEGATIVE)
[2021-02-16] MEDS: ATORVASTATIN CA 10 MG TABLET (FP) PO SCH (21:11)
[2021-02-16] MEDS: POLYETHYLENE GLYCOL (HEALTHYLAX) 3350 17 GM PACKET PO SCH (21:13)
[2021-02-16] MEDS ORDERED: PANTOPRAZOLE SODIUM 40 MG VIAL IVPUSH SCH (22:00)
[2021-02-16] MEDS ORDERED: SENNOSIDES 8.6MG TABLET (FP) PO SCH (22:00)
[2021-02-17] MEDS: ZOLPIDEM TARTRATE 5 MG TABLET PO PRN ×2 (00:20→22:59)
[2021-02-17] MEDS: POLYETHYLENE GLYCOL (HEALTHYLAX) 3350 17 GM PACKET PO SCH ×3 (06:03→22:53)
[2021-02-17 08:53] LABS: BASO % 0.7 % (0-2.0); EOS % 2.3 % (0-4.5); HEMATOCRIT 35.4 % (32.4-45.2); LYMPH % 38.6 % (8-40); MCH 30.9 pg (25.7-33.7); MEAN CELL VOLUME 90.9 fl (80-96); MEAN PLT VOLUME 8.8 fl (7.5-11.1); MONO % 9.9 % (3.8-10.2); NEUT % 48.5 % (42.8-82.8); PLATELET COUNT 239 10^3/uL (134-434); RBC 3.89 M/mm3 (3.60-5.2); RDW 13.6 % (11.6-15.6); WHITE BLOOD COUNT 6.8 K/mm3 (4.0-10.0)
[2021-02-17 09:33] LABS: CALCIUM 8.5 mg/dL (8.5-10.1)
[2021-02-17 09:34] LABS: BLOOD UREA NITROGEN 12.1 mg/dL (7-18)
[2021-02-17 09:37] LABS: BILIRUBIN,TOTAL 0.4 mg/dL (0.2-1); CREATININE 0.8 mg/dL (0.55-1.3)
[2021-02-17 09:38] LABS: TOT PROT 5.9 g/dl (6.4-8.2)
[2021-02-17 09:44] LABS: ALBUMIN 2.6 g/dl (3.4-5.0)
[2021-02-17] MEDS ORDERED: DEXTROSE 5%-WATER - 50 ML IVPB ONE (10:19)
[2021-02-17] MEDS ORDERED: cefTRIAXone SODIUM 1 GM VIAL ONE (10:19)
[2021-02-17] MEDS ORDERED: PT OWN MED DRAWER 7, Y5N ONE (10:19)
[2021-02-17] MEDS: CEFTRIAXONE 1 GM in DEXTROSE 5%-WATER - 50 ML IVPB SCH (10:24)
[2021-02-17] MEDS: ESCITALOPRAM OXALATE 10 MG TABLET PO SCH (10:24)
[2021-02-17] MEDS: BACLOFEN 10 MG TABLET (FP) PO SCH ×2 (10:24→22:52)
[2021-02-17] MEDS: GABAPENTIN 100 MG CAPSULE PO SCH ×2 (10:25→22:53)
[2021-02-17] MEDS: morphine SO4 SUSTAINED ACTING 15 MG TABLET.SA PO SCH ×2 (10:25→22:53)
[2021-02-17] MEDS ORDERED: SODIUM PHOSPHATE/NA BIPHOS 133 ML ENEMA PR ONE (12:07)
[2021-02-17] MEDS: SODIUM CHLORIDE 0.45% 1,000 ML IV SCH (14:56)
[2021-02-17] MEDS: ATORVASTATIN CA 10 MG TABLET (FP) PO SCH (22:52)
[2021-02-17] MEDS: APIXABAN 5 MG TABLET PO SCH (22:52)
[2021-02-18] MEDS: POLYETHYLENE GLYCOL (HEALTHYLAX) 3350 17 GM PACKET PO SCH ×2 (07:00→15:45)
[2021-02-18] MEDS ORDERED: cefTRIAXone SODIUM 1 GM VIAL ONE (08:57)
[2021-02-18] MEDS ORDERED: DEXTROSE 5%-WATER - 50 ML IVPB ONE (08:57)
[2021-02-18] MEDS: morphine SO4 SUSTAINED ACTING 15 MG TABLET.SA PO SCH (09:48)
[2021-02-18] MEDS: BACLOFEN 10 MG TABLET (FP) PO SCH (09:50)
[2021-02-18] MEDS: ESCITALOPRAM OXALATE 10 MG TABLET PO SCH (09:50)
[2021-02-18] MEDS: APIXABAN 5 MG TABLET PO SCH (09:51)
[2021-02-18] MEDS: GABAPENTIN 100 MG CAPSULE PO SCH (09:51)
[2021-02-18] MEDS: CEFTRIAXONE 1 GM in DEXTROSE 5%-WATER - 50 ML IVPB SCH (09:51)
[2021-02-18 15:30] VITALS: BP 115/59; PULSE 77; TEMP 98.3
[2021-02-18] MEDS: SODIUM CHLORIDE 0.45% 1,000 ML IV SCH (15:39)
[2021-02-19] MEDS ORDERED: CHOLECALCIFEROL (VIT D3) 5000 UNITS (125 MCG) CAP PO SCH (10:00)
== END 2021-02-18 21:32 | disposition home or self-care (01) | DRG 389 ==
LOC: JER 13:29 → JERBED 20:54 → OBSVTOIN 23:30 → J8W 02-16 00:12
PROVIDERS: ATTEND Internal Medicine
DX: K56.41 Fecal impaction (principal); N20.1 Calculus of ureter; N39.0 Urinary tract infection, site not specified; K59.03 Drug induced constipation; G35 Multiple sclerosis; K21.9 Gastro-esophageal reflux disease without esophagitis
CPT/HCPCS: 36415; 71045-TC-FY; 74177-TC; 80048; 80053; 81003; 82272; 82550; 82553; 83735; 84439; 84443; 84484; 85025; 85610; 85730; 86850; 86900; 86901; 87086; 87186; 93005; 93010; 97161-GP; 99285-25; C9803; G0378; J0131; J0475; Q9967; U0003; U0005

== ENCOUNTER 2021-04-22 13:16 | Inpatient (IN) | payer OTHER ==
[2021-04-22] MEDS ORDERED: SODIUM CHLORIDE 0.9% 500 ML INFUS.BAG IV ONE (13:38)
[2021-04-22] MEDS ORDERED: ACETAMINOPHEN 1000 MG/100 ML BAG IVPB ONE (13:38)
[2021-04-22] MEDS ORDERED: ACETAMINOPHEN INJECTION 100 ML IVPB ONE (14:41)
[2021-04-22 14:51] LABS: BASO % 0.1 % (0-2.0); HEMATOCRIT 41.1 % (32.4-45.2); HEMOGLOBIN 13.7 GM/dL (10.7-15.3); LYMPH % 6.4 % (8-40); MCH 30.8 pg (25.7-33.7); MCHC 33.2 g/dl (32.0-36.0); MEAN CELL VOLUME 92.6 fl (80-96); MEAN PLT VOLUME 9.4 fl (7.5-11.1); MONO % 4.8 % (3.8-10.2); NEUT % 88.7 % (42.8-82.8); PLATELET COUNT 188 10^3/uL (134-434); RBC 4.44 M/mm3 (3.60-5.2); RDW 14.5 % (11.6-15.6); WHITE BLOOD COUNT 16.6 K/mm3 (4.0-10.0)
[2021-04-22 14:59] LABS: INR 1.72 (0.83-1.09); PROTHROMBIN TIME (PATIENT) 19.9 SEC (9.7-13.0)
[2021-04-22 15:01] LABS: ACTIVATED PTT 37.1 SECONDS (25.2-36.5)
[2021-04-22 15:04] LABS: EPI CELLS 33 /uL (0-25.1); HYALINE CASTS 5 /uL (0-3.1); URINE APPEARANCE TURBID; URINE BACTERIA >9,000 /uL (0-1359); URINE BILIRUBIN NEGATIVE (NEGATIVE); URINE COLOR YELLOW; URINE GLUCOSE (UA) NEGATIVE (NEGATIVE); URINE KETONE NEGATIVE (NEGATIVE); URINE LEUK ESTERASE 3+ (NEGATIVE); URINE NITRITE POSITIVE (NEGATIVE); URINE PROTEIN 2+ (NEGATIVE); URINE RBC 48 /uL (0-23.9); URINE UROBILINOGEN 0.2 mg/dL (0.2-1.0); URINE WBC 2541 /uL (0-25.8)
[2021-04-22] MEDS ORDERED: CEFTRIAXONE 1 GM in DEXTROSE 5%-WATER - 50 ML IVPB ONE (15:08)
[2021-04-22 15:14] LABS: YEAST NON SEEN (NEGATIVE)
[2021-04-22 15:20] LABS: CHLORIDE 104 mmol/L (98-107); SODIUM 140 mmol/L (136-145)
[2021-04-22 15:22] LABS: CALCIUM 9.3 mg/dL (8.5-10.1)
[2021-04-22 15:23] LABS: ALBUMIN 2.8 g/dl (3.4-5.0); ANION GAP 11 MMOL/L (8-16); CO2 25 mmol/L (21-32); GLUCOSE,RANDOM 130 mg/dL (74-106)
[2021-04-22 15:26] LABS: CREATININE 1.7 mg/dL (0.55-1.3); SGOT/AST 18 U/L (15-37); SGPT/ALT 20 U/L (13-61)
[2021-04-22 15:27] LABS: BILIRUBIN,TOTAL 0.4 mg/dL (0.2-1); TOT PROT 7.2 g/dl (6.4-8.2)
[2021-04-22 15:29] LABS: ALK PHOS 132 U/L (45-117)
[2021-04-22 15:30] LABS: LACTIC ACID 3.6 mmol/L (0.4-2.0)
[2021-04-22] MEDS ORDERED: CEFTRIAXONE 1 GM/50 ML BAG ONE (16:17)
[2021-04-22] MEDS ORDERED: ONDANSETRON 4 MG TABLET PO PRN (19:19)
[2021-04-22] MEDS: APIXABAN 5 MG TABLET PO SCH (21:47)
[2021-04-22] MEDS: TIZANIDINE HCL 4 MG TABLET PO SCH (21:48)
[2021-04-22] MEDS: SENNOSIDES 8.6MG TABLET (FP) PO SCH (21:48)
[2021-04-22] MEDS: BACLOFEN 10 MG TABLET (FP) PO SCH (21:48)
[2021-04-22] MEDS: GABAPENTIN 100 MG CAPSULE PO SCH (21:48)
[2021-04-22] MEDS: SODIUM CHLORIDE 1,000 ML IV SCH (21:50)
[2021-04-22] MEDS ORDERED: MELATONIN 5 MG TABLETS PO ONE (22:10)
[2021-04-23] MEDS ORDERED: VANCOMYCIN 1 GRAM (PRE-DOCKED) 1,000 MG/250 ML BAG IVPB ONE (02:44)
[2021-04-23] MEDS: SODIUM CHLORIDE 1,000 ML IV SCH ×2 (05:53→17:45)
[2021-04-23 09:43] LABS: BASO % 0.1 % (0-2.0); EOS % 0.3 % (0-4.5); HEMATOCRIT 35.8 % (32.4-45.2); HEMOGLOBIN 11.5 GM/dL (10.7-15.3); LYMPH % 9.8 % (8-40); MCH 30.4 pg (25.7-33.7); MCHC 32.2 g/dl (32.0-36.0); MEAN CELL VOLUME 94.5 fl (80-96); MEAN PLT VOLUME 10.5 fl (7.5-11.1); MONO % 6.6 % (3.8-10.2); NEUT % 83.2 % (42.8-82.8); PLATELET COUNT 160 10^3/uL (134-434); RBC 3.79 M/mm3 (3.60-5.2); RDW 14.7 % (11.6-15.6); WHITE BLOOD COUNT 10.7 K/mm3 (4.0-10.0)
[2021-04-23] MEDS ORDERED: ENOXAPARIN NA (PORCINE) 40 MG/0.4 ML DISP.SYRIN SQ SCH (10:00)
[2021-04-23] MEDS ORDERED: CEFTRIAXONE 1 GM in DEXTROSE 5%-WATER - 50 ML IVPB SCH (10:00)
[2021-04-23 10:16] LABS: CALCIUM 8.2 mg/dL (8.5-10.1)
[2021-04-23 10:17] LABS: BLOOD UREA NITROGEN 36.2 mg/dL (7-18)
[2021-04-23 10:19] LABS: BILIRUBIN,TOTAL 0.4 mg/dL (0.2-1); CREATININE 1.3 mg/dL (0.55-1.3)
[2021-04-23 10:20] LABS: TOT PROT 5.7 g/dl (6.4-8.2)
[2021-04-23 10:31] LABS: ALBUMIN 2.2 g/dl (3.4-5.0)
[2021-04-23] MEDS ORDERED: MEROPENEM 1 GM VIAL (RESTRICTED TO ID) IVPB ONE ×2 (11:22→23:31)
[2021-04-23] MEDS ORDERED: DEXTROSE 5%-WATER 100 ML IVPB ONE ×2 (11:23→23:31)
[2021-04-23] MEDS: BACLOFEN 10 MG TABLET (FP) PO SCH ×2 (11:26→21:20)
[2021-04-23] MEDS: PANTOPRAZOLE 40 MG TABLET PO SCH (11:26)
[2021-04-23] MEDS: APIXABAN 5 MG TABLET PO SCH ×2 (11:27→21:25)
[2021-04-23] MEDS: GABAPENTIN 100 MG CAPSULE PO SCH ×2 (11:27→21:20)
[2021-04-23] MEDS: ESCITALOPRAM OXALATE 10 MG TABLET PO SCH (11:27)
[2021-04-23] MEDS: MEROPENEM 1 GM in DEXTROSE 5%-WATER 100 ML IVPB SCH ×2 (11:29→23:33)
[2021-04-23] MEDS: TIZANIDINE HCL 4 MG TABLET PO SCH ×2 (12:23→21:20)
[2021-04-23] MEDS: SENNOSIDES 8.6MG TABLET (FP) PO SCH (21:20)
[2021-04-23] MEDS ORDERED: MELATONIN 1 MG TABLET PO ONE (23:10)
[2021-04-24] MEDS: SODIUM CHLORIDE 1,000 ML IV SCH ×2 (05:16→17:02)
[2021-04-24] MEDS: oxyCODONE HCL 5 MG TABLET PO PRN ×2 (05:17→14:27)
[2021-04-24] MEDS ORDERED: DEXTROSE 5%-WATER 100 ML IVPB ONE ×2 (09:17→20:42)
[2021-04-24] MEDS ORDERED: MEROPENEM 1 GM VIAL (RESTRICTED TO ID) IVPB ONE ×2 (09:17→20:42)
[2021-04-24] MEDS: MEROPENEM 1 GM in DEXTROSE 5%-WATER 100 ML IVPB SCH ×2 (09:28→21:14)
[2021-04-24] MEDS: PANTOPRAZOLE 40 MG TABLET PO SCH (09:28)
[2021-04-24] MEDS: ESCITALOPRAM OXALATE 10 MG TABLET PO SCH (09:29)
[2021-04-24] MEDS: GABAPENTIN 100 MG CAPSULE PO SCH ×2 (09:29→21:15)
[2021-04-24] MEDS: TIZANIDINE HCL 4 MG TABLET PO SCH ×2 (09:29→22:06)
[2021-04-24] MEDS: APIXABAN 5 MG TABLET PO SCH ×2 (09:29→21:15)
[2021-04-24] MEDS: BACLOFEN 10 MG TABLET (FP) PO SCH ×2 (09:29→21:16)
[2021-04-24] MEDS: SENNOSIDES 8.6MG TABLET (FP) PO SCH (21:15)
[2021-04-25] MEDS: oxyCODONE HCL 5 MG TABLET PO PRN (07:13)
[2021-04-25] MEDS ORDERED: MEROPENEM 1 GM VIAL (RESTRICTED TO ID) IVPB ONE (09:45)
[2021-04-25] MEDS ORDERED: DEXTROSE 5%-WATER 100 ML IVPB ONE ×2 (09:45→13:20)
[2021-04-25] MEDS: MEROPENEM 1 GM in DEXTROSE 5%-WATER 100 ML IVPB SCH (09:51)
[2021-04-25] MEDS: GABAPENTIN 100 MG CAPSULE PO SCH ×2 (09:52→21:31)
[2021-04-25] MEDS: BACLOFEN 10 MG TABLET (FP) PO SCH ×2 (09:52→21:32)
[2021-04-25] MEDS: APIXABAN 5 MG TABLET PO SCH ×2 (09:52→21:32)
[2021-04-25] MEDS: TIZANIDINE HCL 4 MG TABLET PO SCH ×2 (09:52→21:32)
[2021-04-25] MEDS: PANTOPRAZOLE 40 MG TABLET PO SCH (09:52)
[2021-04-25] MEDS: MULTIVITAMINS (DAILY MVI) TABLET (FP) PO SCH (09:52)
[2021-04-25] MEDS: ESCITALOPRAM OXALATE 10 MG TABLET PO SCH (09:52)
[2021-04-25] MEDS ORDERED: CEFTRIAXONE 2 GM in DEXTROSE 5%-WATER 2 GM/50 ML BAG IVPB SCH (12:15)
[2021-04-25] MEDS: SODIUM CHLORIDE 1,000 ML IV SCH ×2 (12:32→17:22)
[2021-04-25] MEDS ORDERED: CEFTRIAXONE 2 GM in DEXTROSE 5%-WATER 2 GM/100 ML BAG IVPB SCH (12:34)
[2021-04-25] MEDS: CEFTRIAXONE 2 GM in DEXTROSE 5%-WATER 2 GM/100 ML BAG IVPB SCH (14:08)
[2021-04-25] MEDS: SENNOSIDES 8.6MG TABLET (FP) PO SCH (21:32)
[2021-04-26] MEDS ORDERED: DEXTROSE 5%-WATER 100 ML IVPB ONE (08:58)
[2021-04-26] MEDS: CEFTRIAXONE 2 GM in DEXTROSE 5%-WATER 2 GM/100 ML BAG IVPB SCH (09:50)
[2021-04-26] MEDS: APIXABAN 5 MG TABLET PO SCH ×2 (09:51→21:22)
[2021-04-26] MEDS: PANTOPRAZOLE 40 MG TABLET PO SCH (09:51)
[2021-04-26] MEDS: ESCITALOPRAM OXALATE 10 MG TABLET PO SCH (09:51)
[2021-04-26] MEDS: GABAPENTIN 100 MG CAPSULE PO SCH ×2 (09:51→21:22)
[2021-04-26] MEDS: BACLOFEN 10 MG TABLET (FP) PO SCH ×2 (09:51→21:21)
[2021-04-26] MEDS: MULTIVITAMINS (DAILY MVI) TABLET (FP) PO SCH (09:51)
[2021-04-26] MEDS: TIZANIDINE HCL 4 MG TABLET PO SCH ×2 (09:52→21:23)
[2021-04-26] MEDS: SODIUM CHLORIDE 1,000 ML IV SCH ×2 (09:57→21:30)
[2021-04-26] MEDS ORDERED: ONDANSETRON 4 MG/2 ML VIAL IVPUSH PRN (12:57)
[2021-04-26] MEDS ORDERED: ACETAMINOPHEN 325 MG TABLET (FP) PO ONE (21:14)
[2021-04-26] MEDS: SENNOSIDES 8.6MG TABLET (FP) PO SCH (21:21)
[2021-04-26] MEDS: MELATONIN 1 MG TABLET PO PRN (22:53)
[2021-04-27] MEDS ORDERED: DEXTROSE 5%-WATER 100 ML IVPB ONE (09:42)
[2021-04-27] MEDS: TIZANIDINE HCL 4 MG TABLET PO SCH ×2 (09:48→21:12)
[2021-04-27] MEDS: BACLOFEN 10 MG TABLET (FP) PO SCH ×2 (09:48→21:12)
[2021-04-27] MEDS: MULTIVITAMINS (DAILY MVI) TABLET (FP) PO SCH (09:48)
[2021-04-27] MEDS: APIXABAN 5 MG TABLET PO SCH ×2 (09:48→21:12)
[2021-04-27] MEDS: CEFTRIAXONE 2 GM in DEXTROSE 5%-WATER 2 GM/100 ML BAG IVPB SCH (09:48)
[2021-04-27] MEDS: PANTOPRAZOLE 40 MG TABLET PO SCH (09:48)
[2021-04-27] MEDS: GABAPENTIN 100 MG CAPSULE PO SCH ×2 (09:48→21:12)
[2021-04-27 10:35] LABS: BASO % 0.5 % (0-2.0); EOS % 1.2 % (0-4.5); HEMOGLOBIN 11.6 GM/dL (10.7-15.3); LYMPH % 15.8 % (8-40); MCH 31.3 pg (25.7-33.7); MCHC 34.2 g/dl (32.0-36.0); MEAN CELL VOLUME 91.3 fl (80-96); MEAN PLT VOLUME 8.8 fl (7.5-11.1); MONO % 7.5 % (3.8-10.2); PLATELET COUNT 320 10^3/uL (134-434); RBC 3.72 M/mm3 (3.60-5.2); RDW 14.5 % (11.6-15.6); WHITE BLOOD COUNT 9.9 K/mm3 (4.0-10.0)
[2021-04-27 11:05] LABS: CALCIUM 8.4 mg/dL (8.5-10.1)
[2021-04-27 11:06] LABS: BLOOD UREA NITROGEN 11.9 mg/dL (7-18)
[2021-04-27 11:09] LABS: CREATININE 0.7 mg/dL (0.55-1.3)
[2021-04-27 11:10] LABS: TOT PROT 5.8 g/dl (6.4-8.2)
[2021-04-27 11:19] LABS: BILIRUBIN,TOTAL 0.6 mg/dL (0.2-1)
[2021-04-27] MEDS: SODIUM CHLORIDE 1,000 ML IV SCH (14:47)
[2021-04-27] MEDS: LACTOBACILLUS ACIDOPHILUS 1 TABLET PO SCH (14:47)
[2021-04-27 16:57] VITALS: BMI 23.0
[2021-04-27] MEDS: MELATONIN 1 MG TABLET PO PRN (21:12)
[2021-04-27] MEDS: ACETAMINOPHEN 325 MG TABLET (FP) PO PRN (21:13)
[2021-04-27] MEDS: SENNOSIDES 8.6MG TABLET (FP) PO SCH (21:14)
[2021-04-28] MEDS: SODIUM CHLORIDE 1,000 ML IV SCH (06:04)
[2021-04-28] MEDS ORDERED: DEXTROSE 5%-WATER 100 ML IVPB ONE (09:34)
[2021-04-28] MEDS: LACTOBACILLUS ACIDOPHILUS 1 TABLET PO SCH (09:41)
[2021-04-28] MEDS: AMINO ACIDS/PROTEIN HYDROLYS 30 ML LIQUID.PKT PO SCH (09:41)
[2021-04-28] MEDS: CEFTRIAXONE 2 GM in DEXTROSE 5%-WATER 2 GM/100 ML BAG IVPB SCH (09:41)
[2021-04-28] MEDS: PANTOPRAZOLE 40 MG TABLET PO SCH (09:41)
[2021-04-28] MEDS: BACLOFEN 10 MG TABLET (FP) PO SCH ×2 (09:41→21:15)
[2021-04-28] MEDS: GABAPENTIN 100 MG CAPSULE PO SCH ×2 (09:42→21:14)
[2021-04-28] MEDS: APIXABAN 5 MG TABLET PO SCH ×2 (09:42→21:15)
[2021-04-28] MEDS: MULTIVITAMINS (DAILY MVI) TABLET (FP) PO SCH (09:42)
[2021-04-28] MEDS: TIZANIDINE HCL 4 MG TABLET PO SCH ×2 (09:43→21:16)
[2021-04-28] MEDS: SENNOSIDES 8.6MG TABLET (FP) PO SCH (21:15)
[2021-04-28] MEDS: MELATONIN 1 MG TABLET PO PRN (23:27)
[2021-04-28] MEDS: ACETAMINOPHEN 325 MG TABLET (FP) PO PRN (23:28)
[2021-04-29] MEDS ORDERED: DEXTROSE 5%-WATER 100 ML IVPB ONE (09:50)
[2021-04-29] MEDS: PANTOPRAZOLE 40 MG TABLET PO SCH (10:32)
[2021-04-29] MEDS: BACLOFEN 10 MG TABLET (FP) PO SCH ×2 (10:32→22:27)
[2021-04-29] MEDS: CEFTRIAXONE 2 GM in DEXTROSE 5%-WATER 2 GM/100 ML BAG IVPB SCH (10:32)
[2021-04-29] MEDS: GABAPENTIN 100 MG CAPSULE PO SCH ×2 (10:32→22:27)
[2021-04-29] MEDS: MULTIVITAMINS (DAILY MVI) TABLET (FP) PO SCH (10:32)
[2021-04-29] MEDS: APIXABAN 5 MG TABLET PO SCH ×2 (10:32→22:27)
[2021-04-29] MEDS: LACTOBACILLUS ACIDOPHILUS 1 TABLET PO SCH (10:32)
[2021-04-29] MEDS: AMINO ACIDS/PROTEIN HYDROLYS 30 ML LIQUID.PKT PO SCH (10:32)
[2021-04-29] MEDS: TIZANIDINE HCL 4 MG TABLET PO SCH ×2 (10:33→22:26)
[2021-04-29] MEDS: ACETAMINOPHEN 325 MG TABLET (FP) PO PRN ×2 (17:14→22:29)
[2021-04-29] MEDS: MELATONIN 1 MG TABLET PO PRN (22:27)
[2021-04-29] MEDS: SENNOSIDES 8.6MG TABLET (FP) PO SCH (22:27)
[2021-04-30] MEDS ORDERED: DEXTROSE 5%-WATER 100 ML IVPB ONE (09:38)
[2021-04-30] MEDS: MULTIVITAMINS (DAILY MVI) TABLET (FP) PO SCH (10:06)
[2021-04-30] MEDS: LACTOBACILLUS ACIDOPHILUS 1 TABLET PO SCH (10:06)
[2021-04-30] MEDS: GABAPENTIN 100 MG CAPSULE PO SCH (10:06)
[2021-04-30] MEDS: PANTOPRAZOLE 40 MG TABLET PO SCH (10:07)
[2021-04-30] MEDS: AMINO ACIDS/PROTEIN HYDROLYS 30 ML LIQUID.PKT PO SCH (10:07)
[2021-04-30] MEDS: BACLOFEN 10 MG TABLET (FP) PO SCH (10:07)
[2021-04-30] MEDS: APIXABAN 5 MG TABLET PO SCH (10:07)
[2021-04-30] MEDS: TIZANIDINE HCL 4 MG TABLET PO SCH (10:07)
[2021-04-30] MEDS: CEFTRIAXONE 2 GM in DEXTROSE 5%-WATER 2 GM/100 ML BAG IVPB SCH (10:08)
[2021-04-30 10:14] VITALS: BP 145/80; PULSE 90; TEMP 98.8
== END 2021-04-30 10:38 | disposition home or self-care (01) | DRG 871 ==
LOC: JER 13:16 → JERBED 14:35 → J8W 20:03
PROVIDERS: ADMIT Internal Medicine; ATTEND Internal Medicine
DX: A41.89 Other specified sepsis (principal); G93.41 Metabolic encephalopathy; N39.0 Urinary tract infection, site not specified; Z16.12 Extended spectrum beta lactamase (ESBL) resistance; E87.2 Acidosis; G35 Multiple sclerosis; N20.0 Calculus of kidney; B96.20 Unspecified Escherichia coli [E. coli] as the cause of diseases classified elsewhere; I10 Essential (primary) hypertension; D72.829 Elevated white blood cell count, unspecified; K21.9 Gastro-esophageal reflux disease without esophagitis
CPT/HCPCS: 36415; 71045-TC-FY; 74176-TC; 80053; 81003; 82550; 82553; 82962; 83605; 84484; 85025; 85610; 85730; 87040; 87086; 87186; 87804; 93005; 93010; 99285-25; C9803; J0131; J0475; U0003; U0005

== ENCOUNTER 2022-05-30 12:48 | Inpatient (IN) | payer OTHER ==
[2022-05-30 14:13] LABS: VENOUS O2 SATURATION 69.6 % (70-80); VENOUS PCO2 58.5 mmHg (38-52); VENOUS PH 7.295 (7.310-7.410)
[2022-05-30 14:16] LABS: BASO % 0.5 % (0-2.0); EOS % 2.5 % (0-4.5); HEMATOCRIT 40.3 % (32.4-45.2); HEMOGLOBIN 13.3 GM/dL (10.7-15.3); LYMPH % 35.7 % (8-40); MCH 30.2 pg (25.7-33.7); MCHC 33.1 g/dl (32.0-36.0); MEAN CELL VOLUME 91.1 fl (80-96); MEAN PLT VOLUME 9.5 fl (7.5-11.1); MONO % 9.8 % (3.8-10.2); NEUT % 51.5 % (42.8-82.8); PLATELET COUNT 268 10^3/uL (134-434); RBC 4.42 M/mm3 (3.60-5.2); WHITE BLOOD COUNT 8.3 K/mm3 (4.0-10.0)
[2022-05-30 14:20] LABS: EPI CELLS 25 /uL (0-25.1); HYALINE CASTS 4 /uL (0-3.1); URINE APPEARANCE TURBID; URINE BACTERIA >9,000 /uL (0-1359); URINE BILIRUBIN NEGATIVE (NEGATIVE); URINE COLOR YELLOW; URINE GLUCOSE (UA) NEGATIVE (NEGATIVE); URINE KETONE TRACE (NEGATIVE); URINE LEUK ESTERASE 3+ (NEGATIVE); URINE NITRITE POSITIVE (NEGATIVE); URINE PROTEIN 1+ (NEGATIVE); URINE UROBILINOGEN 0.2 mg/dL (0.2-1.0); URINE WBC 14628 /uL (0-25.8)
[2022-05-30 14:36] LABS: INR 1.86 (0.83-1.09); PROTHROMBIN TIME (PATIENT) 21.5 SEC (9.7-13.0)
[2022-05-30 14:38] LABS: ACTIVATED PTT 44.7 SECONDS (25.2-36.5)
[2022-05-30 14:39] LABS: ALBUMIN 3.2 g/dl (3.4-5.0); BLOOD UREA NITROGEN 23.2 mg/dL (7-18); CALCIUM 9.5 mg/dL (8.5-10.1)
[2022-05-30 14:42] LABS: CREATININE 1.3 mg/dL (0.55-1.3)
[2022-05-30 14:44] LABS: BILIRUBIN,TOTAL 0.3 mg/dL (0.2-1); TOT PROT 7.5 g/dl (6.4-8.2)
[2022-05-30] MEDS ORDERED: CEFTRIAXONE 1 GM in DEXTROSE 5%-WATER - 100 ML IVPB ONE (14:53)
[2022-05-30] MEDS ORDERED: CEFTRIAXONE 1 GM/50 ML BAG ONE (15:16)
[2022-05-30 15:23] LABS: URINE RBC 206 /uL (0-23.9)
[2022-05-30] MEDS ORDERED: ONDANSETRON 4 MG TABLET PO PRN (17:17)
[2022-05-30] MEDS ORDERED: oxyCODONE HCL 5 MG TABLET PO PRN (17:17)
[2022-05-30 19:25] VITALS: BMI 22.7
[2022-05-30] MEDS ORDERED: ZOLPIDEM TARTRATE 5 MG TABLET PO PRN (22:00)
[2022-05-30] MEDS: APIXABAN 5 MG TABLET PO SCH (22:07)
[2022-05-30] MEDS: SENNOSIDES 8.6MG TABLET (FP) PO SCH (22:08)
[2022-05-30] MEDS: GABAPENTIN 100 MG CAPSULE PO SCH (22:08)
[2022-05-30] MEDS: BACLOFEN 10 MG TABLET (FP) PO SCH (22:08)
[2022-05-30] MEDS: TIZANIDINE HCL 4 MG TABLET PO SCH (22:18)
[2022-05-31 08:58] LABS: BASO % 0.7 % (0-2.0); EOS % 3.1 % (0-4.5); HEMATOCRIT 37.4 % (32.4-45.2); HEMOGLOBIN 12.5 GM/dL (10.7-15.3); LYMPH % 44.8 % (8-40); MCH 29.5 pg (25.7-33.7); MCHC 33.5 g/dl (32.0-36.0); MEAN CELL VOLUME 88.2 fl (80-96); MEAN PLT VOLUME 9.4 fl (7.5-11.1); MONO % 9.7 % (3.8-10.2); NEUT % 41.7 % (42.8-82.8); PLATELET COUNT 239 10^3/uL (134-434); RBC 4.24 M/mm3 (3.60-5.2); RDW 14.4 % (11.6-15.6); WHITE BLOOD COUNT 6.1 K/mm3 (4.0-10.0)
[2022-05-31 09:17] LABS: CALCIUM 9.2 mg/dL (8.5-10.1)
[2022-05-31 09:18] LABS: BLOOD UREA NITROGEN 19.3 mg/dL (7-18)
[2022-05-31 09:21] LABS: CREATININE 1.1 mg/dL (0.55-1.3)
[2022-05-31] MEDS: BACLOFEN 10 MG TABLET (FP) PO SCH ×2 (09:51→21:19)
[2022-05-31] MEDS: APIXABAN 5 MG TABLET PO SCH ×2 (09:51→21:19)
[2022-05-31] MEDS: ESCITALOPRAM OXALATE 10 MG TABLET PO SCH (09:51)
[2022-05-31] MEDS: POLYETHYLENE GLYCOL (HEALTHYLAX) 3350 17 GM PACKET PO SCH (09:51)
[2022-05-31] MEDS: CEFTRIAXONE 2 GM in DEXTROSE 5%-WATER 100 ML IVPB SCH (09:51)
[2022-05-31] MEDS: GABAPENTIN 100 MG CAPSULE PO SCH ×2 (09:54→21:19)
[2022-05-31] MEDS: PANTOPRAZOLE 40 MG TABLET PO SCH (09:55)
[2022-05-31] MEDS: TIZANIDINE HCL 4 MG TABLET PO SCH ×2 (10:43→21:19)
[2022-05-31] MEDS: SENNOSIDES 8.6MG TABLET (FP) PO SCH (21:19)
[2022-06-01] MEDS: PANTOPRAZOLE 40 MG TABLET PO SCH (09:17)
[2022-06-01] MEDS: TIZANIDINE HCL 4 MG TABLET PO SCH ×2 (09:17→21:26)
[2022-06-01] MEDS: BACLOFEN 10 MG TABLET (FP) PO SCH ×2 (09:18→21:25)
[2022-06-01] MEDS: APIXABAN 5 MG TABLET PO SCH ×2 (09:18→21:25)
[2022-06-01] MEDS: GABAPENTIN 100 MG CAPSULE PO SCH ×2 (09:18→21:25)
[2022-06-01] MEDS: ESCITALOPRAM OXALATE 10 MG TABLET PO SCH (09:19)
[2022-06-01] MEDS: POLYETHYLENE GLYCOL (HEALTHYLAX) 3350 17 GM PACKET PO SCH (09:22)
[2022-06-01] MEDS: CEFTRIAXONE 2 GM in DEXTROSE 5%-WATER 100 ML IVPB SCH (09:22)
[2022-06-01] MEDS ORDERED: ONDANSETRON 4 MG TABLET PO PRN (14:07)
[2022-06-01] MEDS ORDERED: oxyCODONE HCL 5 MG TABLET PO PRN (14:07)
[2022-06-01] MEDS ORDERED: ZOLPIDEM TARTRATE 5 MG TABLET PO PRN (14:07)
[2022-06-01] MEDS ORDERED: TRIMETHOBENZAMIDE HCL 200MG/2ML INJ IM PRN (20:48)
[2022-06-01] MEDS ORDERED: SENNOSIDES 8.6MG TABLET (FP) PO SCH (22:00)
[2022-06-02 07:25] LABS: ALBUMIN 3.1 g/dl (3.4-5.0); CALCIUM 9.5 mg/dL (8.5-10.1)
[2022-06-02 07:26] LABS: BLOOD UREA NITROGEN 21.7 mg/dL (7-18); MAGNESIUM 2.6 mg/dL (1.8-2.4)
[2022-06-02 07:28] LABS: CREATININE 1.1 mg/dL (0.55-1.3)
[2022-06-02 07:29] LABS: PHOSPHOROUS 3.6 mg/dL (2.5-4.9)
[2022-06-02 07:30] LABS: BILIRUBIN,TOTAL 0.3 mg/dL (0.2-1); TOT PROT 7.1 g/dl (6.4-8.2)
[2022-06-02 08:17] LABS: HEMATOCRIT 40.4 % (32.4-45.2); HEMOGLOBIN 13.4 GM/dL (10.7-15.3); MCH 29.3 pg (25.7-33.7); MCHC 33.2 g/dl (32.0-36.0); MEAN CELL VOLUME 88.3 fl (80-96); MEAN PLT VOLUME 9.5 fl (7.5-11.1); PLATELET COUNT 242 10^3/uL (134-434); RBC 4.58 M/mm3 (3.60-5.2); RDW 14.6 % (11.6-15.6)
[2022-06-02] MEDS: APIXABAN 5 MG TABLET PO SCH (09:28)
[2022-06-02] MEDS: GABAPENTIN 100 MG CAPSULE PO SCH (09:29)
[2022-06-02] MEDS: BACLOFEN 10 MG TABLET (FP) PO SCH (09:29)
[2022-06-02] MEDS: TIZANIDINE HCL 4 MG TABLET PO SCH (09:29)
[2022-06-02] MEDS ORDERED: CEPHALEXIN MONOHYDRATE 500 MG CAPSULE (UD) PO SCH ×2 (10:00)
[2022-06-02] MEDS ORDERED: ESCITALOPRAM OXALATE 10 MG TABLET PO SCH (10:00)
[2022-06-02] MEDS ORDERED: PANTOPRAZOLE 40 MG TABLET PO SCH (10:00)
[2022-06-02] MEDS ORDERED: POLYETHYLENE GLYCOL (HEALTHYLAX) 3350 17 GM PACKET PO SCH (10:00)
[2022-06-02 14:33] VITALS: BP 115/55; PULSE 80; RESP 20; TEMP 98.2
== END 2022-06-02 14:44 | disposition home or self-care (01) | DRG 689 ==
LOC: JER 12:48 → UNDOADMOB 16:42 → JERBED 16:42 → INTOOBSV 16:42 → JERBED 17:20 → J6S 19:53 → J4W 06-01 13:09 → OBSVTOIN 06-01 13:57
PROVIDERS: ADMIT Internal Medicine; ATTEND Internal Medicine
DX: N39.0 Urinary tract infection, site not specified (principal); G93.41 Metabolic encephalopathy; G35 Multiple sclerosis; G83.9 Paralytic syndrome, unspecified; I10 Essential (primary) hypertension; R41.82 Altered mental status, unspecified; I48.91 Unspecified atrial fibrillation; R00.1 Bradycardia, unspecified; B96.20 Unspecified Escherichia coli [E. coli] as the cause of diseases classified elsewhere; B96.1 Klebsiella pneumoniae [K. pneumoniae] as the cause of diseases classified elsewhere; K21.9 Gastro-esophageal reflux disease without esophagitis
CPT/HCPCS: 0241U-QW; 36415; 70450-TC; 71045-TC-FY; 76775-TC; 80048; 80053; 81003; 82803; 82962; 83605; 83735; 84100; 84439; 84443; 84484; 85025; 85027; 85610; 85730; 87040; 87086; 87186; 93005; 93010; 94010; 99285-25; G0378; J0475